=== PATIENT | female | born 1975 | race Caucasian/White ===

== ENCOUNTER → 2018-05-01 10:44 | Outpatient (CLI) | payer OTHER, SELFPAY | PROVIDERS: Family Provider Family Medicine; PCP Family Medicine; Visit Provider Obstetrics & Gynecology | DX: Z12.31 Encounter for screening mammogram for malignant neoplasm of breast (principal) | CPT/HCPCS: 77063; 77067 ==

== ENCOUNTER → 2018-07-03 10:55 | Outpatient (CLI) | payer OTHER, SELFPAY ==
[2018-07-03 11:19] LABS: Absolute Lymphocyte Count 1.51 X10^3/ul (0.83-4.51); Absolute Neutrophil Count 5.9 X10^3/uL (2.0-7.7); Basophil# 0.03 X10^3/uL; Basophil% 0.4 % (0-1); Eosinophil# 0.05 X10^3/uL; Eosinophils% 0.6 % (0-5); Hemoglobin 12.9 g/dl (12.0-15.0); Lymphocyte # 1.51 X10^3/ul (4.0); Lymphocyte % 18.3 % (19-41); Mean Corp Hgb Conc 32.3 g/gl (32-36); Mean Corpuscular Volume 86.8 fL (81-99); Mean Platelet Vol. 9.7 fl (6.2-12.0); Monocyte# 0.68 X10^3/uL; Monocyte% 8.3 % (0-10); Neutrophil # 5.94 X10^3/uL (2.7-7.7); Platelet Count 322 K/mm3 (150-450); RBC Distribution Width CV 13.1 % (11.6-14.6); RBC Distribution Width SD 40.5 fl (35.1-43.9); Red Blood Count 4.61 M/mm3 (4.2-5.4); White Blood Count 8.2 K/mm3 (4.4-11.0)
[2018-07-03 11:21] LABS: POSITIVE COUNT NO; POSITIVE DIFFERENTIAL NO; POSITIVE MORPHOLOGY NO
[2018-07-03 11:58] LABS: Thyroid Stim Hormone (TSH) 1.46 uIU/mL (0.358-3.74)
[2018-07-05 11:00] LABS: Testosterone Free 3.7 pg/mL (0.0-4.2)
[2018-07-07 15:17] LABS: HPV APTIMA, High Risk Negative (Negative)
== END ==
PROVIDERS: Family Provider Family Medicine; PCP Family Medicine; Referring Provider Obstetrics & Gynecology; Visit Provider Obstetrics & Gynecology
DX: Z12.4 Encounter for screening for malignant neoplasm of cervix (principal); N93.9 Abnormal uterine and vaginal bleeding, unspecified
CPT/HCPCS: 36415; 84402; 84443; 85025; 87624; 88175; G0145

== ENCOUNTER → 2018-07-07 12:40 | Outpatient (CLI) | payer OTHER, SELFPAY ==
--- NOTE | 2018-07-07 12:41 | US_ITS ---
STUDY: ULTRASOUND TRANSVAGINAL CLINICAL: Female, 42 years old. Irregular menses. TECHNIQUE: Transvaginal COMPARISON: None. FINDINGS: Normal uterine size measuring 9.4 cm in maximal craniocaudal dimension. There are no myometrial masses. The myometrium is mildly heterogenous. There are nabothian cysts present. Normal endometrial thickness measuring 6.7 mm. There are no endometrial masses, and there is no fluid in the endometrial cavity. Normal right ovary, measuring 3.6 x 2.6 x 2.1 cm. There are multiple follicles without a dominant cyst. Normal left ovary, measuring 3.4 x 3.1 x 2.0 cm. There are multiple follicles without a dominant cyst. There is trace free fluid in the pelvis. Polycystic ovary disease: No. US/Pelvic (Non ) IMPRESSION: Mildly heterogenous myometrium may reflect underlying adenomyosis. Electronically Signed: Emely Newby MD at 16:23 EDT Tel , Service support ,
--- NOTE | 2018-07-07 12:41 | US_ITS ---
STUDY: ULTRASOUND TRANSVAGINAL CLINICAL: Female, 42 years old. Irregular menses. TECHNIQUE: Transvaginal COMPARISON: None. FINDINGS: Normal uterine size measuring 9.4 cm in maximal craniocaudal dimension. There are no myometrial masses. The myometrium is mildly heterogenous. There are nabothian cysts present. Normal endometrial thickness measuring 6.7 mm. There are no endometrial masses, and there is no fluid in the endometrial cavity. Normal right ovary, measuring 3.6 x 2.6 x 2.1 cm. There are multiple follicles without a dominant cyst. Normal left ovary, measuring 3.4 x 3.1 x 2.0 cm. There are multiple follicles without a dominant cyst. There is trace free fluid in the pelvis. Polycystic ovary disease: No. US/Transvaginal Non- IMPRESSION: Mildly heterogenous myometrium may reflect underlying adenomyosis. Electronically Signed: Emely Newby MD at 16:23 EDT Tel , Service support ,
== END ==
PROVIDERS: Family Provider Family Medicine; PCP Family Medicine; Referring Provider Obstetrics & Gynecology; Visit Provider Obstetrics & Gynecology
DX: N93.9 Abnormal uterine and vaginal bleeding, unspecified (principal)
CPT/HCPCS: 76830; 76856

== ENCOUNTER 2018-07-11 12:07 | Outpatient (RCR) | payer OTHER, SELFPAY | END 2018-07-12 23:59 | LOC: NS 12:07 | PROVIDERS: Family Provider Family Medicine; PCP Family Medicine; Visit Provider Obstetrics & Gynecology | DX: E66.9 Obesity, unspecified (principal); Z68.37 Body mass index [BMI] 37.0-37.9, adult; Z71.3 Dietary counseling and surveillance | CPT/HCPCS: 97802; 97803 ==

== ENCOUNTER → 2018-07-12 10:02 | Outpatient (CLI) | payer OTHER, SELFPAY ==
[2018-07-12 12:44] LABS: Hemoglobin A1c 5.6 % (4.2-6.3)
[2018-07-12 12:58] LABS: Anion Gap 10 (5-15); BUN 16 mg/dL (7-18); BUN/Creat Ratio 20.9 RATIO (10-20); Calcium,Total 9.2 mg/dL (8.5-10.1); Chloride 102 mmol/L (98-107); Cholesterol 176 mg/dL (200); Creatinine, Serum 0.76 mg/dL (0.55-1.02); EST Glomerular Filtration Rate 87 mL/min (>60); Est Glom Filt Rate - Afr Amer 106 mL/min (>60); Glucose 87 mg/dL (74-106); High Density Lipoprotein 40 mg/dL; Potassium 4.5 mmol/L (3.5-5.1); Sodium Level 138 mmol/L (136-145); Thyroid Stim Hormone (TSH) 1.33 uIU/mL (0.358-3.74); Triglycerides 160 mg/dL; Very Low Density Lipoprotein 32 mg/dL (5-40)
== END ==
PROVIDERS: Family Provider Family Medicine; PCP Family Medicine; Visit Provider Family Medicine
DX: R03.0 Elevated blood-pressure reading, without diagnosis of hypertension (principal); E66.9 Obesity, unspecified
CPT/HCPCS: 36415; 80048; 80061; 83036; 84443

== ENCOUNTER 2018-07-25 12:57 | Outpatient (RCR) | payer OTHER, SELFPAY | END 2018-08-11 23:59 | LOC: NS 12:57 | PROVIDERS: Family Provider Family Medicine; PCP Family Medicine; Visit Provider Obstetrics & Gynecology | DX: E66.9 Obesity, unspecified (principal); Z68.37 Body mass index [BMI] 37.0-37.9, adult; Z71.3 Dietary counseling and surveillance | CPT/HCPCS: 97803 ==

== ENCOUNTER 2018-08-14 10:55 | Outpatient (RCR) | payer OTHER, SELFPAY ==
[2018-07-20 08:54] VITALS: BMI 37.4
== END 2018-09-11 23:59 ==
LOC: NS 10:55
PROVIDERS: Family Provider Family Medicine; PCP Family Medicine; Visit Provider Obstetrics & Gynecology
DX: E66.9 Obesity, unspecified (principal); Z68.37 Body mass index [BMI] 37.0-37.9, adult; Z71.3 Dietary counseling and surveillance
CPT/HCPCS: 97803

== ENCOUNTER 2018-09-18 09:05 | Outpatient (RCR) | payer OTHER, SELFPAY ==
[2018-08-30 10:49] VITALS: BMI 46.5
== END 2018-09-18 23:59 ==
LOC: NS 09:05
PROVIDERS: Family Provider Family Medicine; PCP Family Medicine; Visit Provider Obstetrics & Gynecology
DX: E66.9 Obesity, unspecified (principal); Z68.37 Body mass index [BMI] 37.0-37.9, adult; Z71.3 Dietary counseling and surveillance
CPT/HCPCS: 97803

== ENCOUNTER → 2019-01-31 10:05 | Outpatient (CLI) | payer OTHER, SELFPAY ==
[2018-10-18 09:29] VITALS: BMI 46.5
--- NOTE | 2019-01-31 10:45 | MRI_ITS ---
STUDY: MRI LEFT FOREFOOT WITHOUT CONTRAST REASON FOR EXAM: Hallux valgus deformity and surgery of the second toe for dislocation 10 years ago, evaluate plantar plate tear of the second metatarsophalangeal joint. TECHNIQUE: Standardized fat and water weighted pulse sequences were obtained in all 3 orthogonal planes. COMPARISON: None. FINDINGS: There is mild arthrosis with mild chondral thinning of the metatarsophalangeal joint of the hallux (T1 sagittal images 5, 6) and hallux valgus deformity. There are lateral subluxations of the sesamoids (T1 series 7 image 20). Normal interphalangeal joint of the hallux. Normal proximal and distal phalanges of the great toe. Normal medial and lateral heads of the flexor hallucis brevis tendons. Normal flexor and extensor hallucis longus tendons. There is lateral and dorsal subluxation of the second metatarsophalangeal joint and mild arthrosis with mild chondral thinning (T2 series 6 image 12). There is a tear of the medial aspect of the plantar plate of the second metatarsophalangeal joint (inversion recovery sagittal image 10; T2 series 8 images 15, 16). There is lateral deviation of the second and third digits at the metatarsophalangeal joints. Normal fourth and fifth fifth metatarsophalangeal (MTP) joints. Normal interphalangeal joints of the second through fifth toes. Normal proximal, middle and distal phalanges of the second through fifth toes. There is mild intermetatarsal bursitis of the third webspace (T2 series 8 images 18, 19). Normal flexor and extensor tendons of the second through fifth toes. Normal visualized metatarsi. Normal intrinsic muscles of the forefoot. There is a lobulated ganglion cyst plantar to the first metatarsal diaphysis (T2 series 6 image 14) measuring 1.9 cm in length. There is a small ganglion cyst at the dorsal lateral aspect of the proximal diametaphysis of the third metatarsal (T2 series 6 image 12) measuring 0.5 cm in transverse dimension. MRI/Lower Ext/No Jt/w/o IMPRESSION: Tear of the plantar plate of the second metatarsophalangeal joint with lateral and dorsal subluxation and mild arthrosis of the second metatarsophalangeal joint. Mild arthrosis of the first metatarsophalangeal joint with hallux valgus deformity. Mild intermetatarsal bursitis of the third webspace. Ganglion cyst plantar to the first metatarsal diaphysis. Small ganglion cyst adjacent to the proximal third metatarsal. Electronically Signed: Niko Feliciano MD at 10:08 EDT Tel , Service support ,
== END ==
PROVIDERS: Family Provider Family Medicine; PCP Family Medicine; Referring Provider Podiatrist; Visit Provider Podiatrist
DX: S93.145A Subluxation of metatarsophalangeal joint of left lesser toe(s), initial encounter (principal); M20.12 Hallux valgus (acquired), left foot
CPT/HCPCS: 73718

== ENCOUNTER → 2019-02-21 15:10 | Outpatient (CLI) | payer OTHER, SELFPAY ==
[2018-10-18 09:29] VITALS: BMI 46.5
[2019-02-21 18:20] LABS: Absolute Lymphocyte Count 1.47 X10^3/ul (0.83-4.51); Absolute Neutrophil Count 6.6 X10^3/uL (2.0-7.7); Basophil# 0.02 X10^3/uL; Basophil% 0.2 % (0-1); Eosinophil# 0.11 X10^3/uL; Eosinophils% 1.2 % (0-5); Hematocrit 40.7 % (37-47); Hemoglobin 13.1 g/dl (12.0-15.0); Lymphocyte # 1.47 X10^3/ul (4.0); Lymphocyte % 16.5 % (19-41); Mean Corp Hgb Conc 32.2 g/gl (32-36); Mean Corpuscular Hgb 27.8 pg (27.0-32.0); Mean Corpuscular Volume 86.2 fL (81-99); Mean Platelet Vol. 10.7 fl (6.2-12.0); Monocyte# 0.69 X10^3/uL; Monocyte% 7.7 % (0-10); Neutrophil % 74.1 % (47-70); Platelet Count 298 K/mm3 (150-450); RBC Distribution Width CV 13.8 % (11.6-14.6); RBC Distribution Width SD 43.5 fl (35.1-43.9); Red Blood Count 4.72 M/mm3 (4.2-5.4); White Blood Count 8.9 K/mm3 (4.4-11.0)
[2019-02-21 18:21] LABS: POSITIVE COUNT NO; POSITIVE DIFFERENTIAL NO; POSITIVE MORPHOLOGY NO
[2019-02-21 18:48] LABS: ALB/GLOB Ratio 1.3 RATIO (0.9-2.4); AST(SGOT) 21 U/L (15-37); Alanine Aminotransfer ALT/SGPT 37 U/L (13-56); Albumin, Serum 4.1 g/dL (3.2-5.0); Alkaline Phosphatase 79 U/L (45-117); Anion Gap 6 (5-15); BUN 17 mg/dL (7-18); BUN/Creat Ratio 20.7 RATIO (10-20); Calcium,Total 8.8 mg/dL (8.5-10.1); Chloride 105 mmol/L (98-107); Creatinine, Serum 0.82 mg/dL (0.55-1.02); EST Glomerular Filtration Rate 80 mL/min (>60); Est Glom Filt Rate - Afr Amer 97 mL/min (>60); Globulin 3.1 g/dL (2.2-4.2); Glucose 111 mg/dL (74-106); Potassium 3.9 mmol/L (3.5-5.1); Protein, Total 7.2 g/dL (6.4-8.2); Sodium Level 138 mmol/L (136-145)
== END ==
PROVIDERS: Family Provider Family Medicine; PCP Family Medicine; Referring Provider Family Medicine; Visit Provider Family Medicine
DX: Z01.818 Encounter for other preprocedural examination (principal)
CPT/HCPCS: 36415; 80053; 85025

== ENCOUNTER 2019-03-02 05:41 | Day surgery (SDC) | payer OTHER, SELFPAY ==
[2018-10-18 09:29] VITALS: BMI 46.5
--- NOTE | 2019-02-26 09:52 | EKG12_ITS ---
Test Reason : PRE OP/PALPS Blood Pressure : / mmHG Vent. Rate : 074 BPM Atrial Rate : 074 BPM P-R Int : 136 ms QRS Dur : 100 ms QT Int : 360 ms P-R-T Axes : 028 013 029 degrees QTc Int : 399 ms Normal sinus rhythm Low voltage QRS Borderline ECG Confirmed by MANE HEALY, ZEFERINO ([id number]), state editor ELY BALL ([id number]) on 02/27/2019 9:34:15 AM Referred By: Kirk Tan Confirmed By:ZEFERINO GILLIAM MD
[2019-03-02 06:05] LABS: Internal QC Validated? YES +Cl - CLEAR BKGD; Pregnancy, Urine Negative Negative
[2019-03-02 06:06] VITALS: BP 123/76; PULSE 73; RESP 16; TEMP 37.1; O2SAT 99; BMI 37.3
[2019-03-02] MEDS: Cefazolin 2 GM in 0.9% Normal Saline 100 ML IV (07:29)
--- NOTE | 2019-03-02 07:30 | BUN_PTH ---
PATIENT: AMANDA WALKER LOC: [facility] [place] U#:[id number] AGE/SX: 43/F ROOM: RE03/02/[address]: Dr. Kirk Tan DPM : 1975 BED: DIS: 03/02/2019 SPEC #: [id number] RECD: 03/02/19 16:10 STATUS: DANNA REKylee #: [id number] KALPESH: 03/02/19 07:[address]: Kirk Tan DEPT: SURGICAL PATHOLOGY RECD BY: Graham Thompson ENTERED: 03/05/19 10:03 SP TYPE: BUNION DEWEY DR: MD Dr. Lupillo Menedz MD Tissues: A - Bony tissue, NOS B - Bone of foot, NOS Procedures: Decalcification bone/plaque Surgery Specimen Level III HEADER OPERATION: First metatarsal cuneiform Lapidus arthrodesis with possible first toe PRE-OP DIAGNOSIS: Osteoarthritis, hallux valgus TISSUE SUBMITTED: A. Left bunion, B. Second metatarsophalangeal joint MICROSCOPIC DIAGNOSIS A. Left bunion: Fragment of bone with reactive changes clinically compatible with bunion. B. Second metatarsal joint: Fragments of osteocartilage with synovial tissue showing reactive changes. FA:jarred 03/08/19 MICROSCOPIC DESCRIPTION Slides are reviewed. GROSS DESCRIPTION A - Received in fixative is one container labeled with the patient's name and designated left bunion. The specimen consists of a cristina-yellow portion of bone measuring 2.5 x 2 x 0.9 cm. Filling Hauler sections are submitted in one cassette after decalcification. B - Received in fixative is one container labeled with the patient's name and designated second metatarsophalangeal joint. The specimen consists of five cristina portions of bone measuring in aggregate 1.2 x 1.1 x 0.6 cm. The specimen is totally submitted in one cassette after decalcification. / CE:jarred 03/05/19 TC:5 CPT: 12013 x2, 13277 x2
--- NOTE | 2019-03-02 07:30 | RAD_ITS ---
STUDY: Intraoperative study LEFT FOOT fluoroscopy 4 views CLINICAL: Female, 43 years old. Intraoperative study TECHNIQUE: 4 fluoroscopic views view(s) of the foot. COMPARISON: None. FINDINGS: 4 fluoroscopic images of the foot are provided. This is a intraoperative series. The operative studies demonstrate hardware involving the distal third second and proximal first metatarsophalangeal joints. There is fusion of the tarsometatarsal joints of the first digit. RAD/Foot min 3 Views IMPRESSION: 4 fluoroscopic intraoperative images with surgery in progress for the left foot. 1.05 minutes of fluoroscopy time was recorded. Electronically Signed: Leslie Helms MD at 16:58 EDT Tel , Service support ,
[2019-03-02] MEDS: Bupivacaine Mpf 0.5% 30 ML VIAL (10:56)
[2019-03-02] MEDS: Bupivacaine 0.5% PF 10 ML VIAL (10:57)
--- NOTE | 2019-03-02 11:10 | DCINST_ITS ---
Discharge Diet: Light diet - advance as tolerated Discharge Activity: May Not Drive, Use Crutches Weight Bearing Status: No weight bearing - No weightbearing left foot Keep extremity elevated above heart level: Left Leg - Keep left foot elevated using pillows for at least 50 minutes of every hour Call your doctor if your incision/area has: Continuous Slow Oozing, Sudden Increased Bleeding, Foul Smelling Discharge Call your doctor if you observe: Fever of 101 or Higher, Coldness, Increased Pain, Shortness of breath, Chest pain, Increased palpitations (irregular heartbeat), Calf discomfort, Uncontrolled pain Cleanse incision/area with: Do not get Incision Wet, Keep Dressing Clean & Dry Allergies/Adverse Reactions: Allergies No Known Allergies Allergy (Verified 02/23/19 15:16) Medications to take at Discharge levonorgestrel 19.5 mcg/24 hrs (5 yrs) 52 mg intrauterine device 1 insert INTRAUTERINE ONCE 10/18/18 Citalopram [Celexa] 20 mg PO DAILY 02/23/19 Cefadroxil [Duracef] 500 mg PO Q12H #14 cap 03/02/19 Oxycodone HCl/Acetaminophen [Percocet 5-325 mg Tablet] 1 - 2 tab PO Q6H #40 tab 03/02/19 Rivaroxaban [Xarelto] 10 mg PO DAILY #14 tab 03/02/19 The following prescriptions were given: Cefadroxil [Duracef] 500 mg PO Q12H #14 cap Prescription Printed Oxycodone HCl/Acetaminophen [Percocet 5-325 mg Tablet] 1 - 2 tab PO Q6H #40 tab Prescription Printed Rivaroxaban [Xarelto] 10 mg PO DAILY #14 tab Prescription Printed Primary Care Physician: Shanique Castaneda MD [Primary Care Provider] - Test Results: Test results from this visit will be discussed in further detail at your follow- up appointment, if applicable. Please Follow Up With: Kirk Tan DPM When: within 1 week, sooner if needed.
--- NOTE | 2019-03-02 11:11 | PCM.OPRPT ---
Report of Operation Date of Procedure: 03/02/19 Pre-Operative Diagnosis: Hallux valgus bunion, left foot. 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 Deformed contracted 3rd toe, left Post-Operative Diagnosis: Same Surgery/Procedure Performed:: 1st metatarsal cueniform lapidus arthrodesis bunionectomy, left. 2nd metatarsal phalangeal joint implant arthroplasty, repair of plantar plate and deformity correction, left. 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 Campos Type of Anesthesia:: General, Local Specimen's removed: Bunion from left foot sent to pathology. Bone from left 2nd metatarsal head sent to pathology Estimated Blood Loss (mL): 20mL Description of Procedure: Indications: This is a 43 year old female with painful left foot. She has significant bunion deformity, as well as 2nd metatarsal phalangeal joint (MTPJ) arthritis, torn 2nd MTPJ plantar plate with significant deformity of the 2nd and 3rd toe. This has been treated with extensive conservative/nonsurgical management for many years, but symptoms persists and she continues to have limiting pain and symptoms. Given the findings and because she continues to have significant pain which is really bothering her and she is having difficulty with daily activities and shoes, she elected to undergo surgery. We discussed the procedures. We reviewed the rationale of each as well as the possible benefits, risks, goals and expectations of each.This was discussed with her in great detail, reviewed the possible benefits vs risks and potential complications. Typical post op recovery was reviewed with her. The consent forms were reviewed with her in detail, and she freely signed them. No guarantees were given nor implied. No warrantees were given. All of her questions were answered. Operative Procedure: The patient was brought back into the operating room and was placed on the operating room table in the supine position. She was carefully secured to the operating room table with a safety belt around her waist. A time out was performed and the patient was properly identified and the surgical plan was confirmed. The patient received 2 grams of IV Ancef for antibiotic prophylaxis. A well padded pneumatic tourniquet was applied around the left thigh. The patient did receive general anesthesia per the anesthesiologist. A total of 20mL of 0.5% Bupivacaine plain was given as a regional infiltrative nerve block around the left foot surgical sites after the overlying skin was cleansed with 70% isopropyl alcohol. The left foot was scrubbed, prepped, draped in the usual aseptic fashion. Attention was directed to the left foot. There is significant deformity of the 1-3 toes, with significant bunion deformity, hypermobile 1st ray, and gross instability to the 2nd and 3rd toes at MTPJ level. The left foot was elevated for 3 minutes and the left thigh pneumatic tourniquet was inflated to 350mmHg. Left foot bunion deformity: A linear longitudinal skin incision was medially along the medial 1st metatarsal cuneiform joint as well as overlying the 1st metatarsal phalangeal joint. This was done using a 15 blade. Careful dissection was completed down to the capsule of the 1st metatarsal cuneiform joint, and it was incised using a 15 blade and partially reflected exposing the joint surfaces. All cartilage from the joint surfaces (posterior aspect of the base of the 1st metatarsal and the anterior aspect of the medial cuneiform) were debrided away and was removed down to bleeding bone. This was done with a powered rasp as well as manually with a curette, being sure not to cause osteonecrosis. The site was flushed out with copious amounts of normal saline solution. The surfaces were fenestrated using a powered drill as well as with an osteotome to aid fusion. The 1st metatarsal was reduced into normal position. The site was fixated use rigid open reduction internal fixation, using 1 Arthrex plantar plate, using a total of 4 locking screws and 1 nonlocking compression screws. The compression screw was placed across the fusion site. There was good compression and bone to bone contract with the prepped fusion site, in good alignment. The fusion site was rigid and very stable. This was checked and confirmed with intraoperative fluoroscopy. There was noted to be a residual medial eminence to the 1st metatarsal head. Careful dissection was completed down to the 1st metatarsal phalangeal joint capsule and it was incised, it was partially reflected. The 1st MTPJ was visualized, there was some chronic degenerative changes noted to the joint cartilage with thinning present. The medial eminence of noted to have scar tissue around it. The site was flushed out with copious amounts of normal saline solution, and the medial eminence was resected using a powered sagittal saw, the bone was sent to pathology. There was also noted to be significant contracture of the cojoined tendon of the adductor hallucis preventing proper reduction of the hallux, therefore it was carefully released using a 15 blade. There was redundant capsule at the site was a medial capsulorraphy was completed, debulking the medial capsule and tightening it how it is suppose to be. This was done with 3-0 Vicryl. There was smooth gliding range of motion of the 1st metatarsal phalangeal joint. There was excellent alignment. The surgical site was flushed out with copious amounts of normal saline solution. Tissues were healthy and viable at this time. The joint capsules and subcutaneous tissue layers were reapproximated using 2-0 and 3-0 Vicryl and the skin was reapproximated using 4-0 Monocryl. Left 2nd MTPJ and 2nd toe: Using a 15 blade a longitudinal skin incision was overlying the dorsal aspect of the 2nd metatarsophalangeal joint (MTPJ). Careful blunt dissection was completed down through the subcutaneous layer to the dorsal 2nd MTPJ capsule. The capsule of the 2nd MTPJ was identified and was carefully incised dorsally, it was carefully reflected from the dorsal, medial and lateral aspect, exposing the 2nd metatarsal head and base of the proximal phalanx of the 2nd toe. There was noted to be significant degenerative changes of the 2nd metatarsal head with a central cartilage defect. There was significant osteophytes present to the 2nd metatarsal head. The cartilage on the base of the 2nd toe proximal phalanx was intact. A guide wire was placed centrally and perpendicular to the 2nd metatarsal head and was placed down the shaft of the 2nd metatarsal. This was checked using intraoperative fluoroscopy. A step drill was used to prepare the screw hole to the 2nd metatarsal head. The appropriate taper post fixation component was inserted in standard fashion. A reamer was using to remove the damaged cartilage to creat a socket for the implant. The excised bone / cartilage was sent to pathology for further evaluation. It is important to note that all osteophytes were removed from the 2nd metatarsal head. The Arthrosurface implant was ready to be inserted, however prior to this the plantar plate was visualized, it was noted that the plantar plate was torn at the level of the 2nd MTPJ with thickening present. The plantar plate of the 2nd MTPJ was reapproximated and repaired with the Arthrex CRP Scorpion hand piece and 0 FiberWire. The FiberWire was weaved through the plantar plate. Two drill holes were made to the base of the 2nd toe proximal phalanx extra-articular in standard fashion, and the FiberTape was placed through the drill holes. The base of the 2nd toe proximal phalanx was rasped on the plantar aspect to aid healing of the plantar plate to the base of the 2nd toe. The Arthrosurface implant was placed into the prepared distal 2nd metatarsal surface. It was tamped in place. It was noted to be stable and in good position, this was confirmed using intra operative fluoroscopy. The FiberTape was tied down overlying the dorsal aspect of the base of the proximal phalanx of the 2nd toe with the 2nd toe in plantarflexed position. At this time there was negative dorsal drawer and there was complete repair of the plantar plate. The toe had overall improved position however there was still significant lateral deviation present due to insufficiency of the medial 2nd MTPJ collateral ligament and flexor tendons, which were reconstructed and stabilized using an Arthrex internal brace. A drill hole was placed from dorsal to plantar at the level of the 2nd metatarsal shaft and FiberTape was pass through the drill hole from dorsal to plantar, and a BioComposite SwiveLock was placed to lock the FiberTape in place. A second drill hole was placed transversely through the shaft of the 2nd toe proximal phalanx and the FiberTape was passed from medial to lateral. The 2nd toe was placed in proper position tensioning the FiberTape, and securing this position with a BioComposite SwiveLock placed to the drill hole. The site was flushed out with copious amounts of normal saline solution. The joint capsule was reapproximated using 3-0 Vicryl, the subcutaneous tissue layer was reapproximated using 4-0 Vicryl, and the skin was reapproximated using 4-0 Monocryl. Left 3rd toe: Attention was directed to the 3rd toe. With the 1st and 2nd toes now in proper position there was large gap between the 2nd and 3rd toes with continued instability to the 3rd toe/3rd MTPJ. A longitudinal incision was made overlying the dorsal 3rd MTPJ. Careful dissection was completed down to the 3rd MTPJ capsule. There was noted to be significant contracture of the lateral 3rd MTPJ capsule which was released using a 15 blade. The extensor tendons to the 3rd toe were bowstring and very tight, they were lengthened with a 15 blade. The toe had overall improved position however there was still significant lateral deviation present due to insufficiency of the medial 2nd MTPJ collateral ligament and flexor tendons (the plantar plate was intact). These were reconstructed and stabilized using an Arthrex suture button internal brace. A drill hole was placed from dorsal to plantar at the level of the 3rd metatarsal shaft and FiberTape was pass through the drill hole from dorsal to plantar with suture button sitting on the dorsal 3rd metatarsal shaft. A second drill hole was placed transversely through the shaft of the 3rd toe proximal phalanx and the FiberTape was passed from medial to lateral. The 3rd toe was placed in proper position tensioning the FiberTape, and securing this position with a BioComposite SwiveLock placed to the drill hole. The site was flushed out with copious amounts of normal saline solution. The subcutaneous tissue layer was reapproximated using 3-0 Vicryl, and the skin was reapproximated using 4-0 Monocryl. At this time the 1st, 2nd and 3rd MTPJs and toes were in good position. They were put through range of motion and noted to be gliding smoothly. All fixation was stable and in good position. This was confirmed with intra operative fluoroscopy. Cavilon was painted to the sutured skin edges and steristrips were applied across the sutured skin incision. During this procedure an additional 15mL of 0.5% Bupivacaine plain was given as a regional infiltrative nerve block around the 1st, 2nd and 3rd ray surgical sites for further pain control. All vital structure, including all vital neurovascular structures were properly identified and protected as necessary throughout the procedure. Of note a left thigh pneumatic tourniquet was used. It was inflated at the beginning of the procedure after elevating the foot for 3 minutes. It was left down at 120 minutes. It remained down for 59 minutes and then re-inflated for an additional 30 minutes. At the end of the procedure when it was left down there was normal perfusion to the foot, including to all toes, with normal CFT. Temperature was normal. Hemostasis was achieved. A dressing was applied which consisted of Betadine soaked adaptic, 4x4 gauze, Kerlix and vishnu dressing to the left foot. The patient tolerated the above operative procedure well at the anesthesia well with no complications. The patient was transported to the recovery room with vital signs stable and in good condition. Post operative orders were placed. Post operative instructions were reviewed with her as well as with her who was with her today. No weightbearing left foot, keep left foot elevated for at least 50 minutes of every hour, keep dressing clean, dry and intact. Prescription for Percocet 5mg/325mg was prescribed: 1-2 tabs PO q 6 hours PRN pain for pain control. Also Xarelto 10mg once a day was prescribed to help prevent a blood clot. Cefadroxil 500mg PO q 12 hours to help prevent infection. Reviewed possible benefits vs risks of the medications with patient and her . Post operative xrays were obtained in the recovery room which confirmed 1st metatarsal phalangeal joint Lapidus arthrodesis bunionectomy, 2nd MTPJ implant arthroplasty and realignment of the 2nd and 3rd toes in good position. There was excellent bone to bone contract at the fusion site with no gapping and intact hardware. Otherwise no acute changes and stable xrays. Grafts/Implants Used: Arthrex plantar plate, arthrosurface implant, internal brace x 2 - Admit VTE Documentation VTE Pharm Prophylaxis ordered?: Yes
[2019-03-02 11:15] VITALS: BP 123/76; BP 132/74; PULSE 79; RESP 16; TEMP 36.1; O2SAT 98
[2019-03-02 11:30] VITALS: BP 116/67; BP 123/76; PULSE 73; PULSE 75; RESP 16; O2SAT 93; O2SAT 94
--- NOTE | 2019-03-02 11:43 | RAD_ITS ---
HISTORY: Status post surgery and oral area of left foot, follow-up XR Foot Min 3 Views TECHNIQUE: 3 views # of images incl. paperwork: 3 COMPARISON: Intraoperative spot views performed earlier same day. No other comparisons were provided. FINDINGS: Status post fusion of the first tarsometatarsal joint with transverse fusion screw through the first and second cuneiform bones. Screw arthrodesis of the second MTP. [place] pin head of third metatarsal. Alignment is satisfactory. Mild degenerative changes first MTP. Expected postoperative changes within the soft tissues. RAD/Foot min 3 Views IMPRESSION: 1. Status post ORIF of the left foot as described above with satisfactory alignment. at 1356 Reported and signed by: Valerio Hahn MD Electronically Signed: Valerio Hahn MD at 13:55 EDT Tel , Service support ,
[2019-03-02 11:45] VITALS: BP 122/73; BP 123/76; PULSE 74; RESP 16; O2SAT 94
[2019-03-02 12:01] VITALS: BP 118/75; BP 123/76; PULSE 74; RESP 16; TEMP 36.1; O2SAT 92
[2019-03-02 14:26] VITALS: BP 117/71; BP 123/76; PULSE 78; RESP 16; TEMP 36.6; O2SAT 96
== END 2019-03-02 14:58 | disposition home or self-care (01) ==
LOC: SDC 05:41 → AC 05:42
PROVIDERS: Family Provider Family Medicine; PCP Family Medicine; Referring Provider Podiatrist; Visit Provider Podiatrist
PROC: (CPT 28292; principal; 2019-03-02 07:15)
DX: M20.12 Hallux valgus (acquired), left foot (principal); M21.612 Bunion of left foot; M19.072 Primary osteoarthritis, left ankle and foot; M20.5X2 Other deformities of toe(s) (acquired), left foot; S93.525A Sprain of metatarsophalangeal joint of left lesser toe(s), initial encounter; X58.XXXA Exposure to other specified factors, initial encounter; F41.9 Anxiety disorder, unspecified; F32.9 Major depressive disorder, single episode, unspecified; E66.9 Obesity, unspecified; Z68.37 Body mass index [BMI] 37.0-37.9, adult; Z79.899 Other long term (current) drug therapy
CPT/HCPCS: 28270; 28297; 28899; 73630; 76000; 81025; 88304; 88311; 93005; C1713; C1776; J7120; J2405

== ENCOUNTER 2019-05-11 09:30 | Outpatient (RCR) | payer OTHER, SELFPAY ==
[2018-10-18 09:29] VITALS: BMI 46.5
--- NOTE | 2018-12-13 12:04 | HP.PTCOM ---
PT Communication Note 12/13/[address] 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 She was reviewing her insurance coverage without front desk specialist and decided to hold off on PT and attempt the use of her pain relieving cream. We will hold onto her order if she decides to attempt to resume PT later. Thank you again for this referral. Sincerely, Oleksandr Trevizo DPT Contact Information
--- NOTE | 2018-12-13 12:07 | HP.PTCOM_ITS ---
PT Communication Note 12/13/[address] 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 We will hold onto her order if she decides to attempt to resume PT later. Thank you again for this referral. Sincerely, Oleksandr Trevizo DPT Contact Information
--- NOTE | 2019-04-30 13:58 | HP.PTEVAL_ITS ---
Patient's Visit Information AMANDA WALKER is a 43 year old F referred to Physical Therapy by Kirk Tan DPM with a diagnosis of s/p Left Foot Surgery- see script for details. Date of Evaluation: 04/30/19 Physical Therapist: Ilene Gill DPT - Visit Plan Frequency: 2x /Week Duration: 4 Weeks Plan: Pt can be WB in shoe in clinic- focus on ROM, strength, balance and muscular endurance- caution of increased pain with WB through toes. 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 Surgery was March [address] Tan at [facility]- outpatient. 2 story home- was just able to start walking in the boot in the morning and evenings- stairs are challenging. Was non-weight for 4 weeks with an vishnu bandage- then placed her in a boot- crutches for a few days then used a knee walker. Slowed into WBAT in the boot. Is now in the boot 100% with no AD. Saw Dr. Tan 3 weeks ago x-rays everything looks great. He allows her to be out of the boot in the AM and PM but boot during the day. 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 Worst: 2/10 Agg: being up on it. There was some nerve damage on the 3rd toe and she can't bend it herself and it feels funny- and does have numbness along the outside of the foot. Describes the pain as dull and achy. Best: 0/10 Eases: getting off of her feet. Takes about 5-10 min then its painfree. Walks barefoot in her home and there is pain and as she uses it the pain diminishes- worse when she first gets on it. Pain is located along medial border of the foot and in the 2nd and 3rd toe. No problems with hot/cold sensations. Normal day she is always on the go but she does not do any exercise. 1/2 and 1/2 on whether in Nike sandles or heels. Did have custom orthotics leading to surgery but has not used them since surgery. Sleep: not disturbed- side and stomach sleeper. PMHx/Meds: not taking Citalopram other than that everything is the same. - Objective Posture:fair throughout treatment session. Gait: slightly antalgic- increased toe out on the right vs left (4 toes right- 0 toes left). Decreased stance phase on the left with poor heel/toe pattern. HR/TR: TR: diminished by 50%, HR: diminished by 25% pain with HR in metarsals. SLS: 6 seconds then LOB- righted by UE. Girth: Mall: 28.5 cm, Figure 8: 55 cm Mets: 24 cm. Palpation: tender along medial arch and 1st ray- tender along 2nd and 3rd metarsals- appropriate amount of movement in forefoot as per surgical allowance. ROM: DF: neutral, PF: 50 degrees, Inv: 40 Ever: 30 degrees. Strength: 5/5 throughout available range. Flex: HS: severe, Gastroc: severe Solues: mild - Goals Goal 1:: Patient will be I with HEP and progression Goal Time Frame: 4-6 Weeks Goal 2:: Patient will ambulate >300 feet with a normalized gait pattern Goal Time Frame: 4-6 Weeks Goal 3:: Patient will single leg stance for 30 sec without LOB and no increase in s/s in left LE Goal Time Frame: 4-6 Weeks Goal 4:: Patient will demo 10 degrees of DF to ease all ADL's Goal Time Frame: 4-6 Weeks - Rehabilitation Potential Physical Therapy Diagnosis: Patient presents with hypomobility s/p left foot surgery. She has decreased ROM, strength, flexibility and muscular endurance leading to abnormal gait pattern and decreased ability to peform painfree ADL's. Rehabilitation Potential: Good - Anticipated Interventions Patient/Client Instruction: Educate patient on: Benefits of Fitness Program Therapeutic Exercise to Include: Strength training, Endurance training, Balance training, Body mechanics, Postural training, Flexibilty training, Gait and locomotor training, Dynamic Lumbar Stabilization For the Purpose of:: To improve muscle performance and motor function Functional Training to Include: Gait training Cryotherapy (ice pack, ice massage): Yes Thermo therapy (hot pack): Yes Ultrasound (thermal/non thermal): No For the Purpose of:: To decrease pain, To decrease swelling/inflammation Thank you for the opportunity to evaluate your patient. For Medicare and Medicare HMO plans, please review the plan of care and approve it. It will need to be FAXED BACK to us at [phone] for Medicare purposes. For Medicare only, by signing this I certify the plan of care. Please let me know if there are questions or concerns regarding this plan of care. Physician Signature: Date:
--- NOTE | 2019-06-22 09:34 | HP.PTDCNRP_ITS ---
HP - Discharge Summary (1) - Patient Information AMANDA WALKER was seen in my office for initial evaluation on 04/30/19. The following Plan of Care was established for this patient: Initial Frequency: 2x /Week Initial Duration: 4 Weeks - Anticipated Interventions Patient/Client Instruction: Educate patient on: Benefits of Fitness Program Therapeutic Exercise to Include: Strength training, Endurance training, Balance training, Body mechanics, Postural training, Flexibilty training, Gait and locomotor training, Dynamic Lumbar Stabilization For the Purpose of:: To improve muscle performance and motor function Functional Training to Include: Gait training Cryotherapy (ice pack, ice massage): Yes Thermo therapy (hot pack): Yes Ultrasound (thermal/non thermal): No For the Purpose of:: To decrease pain, To decrease swelling/inflammation This patient was last seen in our office . Pertinent comments regarding their Physical therapy will appear below: Patient has not attended PT in 4 weeks and is appropriate for d/c- return to MD for further evaluation as needed. At this point I will be discontinuing this patient from physical therapy. I would be happy to see this patient again in the future if found appropriate by t he physician. Thank you! GATO HectorT
== END 2019-05-11 19:00 | disposition home or self-care (01) ==
LOC: PT 09:30
PROVIDERS: Family Provider Family Medicine; PCP Family Medicine; Referring Provider Podiatrist; Visit Provider Podiatrist
DX: Z98.890 Other specified postprocedural states (principal)
CPT/HCPCS: 97110; 97140; 97162

== ENCOUNTER 2020-01-15 22:52 | Observation (INO) | payer OTHER, SELFPAY ==
[2020-01-15 22:53] VITALS: BP 131/87; PULSE 105; RESP 19; TEMP 36.6; O2SAT 100; BMI 32.0
--- NOTE | 2020-01-15 23:06 | EKG12_ITS ---
Test Reason : ABD PAIN Blood Pressure : / mmHG Vent. Rate : 073 BPM Atrial Rate : 073 BPM P-R Int : 134 ms QRS Dur : 104 ms QT Int : 394 ms P-R-T Axes : 003 020 049 degrees QTc Int : 434 ms Normal sinus rhythm Normal ECG Confirmed by RACHELLE MURPHY ([id number]), household chores LIBIA WHARTON ([id number]) on 01/17/2020 3:02:33 PM Referred By: MAURICIO Confirmed By:RACHELLE MURPHY
--- NOTE | 2020-01-15 23:06 | US_ITS ---
STUDY: ABDOMINAL ULTRASOUND - RIGHT UPPER QUADRANT REASON FOR VISIT: Female, 44 years old EPIGASTRIC SEVERE JUST TODAY TECHNIQUE: Ultrasound evaluation of the right upper quadrant was performed with real-time and static jay-scale imaging. TECHNICAL QUALITY: Adequate. COMPARISON: None. FINDINGS: Liver: The liver measures 16.8 cm. There is normal echogenicity of the liver. The bile ducts are within normal limits. There is hepatic color flow. The direction of portal flow is hepatopetal. There is no demonstrated mass lesion. Gallbladder: Normal distended gallbladder. The gallbladder wall measures 3 mm. There is a positive sonographic Montaño''s sign. There is no pericholecystic fluid. Several small shadowing stones. Common Bile Duct (C.B.D.): The common bile duct measures 4 mm. Pancreas: Demonstrated portions of the pancreas are unremarkable. The tail is not seen. Right Kidney: Normal size of the right kidney. The right kidney measures 10.9 x 5.2 x 4.3 cm. Normal renal cortex. The right cortex measures 2 cm. There is no demonstrated renal mass or cyst. There is no right hydronephrosis. US/Abdomen Limited IMPRESSION: 1. Cholelithiasis and positive sonographic Montaño''s sign consistent with acute cholecystitis. Electronically Signed: Regina Bhatia MD at 23:48 EDT Tel , Service support ,
--- NOTE | 2020-01-15 23:08 | ED.VIS.GEN ---
History of Present Illness Chief Complaint: Abd Pain Informant: Patient Onset: Today Current Severity: Severe Maximum Severity: Severe Narrative: Patient presents with upper abdominal pain that started around 4 PM this afternoon. It was not necessarily just after a meal. Pain does not radiate up into her chest. She has had nausea but no vomiting. She denies fever or chills. She is a history of diverticulitis but states she is never had pain in this area of her abdomen or the severe. No prior abdominal surgeries. She just finished her menstrual cycle for 5 days ago. 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 Denies: Vomiting, Diarrhea Genitourinary: Denies: Dysuria, Hematuria Musculoskeletal: Denies: Swelling, Extremity Pain Skin: Denies: Rash Neurological: Denies: Headache Hematologic: Denies: Easy bruising, Easy bleeding Allergy: Denies: Uticaria Physical Exam Vital Signs/Narrative: Vital Signs Temp Pulse Resp BP Pulse Ox 01/15/20 22:53 97.8 F 105 H 19 H 131/87 H 100 Inital Vital Signs reviewed: Yes General: Well nourished, Well developed, - - Uncomfortable and moaning Head: Normocephalic ENT: Moist mucous membranes Neck: Supple Cardiovascular: Regular rate, Regular rhythm Respiratory: No distress, CTA bilaterally Abdomen: Soft, Tender - Epigastric and right upper quadrant tenderness.. Negative for: Guarding, Rebound tenderness Extremities: Nontender Skin: Normal color Neurological: Alert, Oriented x3 Psychological: Normal affect Diagnostic/Tx/Re-eval Impressions Abdomen Ultrasound 01/15/20 23:06 IMPRESSION: 1. Cholelithiasis and positive sonographic Montaño''s sign consistent with acute cholecystitis. Electronically Signed: Regina Bhatia MD at 23:48 EDT Tel , Service support , 01/15/20 23:06 US Abd [Abdomen Limited] [US] Stat Laboratory Results 01/15/20 01/15/20 23:10 23:10 WBC 12.5 H RBC 4.52 Hgb 13.4 Hct 40.0 MCV 88.5 MCH 29.6 MCHC 33.5 RDW Std Deviation 39.8 RDW Coeff of Richie 12.2 Plt Count 259 MPV 10.0 Immature Gran % (Auto) 0.500 Neut % (Auto) 80.8 H Lymph % (Auto) 11.4 L [place] % (Auto) 6.5 Eos % (Auto) 0.4 Baso % (Auto) 0.4 Absolute Neuts (auto) 10.1 H Absolute Lymphs (auto) 1.43 Nucleated RBC % 0 Sodium 138 Potassium 3.9 Chloride 106 Carbon Dioxide 25.0 Anion Gap 7 BUN 8 Creatinine 0.80 Estim Creat Clear Calc 89.58 Est GFR (MDRD) Af Amer 100 Est GFR (MDRD) Non-Af 83 BUN/Creatinine Ratio 10.0 Glucose 156 H Calcium 9.1 Total Bilirubin 1.10 H Direct Bilirubin 0.40 H AST 124 H ALT 101 H Alkaline Phosphatase 88 Total Protein 7.1 Albumin 4.0 Globulin 3.1 Lipase 86 - EKG Initial EKG Interpretation: Sinus Rhythm - Sinus at 73 with no acute ischemia. - Medical Decision Making Patient was quite uncomfortable on arrival. She was given Dilaudid and Zofran. Test results are discussed with the patient. I spoke with Dr. Watson. He will admit the patient, keep her n.p.o., and repeat labs in the morning. He will see the patient in the morning to decide whether surgery will be indicated. ED Disposition - Plan for ED Patient: Disposition: Acute Care Hospital [facility] Diagnosis: Cholelithiasis Referrals: Shanique Castaneda MD [Primary Care Provider] -
[2020-01-15] MEDS: HYDROmorphone 0.5 MG/0.5 ML SYRINGE IV (23:11)
[2020-01-15] MEDS: Ondansetron 4 MG/2 ML Vial IV (23:11)
[2020-01-15] MEDS: 0.9% Normal Saline 1,000 ML 150 ML IV (23:16)
[2020-01-15 23:28] LABS: Absolute Lymphocyte Count 1.43 X10^3/uL (0.83-4.51); Absolute Neutrophil Count 10.1 X10^3/uL (2.0-7.7); Basophil# 0.05 X10^3/uL; Basophil% 0.4 % (0-1); Eosinophil# 0.05 X10^3/uL; Eosinophils% 0.4 % (0-5); Hemoglobin 13.4 g/dL (12.0-15.0); Lymphocyte # 1.43 X10^3/ul (4.0); Lymphocyte % 11.4 % (19-41); Mean Corp Hgb Conc 33.5 g/dL (32-36); Mean Corpuscular Hgb 29.6 pg (27.0-32.0); Mean Corpuscular Volume 88.5 fL (81-99); Monocyte# 0.82 X10^3/uL; Monocyte% 6.5 % (0-10); NRBC Flagged by Analyzer 0 % (0-5); Neutrophil # 10.13 X10^3/uL (2.7-7.7); Neutrophil % 80.8 % (47-70); Platelet Count 259 K/mm3 (150-450); RBC Distribution Width CV 12.2 % (11.6-14.6); RBC Distribution Width SD 39.8 fl (35.1-43.9); Red Blood Count 4.52 M/mm3 (4.2-5.4); White Blood Count 12.5 K/mm3 (4.4-11.0)
[2020-01-16] VITALS (19 sets, daily range): BP systolic 89–130; BP diastolic 53–83; PULSE 68–95; RESP 14–18; TEMP 36.5–37; O2SAT 96–100; BMI 31.5
--- NOTE | 2020-01-16 | GALL_PTH ---
PATIENT: AMANDA WALKER LOC: MS3 U#:[id number] AGE/SX: 44/F ROOM: MS319 RE01/16/[address]: Dr. Gunner Watson MD : 1975 BED: 1 DIS: 01/17/2020 SPEC #: [id number] RECD: 01/16/20 14:14 STATUS: DANNA REKylee #: [id number] KALPESH: 01/16/20 00:[address]: Gunner Watson DEPT: SURGICAL PATHOLOGY RECD BY: Florencio Haas ENTERED: 01/17/20 10:11 SP TYPE: LIZ PALOMO DR: Dr. Shanique Castaneda MD Tissues: Gallbladder, NOS Procedures: Surgery Specimen Level III HEADER OPERATION: Laparoscopic cholecystectomy with IOC PRE-OP DIAGNOSIS: Cholelithiasis, acute cholecystitis, choledocholithiasis TISSUE SUBMITTED: Gallbladder MICROSCOPIC DIAGNOSIS Gallbladder, cholecystectomy: Cholesterolosis, chronic cholecystitis and cholelithiasis. AM:jarred 01/18/20 MICROSCOPIC DESCRIPTION Slides are reviewed. GROSS DESCRIPTION Received is one container labeled with the patient's name and designated gallbladder. The specimen consists of a gallbladder measuring 6.5 cm in length and 2 cm in diameter. The external surface is pink-cristina, smooth and glistening for the most part. Focally it is granular, hemorrhagic and contains cautery artifact. A portion of cystic duct is also noted measuring 1 cm in length. The gallbladder contains a small amount of green-yellow mucoid bile and multiple mulberry, yellow stones measuring in aggregate 1 x 1.3 x 0.5 cm and 0.1 to 0.2 cm in greatest dimension. The mucosa also shows several yellowish streaks consistent with cholesterolosis. The mucosa is bile-stained and without any mass lesions. The gallbladder wall measures up to 0.2 cm in thickness. [employer] sections from the gallbladder and the cystic duct are submitted in one cassette. / SJ:jarred 01/17/20 TC:3 CPT: 47679
[2020-01-16 00:12] LABS: AST(SGOT) 124 U/L (15-37); Alanine Aminotransfer ALT/SGPT 101 U/L (13-56); Alkaline Phosphatase 88 U/L (45-117); Anion Gap 7 (5-15); BUN 8 mg/dL (7-18); Calcium,Total 9.1 mg/dL (8.5-10.1); Chloride 106 mmol/L (98-107); EST Glomerular Filtration Rate 83 mL/min (>60); Est Glom Filt Rate - Afr Amer 100 mL/min (>60); Estimated Creatinine Clearance 89.58 ml/min; Globulin 3.1 g/dL (2.2-4.2); Glucose 156 mg/dL (74-106); Lipase 86 U/L (73-393); Potassium 3.9 mmol/L (3.5-5.1); Protein, Total 7.1 g/dL (6.4-8.2); Sodium Level 138 mmol/L (136-145)
[2020-01-16 01:03] LABS: Internal QC Validated? YES +Cl - CLEAR BKGD; Pregnancy, Serum, hCG Quali. NEGATIVE Negative
[2020-01-16] MEDS: 0.9% Normal Saline 1,000 ML 100 ML IV ×3 (02:46→17:16)
[2020-01-16 07:29] LABS: Absolute Lymphocyte Count 0.94 X10^3/uL (0.83-4.51); Absolute Neutrophil Count 4.9 X10^3/uL (2.0-7.7); Basophil# 0.03 X10^3/uL; Basophil% 0.5 % (0-1); Eosinophil# 0.01 X10^3/uL; Eosinophils% 0.2 % (0-5); Hematocrit 38.7 % (37-47); Hemoglobin 12.6 g/dL (12.0-15.0); Lymphocyte # 0.94 X10^3/ul (4.0); Lymphocyte % 14.6 % (19-41); Mean Corp Hgb Conc 32.6 g/dL (32-36); Mean Corpuscular Hgb 29.4 pg (27.0-32.0); Mean Corpuscular Volume 90.2 fL (81-99); Mean Platelet Vol. 10.1 fl (6.2-12.0); Monocyte# 0.54 X10^3/uL; Monocyte% 8.4 % (0-10); NRBC Flagged by Analyzer 0 % (0-5); Neutrophil # 4.89 X10^3/uL (2.7-7.7); Platelet Count 237 K/mm3 (150-450); RBC Distribution Width CV 12.3 % (11.6-14.6); RBC Distribution Width SD 40.5 fl (35.1-43.9); Red Blood Count 4.29 M/mm3 (4.2-5.4); White Blood Count 6.4 K/mm3 (4.4-11.0)
[2020-01-16 07:51] LABS: ALB/GLOB Ratio 1.1 RATIO (0.9-2.4); AST(SGOT) 527 U/L (15-37); Alanine Aminotransfer ALT/SGPT 539 U/L (13-56); Albumin, Serum 3.3 g/dL (3.2-5.0); Alkaline Phosphatase 98 U/L (45-117); Anion Gap 5 (5-15); BUN 6 mg/dL (7-18); BUN/Creat Ratio 8.1 RATIO (10-20); Calcium,Total 8.2 mg/dL (8.5-10.1); Chloride 109 mmol/L (98-107); Creatinine, Serum 0.74 mg/dL (0.55-1.02); EST Glomerular Filtration Rate 90 mL/min (>60); Est Glom Filt Rate - Afr Amer 109 mL/min (>60); Estimated Creatinine Clearance 96.85 ml/min; Globulin 2.9 g/dL (2.2-4.2); Glucose 95 mg/dL (74-106); Lipase 59 U/L (73-393); Potassium 4.4 mmol/L (3.5-5.1); Protein, Total 6.2 g/dL (6.4-8.2); Sodium Level 141 mmol/L (136-145)
--- NOTE | 2020-01-16 08:26 | HP.PCM_ITS ---
Problem List (1) Acute cholecystitis Status: Acute (2) Choledocholithiasis with acute cholecystitis Status: Acute History of Present Illness Date of Admission: 01/16/20 The patient is a 44 year old F who began to have abdominal pain yesterday. She describes her pain in the epigastric region radiating to the back. She said that she did not have any vomiting. She denies any fevers or chills. Past Medical History Past Medical History (Chronic Problems): Chronic Problems (Last Reviewed 10/18/18 @ 08:42 by Valentina Joyce) Anxiety (Chronic) Hypertension (Chronic) ASCUS of cervix with negative high risk HPV (Chronic) repeat pap in 3 yr Medical History: Medical History (Last Reviewed 10/18/18 @ 08:42 by Valentina Joyce) Anxiety F41.9 Heart palpitations R00.2 Hypertension I10 Allergies No Known Allergies Allergy (Verified 01/15/20 22:56) Home Medications: Ambulatory Orders Medication Instructions Recorded Duloxetine HCl 60 mg PO DAILY 01/16/20 Surgical History: Surgical History (Last Reviewed 10/18/18 @ 08:42 by Valentina Joyce) H/O dilation and curettage Z98.890 2000 Smoking Status: Never smoker - *Family History Maternal History Items: No pertinent history Review of Systems Constitutional: Denies: Anorexia, Fever HEENT: Denies: Difficulty Swallowing Cardiovascular: Denies: Chest Pain Respiratory: Denies: Cough Gastrointestinal: Reports: Abdominal Pain. Denies: Vomiting Genitourinary: Denies: Dysuria Musculoskeletal: Denies: Arm Pain, Joint Tenderness Skin: Denies: Dryness Psychiatric: Denies: Anxiety, Depression Hematologic/ Lymphatic: Denies: Anemia VTE Information - Inpt Only VTE Present on Admission: No VTE Mechan Device Prophylaxis: SCD's Patient Problems: Active and Suspected Problems (Last Reviewed 10/18/18 @ 08:42 by Valentina Joyce) Cholelithiasis (Acute) Acute cholecystitis (Acute) Choledocholithiasis with acute cholecystitis (Acute) - Physical Exam Vitals/I&O's: Vital Signs Temp Pulse Resp BP Pulse Ox 97.9 F 74 16 98/53 L 97 01/16/20 06:35 01/16/20 06:35 01/16/20 06:35 01/16/20 06:35 01/16/20 06:35 Oxygen Delivery Method Room Air Weight: 207 lb 3.752 oz Body Mass Index (BMI) 31.5 Intake and Output for Last 24 Hours 01/14/20 01/15/20 01/16/20 23:59 23:59 23:59 Intake Total 1450 / 1450 Balance 1450 / 1450 General: Alert, Oriented x3 Neck: No JVD Lungs: Normal air movement Cardiovascular: Regular rate, Regular Rhythm Abdomen: Soft, Non Tender, Non-Distended Laboratory Results 01/15/20 23:10: WBC 12.5 H, RBC 4.52, Hgb 13.4, Hct 40.0, MCV 88.5, MCH 29.6, MCHC 33.5, RDW Std Deviation 39.8, RDW Coeff of Richie 12.2, Plt Count 259, MPV 10.0, Immature Gran % (Auto) 0.500, Neut % (Auto) 80.8 H, Lymph % (Auto) 11.4 L, [place] % (Auto) 6.5, Eos % (Auto) 0.4, Baso % (Auto) 0.4, Absolute Neuts (auto) 10.1 H, Absolute Lymphs (auto) 1.43, Nucleated RBC % 0 01/15/20 23:10: Sodium 138, Potassium 3.9, Chloride 106, Carbon Dioxide 25.0, Anion Gap 7, BUN 8, Creatinine 0.80, Estim Creat Clear Calc 89.58, Est GFR (MDRD) Af Amer 100, Est GFR (MDRD) Non-Af 83, BUN/Creatinine Ratio 10.0, Glucose 156 H, Calcium 9.1, Total Bilirubin 1.10 H, Direct Bilirubin 0.40 H, AST 124 H, ALT 101 H, Alkaline Phosphatase 88, Total Protein 7.1, Albumin 4.0, Globulin 3.1, Lipase 86 01/15/20 23:10: Serum , Qual NEGATIVE 01/16/20 06:55: WBC 6.4, RBC 4.29, Hgb 12.6, Hct 38.7, MCV 90.2, MCH 29.4, MCHC 32.6, RDW Std Deviation 40.5, RDW Coeff of Richie 12.3, Plt Count 237, MPV 10.1, Immature Gran % (Auto) 0.300, Neut % (Auto) 76.0 H, Lymph % (Auto) 14.6 L, [place] % (Auto) 8.4, Eos % (Auto) 0.2, Baso % (Auto) 0.5, Absolute Neuts (auto) 4.9, Absolute Lymphs (auto) 0.94, Nucleated RBC % 0 01/16/20 06:55: Sodium 141, Potassium 4.4, Chloride 109 H, Carbon Dioxide 27.0, Anion Gap 5, BUN 6 L, Creatinine 0.74, Estim Creat Clear Calc 96.85, Est GFR (MDRD) Af Amer 109, Est GFR (MDRD) Non-Af 90, BUN/Creatinine Ratio 8.1 L, Glucose 95, Calcium 8.2 L, Total Bilirubin 1.60 H, AST 527 H, ALT 539 H, Alkaline Phosphatase 98, Total Protein 6.2 L, Albumin 3.3, Globulin 2.9, Albumin/Globulin Ratio 1.1, Lipase 59 L Current Medications Acetaminophen (Tylenol) 650 mg PO Q4H PRN PRN PRN Reason: Pain (1-10/10) or Fever Sodium Chloride () 1,000 mls @ 150 mls/hr IV .Q6H40M [facility] Last Infusion: 01/16/20 06:21 Dose: Infused Documented by: Sodium Chloride () 1,000 mls @ 100 mls/hr IV .Q10H [facility] Last Admin: 01/16/20 06:16 Dose: 100 mls/hr Documented by: Piperacillin Sod/Tazobactam (Sod 3.375 gm/ Sodium Chloride) 50 mls @ 12.5 mls/hr IV Q8 [facility] Last Admin: 01/16/20 06:16 Dose: 12.5 mls/hr Documented by: Morphine Sulfate () 2 - 4 mg IV Q2H PRN PRN PRN Reason: Pain Score 4-10/10 Morphine Sulfate () 2 - 4 mg IV Q2H PRN PRN PRN Reason: Pain Score 4-10/10 Ondansetron HCl (Zofran) 4 mg IV Q6H PRN PRN PRN Reason: NAUSEA Sodium Chloride () 10 - 40 ml IV UD PRN PRN Reason: SALINE FLUSH Assessment/Plan All Active Problems (Last Reviewed 10/18/18 @ 08:42 by Valentina L Isiah) Diverticulitis (Resolved) Cholelithiasis (Acute) Acute cholecystitis (Acute) Choledocholithiasis with acute cholecystitis (Acute) Abnormal uterine bleeding (Acute) BMI 37.0-37.9, adult (Acute) 44-year-old female with right upper quadrant pain and possible choledocholithiasis 1. The patient was seen in the emergency room last night and she had an elevated white count as well as right upper quadrant epigastric pain. She reports that her pain dissipated overnight and currently she is not having any abdominal pain. She does not have any nausea or vomiting. This is never happened to her in the past. Her ultrasound showed cholelithiasis and her liver enzymes were slightly elevated yesterday. They are more elevated today. Given the fact that her liver enzymes are more elevated but her symptoms have re solved, I believe that the stone has either moved or passed. I will perform a laparoscopic cholecystectomy today with cholangiogram. If there is choledocholithiasis present I will take her for ERCP tomorrow. The plan was explained to the patient and she agrees. 2. I discussed the procedure in detail with the patient. I discussed the risks, benefits, and alternatives of the procedure. I also explained the possibility of a common duct exploration if choledocholithiasis is noted. I discussed the risks including but not limited to bleeding, infection, injury to surrounding organs such as the liver, bile duct, bowels. I did discuss the possibility of having to convert to an open procedure as well as the possibility that if any injuries occurred this may necessitate further surgery at a tertiary care center. Gunner Watson MD Pager: [facility] [address] [place] [address], [address] [place] [address] Office:
[2020-01-16] MEDS: 0.9% Saline Lock 10 ML Syringe IV ×3 (09:38→21:56)
[2020-01-16] MEDS: Morphine 2 MG/ML Syringe IV ×2 (09:39→21:56)
[2020-01-16] MEDS: Ondansetron 4 MG/2 ML Vial IV (09:43)
[2020-01-16] MEDS: Lactated Ringers 1,000 ML 100 ML IV (10:30)
--- NOTE | 2020-01-16 11:00 | RAD_ITS ---
STUDY: INTRAOPERATIVE CHOLANGIOGRAM. REASON FOR EXAM: Female, 44 years old. Acute cholecystitis -- unsuccessful attempt lap tavo TECHNIQUE: An intraoperative cholangiogram was performed. Contrast was injected. Imaging was submitted. COMPARISON: None. FINDINGS: The common bile duct is not dilated. No contrast is seen entering the duodenum. Retained calculus in the distal portion of the common bile duct should be excluded. RAD/Cholangiogram/ O R,Initial IMPRESSION: Findings suggestive of a retained calculus in the distal portion of the common bile duct. No contrast is seen entering the duodenum. Electronically Signed: Florian Bansla, at 13:38 EDT , Service support ,
[2020-01-16] MEDS: Bupiv/Epi 0.25% 30 ML Vial (13:22)
--- NOTE | 2020-01-16 14:21 | PCM.OPRPT ---
Problem List (1) Acute cholecystitis Status: Acute (2) Choledocholithiasis with acute cholecystitis Status: Acute Report of Operation Date of Procedure: 01/16/20 Pre-Operative Diagnosis: Acute cholecystitis with obstructive jaundice Post-Operative Diagnosis: Acute cholecystitis. Choledocholithiasis with obstruction Surgery/Procedure Performed:: Laparoscopic cholecystectomy with cholangiogram Specimen's removed: Gallbladder and contents Description of Procedure: After obtaining informed consent patient was brought back to the operating room. General anesthesia was induced. The abdomen was prepped and draped in usual sterile fashion. A small midline incision was made superior to the umbilicus and deepened to the level of fascia. The fascia was elevated and incised. Next the peritoneum was elevated and incised in the same fashion. Finger sweep was performed and the Fernandez trocar was placed into the abdomen. The balloon was inflated. The abdomen was inflated to 15 mmHg. Next a camera was introduced into the abdomen and the abdomen was inspected. Next under direct visualization three 5-mm ports were placed one subxiphoid and 2 subcostal. Next the gallbladder was elevated and retracted toward the right shoulder. The peritoneum was stripped from the gallbladder. The infundibulum was located and retracted laterally. Next the triangle of Calot was dissected and the cystic duct and cystic artery were identified. Cholangiograms were performed. The Giang clamp was used to clamp across the infundibulum and the catheter needle was inserted into the gallbladder. Under fluoroscopy contrast was instilled into the gallbladder and the common duct, cystic duct as well as proximal hepatic ducts were identified. There was no filling of the duodenum. There appeared to be a distal common bile duct obstruction. Glucagon was infused and there was still no clearance of the blockage.. The clamp was removed as well as the needle and the infundibulum was grasped once more. Common bile duct exploration was attempted. A clip was placed in the proximal cystic duct and a small annemarie was made in the cystic duct. An introducer was placed into the right upper quadrant and a guidewire was attempted to be placed into the cystic duct but this was unsuccessful due to the angle. Common duct exploration was aborted. Three hemolock clips were placed across the cystic duct. The cystic duct was then divided leaving 2 clips on the stump. The cystic artery was clipped and divided in the same fashion. The hook cautery was then used to take the gallbladder off of the gallbladder bed. Hemostasis was obtained. Gallbladder fossa was irrigated and no active bleeding or bile leakage was noted. Next the camera was introduced in the subxiphoid port. An Endopouch bag was placed through the umbilical port and the gallbladder was placed into it. The gallbladder was then removed through the umbilical incision. The camera was then reinserted through the umbilical port. The gallbladder fossa was inspected once more and noted to be hemostatic with no leaking bile. The abdomen was suctioned dry. The 5 mm ports were removed under direct visualization. The umbilical port was then removed and the air was removed from the abdomen. Next using an 0 Vicryl suture the umbilical fascia was closed in a [id number] fashion. The umbilical port site was irrigated local anesthetic was administered to all the incisions. All the incisions were closed with interrupted subcuticular 4-0 Monocryl sutures followed by Steri-Strips and dressings. The patient was awoken and taken to PACU in stable condition. - Admit VTE Documentation VTE Mechan Device Prophylaxis: SCD's
--- NOTE | 2020-01-16 14:24 | PCM.PN.BLA ---
Progress Note The patient had a laparoscopic cholecystectomy today. Cholangiograms revealed a distal common bile duct obstruction. This was unable to be pushed through using contrast with glucagon infusion. I discussed this with the patient in PACU after surgery as well as her . I discussed ERCP earlier in the day with her and she did understand that this was a possibility after surgery. I earlier today I did discuss that if she was obstructed during surgery I would recommend ERCP and I did discuss ERCP with her at that time. I discussed the risks including but not limited to bleeding, infection, perforation of the bile duct or bowel, pancreatitis. I discussed her cholangiogram with her and her following surgery and they agreed to proceed with ERCP today. I will take her back to surgery and perform an ERCP to relieve the obstruction. I did all for her and her the opportunity to wait until tomorrow for the ERCP but they elected to do it today to decrease hospital stay. Gunner Watson MD Pager: [facility] [address] [place] [address], [address] [place] [address] Office: [facility] Vital Signs/Narrative: Vital Signs Temp Pulse Resp BP Pulse Ox 01/16/20 14:15 85 16 128/76 H 100 01/16/20 14:00 87 16 128/78 H 100 01/16/20 13:45 79 16 129/77 H 100 01/16/20 13:34 98.5 F 78 16 125/77 H 100
--- NOTE | 2020-01-16 14:25 | SUR.PHASEI ---
endo nurses here to take pt to ERCP.
--- NOTE | 2020-01-16 14:50 | RAD_ITS ---
STUDY: ERCP REASON FOR EXAM: Female, 44 years old. STONE REMOVAL AND STENT PLACEMENT -- 3 FLUORO IMAGES, 248.4 FLUORO SEC, 57.77mGy TECHNIQUE: An ERCP was performed by the surgeon. Imaging was submitted. COMPARISON: Comparison is made with prior intraoperative cholangiogram examination dated January 16, 2020 FINDINGS: There is free flow of contrast into the duodenum. Stent placement. RAD/ERCP Biliary Only IMPRESSION: Successful stone removal and stent placement in the common bile duct. Electronically Signed: Florian Bansal, at 15:56 EDT , Service support ,
--- NOTE | 2020-01-16 16:09 | OP.ERCP_ITS ---
Patient Name: Laura Mei Procedure Date: 01/16/2020 2:31 PM Date of : 1975 Age: 44 Procedure: ERCP Indications: Common bile duct stone(s) Providers: Gunner Watson MD Medicines: General Anesthesia Patient Profile: This is a 44 year old female. Refer to note in patient chart for documentation of history and physical. Complications: No immediate complications. Estimated blood loss: Minimal. Procedure: Pre-Anesthesia Assessment: - Prior to the procedure, a History and Physical was performed, and patient medications and allergies were reviewed. The patient's tolerance of previous anesthesia was also reviewed. The risks and benefits of the procedure and the sedation options and risks were discussed with the patient. All questions were answered, and informed consent was obtained. Prior Anticoagulants: The patient has taken no previous anticoagulant or antiplatelet agents. After reviewing the risks and benefits, the patient was deemed in satisfactory condition to undergo the procedure. After obtaining informed consent, the scope was passed under direct vision. Throughout the procedure, the patient's blood pressure, pulse, and oxygen saturations were monitored continuously. The [id number] endoscope was introduced through the mouth, and advanced to the duodenum and used to inject contrast into the bile duct and ventral pancreatic duct. The ERCP was technically difficult and complex due to challenging cannulation. Successful completion of the procedure was aided by performing the maneuvers documented (below) in this report. The patient tolerated the procedure well. Scope In: 2:54:38 PM Scope Out: 3:37:08 PM Total Procedure Duration Time 0 hours 42 minutes 30 seconds Findings: 0.035 inch x 260 cm straight Hydra Jagwire was passed into the ventral pancreatic duct. The ventral pancreatic duct was then deeply cannulated. Contrast was injected. A 0.035 inch x 260 cm straight Dreamwire was passed into the biliary tree. The sphincterotome was passed over the guidewire and the bile duct was then deeply cannulated. Contrast was injected. The lower third of the main bile duct contained filling defect(s). Biliary sphincterotomy was made with a monofilament sphincterotome using ERBE electrocautery. There was no post-sphincterotomy bleeding. The biliary tree was swept with a 12 mm balloon starting at the bifurcation. One stone was removed. No stones remained. One 5 Fr by 3 cm temporary stent with a 3/4 external pigtail and no internal flaps was placed into the ventral pancreatic duct. Clear fluid flowed through the stent. The stent was in good position. Impression: - A filling defect was seen on the cholangiogram. - Choledocholithiasis was found. Complete removal was accomplished by biliary sphincterotomy and balloon extraction. - A biliary sphincterotomy was performed. - The biliary tree was swept. - One temporary stent was placed into the ventral pancreatic duct. Recommendation: - Return patient to [facility] for ongoing care. Procedure Code(s): --- Professional --- 34166, Endoscopic retrograde cholangiopancreatography (ERCP); with placement of endoscopic stent into biliary or pancreatic duct, including pre- and post-dilation and guide wire passage, when performed, including sphincterotomy, when performed, each stent [id number], 51, Endoscopic retrograde cholangiopancreatography (ERCP); with removal of calculi/debris from biliary/pancreatic duct(s) Diagnosis Code(s): --- Professional --- K80.50, Calculus of bile duct without cholangitis or cholecystitis without obstruction R93.2, Abnormal findings on diagnostic imaging of liver and biliary tract CPT copyright 2017 [employer]. All rights reserved. The codes documented in this report are preliminary and upon ecg technician review may be revised to meet current compliance requirements. Gunner Watson MD 01/16/2020 4:09:30 PM This report has been signed electronically. Number of Addenda: 0 Note Initiated On: 01/16/2020 2:31 PM
--- NOTE | 2020-01-16 16:10 | OP.CCLET_ITS ---
01/16/2020 Shanique Castaneda [address] [place] [address] Re : ERCP procedure for Laura Mei Dear Dr. Castaneda This procedure was performed on Thursday, January 16, 2020. My impressions and recommendations are as follows: Impressions : - A filling defect was seen on the cholangiogram. - Choledocholithiasis was found. Complete removal was accomplished by biliary sphincterotomy and balloon extraction. - A biliary sphincterotomy was performed. - The biliary tree was swept. - One temporary stent was placed into the ventral pancreatic duct. Recommendations : - Return patient to hospital [facility] for ongoing care. My findings are described in the full procedure note, which is enclosed. If I can be of further assistance, please feel free to contact me at Doctor phone number(s): , Work: . Sincerely, Gunner Watson MD 01/16/2020 4:09:30 PM This report has been signed electronically.
[2020-01-16] MEDS: oxyCODONE 5 MG Tablet PO (20:12)
[2020-01-16] MEDS: Acetaminophen 325 MG Tablet 650 MG PO (20:12)
[2020-01-17] MEDS: oxyCODONE 5 MG Tablet PO ×2 (01:59→06:45)
[2020-01-17] MEDS: Acetaminophen 325 MG Tablet 650 MG PO ×2 (01:59→06:45)
[2020-01-17] MEDS: 0.9% Normal Saline 1,000 ML 100 ML IV (02:00)
[2020-01-17 02:01] VITALS: BP 97/60; PULSE 67; RESP 16; TEMP 36.8; O2SAT 97
[2020-01-17 06:28] LABS: AST(SGOT) 257 U/L (15-37); Alanine Aminotransfer ALT/SGPT 475 U/L (13-56); Albumin, Serum 2.7 g/dL (3.2-5.0); Alkaline Phosphatase 105 U/L (45-117); Anion Gap 4 (5-15); BUN 4 mg/dL (7-18); BUN/Creat Ratio 5.8 RATIO (10-20); Calcium,Total 7.6 mg/dL (8.5-10.1); Chloride 109 mmol/L (98-107); Creatinine, Serum 0.69 mg/dL (0.55-1.02); EST Glomerular Filtration Rate 97 mL/min (>60); Est Glom Filt Rate - Afr Amer 118 mL/min (>60); Estimated Creatinine Clearance 103.86 ml/min; Globulin 2.7 g/dL (2.2-4.2); Glucose 81 mg/dL (74-106); Lipase 349 U/L (73-393); Potassium 3.7 mmol/L (3.5-5.1); Protein, Total 5.4 g/dL (6.4-8.2); Sodium Level 140 mmol/L (136-145)
[2020-01-17 06:40] VITALS: BP 96/54; PULSE 76; RESP 16; TEMP 36.6; O2SAT 96
[2020-01-17 09:16] VITALS: BP 87/42; PULSE 72; RESP 14; TEMP 36.6; O2SAT 98
--- NOTE | 2020-01-17 09:39 | PN.SURG_ITS ---
Patient Problems: Active and Suspected Problems (Last Reviewed 10/18/18 @ 08:42 by Valentina Joyce) Cholelithiasis (Acute) Acute cholecystitis (Acute) Choledocholithiasis with acute cholecystitis (Acute) Subjective: Patient is doing well and tolerating a diet with no abdominal pain. - Physical Exam Vitals/I&O's: Vital Signs Temp Pulse Resp BP Pulse Ox 97.9 F 72 14 87/42 L 98 01/17/20 09:16 01/17/20 09:16 01/17/20 09:16 01/17/20 09:16 01/17/20 09:16 Oxygen Flow Rate (L/min) 3 Oxygen Delivery Method Room Air Weight: 207 lb 3.752 oz Body Mass Index (BMI) 31.5 Intake and Output for Last 24 Hours 01/15/20 01/16/20 01/17/20 23:59 23:59 23:59 Intake Total 6225 / 6225 1523.33 / 1523.33 Balance 6225 / 6225 1523.33 / 1523.33 General: Alert, Oriented x3 Neck: No JVD Cardiovascular: Regular rate, Regular Rhythm Abdomen: Soft, Non-Distended Laboratory Results 01/17/20 05:34: Sodium 140, Potassium 3.7, Chloride 109 H, Carbon Dioxide 27.0, Anion Gap 4 L, BUN 4 L, Creatinine 0.69, Estim Creat Clear Calc 103.86, Est GFR (MDRD) Af Amer 118, Est GFR (MDRD) Non-Af 97, BUN/Creatinine Ratio 5.8 L, Glucose 81, Calcium 7.6 L, Total Bilirubin 3.40 H, AST 257 H, ALT 475 H, Alkaline Phosphatase 105, Total Protein 5.4 L, Albumin 2.7 L, Globulin 2.7, Albumin/Globulin Ratio 1.0, Lipase 349 Current Medications Acetaminophen (Tylenol) 650 mg PO Q4H PRN PRN PRN Reason: Pain (1-06/21) or Fever Last Admin: 01/17/20 06:45 Dose: 650 mg Documented by: Piperacillin Sod/Tazobactam (Sod 3.375 gm/ Sodium Chloride) 50 mls @ 12.5 mls/hr IV Q8 DELVIS Last Admin: 01/17/20 06:36 Dose: 12.5 mls/hr Documented by: Sodium Chloride () 1,000 mls @ 100 mls/hr IV .Q10H DELVIS Last Admin: 01/17/20 02:00 Dose: 100 mls/hr Documented by: Morphine Sulfate () 2 - 4 mg IV Q2H PRN PRN PRN Reason: Pain Score 4-10/10 Last Admin: 01/16/20 21:56 Dose: 2 mg Documented by: Morphine Sulfate () 2 - 4 mg IV Q2H PRN PRN PRN Reason: Pain Score 4-10/10 Ondansetron HCl (Zofran) 4 mg IV Q6H PRN PRN PRN Reason: NAUSEA Last Admin: 01/16/20 09:43 Dose: 4 mg Documented by: Oxycodone HCl (Oxyir) 5 - 10 mg PO Q4H PRN PRN PRN Reason: Pain Score 4-10/10 Last Admin: 01/17/20 06:45 Dose: 10 mg Documented by: Sodium Chloride () 10 - 40 ml IV UD PRN PRN Reason: SALINE FLUSH Last Admin: 01/16/20 21:56 Dose: 10 ml Documented by: Medical Necessity - Tobacco Use Smoking Status: Never smoker Assessment/Plan All Active Problems (Last Reviewed 10/18/18 @ 08:42 by Valentina Joyce) Diverticulitis (Resolved) Cholelithiasis (Acute) Acute cholecystitis (Acute) Choledocholithiasis with acute cholecystitis (Acute) Abnormal uterine bleeding (Acute) BMI 37.0-37.9, adult (Acute) 44-year-old female status post laparoscopic cholecystectomy and subsequent ERCP with pancreatic stent placement 1. Patient is doing well and tolerating a diet with no abdominal pain. I will discharge her home. Gunner Watson MD Pager: [facility] [address] [place] [address], [address] [place] [address] Office:
--- NOTE | 2020-01-17 09:43 | PCM.DC.GB ---
Discharge Diet: Light diet - advance as tolerated Discharge Activity: Return to Normal Activity, May Not Drive - for 2-3 days or while taking narcotic pain medicataions., - - Do not drive, work heavy equipment or sign legal documents for 24 hours. May shower in (days): 1 - with the bandage in place. Lifting Restrictions: 20 lbs for 2 weeks Additional Activity Instructions:: Pain medication may cause nausea. You should typically eat light foods as you take your pain medications. Pain medication may also cause constipation. If this is a problem for you, please discuss with your doctor. Call your doctor if your incision/area has: Continuous Slow Oozing, Sudden Increased Bleeding, Increased Pain/ Swelling, Increased Redness, Foul Smelling Discharge, Fever of 101 or Higher Call your doctor if you observe: Fever of 101 or Higher Suture Line Care: Avoid Pulling/Pushing, Avoid Pinching/Bending Additional Dressing/Incision Instructions:: Leave operative bandaids on for 2 days. When you remove dressing, leave Steri-Strips on until your follow-up appointment, or until the Steri-Strips fall off on their own. Additional Instructions: Call hospital to schedule abdominal xray 2 weeks postop to check for passage of pancreatic stent. Allergies/Adverse Reactions: Allergies No Known Allergies Allergy (Verified 01/15/20 22:56) Medications to take at Discharge Duloxetine HCl 60 mg PO DAILY 01/16/20 Oxycodone [Oxyir] 5 - 10 mg PO Q4H PRN PRN 5 Days #30 tablet 01/17/20 The following prescriptions were given: Oxycodone [Oxyir] 5 - 10 mg PO Q4H PRN PRN 5 Days #30 tablet PRN Reason: Pain Score 4-10/10 Transmission Status: Sent to [facility] Orders to be completed after discharge: Abdomen Single View [RAD] Time Frame: 2 Weeks, Facility: [facility], Location: [facility] Primary Care Physician: Shanique Castaneda MD [Primary Care Provider] - Test Results: Test results from this visit will be discussed in further detail at your follow-up appointment, if applicable. Please Follow Up With: Gunner Watson MD When: Please call to schedule 2 week follow up appointment. [phone]
[2020-01-17 11:15] VITALS: BP 107/75; PULSE 77; RESP 16; TEMP 36.5; O2SAT 99
== END 2020-01-17 12:36 | disposition home or self-care (01) ==
LOC: ED 01-16 00:20 → MS3 01-16 00:41
PROVIDERS: Admitting Provider Surgery; Emergency Provider Emergency Medicine; PCP Family Medicine; Visit Provider Surgery
PROC: (CPT 47610; principal; 2020-01-16 10:40)
DX: K80.66 Calculus of gallbladder and bile duct with acute and chronic cholecystitis without obstruction (principal); I10 Essential (primary) hypertension; Z79.899 Other long term (current) drug therapy; Z87.19 Personal history of other diseases of the digestive system
CPT/HCPCS: 43264; 43274; 47563; 36415; 74300; 74328; 76000; 76705; 80048; 80053; 80076; 83690; 84703; 85025; 88304; 93005; 96361; 96365; 96366; 96375; 96376; 99218; 99284; J7030; J7120; A4216; C1758; C1769; G0378; J1610; J2405

== ENCOUNTER 2020-01-21 16:57 | Observation (INO) | payer OTHER, SELFPAY ==
[2020-01-16 08:36] VITALS: BMI 31.5
[2020-01-21 13:55] LABS: Absolute Lymphocyte Count 0.99 X10^3/uL (0.83-4.51); Absolute Neutrophil Count 3.2 X10^3/uL (2.0-7.7); Basophil# 0.03 X10^3/uL; Basophil% 0.6 % (0-1); Eosinophil# 0.11 X10^3/uL; Eosinophils% 2.3 % (0-5); Hematocrit 40.1 % (37-47); Hemoglobin 13.1 g/dL (12.0-15.0); Lymphocyte # 0.99 X10^3/ul (4.0); Lymphocyte % 20.3 % (19-41); Mean Corp Hgb Conc 32.7 g/dL (32-36); Mean Corpuscular Hgb 29.2 pg (27.0-32.0); Mean Corpuscular Volume 89.5 fL (81-99); Mean Platelet Vol. 9.6 fl (6.2-12.0); Monocyte# 0.49 X10^3/uL; NRBC Flagged by Analyzer 0 % (0-5); Neutrophil # 3.24 X10^3/uL (2.7-7.7); Neutrophil % 66.4 % (47-70); Platelet Count 229 K/mm3 (150-450); RBC Distribution Width CV 12.8 % (11.6-14.6); RBC Distribution Width SD 41.6 fl (35.1-43.9); Red Blood Count 4.48 M/mm3 (4.2-5.4); White Blood Count 4.9 K/mm3 (4.4-11.0)
[2020-01-21 14:10] LABS: ALB/GLOB Ratio 0.9 RATIO (0.9-2.4); AST(SGOT) 50 U/L (15-37); Alanine Aminotransfer ALT/SGPT 198 U/L (13-56); Albumin, Serum 3.5 g/dL (3.2-5.0); Alkaline Phosphatase 196 U/L (45-117); Anion Gap 5 (5-15); BUN 6 mg/dL (7-18); BUN/Creat Ratio 9.6 RATIO (10-20); Chloride 105 mmol/L (98-107); Creatinine, Serum 0.62 mg/dL (0.55-1.02); EST Glomerular Filtration Rate 110 mL/min (>60); Est Glom Filt Rate - Afr Amer 133 mL/min (>60); Glucose 110 mg/dL (74-106); Protein, Total 7.5 g/dL (6.4-8.2); Sodium Level 138 mmol/L (136-145)
[2020-01-21 14:50] VITALS: BP 120/83; PULSE 74; RESP 16; TEMP 36.6; O2SAT 100
[2020-01-21 14:52] VITALS: BMI 31.3
[2020-01-21 14:57] VITALS: BMI 31.3
--- NOTE | 2020-01-21 15:46 | MRI_ITS ---
STUDY: MR MRCP WITHOUT CONTRAST REASON FOR EXAM: Female, 44 years old. abnormal liver labs -- choli 01/16/20, pancreatic stent placed, diarrhea TECHNIQUE: Standard MRCP technique was utilized. COMPARISON: None. FINDINGS: Gall Bladder: Gall bladder is surgically absent. Cystic duct: Normal with no demonstrated fixed filling defect. Intrahepatic ducts: Normal visualized intrahepatic ducts with no demonstrated fixed filling defect, dilation or stricture. Common hepatic duct: Normal with no demonstrated fixed filling defect, dilation or stricture. Common bile duct: Normal with no demonstrated fixed filling defect, dilation or stricture. Pancreatic duct: Normal with no demonstrated fixed filling defect, dilation or stricture. MRI/MRCP Abdomen without Contrast IMPRESSION: Normal MR Cholangiopancreatography (MRCP) after cholecystectomy. Electronically Signed: Mich Oakley MD at 8:31 EDT Tel , Service support ,
--- NOTE | 2020-01-21 17:00 | PCM.HP.STD ---
Problem List (1) Acute cholecystitis Status: Acute (2) Choledocholithiasis with acute cholecystitis Status: Acute History of Present Illness Date of Admission: 01/21/20 The patient is a 44 year old F who had laparoscopic cholecystectomy and ERCP 5 days ago. The patient had acute cholecystitis with obstruction and had ERCP with biliary stone removal and pancreatic stent placement. Patient reports that she was doing okay after surgery but she did have diarrhea. She reports Tuesday she started having pain that radiated around the left flank similar to before surgery. She is having nausea but no vomiting. 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 (Chronic) repeat pap in 3 yr Medical History: Medical History (Last Reviewed 10/18/18 @ 08:42 by Valentina Joyce) Anxiety F41.9 Heart palpitations R00.2 Hypertension I10 Allergies oxycodone Adverse Reaction (Verified 01/21/20 14:56) Itching Home Medications: Ambulatory Orders Medication Instructions Recorded NK 01/21/20 Surgical History: Surgical History (Last Reviewed 10/18/18 @ 08:42 by Valentina Joyce) H/O dilation and curettage Z98.890 2000 Surgical History: cholecystectomy Smoking Status: Never smoker - *Family History Maternal History Items: No pertinent history Review of Systems Constitutional: Denies: Anorexia, Fever Eyes: Denies: Blurred vision HEENT: Denies: Difficulty Swallowing Cardiovascular: Denies: Chest Pain Respiratory: Denies: Cough, Shortness of Breath Gastrointestinal: Reports: Abdominal Pain, Nausea. Denies: Vomiting Hematologic/ Lymphatic: Reports: Anemia VTE Information - Inpt Only VTE Present on Admission: No VTE Mechan Device Prophylaxis: SCD's - Physical Exam Vitals/I&O's: Vital Signs Temp Pulse Resp BP Pulse Ox 97.8 F 74 16 120/83 H 100 01/21/20 14:50 01/21/20 14:50 01/21/20 14:50 01/21/20 14:50 01/21/20 14:50 Oxygen Delivery Method Room Air Weight: 205 lb 12.8 oz Body Mass Index (BMI) 31.3 General: Alert, Oriented x3 Lungs: Normal air movement, No rhonchi Cardiovascular: Regular rate Abdomen: Soft, Non Tender, Non-Distended Laboratory Results 01/21/20 13:45: WBC 4.9, RBC 4.48, Hgb 13.1, Hct 40.1, MCV 89.5, MCH 29.2, MCHC 32.7, RDW Std Deviation 41.6, RDW Coeff of Richie 12.8, Plt Count 229, MPV 9.6, Immature Gran % (Auto) 0.400, Neut % (Auto) 66.4, Lymph % (Auto) 20.3, [place] % (Auto) 10.0, Eos % (Auto) 2.3, Baso % (Auto) 0.6, Absolute Neuts (auto) 3.2, Absolute Lymphs (auto) 0.99, Nucleated RBC % 0 01/21/20 13:45: Sodium 138, Potassium 4.0, Chloride 105, Carbon Dioxide 28.0, Anion Gap 5, BUN 6 L, Creatinine 0.62, Est GFR (MDRD) Af Amer 133, Est GFR (MDRD) Non-Af 110, BUN/Creatinine Ratio 9.6 L, Glucose 110 H, Calcium 9.0, Total Bilirubin 4.20 H, AST 50 H, ALT 198 H, Alkaline Phosphatase 196 H, Total Protein 7.5, Albumin 3.5, Globulin 4.0, Albumin/Globulin Ratio 0.9 Current Medications Acetaminophen (Tylenol) 650 mg PO Q4H PRN PRN PRN Reason: Pain or Fever Sodium Chloride () 250 mls @ 15 mls/hr IV .[id number] PRN PRN Reason: Saline Flush Sodium Chloride () 250 mls @ 15 mls/hr IV .[id number] PRN PRN Reason: Additional IVPB Infusion Ondansetron HCl (Zofran) 4 mg IV Q6H PRN PRN PRN Reason: NAUSEA Sodium Chloride () 10 - 40 ml IV UD PRN PRN Reason: SALINE FLUSH Assessment/Plan All Active Problems (Last Reviewed 10/18/18 @ 08:42 by Valentina Joyce) Diverticulitis (Resolved) Cholelithiasis (Acute) Acute cholecystitis (Acute) Choledocholithiasis with acute cholecystitis (Acute) Abnormal uterine bleeding (Acute) BMI 37.0-37.9, adult (Acute) 44-year-old female with elevated liver enzymes 1. The patient had laparoscopic cholecystectomy and ERCP last week. Subsequently she developed diarrhea as well as pain radiating to the left side and nausea. Patient also reports new onset of acid reflux. LFTs were obtained today which show a bilirubin of 4.2. She was admitted following this and an MRCP has been ordered. Patient may have clear liquids until test is resulted. Patient had pancreatic stent placed due to manipulation of the pancreatic duct. The patient may be experiencing pancreatitis at this time. Will check lipase. Gunner Watson MD Pager: [facility] [address] [place] [address], [address] [place] [address] Office:
[2020-01-21 17:30] LABS: Lipase 79 U/L (73-393)
[2020-01-21 20:50] VITALS: BP 111/64; PULSE 81; RESP 18; TEMP 36.5; O2SAT 100
[2020-01-21 21:00] VITALS: RESP 18
[2020-01-21] MEDS: 0.9% Saline Lock 10 ML Syringe IV ×2 (21:20→23:07)
[2020-01-21] MEDS: Acetaminophen 325 MG Tablet 650 MG PO (23:07)
[2020-01-21] MEDS: Ondansetron 4 MG/2 ML Vial IV (23:11)
[2020-01-22 03:00] VITALS: BP 110/63; PULSE 66; RESP 16; TEMP 36.9; O2SAT 99
[2020-01-22 06:19] LABS: Absolute Lymphocyte Count 0.89 X10^3/uL (0.83-4.51); Absolute Neutrophil Count 2.3 X10^3/uL (2.0-7.7); Basophil# 0.02 X10^3/uL; Basophil% 0.5 % (0-1); Eosinophil# 0.16 X10^3/uL; Eosinophils% 4.2 % (0-5); Hematocrit 39.6 % (37-47); Hemoglobin 13.1 g/dL (12.0-15.0); Lymphocyte # 0.89 X10^3/ul (4.0); Lymphocyte % 23.4 % (19-41); Mean Corp Hgb Conc 33.1 g/dL (32-36); Mean Corpuscular Hgb 29.4 pg (27.0-32.0); Mean Platelet Vol. 9.7 fl (6.2-12.0); Monocyte# 0.44 X10^3/uL; Monocyte% 11.6 % (0-10); NRBC Flagged by Analyzer 0 % (0-5); Neutrophil # 2.28 X10^3/uL (2.7-7.7); Platelet Count 219 K/mm3 (150-450); RBC Distribution Width CV 12.6 % (11.6-14.6); RBC Distribution Width SD 41.1 fl (35.1-43.9); Red Blood Count 4.45 M/mm3 (4.2-5.4); White Blood Count 3.8 K/mm3 (4.4-11.0)
[2020-01-22 06:41] LABS: ALB/GLOB Ratio 0.8 RATIO (0.9-2.4); AST(SGOT) 102 U/L (15-37); Alanine Aminotransfer ALT/SGPT 230 U/L (13-56); Albumin, Serum 3.1 g/dL (3.2-5.0); Alkaline Phosphatase 176 U/L (45-117); Anion Gap 8 (5-15); BUN 6 mg/dL (7-18); BUN/Creat Ratio 11.6 RATIO (10-20); Calcium,Total 8.9 mg/dL (8.5-10.1); Chloride 107 mmol/L (98-107); Creatinine, Serum 0.52 mg/dL (0.55-1.02); EST Glomerular Filtration Rate 137 mL/min (>60); Est Glom Filt Rate - Afr Amer 165 mL/min (>60); Estimated Creatinine Clearance 137.82 ml/min; Globulin 3.7 g/dL (2.2-4.2); Glucose 96 mg/dL (74-106); Lipase 41 U/L (73-393); Potassium 3.7 mmol/L (3.5-5.1); Protein, Total 6.8 g/dL (6.4-8.2); Sodium Level 137 mmol/L (136-145)
[2020-01-22] MEDS: Cholestyramine/Sucrose 4 GM/PACKET PO (08:17)
[2020-01-22] MEDS: Sucralfate 1 GM Tablet PO ×2 (08:17→11:34)
[2020-01-22 08:25] VITALS: BP 113/62; PULSE 76; RESP 18; TEMP 36.6; O2SAT 98
--- NOTE | 2020-01-22 10:20 | PN.SURG_ITS ---
Subjective: Patient is still having some epigastric discomfort but she says this is improved since yesterday. No nausea or vomiting overnight. - Physical Exam Vitals/I&O's: Vital Signs Temp Pulse Resp BP Pulse Ox 97.8 F 76 18 113/62 98 01/22/20 08:25 01/22/20 08:25 01/22/20 08:25 01/22/20 08:25 01/22/20 08:25 Oxygen Delivery Method Room Air Weight: 205 lb 12.8 oz Body Mass Index (BMI) 31.3 Intake and Output for Last 24 Hours 01/20/20 01/21/20 01/22/20 23:59 23:59 23:59 Intake Total 900 / 1800 1400 / 1400 Output Total 600 / 1500 900 / 900 Balance 300 / 300 500 / 500 General: Alert, Oriented x3 Lungs: Normal air movement Abdomen: Soft, Non Tender, Non-Distended Microbiology Past 72 Hours 01/21/20 17:30 Stool C. difficile DNA Amplification - Final Laboratory Results 01/21/20 13:45: WBC 4.9, RBC 4.48, Hgb 13.1, Hct 40.1, MCV 89.5, MCH 29.2, MCHC 32.7, RDW Std Deviation 41.6, RDW Coeff of Richie 12.8, Plt Count 229, MPV 9.6, Immature Gran % (Auto) 0.400, Neut % (Auto) 66.4, Lymph % (Auto) 20.3, [place] % (Auto) 10.0, Eos % (Auto) 2.3, Baso % (Auto) 0.6, Absolute Neuts (auto) 3.2, Absolute Lymphs (auto) 0.99, Nucleated RBC % 0 01/21/20 13:45: Sodium 138, Potassium 4.0, Chloride 105, Carbon Dioxide 28.0, Anion Gap 5, BUN 6 L, Creatinine 0.62, Est GFR (MDRD) Af Amer 133, Est GFR (MDRD) Non-Af 110, BUN/Creatinine Ratio 9.6 L, Glucose 110 H, Calcium 9.0, Total Bilirubin 4.20 H, AST 50 H, ALT 198 H, Alkaline Phosphatase 196 H, Total Protein 7.5, Albumin 3.5, Globulin 4.0, Albumin/Globulin Ratio 0.9 01/21/20 13:45: Lipase 79 01/22/20 06:00: WBC 3.8 L, RBC 4.45, Hgb 13.1, Hct 39.6, MCV 89.0, MCH 29.4, MCHC 33.1, RDW Std Deviation 41.1, RDW Coeff of Richie 12.6, Plt Count 219, MPV 9.7, Immature Gran % (Auto) 0.300, Neut % (Auto) 60.0, Lymph % (Auto) 23.4, [place] % (Auto) 11.6 H, Eos % (Auto) 4.2, Baso % (Auto) 0.5, Absolute Neuts (auto) 2.3, Absolute Lymphs (auto) 0.89, Nucleated RBC % 0 01/22/20 06:00: Sodium 137, Potassium 3.7, Chloride 107, Carbon Dioxide 22.0, Anion Gap 8, BUN 6 L, Creatinine 0.52 L, Estim Creat Clear Calc 137.82, Est GFR (MDRD) Af Amer 165, Est GFR (MDRD) Non-Af 137, BUN/Creatinine Ratio 11.6, Glucose 96, Calcium 8.9, Total Bilirubin 4.20 H, AST 102 H, ALT 230 H, Alkaline Phosphatase 176 H, Total Protein 6.8, Albumin 3.1 L, Globulin 3.7, Albumin/Globulin Ratio 0.8 L, Lipase 41 L Clinical Impression(s) from Imaging Studies MRCP 01/21/20 15:46 IMPRESSION: Normal MR Cholangiopancreatography (MRCP) after cholecystectomy. Electronically Signed: Mich Oakley MD at 8:31 EDT Tel , Service support , Current Medications Acetaminophen (Tylenol) 650 mg PO Q4H PRN PRN PRN Reason: Pain -06/21 or Fever Last Admin: 01/21/20 23:07 Dose: 650 mg Documented by: Cholestyramine Resin (Questran 4gm Packet) 4 gm PO BIDAC DELVIS Last Admin: 01/22/20 08:17 Dose: 4 gm Documented by: Sodium Chloride () 250 mls @ 15 mls/hr IV .[id number] PRN PRN Reason: Saline Flush Sodium Chloride () 250 mls @ 15 mls/hr IV .[id number] PRN PRN Reason: Additional IVPB Infusion Ondansetron HCl (Zofran) 4 mg IV Q6H PRN PRN PRN Reason: NAUSEA Last Admin: 01/21/20 23:11 Dose: 4 mg Documented by: Pantoprazole Sodium (Protonix) 20 mg PO DAILY DELVIS Last Admin: 01/22/20 08:17 Dose: 20 mg Documented by: Sodium Chloride () 10 - 40 ml IV UD PRN PRN Reason: SALINE FLUSH Last Admin: 01/21/20 23:07 Dose: 10 ml Documented by: Sucralfate (Carafate) 1 gm PO 1HR_ACHS DELVIS Last Admin: 01/22/20 08:17 Dose: 1 gm Documented by: Medical Necessity - Tobacco Use Smoking Status: Never smoker Assessment/Plan All Active Problems (Last Reviewed 10/18/18 @ 08:42 by Valentina Joyce) Diverticulitis (Resolved) Cholelithiasis (Acute) Acute cholecystitis (Acute) Choledocholithiasis with acute cholecystitis (Acute) Abnormal uterine bleeding (Acute) BMI 37.0-37.9, adult (Acute) 44-year-old female status post laparoscopic cholecystectomy and ERCP 1. The patient's LFTs are essentially unchanged since yesterday. Her bilirubin remains at 4. She had an MRCP yesterday evening which was normal. It did not show any ductal dilation or stones remaining in the duct. Lipase yesterday and today were both normal as well. I am unsure why her bilirubin remains elevated. I did order her cholestyramine as well as Carafate and she she is having bile reflux or diarrhea from her cholecystectomy. I will order her regular diet and see if she does today. I may discharge her home later today and have her follow-up for LFTs later this week. Gunner Watson MD Pager: [facility] [address] [place] [address] [address] [place] [phone] Office:
--- NOTE | 2020-01-22 12:24 | PCM.NTREPORT ---
Nutrition Therapy Report - History Nutrition Services has been consulted to:: Conduct nutrition education Current diet / nutrition support order:: regular - Anthropometric Measurements Height:: 5 ft 8 in Weight:: 93.349 kg Body Mass Index (BMI):: 31.3 - Relevant Labs Relevant Labs:: WBC 3.8 K/mm3 (4.4-11.0) L 01/22/20 06:00 [place] % (Auto) 11.6 % (0-10) H 01/22/20 06:00 BUN 6 mg/dL (7-18) L 01/22/20 06:00 Creatinine 0.52 mg/dL (0.55-1.02) L 01/22/20 06:00 BUN/Creatinine Ratio 9.6 RATIO (10-20) L 01/21/20 13:45 Glucose 110 mg/dL (74-106) H 01/21/20 13:45 Total Bilirubin 4.20 mg/dL (0.20-1.00) H 01/22/20 06:00 AST 102 U/L (15-37) H 01/22/20 06:00 ALT 230 U/L (13-56) H 01/22/20 06:00 Alkaline Phosphatase 176 U/L (45-117) H 01/22/20 06:00 Albumin 3.1 g/dL (3.2-5.0) L 01/22/20 06:00 Albumin/Globulin Ratio 0.8 RATIO (0.9-2.4) L 01/22/20 06:00 Lipase 41 U/L (73-393) L 01/22/20 06:00 - Assessment Food / Nutrition-Related History:: Consulted for education. Had cholecystectomy, ERCP 5 days ago. Reports resuming to normal diet at home- had food brought by family (ice cream, lasagna, grilled cheese) and reports severe diarrhea, abd pain after. Regular diet ordered this AM- tolerated kyrgyz muffin and shredded wheat cereal. Agreeable to education, see intervention below. 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 Evidence of Malnutrition Exists:: No - Nutrition Intervention Nutrition Prescription:: [id number] calories, 70-80 g protein/day - Food / Nutrient Delivery Interventions Summary of nutrition intervention:: Discussed w/ pt that diarrhea may occur after cholecystectomy, probably as a result of an increased amount of bile in the large bowel. Recommended limiting high fat foods s/p surgery and graduallly increasing fiber to assist w/ diarrhea. Encouraged fluid intake. Reviewed sources of fat in diet, discussed limiting both healthy and unhealthy fats at this time w/ gradual increase of healthy fats as diarrhea improves. Reviewed sources of fiber in diet and ways to slowly increase fiber intake. Handouts provided. No further questions at this time. Nutrition support ordered as / adjusted to:: regular, low fat diet. Increase fiber intake as tolerated. Nutrition education provided?: Yes - see above - MNT Monitoring Further MNT monitoring and evaluation required?: Yes MNT Follow-up in:: 3-5 days - will f/u sooner as requested by pt prior to discharge.
[2020-01-22 12:27] VITALS: BMI 31.3
--- NOTE | 2020-01-22 14:03 | PCM.DC ---
You will use the following diet at home:: Regular - low fat Your food should be the consistency of: Regular Discharge Activity: Return to Normal Activity, No Restrictions, May Shower Call your doctor if your incision/area has: Continuous Slow Oozing, Sudden Increased Bleeding, Increased Pain/ Swelling, Increased Redness, Foul Smelling Discharge, Swelling at the incision site Call your doctor if you observe: Fever of 101 or Higher Allergies/Adverse Reactions: Allergies oxycodone Adverse Reaction (Verified 01/21/20 14:56) Itching Medications to take at Discharge Cholestyramine/Aspartame [Cholestyramine Light Packet] 4 gm PO BID 30 Days #60 dose 01/22/20 Sucralfate [Carafate] 1 gm PO 1HR_ACHS #100 tab 01/22/20 The following prescriptions were given: Sucralfate [Carafate] 1 gm PO 1HR_ACHS #100 tab Transmission Status: Pending to [facility] Cholestyramine/Aspartame [Cholestyramine Light Packet] 4 gm PO BID 30 Days #60 dose Transmission Status: Pending to [facility] Orders to be completed after discharge: Liver Profile Time Frame: 3 Days, Facility: [facility], Location: Laboratory Primary Care Physician: Shanique Castaneda MD [Primary Care Provider] - Test Results: Test results from this visit will be discussed in further detail at your follow-up appointment, if applicable. Please Follow Up With: Gunner Watson MD When: Please call to schedule 2 week follow up appointment. [phone]
[2020-01-22 14:10] VITALS: BP 103/57; PULSE 68; RESP 16; TEMP 36.6; O2SAT 97
== END 2020-01-22 14:40 | disposition home or self-care (01) ==
LOC: MS3 17:18
PROVIDERS: Admitting Provider Surgery; PCP Family Medicine; Referring Provider Surgery; Visit Provider Surgery
DX: K80.42 Calculus of bile duct with acute cholecystitis without obstruction (principal); I10 Essential (primary) hypertension; R74.8 Abnormal levels of other serum enzymes; K21.9 Gastro-esophageal reflux disease without esophagitis; Z98.890 Other specified postprocedural states
CPT/HCPCS: 36415; 74181; 80053; 83690; 85025; 87493; 96374; 97802; 99218; A4216; G0378; G0379; J2405

== ENCOUNTER → 2020-01-25 15:40 | Outpatient (CLI) | payer OTHER, SELFPAY ==
[2020-01-22 12:27] VITALS: BMI 31.3
[2020-01-25 17:52] LABS: AST(SGOT) 279 U/L (15-37); Alanine Aminotransfer ALT/SGPT 616 U/L (13-56); Albumin, Serum 3.7 g/dL (3.2-5.0); Alkaline Phosphatase 189 U/L (45-117); Bilirubin, Direct 3.84 mg/dL (0.00-0.30); Globulin 3.5 g/dL (2.2-4.2); Protein, Total 7.2 g/dL (6.4-8.2)
== END ==
PROVIDERS: PCP Family Medicine; Referring Provider Family Medicine; Visit Provider Family Medicine
DX: K81.9 Cholecystitis, unspecified (principal)
CPT/HCPCS: 36415; 80076

== ENCOUNTER → 2020-10-01 09:52 | Outpatient (CLI) | payer OTHER, SELFPAY ==
[2020-02-07 11:29] VITALS: BMI 31.2
--- NOTE | 2020-10-01 09:54 | BI_ITS ---
MAMMOGRAPHY - BILATERAL SCREENING REASON FOR EXAM: Female, 44 years old. Routine annual screening examination. PERTINENT HISTORY: Non-contributory. TECHNIQUE: Digital bilateral breast sebastian (3D mammographic acquisition) in the CC and MLO projections. 2-D mediolateral oblique (MLO) and craniocaudad (CC) views of both breasts were obtained. CAD: Full Field Digital Mammography with Computer Added Detection was performed. COMPARISON: Comparison is made with prior study dated 05/01/2018 and 01/28/2017. FINDINGS: Breast Composition: There are scattered areas of fibroglandular density. There are no dominant masses or suspicious calcifications. No other significant abnormalities are identified. There has been no significant change since the prior study. BI/SCRN MAMM (CAD)W/SEBASTIAN BILAT IMPRESSION: Stable bilateral screening mammogram. Yearly follow-up mammogram recommended. (A) ASSESSMENT CATEGORY: BIRADS Category 1: Negative. A letter regarding these results will be sent to the patient by the facility within 30 days. Approximately 10% of breast cancers are not detected by mammography. A normal mammogram should not delay biopsy of a clinically suspicious abnormality. [id number] Electronically Signed: Florian Bansal MD at 12:54 EST , Service support ,
== END ==
PROVIDERS: PCP Family Medicine; Referring Provider Family Medicine; Visit Provider Family Medicine
DX: Z12.31 Encounter for screening mammogram for malignant neoplasm of breast (principal)
CPT/HCPCS: 77063; 77067

== ENCOUNTER → 2020-12-02 | Outpatient (CLI) | payer OTHER, SELFPAY ==
[2020-12-02 08:50] VITALS: BMI 35.7
[2020-12-06 11:55] LABS: HPV APTIMA, High Risk Negative (Negative)
== END | disposition home or self-care (01) ==
LOC: LABSPEC 16:59
PROVIDERS: PCP Family Medicine; Visit Provider Obstetrics & Gynecology
DX: Z12.4 Encounter for screening for malignant neoplasm of cervix (principal)
CPT/HCPCS: 87624; 88175; G0145

== ENCOUNTER → 2020-12-08 14:20 | Outpatient (CLI) | payer OTHER, SELFPAY ==
[2020-12-02 08:50] VITALS: BMI 35.7
--- NOTE | 2020-12-08 14:29 | US_ITS ---
STUDY: ULTRASOUND OF THE FEMALE PELVIS - COMPLETE REASON FOR EXAM: Female, 45 years old. aub LMP: 12/08/2020 TECHNIQUE: Transabdominal and Transvaginal TECHNICAL QUALITY: Adequate. COMPARISON: Comparison is made with prior examination dated 07/07/2018. FINDINGS: The uterus is anteverted and is in a midline position. The uterus measures 8.6 cm x 5.2 cm x 4.6 cm. There is a Nabothian cyst of the cervix. The endometrium measures 3 mm in thickness, and is hyperechoic. There is no demonstrated endometrial mass. There is no demonstrated myometrial mass. I.U.D. - The patient does have an I.U.D. The right ovary is visualized. The right ovary measures 1.7 cm x 2.2 cm x 2.2 cm. There is no right ovarian cyst or ovarian mass. There is no visualized right adnexal mass or complex lesion. There is normal arterial and normal venous vascularity. The left ovary is visualized. The left ovary measures 3.2 cm x 3.2 cm x 1.4 cm. There is no left ovarian cyst or ovarian mass. There is no visualized left adnexal mass or complex lesion. There is normal arterial and normal venous vascularity. There is no fluid in the cul-de-sac. The pre void volume of the bladder was 534 ml. Polycystic ovary disease: No. US/Pelvic (Non ) IMPRESSION: Normal female pelvis. Electronically Signed: Florian Bansal MD at 11:32 EDT , Service support ,
--- NOTE | 2020-12-08 14:29 | US_ITS ---
STUDY: ULTRASOUND OF THE FEMALE PELVIS - COMPLETE REASON FOR EXAM: Female, 45 years old. aub LMP: 12/08/2020 TECHNIQUE: Transabdominal and Transvaginal TECHNICAL QUALITY: Adequate. COMPARISON: Comparison is made with prior examination dated 07/07/2018. FINDINGS: The uterus is anteverted and is in a midline position. The uterus measures 8.6 cm x 5.2 cm x 4.6 cm. There is a Nabothian cyst of the cervix. The endometrium measures 3 mm in thickness, and is hyperechoic. There is no demonstrated endometrial mass. There is no demonstrated myometrial mass. I.U.D. - The patient does have an I.U.D. The right ovary is visualized. The right ovary measures 1.7 cm x 2.2 cm x 2.2 cm. There is no right ovarian cyst or ovarian mass. There is no visualized right adnexal mass or complex lesion. There is normal arterial and normal venous vascularity. The left ovary is visualized. The left ovary measures 3.2 cm x 3.2 cm x 1.4 cm. There is no left ovarian cyst or ovarian mass. There is no visualized left adnexal mass or complex lesion. There is normal arterial and normal venous vascularity. There is no fluid in the cul-de-sac. The pre void volume of the bladder was 534 ml. Polycystic ovary disease: No. US/Transvaginal Non- IMPRESSION: Normal female pelvis. Electronically Signed: Florian Bansal MD at 11:32 EDT , Service support ,
== END ==
PROVIDERS: PCP Family Medicine; Referring Provider Obstetrics & Gynecology; Visit Provider Obstetrics & Gynecology
DX: N93.9 Abnormal uterine and vaginal bleeding, unspecified (principal)
CPT/HCPCS: 76830; 76856

== ENCOUNTER 2021-08-18 00:52 | Emergency (ER) | payer OTHER, SELFPAY ==
[2021-08-18 00:52] VITALS: BP 115/70; PULSE 103; RESP 22; RESP 26; TEMP 36.6; O2SAT 99; BMI 34.2
[2021-08-18 01:34] LABS: Red Blood Cells-Urine 0 SEEN /hpf (0-5)
[2021-08-18 01:35] LABS: Color, Urine Yellow (Yellow); Glucose, Dipstick Normal (Normal); Ketone-Dipstick 50 mg/dl (Negative); Leukocyte Esterase-Dipstick 25 /ul (Negative); Nitrite-Dipstick Negative (Negative); Occult Blood-Urine 10 /ul (Negative); Protein-Dipstick 15 mg/dl (Negative); Urine Bilirubin Dipstick Negative (Negative); Urine Clarity Clear (Clear); Urine Urobilinogen 1 mg/dl (Normal)
--- NOTE | 2021-08-18 01:52 | CT_ITS ---
STUDY: CT ABDOMEN AND PELVIS WITH CONTRAST REASON FOR EXAM: Female, 45 years old. left sided abd pain RADIATION DOSAGE (If Supplied By Facility): CTDIvol = ( 16.70 ) mGy, DLP = ( 1284.19 ) mGycm TECHNIQUE: Transaxial images were obtained from the dome of the diaphragm to the symphysis pubis without oral contrast. IV 100mL [id number]-[id number] was administered. Sagittal and coronal images were reconstructed. Individualized dose optimization techniques were used for this CT. COMPARISON: None. FINDINGS: The visualized lung bases are unremarkable. The visualized portions of the heart are within normal limits. There is subcapsular hypoattenuation lesion in the segment #4 of the liver measures 1.7 cm most likely representing a cyst. There is non-visualization of the gallbladder, which may be secondary to either contraction or a prior cholecystectomy. Normal spleen. Normal pancreas. Normal bilateral adrenal glands. Normal right kidney. Normal left kidney. Normal visualized stomach. Normal small intestine. There are multiple colonic diverticula consistent with diverticulosis. There is marked thickening of the rayo of the transverse colon near the splenic flexure with stranding of the adjacent fat suggesting diverticulitis. The appendix is visualized and appears normal. Normal abdominal aorta. Normal inferior vena cava. Normal retroperitoneum. Normal urinary bladder. An IUD is seen in good position. There is small amount of free fluid in the pelvic cul-de-sac. Normal abdominal wall. Normal osseous structures. CT/Abdomen/Pelvis W IV Cont ONLY IMPRESSION: There is marked thickening of the rayo of the transverse colon near the splenic flexure with stranding of the adjacent fat suggesting diverticulitis. Electronically Signed: Jim Kramer MD at 3:18 EST Tel , Service support ,
--- NOTE | 2021-08-18 01:53 | EDS_ITS ---
HPI HPI - GI History of Present Illness Chief Complaint: Flank Pain Informant: patient Abdominal Pain/Flank Pain Onset: Days Context: Gradual Onset Timing: Continuous Quality: Aching and Cramping Current Severity: Mild Maximum Severity: Moderate Worsened by: Nothing Relieved by: Nothing Nausea/Vomiting/Emesis GI Symptom: Positive for Nausea; Negative for Vomiting Severity: Mild Diarrhea/Melena/Hematochezia GI Symptom: Negative for Diarrhea, Melena and Hematochezia Associated Symptoms Associated Symptoms: Negative for Dysuria, Frequency, Hematuria and Urgency Narrative Narrative: 45-year-old female history of diverticulitis prior cholecystectomy but no history of kidney stones. States for over a week she has had left flank pain. Started on Tuesday over week ago. Lasted for 5 days but has been waxing and waning. Treated herself with oxycodone. Denies any vomiting has had nausea and chills. No fever. She has a history of chronic constipation. No trauma, injury or falls. No dysuria or hematuria. Last menstrual period she states she bled for 14 days. Doesn't believe she can be . Currently is not having any vaginal bleeding or discharge. Prior similar symptoms: No Recent Illness/Hospitalization: No PFSH PFSH Medical History Anxiety Heart palpitations Hypertension Home Medications levonorgestrel 20.1 mcg/24 hrs (6 yrs) 52 mg intrauterine device 1 device INTRA- UTER ONCE 12/02/20 [History Last Taken Unknown] ciprofloxacin HCl 500 mg PO BID 10 Days #20 tab 08/18/21 [Rx Last Taken Unknown] hydrocodone-acetaminophen 1 tab PO Q4H PRN 4 Days #20 tab 08/18/21 [Rx Last Taken Unknown] metronidazole 500 mg PO Q8H 10 Days #30 tab 08/18/21 [Rx Last Taken Unknown] Allergy/AdvReac Type Severity Reaction Status Date / Time amoxicillin AdvReac Itching Verified 08/18/21 00:55 Surgical History H/O dilation and curettage Hx of cholecystectomy Hx of foot surgery Social History adopted: No household members: family housing: house number of children: 2 current occupational status: employed current occupation: [employer] current occupational exposures/hazards: No pets and animals: Yes history of recent travel: No Smoking Status: Never smoker alcohol intake: current alcohol intake frequency: holidays/special occasions only details: social substance use type: does not use caffeine: Yes what type of physical activity do you participate in: walking seatbelt use: always do you feel safe at home: Yes 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 Left flank abdominal pain. Chills. Review of Systems ROS Unobtainable: Denies due to encephalopathy Constitutional Constitutional ED: Reports chills; Denies fever(s) ENT ENT ED: Denies ear pain Cardiovascular Cardiovascular: Denies chest pain Respiratory/Chest Respiratory/Chest: Denies dyspnea Gastrointestinal Gastrointestinal: Reports abdominal pain, constipation and nausea; Denies diarrhea, melena or vomiting Genitourinary Genitourinary ED: Denies dysuria Musculoskeletal Musculoskeletal: Denies myalgias Integumentary Denies rash Neurologic Neurologic: Denies headache(s) Psychiatric Psychiatric: Denies depression Endocrine Endocrinology: Denies polyuria Hematologic/Lymphatic Hematologic/Lymphatic: Denies easy bruising Allergic/Immunologic Allergic/Immunologic ED: Denies urticaria EXAM Physical Exam Narrative Exam Narrative: Middle-aged female no acute distress vital signs stable afebrile. HEENT exam normal. Lungs are clear. Heart regular rate and rhythm. Abdomen soft nondistended normal bowel sounds no peritoneal signs. Left upper and lower quadrant tenderness. Reproducible. No ecchymosis or bruising. No signs of trauma. No hernia or mass no obstruction. Right upper and right lower quadrants are unremarkable. Back completely nontender she sits up and down and does not bother the muscles in her back at all. Moving all 4 extremities. Nontender no edema. Neurovascularly intact. Neurologically she is awake alert with no focal motor deficits. Const Vital Signs: 08/18/21 00:52 08/18/21 01:26 Temperature 98 F Temperature Source Temporal Pulse Rate 103 H Respiratory Rate 22 H Respiratory Effort Normal Blood Pressure 115/70 Blood Pressure Mean 85 Pulse Ox 99 Oxygen Delivery Method Room Air Positive well nourished and well developed; Negative for obese, cachectic, contractures or unkempt General Appearance ED: well developed and NAD; Negative for unkempt, cachectic, contractures or pallor Nutritional Appearance: Negative for cachectic or obese HEENT Reports moist mucous membranes normocephalic and atraumatic; Negative for trauma Eyes PERRL and EOMs intact bilaterally Neck no lymphadenopathy, supple and no JVD General: Negative for tenderness Resp normal respiratory effort and clear to auscultation bilaterally Auscultation: Negative for rales, rhonchi or wheezes Cardio regular rate, regular rhythm, S1 normal heart sound, S2 normal heart sound and no murmurs GI non-distended and no masses; Negative for non-tender Inspection: Negative for abdominal distention Auscultation: normoactive bowel sounds; Negative for hypoactive bowel sounds Palpation: soft and tender; Negative for guarding, rigid or rebound tenderness present Back/Spine no CVA tenderness General Back: Negative for CVA tenderness Extremity full ROM General Extremety ED: Negative for edema or tenderness General Extremity: Negative for edema Neuro moves all extremities Sensorium / Orientation: alert, oriented to person, oriented to place and oriented to time; Negative for orientation impaired, confused, lethargic or stuporous Psych mental status grossly normal and thought process normal Appearance: Negative for unkempt Skin no wounds General Skin Exam: Negative for jaundice or pallor Lesions: no lesions Rashes: no rashes MDM MDM MDM Narrative Medical decision making narrative: Middle-aged female with left flank pain somewhat reproducible. Differential would include diverticulitis, UTI, kidney stone versus other etiologies. Labs CAT scan being obtained. Repeat exam patient doing much better at 3:40 AM. We discussed all of her test results CAT scan revealed acute diverticulitis. No perforation or abscess. This was read by the radiologist. Patient be started on Cipro and Flagyl. First dose given here. She will give another dose of morphine prior to discharge. She is getting a ride home. She will follow up with her primary care physician Dr. Shanique Castaneda. She knows return if worse. Lab Data Attestation: I reviewed the patient's lab results. Lab results narrative: CBC shows elevated white count of 16.3. Hemoglobin 13. Serum test negative. UA negative. No whites or reds. No nitrates. Serum test negative. Electrolytes unremarkable. Normal BUN and creatinine. Normal gap. Liver enzymes unremarkable. Lipase normal. Labs: Laboratory Results - last 24 hr 08/18/21 08/18/21 08/18/21 01:22 01:22 01:22 WBC 16.3 H RBC 4.40 Hgb 13.0 Hct 39.2 MCV 89.1 MCH 29.5 MCHC 33.2 RDW Std Deviation 41.5 RDW Coeff of Richie 12.7 Plt Count 272 MPV 10.9 Immature Gran % (Auto) 0.600 Neut % (Auto) 84.7 H Lymph % (Auto) 6.6 L [place] % (Auto) 7.4 Eos % (Auto) 0.5 Baso % (Auto) 0.2 Absolute Neuts (auto) 13.8 H Absolute Lymphs (auto) 1.07 Nucleated RBC % 0 Sodium Potassium Chloride Carbon Dioxide Anion Gap BUN Creatinine Estim Creat Clear Calc Est GFR (MDRD) Af Amer Est GFR (MDRD) Non-Af BUN/Creatinine Ratio Glucose Calcium Total Bilirubin AST ALT Alkaline Phosphatase Total Protein Albumin Globulin Albumin/Globulin Ratio Lipase Serum , Qual NEGATIVE Urine Color Yellow Urine Clarity Clear Urine pH 6.0 Ur Specific [place] 1.020 Urine Protein 15 H Urine Glucose (UA) Normal Urine Ketones 50 H Urine Occult Blood 10 H Urine Nitrite Negative Urine Bilirubin Negative Urine Urobilinogen 1 H Ur Leukocyte Esterase 25 H Urine RBC 0 SEEN Urine WBC 0-5 SEEN Ur Squamous Epith Cells 0-5 SEEN Urine Bacteria 3+ Urine Mucus 2+ 08/18/21 01:22 WBC RBC Hgb Hct MCV MCH MCHC RDW Std Deviation RDW Coeff of Richie Plt Count MPV Immature Gran % (Auto) Neut % (Auto) Lymph % (Auto) [place] % (Auto) Eos % (Auto) Baso % (Auto) Absolute Neuts (auto) Absolute Lymphs (auto) Nucleated RBC % Sodium 136 Potassium 4.4 Chloride 104 Carbon Dioxide 23.0 Anion Gap 9 BUN 10 Creatinine 0.84 Estim Creat Clear Calc 84.42 Est GFR (MDRD) Af Amer 93 Est GFR (MDRD) Non-Af 77 BUN/Creatinine Ratio 11.9 Glucose 142 H Calcium 9.3 Total Bilirubin 1.30 H AST 27 ALT 26 Alkaline Phosphatase 69 Total Protein 7.3 Albumin 3.5 Globulin 3.8 Albumin/Globulin Ratio 0.9 Lipase 31 L Serum , Qual Urine Color Urine Clarity Urine pH Ur Specific [place] Urine Protein Urine Glucose (UA) Urine Ketones Urine Occult Blood Urine Nitrite Urine Bilirubin Urine Urobilinogen Ur Leukocyte Esterase Urine RBC Urine WBC Ur Squamous Epith Cells Urine Bacteria Urine Mucus Radiography Diagnostic Testing: Clinical Impression(s) from Imaging Studies Abdomen/Pelvis CT 08/18/21 01:52 IMPRESSION: There is marked thickening of the rayo of the transverse colon near the splenic flexure with stranding of the adjacent fat suggesting diverticulitis. Electronically Signed: Jim Kramer MD at 3:18 EST Tel , Service support , Discharge Plan Triage Chief Complaint: Flank Pain ED Provider: Vladislav Duval Dx/Rx/DC Orders Clinical Impression: Diverticulitis, Leukocytosis Instructions: ED Diverticulitis Prescriptions: New ciprofloxacin HCl 500 mg tablet 500 mg PO BID 10 Days Qty: 20 RF: 0 metronidazole 500 mg tablet 500 mg PO Q8H 10 Days Qty: 30 RF: 0 hydrocodone-acetaminophen 5-325 mg tablet 1 tab PO Q4H PRN (Reason: pain) 4 Days Qty: 20 RF: 0 No Action Liletta 20.1 mcg/24 hrs (6 yrs) 52 mg intrauterine device 1 device INTRA-UTER ONCE RF: 0 Primary Care Provider: Shanique Castaneda Referrals: Shanique Castaneda MD [Primary Care Provider] - 1 Week Activity Restrictions/Additional Instructions: Plan fluids and rest. Motrin and Ravenel for pain. Make sure you are drinking plenty of water and fiber to prevent constipation. Cipro twice a day and Flagyl 3 times a day for the diverticulitis. Each for 10 days. Do not drink any alcohol while on the Flagyl to make you quite sick. Follow-up with your doctor to ensure you are improving. Sometimes any need to extend the antibiotics more than 10 days to treat this. If you are getting significantly worse and feeling a lot worse return to the emergency department. Disposition Disposition: Home, Self Care
[2021-08-18 01:57] LABS: White Blood Cells 0-5 SEEN /hpf (0-5)
[2021-08-18 01:59] LABS: Bacteria 3+ /hpf (None Seen); Mucous, Urine 2+ /hpf (<or=2+); Squamous Epithelial Cells - UA 0-5 SEEN /hpf (5-10)
[2021-08-18 02:07] LABS: Absolute Lymphocyte Count 1.07 X10^3/uL (0.83-4.51); Absolute Neutrophil Count 13.8 X10^3/uL (2.0-7.7); Basophil# 0.04 X10^3/uL; Basophil% 0.2 % (0-1); Eosinophil# 0.08 X10^3/uL; Eosinophils% 0.5 % (0-5); Hematocrit 39.2 % (37-47); Internal QC Validated? YES +Cl - CLEAR BKGD; Lymphocyte # 1.07 X10^3/ul (0.83-4.51); Lymphocyte % 6.6 % (19-41); Mean Corp Hgb Conc 33.2 g/dL (32-36); Mean Corpuscular Hgb 29.5 pg (27.0-32.0); Mean Corpuscular Volume 89.1 fL (81-99); Mean Platelet Vol. 10.9 fl (6.2-12.0); Monocyte# 1.21 X10^3/uL; Monocyte% 7.4 % (0-10); NRBC Flagged by Analyzer 0 % (0-5); Neutrophil # 13.81 X10^3/uL (2.7-7.7); Neutrophil % 84.7 % (47-70); Platelet Count 272 K/mm3 (150-450); Pregnancy, Serum, hCG Quali. NEGATIVE Negative; RBC Distribution Width CV 12.7 % (11.6-14.6); RBC Distribution Width SD 41.5 fl (35.1-43.9); White Blood Count 16.3 K/mm3 (4.4-11.0)
[2021-08-18] MEDS: Ondansetron 4 MG/2 ML Vial IV (02:09)
[2021-08-18] MEDS: Ketorolac 30 MG/ML Syringe IV (02:10)
[2021-08-18] MEDS: morphine 8 MG/ML Syringe IV (02:10)
[2021-08-18 02:26] LABS: ALB/GLOB Ratio 0.9 RATIO (0.9-2.4); AST(SGOT) 27 U/L (15-37); Alanine Aminotransfer ALT/SGPT 26 U/L (13-56); Albumin, Serum 3.5 g/dL (3.2-5.0); Alkaline Phosphatase 69 U/L (45-117); Anion Gap 9 (5-15); BUN 10 mg/dL (7-18); BUN/Creat Ratio 11.9 RATIO (10-20); Calcium,Total 9.3 mg/dL (8.5-10.1); Chloride 104 mmol/L (98-107); Creatinine, Serum 0.84 mg/dL (0.55-1.02); EST Glomerular Filtration Rate 77 mL/min (>60); Est Glom Filt Rate - Afr Amer 93 mL/min (>60); Estimated Creatinine Clearance 84.42 ml/min; Globulin 3.8 g/dL (2.2-4.2); Glucose 142 mg/dL (74-106); Lipase 31 U/L (73-393); Potassium 4.4 mmol/L (3.5-5.1); Protein, Total 7.3 g/dL (6.4-8.2); Sodium Level 136 mmol/L (136-145)
[2021-08-18] MEDS: metroNIDAZOLE 500 MG Tablet PO (03:49)
[2021-08-18] MEDS: Ciprofloxacin 500 MG Tablet PO (03:49)
[2021-08-18] MEDS: morphine 8 MG/ML Syringe 6 MG IV (03:50)
[2021-08-18 04:15] VITALS: BP 110/54; PULSE 78; RESP 18
== END 2021-08-18 04:15 | disposition home or self-care (01) ==
PROVIDERS: Emergency Provider Emergency Medicine; PCP Family Medicine
DX: K57.92 Diverticulitis of intestine, part unspecified, without perforation or abscess without bleeding (principal); D72.829 Elevated white blood cell count, unspecified; Z90.49 Acquired absence of other specified parts of digestive tract
CPT/HCPCS: 74177; 80053; 81001; 83690; 84703; 85025; 96374; 96375; 96376; 99284; J7030; Q9967; A4216; J2405

== ENCOUNTER 2022-01-15 12:07 | Emergency (ER) | payer OTHER, SELFPAY ==
[2022-01-15 12:08] VITALS: BP 153/95; PULSE 95; RESP 18; TEMP 36.3; O2SAT 100; BMI 35.4
--- NOTE | 2022-01-15 12:20 | EKG12_ITS ---
Test Reason : CP Blood Pressure : / mmHG Vent. Rate : 088 BPM Atrial Rate : 088 BPM P-R Int : 130 ms QRS Dur : 094 ms QT Int : 344 ms P-R-T Axes : 012 007 024 degrees QTc Int : 416 ms Normal sinus rhythm Normal ECG Confirmed by MANE HEALY, ZEFERINO ([id number]), map editor ELY BALL ([id number]) on 01/18/2022 1:52:23 PM Referred By: ROBERT Confirmed By:ZEFERINO GILLIAM MD
--- NOTE | 2022-01-15 12:36 | EDS_ITS ---
HPI History of Present Illness Chief Complaint: Chest Pain Informant: patient Onset/Context/Timing Onset: Days (3) Activity at onset: gradual and onset Timing: Intermittent and Lasts (minutes, until today) Quality: Positive for Dull (today) and Sharp Location: Right Chest and Left Chest Current Severity: Gone Maximum Severity: Moderate Worsened By: Nothing; Not Worsened By Breathing Relieved By: Nothing Associated Symptoms: Positive for Lightheadedness and Palpitations (Chronically intermittent and without association with these symptoms); Negative for Nausea, Vomiting, Diaphoresis, Dyspnea, Cough and Fever Narrative Narrative: Patient has had intermittent chest discomfort that has been relative ly brief last few days, sometimes right side, sometimes left side, today it was dull and substernal and constant for about 3 hours, but now that she got to the emergency department her symptoms are resolved. No other associated symptoms along with the discomfort. She has never had this before and she was little lightheaded today without any near-syncope, she became concerned which is what brought her in. She is on control hormones she is not a smoker. She is in an orthotic boot on her left lower extremity due to surgery she had 1 or 2 months ago on her foot from old sports injuries, she states they did work on 4 of her toes. She states that is doing well and she denies any calf pain or swelling in her leg or history of DVT/PE. CVD Risk Factors: Positive for Hypertension; Negative for Diabetes, Hypercholesterolemia, Family History 1' </=55 and Smoking PE Risk Factors: Positive for Recent Immobilization (Boot left lower extremity); Negative for Recent Travel/Surgery, Prior DVT or PE, Cancer and OCP + Smoking + >/=35 PFSH PFSH Medical History Anxiety Heart palpitations Hypertension Home Medications levonorgestrel 20.1 mcg/24 hrs (6 yrs) 52 mg intrauterine device 1 device INTRA- UTER ONCE 12/02/20 [History Last Taken Unknown] ciprofloxacin HCl 500 mg PO BID 10 Days #20 tab 08/18/21 [Rx Last Taken Unknown] hydrocodone-acetaminophen 1 tab PO Q4H PRN 4 Days #20 tab 08/18/21 [Rx Last Taken Unknown] metronidazole 500 mg PO Q8H 10 Days #30 tab 08/18/21 [Rx Last Taken Unknown] Allergy/AdvReac Type Severity Reaction Status Date / Time amoxicillin AdvReac Itching Verified 01/15/22 12:09 Surgical History H/O dilation and curettage Hx of cholecystectomy Hx of foot surgery Social History adopted: No household members: family housing: house number of children: 2 current occupational status: employed current occupation: [employer] current occupational exposures/hazards: No pets and animals: Yes history of recent travel: No Smoking Status: Never smoker alcohol intake: current alcohol intake frequency: holidays/special occasions only details: social substance use type: does not use caffeine: Yes what type of physical activity do you participate in: walking seatbelt use: always do you feel safe at home: Yes 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 Constitutional ED: Denies chills or fever(s) Eyes Eyes: Denies change in vision or diplopia ENT ENT ED: Denies rhinorrhea or sore throat Cardiovascular Cardiovascular: Reports as per HPI, chest pain and palpitations Respiratory/Chest Respiratory/Chest: Denies cough or dyspnea Gastrointestinal Gastrointestinal: Denies abdominal pain, diarrhea, nausea or vomiting Genitourinary Genitourinary ED: Denies dysuria or hematuria Musculoskeletal Musculoskeletal: Denies back pain or neck pain Integumentary Denies abscess or rash Neurologic Neurologic: Denies headache(s), paresthesias or weakness Psychiatric Psychiatric: Denies anxiety or suicidal thoughts EXAM Physical Exam Const Vital Signs: 01/15/22 12:08 Temperature 97.4 F L Temperature Source Oral Pulse Rate 95 Respiratory Rate 18 Blood Pressure 153/95 H Blood Pressure Mean 114 Pulse Ox 100 Oxygen Delivery Method Room Air Positive well nourished and well developed General Appearance ED: well developed and NAD HEENT Reports moist mucous membranes normocephalic and atraumatic Eyes PERRL and EOMs intact bilaterally Neck full ROM and supple Resp normal respiratory effort and clear to auscultation bilaterally Cardio regular rate, regular rhythm and no murmurs GI non-tender and non-distended Auscultation: normoactive bowel sounds Palpation: soft Back/Spine no CVA tenderness General Back: other FROM Extremity normal to inspection and no calf tenderness Extremity Narrative: Left lower extremity in orthotic boot, the proximal calf is nontender. Neurovascularly intact distally. General Extremety ED: Negative for edema, pulses abnormal or tenderness General Extremity: Negative for edema or pulses abnormal Neuro oriented x3, CN's II-XII intact bilaterally and no sensory deficits noted Sensorium / Orientation: awake and alert Motor Exam: strength 5/5 throughout Skin no rashes or lesions noted and no wounds Heart Score History: Slightly/Non-Suspicious ECG: Normal Age: >45 - <65 years Risk Factors: 1 or 2 Risk Factors Troponin: </= Normal Limit Score: 2 MDM MDM MDM Narrative Medical decision making narrative: NotI discussed the EKG findings with the patient, and the fact that unlike typical angina or cardiac pain, however with the orthotic boot that she was in, she is at a slightly increased risk of getting a DVT, and in that context, we should rule out pulmonary embolus, initially ordered a D-dimer as well as troponin and other labs and a chest x-ray and I explained all this to her and the reasoning behind it, and she was in agreement. Subsequently, nursing came to me and alerted me of the fact that the patient decided to leave. She was fairly anxious and it is unknown if this is her reasoning for leaving but she told the nurse that she felt silly for being here. Rhythm Strip Rhythm Strip: Sinus Rhythm Rate: 90 Ectopy: None EKG Initial EKG: Attestation: I personally reviewed and interpreted this EKG as follows: Interpretation: Sinus Rhythm and No Acute Injury Pattern Comments: Normal EKG Discharge Plan Triage Chief Complaint: Chest Pain ED Provider: Moises Mccain Dx/Rx/DC Orders Clinical Impression: Chest pain Prescriptions: No Action Liletta 20.1 mcg/24 hrs (6 yrs) 52 mg intrauterine device 1 device INTRA-UTER ONCE RF: 0 ciprofloxacin HCl 500 mg tablet 500 mg PO BID 10 Days Qty: 20 RF: 0 metronidazole 500 mg tablet 500 mg PO Q8H 10 Days Qty: 30 RF: 0 hydrocodone-acetaminophen 5-325 mg tablet 1 tab PO Q4H PRN (Reason: pain) 4 Days Qty: 20 RF: 0 Primary Care Provider: Shanique Castaneda Referrals: Shanique Castaneda MD [Primary Care Provider] - Disposition Disposition: Elopement
== END 2022-01-15 13:16 | disposition left against medical advice (07) ==
LOC: ED 12:55
PROVIDERS: Emergency Provider Emergency Medicine; PCP Family Medicine; Visit Provider Emergency Medicine
DX: R07.9 Chest pain, unspecified (principal)
CPT/HCPCS: 93005; 99282

== ENCOUNTER → 2022-05-10 | Outpatient (CLI) | payer OTHER, SELFPAY ==
--- NOTE | 2022-05-10 13:53 | BI_ITS ---
MAMMOGRAPHY - BILATERAL SCREENING REASON FOR EXAM: Female, 46 years old. Routine annual screening examination. PERTINENT HISTORY: Non-contributory. TECHNIQUE: Digital bilateral breast sebastian (3D mammographic acquisition) in the CC and MLO projections. 2-D mediolateral oblique (MLO) and craniocaudad (CC) views of both breasts were obtained. CAD: Full Field Digital Mammography with Computer Added Detection was performed. COMPARISON: Comparison is made with prior study dated 10/01/2020 and 05/01/2018. FINDINGS: Breast Composition: There are scattered areas of fibroglandular density. There are no dominant masses or suspicious calcifications. No other significant abnormalities are identified. There has been no significant change since the prior study. BI/SCRN MAMM (CAD)W/SEBASTIAN BILAT IMPRESSION: Stable bilateral screening mammogram. Yearly follow-up mammogram recommended. (A) ASSESSMENT CATEGORY: BIRADS Category 1: Negative. A letter regarding these results will be sent to the patient by the facility within 30 days. Approximately 10% of breast cancers are not detected by mammography. A normal mammogram should not delay biopsy of a clinically suspicious abnormality. [id number] Electronically Signed: Florian Bansal MD at 14:43 EDT ,
== END | disposition home or self-care (01) ==
LOC: OPBI 13:52
PROVIDERS: PCP Family Medicine; Visit Provider Obstetrics & Gynecology
DX: Z12.31 Encounter for screening mammogram for malignant neoplasm of breast (principal)
CPT/HCPCS: 77063; 77067

== ENCOUNTER → 2022-12-29 | Outpatient (CLI) | payer SELFPAY ==
[2022-12-29 09:12] LABS: Hemoglobin A1c 5.4 % (3.8-5.6)
[2022-12-29 09:18] LABS: Vitamin D,25 Hydroxy 37.2 ng/mL
[2022-12-29 09:25] LABS: ALB/GLOB Ratio 1.1 RATIO (0.9-2.4); AST(SGOT) 21 U/L (15-37); Alanine Aminotransfer ALT/SGPT 29 U/L (13-56); Albumin, Serum 3.9 g/dL (3.2-5.0); Alkaline Phosphatase 66 U/L (45-117); Anion Gap 3 (5-15); BUN 8 mg/dL (7-18); BUN/Creat Ratio 9.7 RATIO (10-20); Calcium,Total 9.1 mg/dL (8.5-10.1); Chloride 105 mmol/L (98-107); Cholesterol 173 mg/dL (200); Creatinine, Serum 0.83 mg/dL (0.55-1.02); EST Glomerular Filtration Rate 78 mL/min (>60); Est Glom Filt Rate - Afr Amer 95 mL/min (>60); Globulin 3.5 g/dL (2.2-4.2); Glucose 106 mg/dL (74-106); High Density Lipoprotein 49 mg/dL; Potassium 4.4 mmol/L (3.5-5.1); Protein, Total 7.4 g/dL (6.4-8.2); Sodium Level 135 mmol/L (136-145); Thyroid Stim Hormone (TSH) 1.27 uIU/mL (0.358-3.74); Triglycerides 92 mg/dL; Very Low Density Lipoprotein 18 mg/dL (5-40)
== END | disposition home or self-care (01) ==
PROVIDERS: PCP Family Medicine; Referring Provider Obstetrics & Gynecology; Visit Provider Obstetrics & Gynecology
DX: Z13.21 Encounter for screening for nutritional disorder (principal); E66.9 Obesity, unspecified
CPT/HCPCS: 36415; 80053; 80061; 82306; 83036; 84443

== ENCOUNTER → 2023-01-07 | Outpatient (CLI) | payer SELFPAY ==
--- NOTE | 2023-01-07 07:28 | US_ITS ---
STUDY: ABDOMINAL ULTRASOUND - RIGHT UPPER QUADRANT REASON FOR VISIT: Female, 47 years old elevated bilirubin level/RUQ TECHNIQUE: Ultrasound evaluation of the right upper quadrant was performed with real-time and static jay-scale imaging. TECHNICAL QUALITY: Adequate. COMPARISON: None. FINDINGS: Liver: The liver measures 14.5 cm. There is normal echogenicity of the liver. The bile ducts are within normal limits. There is hepatic color flow. The direction of portal flow is hepatopetal. There is no demonstrated mass lesion. Gallbladder: The patient is status post cholecystectomy. Common Bile Duct (C.B.D.): The common bile duct measures 4.3 mm. Pancreas: Normal size of the head, body and tail of the pancreas. There is normal echogenicity of the pancreas. There is no demonstrated pancreatic mass or cyst. Right Kidney: Normal size of the right kidney. The right kidney measures 11.5 cm x 5.2 cm x 4.6 cm. Normal renal cortex. The right cortex measures 1.5 cm. There is no demonstrated renal mass or cyst. There is no right hydronephrosis. US/Abdomen Limited IMPRESSION: Normal right upper quadrant ultrasound examination. Status post cholecystectomy. Electronically Signed: Florian Bansal MD at 15:22 EDT ,
== END | disposition home or self-care (01) ==
LOC: US 07:27
PROVIDERS: PCP Family Medicine; Referring Provider Obstetrics & Gynecology; Visit Provider Obstetrics & Gynecology
DX: E80.7 Disorder of bilirubin metabolism, unspecified (principal); R10.11 Right upper quadrant pain; Z90.49 Acquired absence of other specified parts of digestive tract
CPT/HCPCS: 76705

== ENCOUNTER → 2024-02-07 | Outpatient (CLI) | payer OTHER, SELFPAY | END | disposition home or self-care (01) | PROVIDERS: PCP Family Medicine; Visit Provider Obstetrics & Gynecology | DX: N89.8 Other specified noninflammatory disorders of vagina (principal) | CPT/HCPCS: 87070; 87205 ==

== ENCOUNTER → 2024-03-08 | Outpatient (CLI) | payer OTHER, SELFPAY ==
--- NOTE | 2024-03-08 15:15 | US_ITS ---
STUDY: ULTRASOUND OF THE FEMALE PELVIS - COMPLETE REASON FOR EXAM: Female, 48 years old. IUD placement, cervical polyp LMP: March 02, 2024 TECHNIQUE: Transabdominal and Transvaginal TECHNICAL QUALITY: Adequate. COMPARISON: December 08, 2020 FINDINGS: The uterus is anteverted and is in a midline position. The uterus measures 9.3 x 6.3 x 4.7 cm and appears heterogeneous Normal uterine cervix. The endometrium measures 4.4 mm in thickness, and is hyperechoic. There is no demonstrated endometrial mass. Myometrial mass measures 1 x 0.8 x 0.7 cm. Nabothian cysts noted. I.U.D. - The patient does have an I.U.D. The right ovary is visualized. The right ovary measures 2.5 x 2.7 x 1.4 cm. There is no right ovarian cyst or ovarian mass. There is no visualized right adnexal mass or complex lesion. There is normal arterial and normal venous vascularity. The left ovary is visualized. The left ovary measures 1.8 x 1.9 x 1.9 cm cm. There is no left ovarian cyst or ovarian mass. There is no visualized left adnexal mass or complex lesion. There is normal arterial and normal venous vascularity. There is no fluid in the cul-de-sac. Polycystic ovary disease: No. US/Pelvic w/ Transvaginal IMPRESSION: Uterine fibroid noted. IUD in the fundus. No acute disease. Electronically Signed: Urban Flowers MD at 23:59 EDT ,
[2024-03-08 16:49] LABS: Absolute Lymphocyte Count 1.48 X10^3/uL (0.83-4.51); Absolute Neutrophil Count 3.7 X10^3/uL (2.0-7.7); Basophil# 0.04 X10^3/uL; Basophil% 0.7 % (0-1); Eosinophils% 1.7 % (0-5); Hematocrit 40.4 % (37-47); Hemoglobin 13.4 g/dL (12.0-15.0); Lymphocyte # 1.48 X10^3/ul (0.83-4.51); Lymphocyte % 24.8 % (19-41); Mean Corp Hgb Conc 33.2 g/dL (32-36); Mean Corpuscular Hgb 29.9 pg (27.0-32.0); Mean Corpuscular Volume 90.2 fL (81-99); Mean Platelet Vol. 9.8 fl (6.2-12.0); Monocyte# 0.61 X10^3/uL; Monocyte% 10.2 % (0-10); NRBC Flagged by Analyzer 0 % (0-5); Neutrophil # 3.71 X10^3/uL (2.7-7.7); Neutrophil % 62.1 % (47-70); Platelet Count 315 K/mm3 (150-450); RBC Distribution Width CV 12.3 % (11.6-14.6); RBC Distribution Width SD 40.8 fl (35.1-43.9); Red Blood Count 4.48 M/mm3 (4.2-5.4)
[2024-03-08 17:25] LABS: ALB/GLOB Ratio 1.2 RATIO (0.9-2.4); AST(SGOT) 11 U/L (15-37); Alanine Aminotransfer ALT/SGPT 27 U/L (13-56); Albumin, Serum 4.1 g/dL (3.2-5.0); Alkaline Phosphatase 58 U/L (45-117); Anion Gap 5 (5-15); BUN 10 mg/dL (7-18); BUN/Creat Ratio 14.1 RATIO (10-20); Calcium,Total 9.5 mg/dL (8.5-10.1); Chloride 103 mmol/L (98-107); Cholesterol 174 mg/dL (200); Creatinine, Serum 0.71 mg/dL (0.55-1.02); EST Glomerular Filtration Rate 93 mL/min (>60); Est Glom Filt Rate - Afr Amer 112 mL/min (>60); Estradiol 86.8 pg/mL; Follicle Stimulating Hormone 9.5 mIU/mL; Globulin 3.4 g/dL (2.2-4.2); Glucose 83 mg/dL (74-106); Hemoglobin A1c 5.3 % (3.8-5.6); High Density Lipoprotein 43 mg/dL; Protein, Total 7.5 g/dL (6.4-8.2); Sodium Level 134 mmol/L (136-145); Thyroid Stim Hormone (TSH) 1.35 uIU/mL (0.358-3.74); Triglycerides 124 mg/dL; Very Low Density Lipoprotein 25 mg/dL (5-40)
== END | disposition home or self-care (01) ==
PROVIDERS: PCP Family Medicine; Referring Provider Obstetrics & Gynecology; Visit Provider Obstetrics & Gynecology
DX: Z30.431 Encounter for routine checking of intrauterine contraceptive device (principal); N95.1 Menopausal and female climacteric states; N84.1 Polyp of cervix uteri
CPT/HCPCS: 36415; 76830; 76856; 80053; 80061; 82670; 83001; 83036; 84443; 85025

== ENCOUNTER → 2025-01-21 | Outpatient (CLI) | payer BC, SELFPAY ==
[2025-01-21 09:36] LABS: Hemoglobin A1c 5.9 % (<=5.6)
[2025-01-21 10:05] LABS: ALB/GLOB Ratio 1.6 RATIO (0.9-2.4); AST(SGOT) 17 U/L (<=31); Alanine Aminotransfer ALT/SGPT 14 U/L (<=34); Albumin, Serum 4.1 g/dL (3.5-5.0); Alkaline Phosphatase 73 U/L (35-104); Anion Gap 11 (5-15); BUN 11 mg/dL (4-19); BUN/Creat Ratio 14.6 RATIO (10-20); Calcium,Total 9.1 mg/dL (7.6-11.0); Carbon Dioxide 23.2 mmol/L (21.0-32.0); Chloride 103 mmol/L (98-108); Cholesterol 149 mg/dL (<=200); Creatinine, Serum 0.76 mg/dL (0.70-1.20); EST Glomerular Filtration Rate 96 (>60); Estradiol 71.6 pg/mL; Follicle Stimulating Hormone 6.7 mIU/mL; Globulin 2.6 g/dL (2.2-4.2); Glucose 112 mg/dL (70-99); High Density Lipoprotein 45 mg/dL; Low Density Lipoprotein Calc. 83 mg/dL; Luteinizing Hormone 11.8 mIU/mL; Potassium 4.1 mmol/L (3.3-5.1); Protein, Total 6.8 g/dL (5.9-8.4); Sodium Level 137 mmol/L (133-145); Total Bilirubin 0.62 mg/dL (0.00-1.30); Triglycerides 104 mg/dL; Very Low Density Lipoprotein 21 mg/dL (5-40); Vitamin D,25 Hydroxy 27.9 ng/mL (30-100)
== END | disposition home or self-care (01) ==
PROVIDERS: PCP Family Medicine; Referring Provider Obstetrics & Gynecology; Visit Provider Obstetrics & Gynecology
DX: Z13.220 Encounter for screening for lipoid disorders (principal); E66.89 Other obesity not elsewhere classified; Z13.1 Encounter for screening for diabetes mellitus
CPT/HCPCS: 36415; 80053; 80061; 82306; 82670; 83001; 83002; 83036; 84439; 84443

== ENCOUNTER → 2025-04-22 | Outpatient (CLI) | payer BC, SELFPAY ==
--- OUTSIDE RECORDS SUMMARY | 2025-04-22 09:37 | XMS RPT_ITS | CCD ---
Author Organization 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 Shanique Castaneda Primary Care Provider Dr. Shanique Castaneda Referring Provider Dr. Bobbi Brewster Attending Provider Dr. Carolina Cedillo Attending Provider Dr. Shanique Castaneda MD Primary Care Provider Dr. Shanique Castaneda MD Referring Provider Dr. Carolina Cedillo DO Attending Provider Dr. Carolina Cedillo DO Referring Provider Tonya, Shanique S Primary Care Unavailable Carolina Cedillo Attending Kirsten e Carolina Cedillo Referring Unavailabl e Gordyiff, Shanique S Primary Care Unavailable Gordyiff, Shanique S Referring Unavailable Nilda Gonzalez Attending Unavailable Gordyiff, Shanique S Referring Unavailable Harshe Carolina Dickens Attending Unavailabl e Marylliff, Shanique S Primary Care Unavailable Jolliff, Shanique S Primary Care Unavailable Jolliff, Shanique S Referring Unavailable Nilda Gonzalez Attending Unavailable Jolliff, Shanique S Referring Unavailable Jolliff, Shanique S Primary Care Unavailable Bobbi Brewster Attending Unavailable Jolliff, Shanique S Primary Care Unavailable Carolina Cedillo Attending Unavailabl e Harshe Carolina Dickens Referring Unavailabl e Allergies Allergy Classification Reported Allergen(s) Allergy Type Date of Onset Reaction(s) Facility (3 sources) ceFAZolin Drug Allergy 0 Other: See Comments [facility] Work Phone: (3 sources) oxyCODONE Drug Allergy 0 Rash [facility] Work Phone: (7 sources) Amoxicillin Drug Allergy 1 Itching [facility] (1 source) Amoxicillin Drug Allergy 5 [facility] Repository Medications Current Medications Medication Drug Class(es) Dates Sig (Normalized) Sig (Original) Estradiol (Imvexxy Maintenance Pack) 4 mcg insert (1 source) Start: 01-18-2025 Estradiol (Imvexxy Maintenance Pack) 4 mcg insert Active 4 ug VAGINAL TWICE A WEEK January 18, 2025 12:00am Estradiol (Imvexxy Starter Pack) 4 mcg insert, dose pack (1 source) Start: 01-18-2025 Estradiol (Imvexxy Starter Pack) 4 mcg insert, dose pack Active 0 VAGINAL .COMPLEX January 18, 2025 12:00am insert 1 - 4 mcg insert vaginally once daily for 2 weeks; then 1 - 4 mcg insert vaginally twice WEEKLY (every 3-4 days/same days each week) vaginal Multivitamin preparation (2 sources) Start: 07-20-2022 take 1 tablet by mouth once daily Multivitamin Active 1 TABLET PO DAILY July 20, 2022 1:00am Basalt-3 Fatty Acids (2 sources) Start: 07-20-2022 take 1000 mg by mouth once daily Basalt-3 Fatty Acids Active 1000 MG PO DAILY July 20, 2022 1:00am Completed/Discontinued Medications Medication Drug Class(es) Dates Sig (Normalized) Sig (Original) acetaminophen 325 mg / HYDROcodone bitartrate 5 mg oral tablet (5 sources) Opioid Agonist Start: 08-18-2021 End: 07-20-2022 Hydrocodone-Acetami nophen 5-325 mg tablet Discontinued 1 {tbl} PO Q4H as needed for pain 30 12August 18, 2021 July 20, 2022 4:41pm Start: 08-18-2021 End: 07-20-2022 take 1 tablet by mouth every four hours Hydrocodone-Acetaminophen Discontinued 1 TABLET PO Q4H 30 12August 18, 2021 July 20, 2022 4:41pm acetaminophen 325 mg / oxyCODONE hydrochloride 5 mg oral tablet (2 sources) Opioid Agonist oxyCODONE-acetam inophen (PERCOCET) 5-325 mg tablet Take by mouth every 8 hours as needed for pain. 0 Active Comment on above: Take by mouth every 8 hours as needed for pain. Poxinxq-Yewodpqc-U6- B2-Fa-Iron 0.45-9-67 laui-dd-rbja capsule (1 source) Start : End: 02-06 Onukqnn-Xkmshrxw-W1-B2-Fa-Ir on 0.45-9-67 pbhx-hv-yexk capsule Discontinued NMA PO November 10, 2023 1:00am February 07, 2024 2:41pm sugar-free cholestyramine resin 4000 mg powder for oral suspension (5 sources) Bile Acid Sequestrant Start : 01-21 End: 02-06 take 4 g by mouth twice daily Cholestyramine-Aspartame 4 GM powder in packet Discontinued 4 g PO TWICE A DAY January 22, 2020 12:00am February 20, 2020 12:00am February 07, 2020 11:41am ciprofloxacin 500 mg oral tablet (7 sources) Quinolone Antimicrobial Start : 08-18 End: 07-20 take 1 tablet by mouth twice daily Ciprofloxacin Hcl 500 mg tablet Discontinued 500 mg PO TWICE A DAY 01 07August 18, 2021 1:00am July 20, 2022 4:41pm Comment on above: Take by mouth. doxycycline hyclate 100 mg oral capsule (2 sources) Tetracycline-class Drug Start : 12-25 take 1 capsule by mouth twice daily doxycycline hyclate (VIBRAMYCIN) 100 mg capsule Take 100 mg by mouth twice daily. 0 12/25/2021 Active Comment on above: Take 100 mg by mouth twice daily. DULoxetine 60 mg delayed release oral capsule (3 sources) Serotonin and Norepinephrine Reuptake Inhibitor Start : 07-20 End: 10-14 take 1 capsule by mouth once daily Duloxetine 60 mg capsule,delayed release(DR/EC) Discontinued 60 mg PO DAILY July 20, 2022 1:00am October 14, 2022 12:14pm fluconazole 150 mg oral tablet (1 source) Azole Antifungal Start : 02-08 End: 08-07 take 1 tablet by mouth once Fluconazole 150 mg tablet Discontinued 150 mg PO ONCE 1 February 09, 2024 12:00am August 07, 2024 5:15pm gabapentin 300 mg oral capsule (3 sources) Anti-epileptic Agent Start : 07-20 End: 02-10 take 1 capsule by mouth at bedtime Gabapentin 300 mg capsule Discontinued 300 mg PO AT BEDTIME 90 July 20, 2022 1:00am February 10, 2023 2:15pm ibuprofen 800 mg oral tablet (2 sources) Nonsteroidal Anti-inflammatory Drug take 1 tablet by mouth every six hours as needed ibuprofen (MOTRIN) 800 mg tablet Take 800 mg by mouth every 6 hours as needed. 0 Active Comment on above: Take 800 mg by mouth every 6 hours as needed. Lactobacillus acidophilus (3 sources) Lactobacillus ac idophilus (PROBIOTIC ORAL) Take by mouth. 0 Active Comment on above: Take by mouth. Lactobacillus Combination No.4 (Probiotic) 3 billion cell capsule (3 sources) Start : 07-20 End: 02-06 take 3 capsules by mouth once daily Lactobacillus Combination No.4 (Probiotic) 3 billion cell capsule Discontinued 3000 NMA PO DAILY July 20, 2022 1:00am February 07, 2024 2:41pm administer with a meal Start: 07-20-2022 take 3 capsules by m outh once daily Lactobacillus Combination No.4 (Probiotic) 3 billion cell capsule Active 3000 MMU CELLS PO DAILY July 20, 2022 1:00am administer with a meal levonorgestrel 0.684408 mg/hr intrauterine system (7 sources) Progestin, Progestin-containing Intrauterine Device Start: 12-02-2020 End: 01-18-2025 Levonorgestrel (Liletta) 20.1 mcg/24 hrs (6 yrs) 52 mg intrauterine device Discontinued 1 NMA INTRA-UTER ONCE December 02, 2020 12:00am January 18, 2025 8:48am as a single dose Start: 12-02-2020 Levonorgestrel (Liletta) 20.1 mcg/24 hrs (6 yrs) 52 mg intrauterine device Active 1 DEVICE INTRA-UTER ONCE December 02, 2020 12:00am as a single dose Start: 02-07-2020 End: 02-07-2020 levonorgestrel 20 mcg/24 [place] rs (6 yrs) 52 mg intrauterine device Discontinued 1 INSERT INTRA-UTER ONCE February 07, 2020 11:23am February 07, 2020 12:37pm Start: 08-30-2018 End: 08-30-2018 levonorgestrel 20 mcg/24 [place] rs (6 yrs) 52 mg intrauterine device Discontinued 1 INSERT INTRA-UTER ONCE August 30, 2018 11:44am August 30, 2018 1:00pm Magnesium (1 source) Start: 11-10-2023 End: 02-07-2024 take 1 tablet by mouth once daily Magnesium 250 mg tablet Discontinued 250 mg PO DAILY November 10, 2023 1:00am February 07, 2024 2:41pm metroNIDAZOLE 500 mg oral tablet (8 sources) Nitroimidazole Antimicrobial Start: 08-18-2021 End: 07-20-2022 take 1 tablet by mouth every eight hours Metronidazole 500 mg tablet Discontinued 500 mg PO Q8H 11 07August 18, 2021 1:00am July 20, 2022 4:41pm Comment on above: Take by mouth. MULTIVIT WITH CALCIUM,IRON,MIN (MULTIPLE VITAMIN, WOMENS ORAL) (3 sources) take 1 capsule by mouth once daily MULTIVIT WITH CALCIUM,IRON,MIN (MULTIPLE VITAMIN, WOMENS ORAL) Take 1 capsule by mouth once daily. 0 Active Comment on above: Take 1 capsule by mo ut once daily. Multivitamin tablet (1 source) Start: 07-20-2022 End: 11-10-2023 Multivitamin tablet Discontinued 1 {tbl} PO DAILY July 20, 2022 1:00am November 10, 2023 3:49pm Basalt-3 Fatty Acids 1,000 mg capsule (1 source) Start: 07-20-2022 End: 11-10-2023 take 1 capsule by mouth once daily Basalt-3 Fatty Acids 1,000 mg capsule Discontinued 1000 mg PO DAILY July 20, 2022 1:00am November 10, 2023 3:49pm phentermine hydrochloride 37.5 mg oral tablet (20 sources) Sympathomimetic Amine Anorectic Start: 08-29-2024 End: 01-18-2025 take 1 tablet by mouth once daily Phentermine (Adipex-P) 37.5 mg tablet Discontinued 37.5 mg PO daily August 29, 2024 12:13pm January 18, 2025 8:48am BMI 32 Start: 08-07-2024 End: 08-29-2024 Phentermine (Adipex-P) 37.5 mg tablet Discontinued 18.75 mg PO daily August 07, 2024 5:15pm August 29, 2024 12:13pm BMI 32 Start: 07-19-2023 End: 02-07-2024 Phentermine (Adipex-P) 37.5 mg tablet Discontinued 18.75 mg PO daily November 10, 2023 1:00am February 07, 2024 2:41pm BMI 31 Start: 06-22-2023 End: 07-19-2023 take 0.5 tablet by mouth once daily 30 minutes after breakfast Phentermine 37.5 mg capsule Discontinued 37.5 mg PO .COMPLEX June 22, 2023 11:24am July 19, 2023 11:47am 37.5 mg orally half tab daily; must administer 30 minutes before or 1-2 hours after breakfast Start: 06-22-2023 End: 06-22-2023 take 1 capsule by mouth once daily 30 minutes after breakfast Phentermine 37.5 mg capsule Discontinued 37.5 mg PO DAILY June 22, 2023 12:00am June 22, 2023 11:24am must administer 30 minutes before or 1-2 hours after breakfast Start: 03-11-2023 End: 05-06-2023 Phentermine (Adipex-P) 37.5 mg tablet Discontinued 18.75 mg PO DAILY March 11, 2023 2:30pm May 06, 2023 12:43pm must administer 30 minutes before or 1-2 hours after breakfast - BMI 30 Start: 12-28-2022 End: 03-11-2023 Phentermine (Adipex-P) 37.5 mg tablet Discontinued 37.5 mg PO DAILY February 10, 2023 1:56pm March 11, 2023 2:33pm must administer 30 minutes before or 1-2 hours after breakfast - BMI 31 Start: 09-17-2022 End: 12-28-2022 Phentermine (Adipex-P) 37.5 mg tablet Discontinued 37.5 mg PO DAILY September 17, 2022 5:58pm December 28, 2022 11:24am must administer 30 minutes before or 1-2 hours after breakfast - BMI 33 Start: 08-20-2022 End: 09-17-2022 Phentermine (Adipex-P) 37.5 mg tablet Discontinued 37.5 mg PO DAILY August 20, 2022 12:24pm September 17, 2022 5:58pm must administer 30 minutes before or 1-2 hours after breakfast - BMI 34 Start: 07-20-2022 End: 08-20-2022 Phentermine (Adipex-P) 37.5 mg tablet Discontinued 37.5 mg PO DAILY July 20, 2022 1:00am August 20, 2022 12:24pm must administer 30 minutes before or 1-2 hours after breakfast - BMI 35.9% 24 hr phentermine 15 mg / topiramate 92 mg extended release oral capsule (1 source) Sympathomimetic Amine Anorectic Start: 05-06-2023 End: 06-22-2023 Phentermine-Topiramate (Qsymia) 15-92 mg capsule, ER multiphase 24 hr Discontinued 1 NMA PO DAILY May 06, 2023 12:00am June 22, 2023 10:56am sucralfate 1000 mg oral tablet (5 sources) Aluminum Complex Start: 01-22-2020 End: 02-07-2020 take 1 tablet by mouth 1 hour(s) before mealtime Sucralfate 1 GM tablet Discontinued 1 g PO ONE HOURS BEFORE MEALS & BED 100 January 22, 2020 12:00am February 07, 2020 11:41am topiramate 25 mg oral tablet (3 sources) Start: 02-10-2023 End: 05-06-2023 take 1-2 tablets by mouth once daily Topiramate (Topamax) 25 mg tablet Discontinued 25 mg PO TWICE A DAY 60 May 06, 2023 12:42pm May 06, 2023 12:43pm 1-2 x daily. Turmeric extract (3 sources) TURMERIC ORAL Ta ke by mouth. 0 Active Comment on above: Take by mouth. vitamin b12 1 mg/ml oral solution (3 sources) Vitamin B12 take 1000 ug by mouth once daily cyanocobalamin, vitamin B-12, (VITAMIN B-12) 1,000 mcg/mL drop Take 1,000 mcg by mouth once daily. 0 Active Comment on above: Take 1,000 mcg by mouth once daily. Problems Active Problems Problem Classification Problem Date Documented Date Episodic/Chronic Acquired foot deformities (3 sources) Hallux valgus; Translations: [Hallux valgus (acquired), left foot] Chronic Acquired foot deformities (3 sources) Acquired deformity of toe of left foot; Translations: [Acquired deformities of toe(s), unspecified, left foot] Episodic Anxiety disorders (7 sources) Anxiety; Translations: [Anxiety disorder, unspecified] 01-02-2023 Chronic Comment on above: stable. counseling e ncouraged. Biliary tract disease (15 sources) Acute cholecystitis; Translations: [Acute cholecystitis] 01-02-2023 Episodic Cancer of cervix (5 sources) Atypical squamous cells of undetermined significance on cervical Papanicolaou smear; Translations: [Atypical squamous cells of undetermined significance on cytologic smear of cervix (ASC-US)] 01-15-2020 Episodic Comment on above: repeat pap in 3 yr Contraceptive and procreative management (1 source) Intrauterine contraceptive device in situ; Translations: [Encounter for routine checking of intrauterine contraceptive device] 02-16-2024 Episodic Diabetes mellitus without complication (1 source) Prediabetes; Translations: [Prediabetes] 01-21-2025 Episodic Comment on above: Refer to [facility] Diseases of white blood cells (5 sources) Leukocytosis; Translations: [Elevated white blood cell count, unspecified] 08-26-2021 Chronic Diverticulosis and diverticulitis (10 sources) Diverticulitis; Translations: [Diverticulitis of intestine, part unspecified, without perforation or abscess without bleeding] 01-15-2020 Chronic Essential hypertension (7 sources) Hypertensive disorder; Translations: [Essential (primary) hypertension] 01-02-2023 Chronic Comment on above: no meds, resolved weight loss, continue weight management Genitourinary symptoms and ill-defined conditions (5 sources) Incontinence; Translations: [Mixed incontinence] 12-02-2020 Chronic Comment on above: [place] consult Nonspecific chest pain (5 sources) Chest pain; Translations: [Chest pain, unspecified] 01-23-2022 Episodic Osteoarthritis (3 sources) 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 check US to rule out polyp and iud location Other female genital disorders (1 source) Polyp of cervix; Translations: [Polyp of cervix uteri] 02-08-2024 Episodic Other female genital disorders (2 sources) Vaginal dryness; Translations: [Other specified noninflammatory disorders of vagina] 01-18-2025 Episodic Other female genital disorders (1 source) Other specified noninflammatory disorders of vagina; Translations: [Other specified noninflammatory disorders of vagina] Onset: 04-02-2025 Episodic Other nutritional; endocrine; and metabolic disorders (9 sources) Body mass index 30+ - obesity; Translations: [Body mass index (BMI) 37.0-37.9, adult] 12-02-2020 Chronic Comment on above: discussed weight los s options if decides on why weight Nutrition plan: Low carb, follows plant paradox plan previously--cut out foods from [employer]. Meal plan. Focus on protein to help with satiety. 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 Medication plan: Adipex in past; tolerated well; Increase to full tab. didn't tolerate Contrave. lab orders placed; still needs to obtain. control- vasectomy; Liletta-needs to schedule appt to replace. Behavior intervention: recommend daily journal of food intake with electronic methods. Limit snacking. Track foods and what is being put into her body.Exercise plan: increase daily steps and NEAT activity. Not scheduled. Set alarm. Other nutritional; endocrine; and metabolic disorders (5 sources) Obesity, unspecified; Translations: [Obesity, unspecified] Onset: 04-02-2025 10-14-2022 Chronic Other nutritional; endocrine; and metabolic disorders (1 source) Obesity; Translations: [Other obesity] 08-29-2024 Chronic Comment on above: SW- 236 08/03Weight loss goal- has had 14% reduction so far. s/p generic Qsymia. s/p cosmetic surgery in april 03. weight loss achieved with nutritional, behavioral, exercise, and medication interventions. restarted medications. Other nutritional; endocrine; and metabolic disorders (1 source) Other obesity; Translations: [Other obesity] Onset: 04-02-2025 Chronic Other nutritional; endocrine; and metabolic disorders (2 sources) Weight gain; Translations: [Abnormal weight gain] 01-02-2023 Episodic Other nutritional; endocrine; and metabolic disorders (2 sources) Abnormal weight gain; Translations: [Abnormal weight gain] 12-28-2022 Episodic Other nutritional; endocrine; and metabolic disorders (1 source) Weight increased; Translations: [Abnormal weight gain] 02-08-2024 Episodic Comment on above: likely due to going off medication, discussed restarting along with nutritional plan compliance Other screening for suspected conditions (not mental disorders or infectious disease) (3 sources) CT of chest abnormal; Translations: [Abnormal findings on diagnostic imaging of other specified body structures] Onset: 11-18-2015 11-18-2015 Chronic Other screening for suspected conditions (not mental disorders or infectious disease) (2 sources) Encounter for screening mammogram for malignant neoplasm of breast; Translations: [Encounter for screening for lipoid disorders] Onset: 01-24-2025 Episodic Residual codes; unclassified (3 sources) Device in situ; Translations: [Presence of functional implant, unspecified] Chronic Residual codes; unclassified (3 sources) Postoperative state; Translations: [Other specified postprocedural states] Episodic Unclassified (1 source) Z12.11 - Encounter for screening for malignant neoplasm of colon,E66.8 - Other obesity Past or Other Problems Problem Classification Problem Date Documented Da te Episodic/Chronic Blindness and vision defects (3 sources) Visual disturbance; Translations: [Unspecified visual disturbance] Onset: 09-15-2010 09-15-2010 Episodic Cardiac dysrhythmias (3 sources) Palpitations; Translations: [Palpitations] Onset: 09-15-2010 09-15-2010 Episodic Results Test Name Value Interpretation Reference Range Facility Anion gap in Serum or Plasma Ordered By: Carolina Dickens on 01-21-2025 Anion gap [Moles/Vol] 11 mmol/L 01-24 [facility] BUN/creatinine ratioOrdered By: Carolina Dickens on 01-21-2025 Urea nitrogen/Creatinine [Mass ratio] 14.6 mg/mg 07-01 [facility] Bilirubin, totalOrdered By: Carolina Dickens on 01-21-2025 Bilirubin [Mass/Vol] 0.62 mg/dL 0.00-1.30 [facility] Calculated very low density lipoprotein (VLDL) cholesterol measurementOrdered By: Carolina Dickens on 01-21-2025 Calculated very low density lipoprotein (VLDL) cholesterol measurement 21 mg/dL 5-40 [facility] Carbon dioxide, total [Moles /volume] in Central venous bloodOrdered By: Carolina Dickens on 01-21-2025 CO2 [Moles/Vol] 23.2 mmol/L 21.0-32.0 [facility] Chloride assayOrdered By: Chano Dickens on 01-21-2025 Chloride [Moles/Vol] 103 mmol/L 98-108 [facility] Comprehensive Metabolic Prof ilon 01-21-2025 Albumin [Mass/Vol] 4.1 g/dL Normal 3.5-5.0 [facility] Comment on above: Performed By: #### L 500.4050, L500.4100, L3300.1750, L501.9520, L3100.5055, L506.1001, L501.9985, L506.0400 #### [facility] [address], [address] Albumin/Globulin [Mass ratio] 1.6 {ratio} Normal 0.9-2.4 [facility] Comment on above: Performed By: #### L 500.4050, L500.4100, L3300.1750, L501.9520, L3100.5055, L506.1001, L501.9985, L506.0400 #### [facility] [address], [address] ALK PHOS 73 U/L Normal 35-104 [facility] Comment on above: Performed By: #### L 500.4050, L500.4100, L3300.1750, L501.9520, L3100.5055, L506.1001, L501.9985, L506.0400 #### [facility] [address], [address] ALT [Catalytic activity/Vol] 14 U/L Normal <=34 [facility] Comment on above: Performed By: #### L 500.4050, L500.4100, L3300.1750, L501.9520, L3100.5055, L506.1001, L501.9985, L506.0400 #### [facility] [address], [address] AST [Catalytic activity/Vol] 17 U/L Normal <=31 [facility] Comment on above: Result Comment: Hemo lysis present, Results??could be affected. ?? Performed By: #### L 500.4050, L500.4100, L3300.1750, L501.9520, L3100.5055, L506.1001, L501.9985, L506.0400 #### [facility] [address] [place], [place], [id number] (767) Bilirubin [Mass/Vol] 0.62 mg/dL Normal 0.00-1.30 [facility] Comment on above: Performed By: #### L 500.4050, L500.4100, L3300.1750, L501.9520, L3100.5055, L506.1001, L501.9985, L506.0400 #### [facility] [address], [address] BUN/CRE 14.6 RATIO Normal 10-20 [facility] Comment on above: Performed By: #### L 500.4050, L500.4100, L3300.1750, L501.9520, L3100.5055, L506.1001, L501.9985, L506.0400 #### [facility] [address], [address] Calcium [Mass/Vol] 9.1 mg/dL Normal 7.6-11.0 [facility] Comment on above: Performed By: #### L 500.4050, L500.4100, L3300.1750, L501.9520, L3100.5055, L506.1001, L501.9985, L506.0400 #### [facility] [address], [address] Chloride [Moles/Vol] 103 mmol/L Normal 98-108 [facility] Comment on above: Performed By: #### L 500.4050, L500.4100, L3300.1750, L501.9520, L3100.5055, L506.1001, L501.9985, L506.0400 #### [facility] [address], [address] CO2 [Moles/Vol] 23.2 mmol/L Normal 21.0-32.0 [facility] Comment on above: Performed By: #### L 500.4050, L500.4100, L3300.1750, L501.9520, L3100.5055, L506.1001, L501.9985, L506.0400 #### [facility] [address], [address] Creatinine [Mass/Vol] 0.76 mg/dL Normal 0.70-1.20 [facility] Comment on above: Performed By: #### L 500.4050, L500.4100, L3300.1750, L501.9520, L3100.5055, L506.1001, L501.9985, L506.0400 #### [facility] [address], [address] GAP 11 Normal 5-15 [facility] Comment on above: Performed By: #### L 500.4050, L500.4100, L3300.1750, L501.9520, L3100.5055, L506.1001, L501.9985, L506.0400 #### [facility] [address], [address] GFR/1.73 sq M.predicted among non-blacks MDRD (S/P/Bld) [Vol rate/Area] 96 mL/min/{1.73_m2} Normal >60 [facility] Comment on above: Result Comment: mL/m in/1.73m2 CKD-EPI Creatinine Equation (2020) Performed By: #### L 500.4050, L500.4100, L3300.1750, L501.9520, L3100.5055, L506.1001, L501.9985, L506.0400 #### [facility] [address] [place], [address] Globulin (S) [Mass/Vol] 2.6 g/dL Normal 2.2-4.2 [facility] Comment on above: Performed By: #### L 500.4050, L500.4100, L3300.1750, L501.9520, L3100.5055, L506.1001, L501.9985, L506.0400 #### [facility] [address], [address] Glucose [Mass/Vol] 112 mg/dL High 70-99 [facility] Comment on above: Performed By: #### L 500.4050, L500.4100, L3300.1750, L501.9520, L3100.5055, L506.1001, L501.9985, L506.0400 #### [facility] [address], [address] Potassium [Moles/Vol] 4.1 mmol/L Normal 3.3-5.1 [facility] Comment on above: Result Comment: Hemo lysis present, Results??could be affected. ?? Performed By: #### L 500.4050, L500.4100, L3300.1750, L501.9520, L3100.5055, L506.1001, L501.9985, L506.0400 #### [facility] [address], [address] Sodium [Moles/Vol] 137 mmol/L Normal 133-145 [facility] Comment on above: Performed By: #### L 500.4050, L500.4100, L3300.1750, L501.9520, L3100.5055, L506.1001, L501.9985, L506.0400 #### [facility] [address], [address] T PROT 6.8 g/dL Normal 5.9-8.4 [facility] Comment on above: Performed By: #### L 500.4050, L500.4100, L3300.1750, L501.9520, L3100.5055, L506.1001, L501.9985, L506.0400 #### [facility] [address] [place], [place], [address] Urea nitrogen [Mass/Vol] 11 mg/dL Normal 4-19 [facility] Comment on above: Performed By: #### L 500.4050, L500.4100, L3300.1750, L501.9520, L3100.5055, L506.1001, L501.9985, L506.0400 #### [facility] [address] [place], [address] Estradiolon 01-21-2025 ESTRADIOL 71.6 pg/mL Normal [facility] Comment on above: Result Comment: FEMA LES ADULT FEMALE: Premenopausal: 15-350 pg/mL(E2 levels vary widely through the menstrual cycle) Postmenopausal: <10 pg/mL DAMION STAGES MEAN AGE REFERENCE RANGES Stage I(>14 days and prepubertal) 7.1 years Undetectable-20 pg/mLL Stage II 10.5 years Undetectable-24 pg/mL Stage III 11.6 years Undetectable-60 pg/mL Stage IV 12.3 years 15-85 pg/mL Stage V 14.5 years 15-350 pg/mL Puberty onset (transition from Damion stage I to Damion stage II) occurs for girls at a median age of 10.5 (/- 2) years. There is evidence that it may occur up to 1 year earlier in obese girls and in girls. Progression through Damion stages is variable. Damion stage V (adult) should be reached by age 18. Performed By: #### L 500.4050, L500.4100, L3300.1750, L501.9520, L3100.5055, L506.1001, L501.9985, L506.0400 ####[facility] [address] [place], [place], [id number] FSH and LHon 01-21-2025 FSH 6.7 mIU/mL Normal [facility] Comment on above: Result Comment: FEMA LE: Follicular: 1.4 - 18.1 mIU/mL Midcycle: 3.4 - 33.4 mIU/mL Luteal: 1.5 - 9.1 mIU/mL Post Menopause: 23.0 - 116.3 mIU/mL MALE: 1.4 - 18.1 mIU/mL NORMAL REFERENCE RANGES FEMALE FOLLICULAR 2.3 - 12.6 mIU/mL MID-CYCLE PEAK 5.2 - 17.5 mIU/mL LUTEAL 1.7 - 12.9 mIU/mL POST-MENOPAUSAL ON MHT 5.9 - 72.8 mIU/mL NOT ON MHT 12.7 - 132.2 mlU/mL MALE 0.7 - 10.8 mIU/mL Performed By: #### L 500.4050, L500.4100, L3300.1750, L501.9520, L3100.5055, L506.1001, L501.9985, L506.0400 #### [facility] [address] [place], [place], [id number] LH 11.8 mIU/mL Normal [facility] Comment on above: Result Comment: FEMA LE: Follicular: 1.9-12.5 mIU/mL Midcycle: 8.7-76.3 mIU/mL Luteal: 0.5-16.9 mIU/mL Post Menopause: 15.9-54.0 mIU/mL MALE: 20-70 Years: 1.5-9.3 mIU/mL >70 Years: 3.1-34.6 mIU/mL Performed By: #### L 500.4050, L500.4100, L3300.1750, L501.9520, L3100.5055, L506.1001, L501.9985, L506.0400 #### [facility] [address] [place], [place], [id number] Glomerular filtration rate ( GFR) estimation/1.73 sq m using serum, plasma, or whole bOrdered By: Carolina Dickens on 01-21-2025 GFR/1.73 sq M.predicted among non-blacks MDRD (S/P/Bld) [Vol rate/Area] 96 mL/min/{1.73_m2} >60 [facility] Comment on above: mL/min/1.73m2 CKD-EP I Creatinine Equation (2020) Hemoglobin A1con 01-21-2025 HbA1c (Bld) [Mass fraction] 5.9 % High <=5.6 [facility] Comment on above: Result Comment: Norm al < 5.7 % Prediabetic 5.7 - 6.4 % Diabetic >or= 6.5 % Please note range changes. Performed By: #### L 500.4050, L500.4100, L3300.1750, L501.9520, L3100.5055, L506.1001, L501.9985, L506.0400 #### [facility] [address] [place], [place], [id number] Hemoglobin A1c percentageOrd ered By: Carolina Dickens on 01-21-2025 HbA1c (Bld) [Mass fraction] 5.9 % High <5.7 [facility] Comment on above: Normal < 5.7 % Predi abetic 5.7 - 6.4 % Diabetic >or= 6.5 % Please note range changes. LDL calc ser/plasOrdered By: Carolina Dickens on 01-21-2025 Cholesterol in LDL [Mass/Vol] 83 mg/dL [facility] Comment on above: Ughogqnafa=336-217 m g/dL & Higher Dedw=330 mg/dL or greater Laboratory - Chemistry and C hemistry - challengeOrdered By: Carolina Dickens on 01-21-2025 AST [Catalytic activity/Vol] 17 U/L <32 [facility] Comment on above: Hemolysis present, R esults could be affected. Lipid Profileon 01-21-2025 CHOL:HDL 3.30 Normal [facility] Comment on above: Performed By: #### L 500.4050, L500.4100, L3300.1750, L501.9520, L3100.5055, L506.1001, L501.9985, L506.0400 #### [facility] [address], [address] Cholesterol [Mass/Vol] 149 mg/dL Normal <=200 [facility] Comment on above: Result Comment: Chol esterol level, Desirable <200 mg/dL Borderline high cholesterol 200-239 mg/dL High cholesterol >=240 mg/dL Recommendations of the NCEP Adult Treatment Panel for the following risk-cutoff thresholds for the [place] population. Performed By: #### L 500.4050, L500.4100, L3300.1750, L501.9520, L3100.5055, L506.1001, L501.9985, L506.0400 #### [facility] [address], [address] Cholesterol in HDL [Mass/Vol] 45 mg/dL Normal [facility] Comment on above: Result Comment: Amarilis onal Cholesterol Education Program (NCEP) guidelines: <40 mg/dL: Low HDL-cholesterol (major risk factor for CHD) >= 60 mg/dL: High HDL-cholesterol (negative risk factor for CHD) HDL-cholesterol is affected by a number of factors, e.g. smoking, exercise, hormones, sex and age. Performed By: #### L 500.4050, L500.4100, L3300.1750, L501.9520, L3100.5055, L506.1001, L501.9985, L506.0400 #### [facility] [address], [address] Cholesterol in LDL [Mass/Vol] 83 mg/dL Normal [facility] Comment on above: Result Comment: Bord gzjtpf=925-284 mg/dL Higher Hhlm=095 mg/dL or greater Performed By: #### L 500.4050, L500.4100, L3300.1750, L501.9520, L3100.5055, L506.1001, L501.9985, L506.0400 #### [facility] [address] [place], [place], [id number] (471) Cholesterol in VLDL [Mass/Vol] 21 mg/dL Normal 5-40 [facility] Comment on above: Performed By: #### L 500.4050, L500.4100, L3300.1750, L501.9520, L3100.5055, L506.1001, L501.9985, L506.0400 #### [facility] [address], [address] Triglyceride [Mass/Vol] 104 mg/dL Normal [facility] Comment on above: Result Comment: The drugs N-Acetylcysteine and Metamizole may falsely depress this assay. Normal range: <150 mg/dL Borderline High: 150-199 mg/dL High: 200-499 mg/dL Very High: >500 mg/dL Performed By: #### L 500.4050, L500.4100, L3300.1750, L501.9520, L3100.5055, L506.1001, L501.9985, L506.0400 #### [facility] [address] [place], [place], [id number] (489) Potassium measurement (mass/ volume)Ordered By: Carolina Dickens on 01-21-2025 Potassium (Unsp spec) [Mass/Vol] 4.1 mmol/L 3.3-5.1 [facility] Comment on above: Hemolysis present, R esults could be affected. Screening total cholesterol/ high density lipoprotein (HDL) cholesterol ratioOrdered By: Carolina Dickens on 01-21-2025 Cholesterol.total/Chol esterol in HDL [Mass ratio] 3.30 {ratio} [facility] Serum creatinine measurement (mass/volume)Ordered By: Carolina Dickens on 01-21-2025 Creatinine [Mass/Vol] 0.76 mg/dL 0.70-1.20 [facility] Serum globulin measurementOr dered By: Carolina Dickens on 01-21-2025 Globulin (S) [Mass/Vol] 2.6 g/dL 2.2-4.2 [facility] Serum glucose measurement (m ass/volume)Ordered By: Carolina Dickens on 01-21-2025 Glucose [Mass/Vol] 112 mg/dL High 70-99 [facility] Serum or plasma alanine huertas otransferase (ALT) measurementOrdered By: Carolina Dickens on 01-21-2025 ALT [Catalytic activity/Vol] 14 U/L <35 [facility] Serum or plasma albumin rory urement (mass/volume)Ordered By: Carolina Dickens on 01-21-2025 Albumin [Mass/Vol] 4.1 g/dL 3.5-5.0 [facility] Serum or plasma albumin/glob ulin mass ratioOrdered By: Carolina Dickens on 01-21-2025 Albumin/Globulin [Mass ratio] 1.6 {ratio} 0.9-2.4 [facility] Serum or plasma alkaline young sphatase measurementOrdered By: Caorlina Dickens on 01-21-2025 ALP [Catalytic activity/Vol] 73 U/L 35-104 [facility] Serum or plasma calcium rory urement (mass/volume)Ordered By: Carolina Dickens on 01-21-2025 Calcium [Mass/Vol] 9.1 mg/dL 7.6-11.0 [facility] Serum or plasma cholesterol in HDL measurement (mass/volume)Ordered By: Carolina Dickens on 01-21-2025 Cholesterol in HDL [Mass/Vol] 45 mg/dL >40 [facility] Comment on above: National Cholesterol Education Program (NCEP) guidelines:<40 mg/dL: Low HDL-cholesterol (major risk factor for CHD)>= 60 mg/dL: High HDL-cholesterol (negative risk factor for CHD)HDL-cholesterol is affected by a number of factors, e.g. smoking, exercise, hormones, sex and age. Serum or plasma cholesterol measurement (mass/volume)Ordered By: Carolina Dickens on 01-21-2025 Cholesterol [Mass/Vol] 149 mg/dL <201 [facility] Comment on above: Cholesterol level, D esirable <200 mg/dLBorderline high cholesterol 200-239 mg/dLHigh cholesterol >=240 mg/dLRecommendations of the NCEP Adult Treatment Panel for the following risk-cutoff thresholds for the [place] population. Serum or plasma estradiol me asurement after follitropin dose (mass/volume)Ordered By: Carolina Dickens on 01-21-2025 E2 post dose follitropin [Mass/Vol] 71.6 pg/mL [facility] Comment on above: FEMALES ADULT FEMALE : Premenopausal: 15-350 pg/mL(E2 levels vary widely through the menstrual cycle) Postmenopausal: <10 pg/mL DAMION STAGES MEAN AGE REFERENCE RANGES Stage I(>14 days and prepubertal) 7.1 years Undetectable-20 pg/mLL Stage II 10.5 years Undetectable-24 pg/mL Stage III 11.6 years Undetectable-60 pg/mL Stage IV 12.3 years 15-85 pg/mL Stage V 14.5 years 15-350 pg/mL Puberty onset (transition from Damion stage I to Damion stage II) occurs for girls at a median age of 10.5 (/- 2) years. There is evidence that it may occur up to 1 year earlier in obese girls and in girls.Progression through Damion stages is variable. Damion stage V (adult) should be reached by age 18. Serum or plasma urea nitroge n measurement (mass/volume)Ordered By: Carolina Dickens on 01-21-2025 Urea nitrogen [Mass/Vol] 11 mg/dL 4-19 [facility] Sodium levelOrdered By: Mady Dickens on 01-21-2025 Sodium [Moles/Vol] 137 mmol/L 133-145 [facility] T4 Free Directon 01-21-2025 T4 FREE DIRECT 0.90 ng/dL Normal 0.76-1.46 [facility] Comment on above: Performed By: #### L 500.4050, L500.4100, L3300.1750, L501.9520, L3100.5055, L506.1001, L501.9985, L506.0400 #### [facility] [address] [place], [place], [id number] T4 freeOrdered By: Carolina Dickens on 01-21-2025 Free T4 [Mass/Vol] 0.90 ng/dL 0.76-1.46 [facility] TSH DL <= 0.005 mIU/L QnOrde red By: Carolina Dickens on 01-21-2025 TSH Qn 1.260 uIU/mL 0.300-4.200 [facility] Thyroid Stim Hormone (TSH)on 01-21-2025 TSH 1.260 uIU/mL Normal 0.300-4.200 [facility] Comment on above: Performed By: #### L 500.4050, L500.4100, L3300.1750, L501.9520, L3100.5055, L506.1001, L501.9985, L506.0400 #### [facility] [address], [address] Total proteinOrdered By: Latasha Dickens on 01-21-2025 Protein [Mass/Vol] 6.8 g/dL 5.9-8.4 [facility] Triglycerides measurementOrd ered By: Carolina Dickens on 01-21-2025 Triglyceride [Mass/Vol] 104 mg/dL <199 [facility] Comment on above: The drugs N-Acetylcy steine and Metamizole may falsely depress this assay. Normal range: <150 mg/dLBorderline High: 150-199 mg/dLHigh: 200-499 mg/dLVery High: >500 mg/dL Vitamin D,25 Hydroxyon 01-21 Vitamin D 25-OH 27.9 ng/mL Low 30-100 [facility] Comment on above: Result Comment: Janell min D Status Deficiency: <20 ng/mL (50nmol/L) Insufficiency: 20-30 ng/mL (50-75 nmol/L) Sufficiency: 30-100 ng/mL (75-250 nmol/L) Toxicity: >100 ng/mL (>250 nmol/L) Performed By: #### L 500.4050, L500.4100, L3300.1750, L501.9520, L3100.5055, L506.1001, L501.9985, L506.0400 #### [facility] [address], [address] [employer] Office Visit Reporton 01-18-2025 [employer] Office Visit Report [facility] [address], [address] [place] [address] OFFICE VISIT Date of Service: 01/18/25 MR#: [id number] Acct: [id number] Name: LAURA WALKER Rep #: [id number] : 1975 Provider: Dr. Carolina Gordon DO Age/Sex: 49/F [place] [facility] [place] Status: Signed with Addenda ADDENDUM by Dr. Carolina Cedillo DO on 02/26/25 at 1636 Office Procedure Documentation entered by Carolina Cedillo DO 02/26/25 16:36: IUD Removal IUD Removal Details: Sign out documentation: Completed. Procedure: Speculum placed in vagina, IUD string visualized and grasped with ring forceps. IUD easily removed in its entirety and patient tolerated well. 02/26/25 1636 Date Carolina Cedillo DO cc: * Signed Intake Vital Signs 08/29/24 09:02 01/18/25 08:49 Height 5 ft 8 in 5 ft 8 in Weight: 222 lb BMI 33.7 BP 138/79 H Intake Visit Reasons: IUD Polyp removal Allergies amoxicillin Adverse Reaction (Verified 01/18/25 08:48) Itching Medications ???Medication ???Instructions ???Recorded ???Confirmed ???Type estradiol 4 mcg vaginal insert 4 mcg vaginal 2XW #8 inserts 01/1801/18/25 Rx (Imvexxy Maintenance Pack) estradiol 4 mcg vaginal insert, in See Rx Instructions vaginal 06/0601/18/25 Rx a starter dose pack (Imvexxy .COMPLEX #18 ea Starter Pack) PFSH Medical History Anxiety Surgical History Hx of cholecystectomy Hx of foot surgery H/O dilation and curettage Social History adopted: No household members: family housing: house number of children: 2 current occupational status: employed current occupation: [employer] current occupational exposures/hazards: No pets and animals: Yes history of recent travel: No Smoking Status: Never smoker alcohol intake: current alcohol intake frequency: holidays/special occasions only details: social substance use type: does not use caffeine: Yes what type of physical activity do you participate in: walking seatbelt use: always do you feel safe at home: Yes 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 Date Name GA/Weeks Outcome Route Bth Weight Infant Gen Labor Lgth Anesthesia Del Locatn Provider FOB Unknown 2008- Fausto Unknown 2009- Almas HPI IUD Polyp removal Details: LAURA WALKER is a 49 year old who presents for annual exam. She wants her IUD removed today and polypectomy. She wants to discuss weight management and other health maintenance issues Last PAP: 2020- normal History of abnormal PAP: yes Last mammogram: 2021 History of abnormal mammogram: scar tissue Colon cancer screening: due for colonoscopy Other preventative health care screenings: due for baseline labs Female Reproductive History Cycle Length: 21-35 Bleeding Duration: 5 Questions: metorrhagia: No, sexually active: Yes, dyspareunia: No and PCB: No Menopausal Symptoms: No hot flashes, No night sweats, No weight change, No mood changes, No difficulty concentrating, No sleep problems and No change in libido ROS Const Constitutional: Reports as per HPI; Denies fatigue, increased appetite, poor appetite, night sweats, weight gain or weight loss Cardio Card: Denies chest pain Resp Resp: Denies cough or dyspnea GI GI: Reports as per HPI; Denies abdominal pain, bloating, constipation, nausea or vomiting : Reports as per HPI and other; Denies difficulty voiding, dysuria, hematuria, hot flashes, nipple discharge, pelvic pain, prolapse symptoms, urinary frequency, urinary incontinence, urinary urgency, vaginal discharge, vaginal dryness, vaginal odor or vaginal pruritus Skin Skin/Breast: Denies changing lesions, breast mass, breast pain, breast skin changes or nipple discharge Psych Psych: Denies anxiety, change in libido, depression or difficulty concentrating Exam Const General: cooperative, healthy appearing, comfortable, no acute distress, well developed and well groomed HENKS Head: normal to inspection and normocephalic Ears: hearing grossly normal bilaterally and external ears normal Nose: external nose normal Face and sinus: normal facial exam Neck Neck: normal visual inspection, full ROM and no lymphadenopathy Thyroid: thyroid normal Chest Chest palpation inspection: normal inspection of the chest Breast inspection: normal inspection of th (more content not included)... Normal [facility] [employer] Office Visit Reporton 08-29-2024 [employer] Office Visit Report [facility] [address] [place] [address], [address] [place] [address] OFFICE VISIT Date of Service: 08/29/24 MR#: [id number] Acct: [id number] Name: LAURA WALKER Rep #: [id number] : 1975 Provider: CHARISSE Porras Age/Sex: 48/F [place] [facility] [place]: Signed Intake Vital Signs 08/07/24 13:07 08/07/24 14:27 08/29/24 09:01 08/29/24 09:02 Height 5 ft 8 in 5 ft 8 in 5 ft 8 in 5 ft 8 in Weight: 212 lb 212 lb 2 oz 212 lb 2 oz BMI 32.2 32.2 32.2 BP 117/77 111/73 111/73 Pulse 82 80 Intake Visit Reasons: 3 wk f/u Chief Complaint: 3 wk med check Senior [employer] Required: No Is patient in pain?: No Allergies amoxicillin Adverse Reaction (Verified 08/29/24 08:54) Itching Medications ???Medication ???Instructions ???Recorded ???Confirmed ???Type levonorgestrel 20.4 mcg/24 hr (up 1 device intrauterine ONCE 12/02/20 08/29/24 History to 8 yrs) 52 mg intrauterine device (Liletta) phentermine 37.5 mg tablet 37.5 mg PO QDAY #30 tabs 08/29/24 08/29/24 Rx (Adipex-P) Last Menstrual Period: 01/28/20 PFSH PFSH Medical History Anxiety Surgical History Hx of cholecystectomy Hx of foot surgery H/O dilation and curettage Social History adopted: No household members: family housing: house number of children: 2 current occupational status: employed current occupation: [employer] current occupational exposures/hazards: No pets and animals: Yes history of recent travel: No Smoking Status: Never smoker alcohol intake: current alcohol intake frequency: holidays/special occasions only details: social substance use type: does not use caffeine: Yes what type of physical activity do you participate in: walking seatbelt use: always do you feel safe at home: Yes 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 Date Name GA/Weeks Outcome Route Bth Weight Infant Gen Labor Lgth Anesthesia Del Locatn Provider FOB Unknown 2008- Fausto Unknown 2009- Almas HPI 3 wk f/u Details: LAURA AWLKER is a 48 year old Female presenting for a weight management follow up. Unfortunately she has had a hard time keeping up with her diet and exercise. She has attempting to cut out eating fried foods at the [facility]. She reports she has not had the time to exercise. She is taking her medication; does not feel much different or that it has been helpful. She reports she is not having side effects from medication and taking compliantly. Female Reproductive History Last Menstrual Period: 01/28/20 ROS Const Reports as per HPI, Reports difficulty sleeping (stress), Denies excessive sweating, Denies fatigue (new onset severe) and Denies fever(s) Eyes Denies change in vision and Denies diplopia ENT Denies dizziness Card Denies chest pain, Denies dyspnea, Denies dyspnea on exertion, Denies palpitations and Denies rapid heart rate Resp Denies dyspnea and Denies dyspnea on exertion GI Reports as per HPI, Denies abdominal pain and Denies constipation Musc Denies numbness Neuro No confusion, No dizziness, No memory loss and No numbness Psych Denies confusion, Denies depression, Denies memory loss, Denies mood swings and Denies suicidal ideation Endo Denies excessive sweating, Denies fatigue (new onset severe), Denies palpitations and Reports other (denies symptoms of hypoglycemia) Exam Const General: cooperative, healthy appearing, comfortable and no acute distress Orientation: alert [place] Head: normal to inspection and normocephalic Eyes General: appearance normal, both eyes and all related structures Neck Neck: normal visual inspection, no lymphadenopathy and trachea midline Thyroid: thyroid normal Resp Effort Inspection: normal respiratory effort Auscultation: clear to auscultation bilaterally Cardio Rate: regular rate Rhythm: regular rhythm Heart Sounds: S1 normal and S2 normal Musc Other: gross motor intact no deficits, full bilateral strength Skin General: no rashes or lesions noted Neuro Motor: muscle tone normal throughout Extrem General: no pedal edema Assessment and Plan Assessment and Plan (1) Obesity (BMI 30-39.9): Status: Acute Comment: Nutrition plan: Low carb, follows plant paradox plan previously--cut out foods from bowling alley. Meal plan. Focus on protein to help with satiety. 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 Medication plan: Adipex in past; tolerated wel (more content not included)... Normal [facility] [employer] Office Visit Reporton 08-07-2024 [employer] Work[employer] Office Visit Report [facility]'s [address], [address] [place] [address] OFFICE VISIT Date of Service: 08/07/24 MR#: [id number] Acct: [id number] Name: LAURA WALKER Osvaldo Rep #: [id number] : 1975 Provider: CHARISSE Porras Age/Sex: 48/F [place] [facility] [place] Status: Signed Intake Vital Signs 02/07/24 14:45 08/07/24 13:07 Height 5 ft 8 in 5 ft 8 in Weight: 212 lb BMI 32.2 BP 117/77 Pulse 82 Intake Visit Reasons: med check Chief 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 Is patient in pain?: No Allergies amoxicillin Adverse Reaction (Verified 08/07/24 13:31) Itching Medications ???Medication ???Instructions ???Recorded ???Confirmed ???Type levonorgestrel 20.4 mcg/24 hr (up 1 device intrauterine ONCE 12/02/20 08/07/24 History to 8 yrs) 52 mg intrauterine device (Liletta) phentermine 37.5 mg tablet 18.75 mg (1/2 x 37.5 mg) PO QDAY 08/07/24 08/07/24 Rx (Adipex-P) #15 tabs Last Menstrual Period: 01/28/20 : No PFSH PFSH Medical History Anxiety Surgical History Hx of cholecystectomy Hx of foot surgery H/O dilation and curettage Social History adopted: No household members: family housing: house number of children: 2 current occupational status: employed current occupation: [employer] current occupational exposures/hazards: No pets and animals: Yes history of recent travel: No Smoking Status: Never smoker alcohol intake: current alcohol intake frequency: holidays/special occasions only details: social substance use type: does not use caffeine: Yes what type of physical activity do you participate in: walking seatbelt use: always do you feel safe at home: Yes 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 Date Name GA/Weeks Outcome Route Bth Weight Infant Gen Labor Lgth Anesthesia Del Locatn Provider JONATHAN Unknown 2008- Fausto Unknown 2009- Almas [facility] med check Details: LAURA WALKER is a 48 year old Female presenting for a weight management follow up; she has not been seen since January of 2024. She is not currently taking any medications. 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 She reports she has created stress for her and her nutrition has fallen off the band wagon. She finds herself eating a lot of bowling food; stressful schedule; and junk food to get her by for the day. She has not been doing any exercise but does get a fair amount of steps in for the day. (approx 17659 steps/day). Female Reproductive History Last Menstrual Period: 01/28/20 ROS Const Reports as per HPI, Reports difficulty sleeping, Denies excessive sweating, Denies fatigue (new onset severe) and Denies fever(s) Eyes Denies change in vision and Denies diplopia ENT Denies dizziness Card Denies chest pain, Denies dyspnea, Denies dyspnea on exertion, Denies palpitations and Denies rapid heart rate Resp Denies dyspnea and Denies dyspnea on exertion GI Reports as per HPI, Denies abdominal pain and Denies constipation Musc Denies numbness Neuro No confusion, No dizziness, No memory loss and No numbness Psych Denies confusion, Denies depression, Denies memory loss, Denies mood swings and Denies suicidal ideation Endo Denies excessive sweating, Denies fatigue (new onset severe), Denies palpitations and Reports other (denies symptoms of hypoglycemia) Exam Const General: cooperative, healthy appearing, comfortable and no acute distress Orientation: alert HENMT Head: normal to inspection and normocephalic Eyes General: appearance normal, both eyes and all related structures Neck Neck: normal visual inspection, no lymphadenopathy and trachea midline Thyroid: thyroid normal Resp Effort Inspection: normal respiratory effort Auscultation: clear to auscultation bilaterally Cardio Rate: regular rate Rhythm: regular rhythm Heart Sounds: S1 normal and S2 normal Musc Other: gross motor intact no deficits, full bilateral strength Skin General: no rashes or lesions noted Neuro Motor: muscle tone normal throughout Extrem General: no pedal edema Assessment and Plan Assessment and Plan (1) Obesity (BMI 30-39.9): Status: Acute Comment: Nutrition plan: Low carb, follows plant paradox plan previously--cut out foods from bowling alley. Meal plan. Focus on protein to help with satiety. 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 Medication plan: Adipex in past; tolerated well; wi (more content not included)... Normal [facility] Basophil percentageOrdered B y: Dr. Brewster on 12-29-2022 Bilirubin [Mass/Vol] 1.10 mg/dL 0.20-1.00 [facility] Comment on above: For patients on eltr ombopag therapy, use of Dimension [place] TBIL is not recommended. Chloride [Moles/Vol] 105 mmol/L 98-107 [facility] Cholesterol [Mass/Vol] 173 mg/dL <200 [facility] Comment on above: <200 mg/dL Desirable 200-240 mg/dL Borderline >240 mg/dL High Risk Glucose [Mass/Vol] 106 mg/dL 74-106 [facility] Comment on above: Fasting Glucose resu lt from 100 to 125 mg/dL suggests IMPAIRED HOMEOSTASIS per A.D.A. criteria. Potassium [Moles/Vol] 4.4 mmol/L 3.5-5.1 [facility] Protein [Mass/Vol] 7.4 g/dL 6.4-8.2 [facility] Sodium [Moles/Vol] 135 mmol/L 136-145 [facility] Triglyceride [Mass/Vol] 92 mg/dL <199 [facility] Comment on above: The drugs N-Acetylcy steine and Metamizole may falsely depress this assay.Serum Triglycerides Reference Interval Normal <150 mg/dL Borderline high 150 - 199 mg/dL High 200 - 499 mg/dL Very High > or = 500 mg/dL Laboratory - Chemistry and C hemistry - challengeOrdered By: Dr. Brewster on 12-29-2022 ALP [Catalytic activity/Vol] 66 U/L 45-117 [facility] ALT [Catalytic activity/Vol] 29 U/L 13-56 [facility] CO2 [Moles/Vol] 27.0 mmol/L 21.0-32.0 [facility] Globulin (S) [Mass/Vol] 3.5 g/dL 2.2-4.2 [facility] Urea nitrogen/Creatinine [Mass ratio] 9.7 mg/mg 10-20 [facility] No Panel InformationOrdered By: Dr. Brewster on 12-29-2022 Estimated GFR (MDRD) Amer 95 mL/min >60 [facility] Comment on above: GFR Calc Estimated GFR (MDRD) Non-Af Amer 78 mL/min >60 [facility] Comment on above: Non- GFR Calc Thyroid Stimulating Hormone (TSH) 1.27 uIU/mL 0.358-3.74 [facility] Vitamin D 25-Hydroxy 37.2 ng/mL [facility] Comment on above: Vitamin D 25(OH) Sta tus Range Deficiency <20 ng/mL (50nmol/L) Insufficiency 20 - 30 ng/mL (50 - 75 nmol/L) Sufficiency 30 - 100 ng/mL (75 - 250 nmol/L) Toxicity >100 ng/mL (>250 nmol/L) Serum or plasma albumin rory urement (mass/volume)Ordered By: Dr. Brewster on 12-29-2022 Albumin [Mass/Vol] 3.9 g/dL 3.2-5.0 [facility] Serum or plasma albumin/glob ulin mass ratioOrdered By: Dr. Brewster on 12-29-2022 Albumin/Globulin [Mass ratio] 1.1 {ratio} 0.9-2.4 [facility] Serum or plasma calcium rory urement (mass/volume)Ordered By: Dr. Brewster on 12-29-2022 Calcium [Mass/Vol] 9.1 mg/dL 8.5-10.1 [facility] Serum or plasma cholesterol in HDL measurement (mass/volume)Ordered By: Dr. Brewster on 12-29-2022 Cholesterol in HDL [Mass/Vol] 49 mg/dL >40 [facility] Comment on above: The drugs N-Acetylcy steine and Metamizole may falsely depress this assay. Reference Range HDL <40 mg/dL Low HDL Cholesterol HDL >or= 60 mg/dL High HDL Cholesterol Serum or plasma cholesterol in VLDL measurement (mass/volume)Ordered By: Dr. Brewster on 12-29-2022 Cholesterol in VLDL [Mass/Vol] 18 mg/dL 5-40 [facility] Serum or plasma creatinine m easurement (mass/volume)Ordered By: Dr. Brewster on 12-29-2022 Creatinine [Mass/Vol] 0.83 mg/dL 0.55-1.02 [facility] Comment on above: The validity of the calculated GFR & GFRAA in patients over 70 years has not been determined. Clinical correlation is essential. Serum or plasma low density lipoprotein (LDL) cholesterol measurement (mass/volume)Ordered By: Dr. Brewster on 12-29-2022 Cholesterol in LDL [Mass/Vol] 106 mg/dL 0-130 [facility] Serum or plasma urea nitroge n measurement (mass/volume)Ordered By: Dr. Brewster on 12-29-2022 Urea nitrogen [Mass/Vol] 8 mg/dL 7-18 [facility] Thin prep Papanicolaou smear with manual screeningOrdered By: Dr. Brewster on 12-29-2022 Thin prep Papanicolaou smear with manual screening 21 U/L 15-37 [facility] Thin prep Papanicolaou smear with manual screening 3 5-15 [facility] Whole blood hemoglobin A1c/t otal hemoglobin ratio (mass fraction)Ordered By: Dr. Brewster on 12-29-2022 HbA1c (Bld) [Mass fraction] 5.4 % 3.8-5.6 [facility] Comment on above: Normal < 5.7 % Predi abetic 5.7 - 6.4 % Diabetic >or= 6.5 % Please note range changes. Vania 11-24-2021 [facility] Telephone ([id number]) LAURA WALKER ([id number]) 1975 F T Date Time Provider Department 11/24/21 COLLETTE VALDOVINOS [id number] During your visit today, we recorded the following information about you: Kamar Contreras 11/24/2021 10:04 AM Signed Patient would like a refill for Endocet. When can she begin the blood thinners again? Collette Valdovinos DPM 11/24/2021 12:40 PM Signed Addended by: COLLETTE VALDOVINOS on: 11/24/2021 12:40 PM Modules accepted: Orders Collette Valdovinos DPM 11/24/2021 12:40 PM Signed All set. Thank you. Kamar Contreras 11/24/2021 1:43 PM Signed Informed patient. Thank you Allergies As of Date: 11/24/2021 Noted Allergy Reaction ANCEF (CEFAZOLIN) 03/11/2020 14 - Other: See Comments Comments: Jaundice and drug induced liver injury OXYCONTIN (OXYCODONE) 02/01/2020 2 - Rash Date Reviewed: 08/24/2021 Reviewed by: Collette Valdovinos DPM - Fully Assessed Reason for Visit: Patient Question [3477] Primary Visit Diagnosis:Other acute postoperative pain [G89.18] Order(s):oxyCODONE-acet aminophen (PERCOCET) 5-325 mg tabletTake 1 tablet by mouth every 6 hours as needed for pain for up to 7 days.Disp: 28 tabletRfl: 0 Prescriptions as of 11/24/2021 - oxyCODONE-acetaminophen (PERCOCET) 5-325 mg tablet Take 1 tablet by mouth every 6 hours as needed for pain for up to 7 days. - ciprofloxacin HCl (CIPRO) 500 mg tablet Take by mouth. - metroNIDAZOLE (FLAGYL) 500 mg tablet Take by mouth. - Lactobacillus acidophilus (PROBIOTIC ORAL) Take by mouth. - TURMERIC ORAL Take by mouth. - MULTIVIT WITH CALCIUM,IRON,MIN (MULTIPLE VITAMIN, WOMENS ORAL) Take 1 capsule by mouth once daily. - cyanocobalamin, vitamin B-12, (VITAMIN B-12) 1,000 mcg/mL drop Take 1,000 mcg by mouth once daily. Problem List As Of Date 11/24/2021 Noted Resolved Heart palpitations [R00.2] 09/15/2010 Vision disturbance [H53.9] 09/15/[address] scan, chest [R93.89] 11/18/2015 Prescriptions ordered this encounter Disp Refills Start End OXYCODONE-ACETAMINOPHEN 5 MG-325 MG * 28 t* 0 11/24/2021 12/01/2021 Route: ORAL Sig: Take 1 tablet by mouth every 6 hours as needed for pain for up to 7 days. Medications Discontinued During This Encounter Prescriptions - HYDROcodone-acetaminoph en (NORCO) 5-325 mg per tablet (Discontinued) Reported on 08/24/2021 Encounter Status:Closed by KAMAR CONTRERAS on 11/24/21 [facility] Vania 11-19-2021 [facility] Tele[facility] ([id number]) MIGUELITOLAURA COATES ([id number]) 1975 F T Date Time Provider Department 11/19/21 COLLETTE VALDOVINOS [id number] During your visit today, we recorded the following information about you: Kamar Ben 11/19/2021 10:06 AM Signed Patient in a lot of pain today and requesting a stronger prescription for pain. [facility] in [place]. Collette Valdovinos DPM 11/19/2021 10:22 AM Signed Please advise the percocet every 4 hours, stop the eliquis for now, start motrin 800 mg by mouth with food three times a day Kamar Contreras 11/19/2021 10:42 AM Signed Informed patient. Thank you Allergies As of Date: 11/19/2021 Noted Allergy Reaction ANCEF (CEFAZOLIN) 03/11/2020 14 - Other: See Comments Comments: Jaundice and drug induced liver injury OXYCONTIN (OXYCODONE) 02/01/2020 2 - Rash Date Reviewed: 08/24/2021 Reviewed by: Collette Valdovinos DPM - Fully Assessed Reason for Visit: Patient Question [0680] Prescriptions as of 11/19/2021 - ciprofloxacin HCl (CIPRO) 500 mg tablet Take by mouth. - HYDROcodone-acetaminoph en (NORCO) 5-325 mg per tablet Take by mouth. - metroNIDAZOLE (FLAGYL) 500 mg tablet Take by mouth. - Lactobacillus acidophilus (PROBIOTIC ORAL) Take by mouth. - TURMERIC ORAL Take by mouth. - MULTIVIT WITH CALCIUM,IRON,MIN (MULTIPLE VITAMIN, WOMENS ORAL) Take 1 capsule by mouth once daily. - cyanocobalamin, vitamin B-12, (VITAMIN B-12) 1,000 mcg/mL drop Take 1,000 mcg by mouth once daily. Problem List As Of Date 11/19/2021 Noted Resolved Heart palpitations [R00.2] 09/15/2010 Vision disturbance [H53.9] 09/15/[address] scan, chest [R93.89] 11/18/2015 Encounter Status:Closed by KAMAR CONTRERAS on 11/19/21 Normal [facility] FOOT LT 2 VIEWon 11-18-2021 FOOT LT 2 VIEW *FINAL Date of Service: 11/18/2021 12:56 Adm #: [id number] Reading Dr:JORDY GIL Signoff Dr: JORDY GIL PROCEDURE: FOOT LT 2 VIEW - IXR [id number] REASON FOR EXAM: HALLUX VALGUS (ACQUIRED), LEFT FOOT RESULT: INTRAOPERATIVE EXAM EXAM TYPE: Left foot HISTORY: Pain. Hallux valgus. Hammertoes. COMMENTS: Radiologist did not perform this procedure. Images are available for interpretation from this procedure. Total fluoroscopy time: 9.8 sec, images: 2, DAP: 0.07 mgy. 2 static images from the C-arm fluoroscope are available for radiographic interpretation. FINDINGS: Examination demonstrates screw and plate fusion of the first and second MTP joints. There are 2 surgical K wires traversing the third and fourth toes at the level of the MTP joints. There is also screw and plate fixation along the medial aspect of the first tarsometatarsal joint partially included in the [id number]. IMPRESSION: Intraoperative findings as detailed above. [id number] This report has been produced using speech recognition. Original Interpreting Physician: JORDY GIL M.D. Original Transcribed by/Date: [facility] Nov 18 2021 12:58P Original Electronically Signed by/Date: JORDY GIL M.D. Nov 18 2021 12:58P Addendum Interpreting Physician: Addendum Transcribed by/Date: NO ADDENDUM Addendum Electronically Signed by/Date: [facility] CNPEstrella 03-12-2020 CNP[facility] Telephone (AGGASTACC ) LAURA WALKER ([id number]) 1975 F Date Time Provider Department 03/12/20 ROGERS KAMINSKI During your visit today, we recorded the following information about you: Sharri Seals 03/12/2020 9:51 AM Signed Called the patient and left a voice message asking the patient to call the office back to schedule their follow up. Sharri Bui 04/03/2020 10:15 AM Signed Our office called the patient and lvm for them to call our office back to schedule 3 month f/u w/ Azael. Bryanna Bui April 03, 2020 10:15 AM Allergies As of Date: 03/12/2020 Noted Allergy Reaction ANCEF (CEFAZOLIN) 03/11/2020 14 - Other: See Comments Comments: Jaundice and drug induced liver injury OXYCONTIN (OXYCODONE) 02/01/2020 2 - Rash Date Reviewed: 02/25/2020 Reviewed by: Antonio Handley - Fully Assessed Reason for Visit: Make Appointment [Other] Prescriptions as of 03/12/2020 Sig: ZYRTEC 10 MG CAPSULE Take by mouth. MULTIPLE VITAMIN, WOMENS ORAL Take 1 capsule by mouth once * CYANOCOBALAMIN (VIT B-12) 1,0* Take 1,000 mcg by mouth once * CITALOPRAM 10 MG TABLET Take 10 mg by mouth once laron* Problem List As Of Date 03/12/2020 Noted Resolved Heart palpitations [R00.2] 09/15/2010 Vision disturbance [H53.9] 09/15/[address] scan, chest [R93.89] 11/18/2015 Encounter Status:Closed by SHARRI SEALS on 03/12/20 Normal [facility] PROGRESSon 03-11-2020 PROGRESS HNO ID: [id number] Author: Rogers Kaminski Service: ? Author Type: Physician Type: Progress Notes Filed: 03/11/2020 9:13 AM Note Text: GASTROENTEROLOGY PROGRESS NOTE OUTPATIENT FOLLOW UP HPI: I saw Laura Walker today for a follow up regarding jaundice. Laura Walker was last seen here by me on 02/28/2020. This is a telephone/Virtual Visit being conducted as a result of the COVID-19 pandemic. The patient has consented to this virtual interaction. This Team Access Model visit is a virtual encounter. It required patient-provider interaction for the medical decision making as documented below. Pt says she feels better. Pruritus has now gone away Energy levels are back to normal The patient is otherwise asymptomatic from a GI perspective. No abdominal pain, nausea or vomiting. No dysphagia, odynophagia or GERD. No weight loss. No diarrhea or constipation. No melena or hematochezia. No jaundice, scleral icterus, dark urine or pale stool. Liver bx done 02/25/2020 FINAL DIAGNOSIS: LIVER, RIGHT LOBE, BIOPSY - LOBULAR CHOLESTASIS AND MILD SPOTTY NECROSIS COMPATIBLE WITH LOBULAR CHOLESTATIC HEPATITIS PATTERN OF INJURY (SEE NOTE). NOTE: The patient has no significant past medical history and presents with pruritus and fatigue. ?Patient is status post laparoscopic cholecystectomy, ERCP and MRCP which showed no evidence of stones. Antimitochondrial antibody testing is negative. ?AST/ALT and total bilirubin levels elevated. ?Antismooth muscle antibody was initially positive but then negative. ?Hepatitis serologies are negative. ?KASIA stained section show adequate liver biopsy with intact hepatic architecture. ?The portal areas show no significant inflammatory infiltrates. ?Hepatic artery and portal vein branches are intact as are bile duct branches, which show no evidence of duct damage. Proliferating bile ductules are not identified at the interface, nor is there is interface hepatitis present. ?The lobular parenchyma shows an absence of steatosis with mild spotty necrosis and lobular cholestasis with accentuation around central veins. ?Trichrome stain shows no evidence of fibrosis. ?Reticulin stain shows normal reticulin fiber network. ?Iron stain shows no definite stainable iron. ?PAS/diastase stain shows no intracytoplasmic globules. ?Possible etiologies, depending on clinical findings, include drug induced liver injury and viral hepatitis (namely hepatitis E) and thyroid disease. ?Primary biliary cholangitis is a less likely consideration given negative AMA testing and lack of duct damage in the sample; however, sampling error remains a possibility as duct damage in PBC can be patchy. The positive ASMA result is of unknown significance and definite features of autoimmune?hepatitis are not appreciated in this sample. ?The case was reviewed by Dr. Lupillo Garnica who agrees with the interpretation. PAST MEDICAL HISTORY Diagnosis Date - Diverticulitis of colon - Miscarriage - Normal vaginal delivery x 2 PAST SURGICAL HISTORY Procedure Laterality Date - CHOLECYSTECTOMY - PAST SURGICAL HISTORY OF D AND C after miscarriage - PAST SURGICAL HISTORY OF left foot bunionectomy - REMOVAL OF TONSILS,<12 Y/O Social History Tobacco Use - Smoking status: Never Smoker - Smokeless tobacco: Current User Types: Chew Substance Use Topics - Alcohol use: Yes Comment: Occasional - Drug use: Not on file Family history reviewed. No history of IBD, CRC or HPB malignancy. Current Outpatient Medications Medication Sig - Cetirizine (ZYRTEC) 10 mg cap Take by mouth. - MULTIVIT WITH CALCIUM,IRON,MIN (MULTIPLE VITAMIN, WOMENS ORAL) Take 1 capsule by mouth once daily. - cyanocobalamin, vitamin B-12, (VITAMIN B-12) 1,000 mcg/mL drop Take 1,000 mcg by mouth once daily. - citalopram hydrobromide (CELEXA) 10 mg tablet Take 10 mg by mouth once daily. No current facility-administered medications for this visit. ALLERGIES Allergen Reactions - Oxycontin [Oxycodon* Rash REVIEW OF SYSTEMS GASTROINTESTINAL: SEE ABOVE URINARY: NONE CARDIOVASCULAR: NONE NEUROLOGICAL: NONE CONSTITUTIONAL: NONE EYES: NONE EARS, NOSE AND THROAT: NONE RESPIRATORY: NONE SKIN: NONE ENDOCRINE: NONE PSYCHIATRIC: NONE HEMATOLOGIC NONE MUSCULOSKELETAL: NONE IMMUNOLOGIC: NONE PHYSICAL EXAMINATION: [facility] 07/26/2015 This is a telephone/Virtual Visit being conducted as a result of the COVID-19 pandemic. The patient has consented to this virtual interaction. DATA: Diagnostic tests and/or endoscopic procedures reviewed for today's visit: Most recent labs Most recent imaging LABS: Hemoglobin (g/dL) Date Value 03/03/2020 12.8 Hematocrit (%) Date Value 03/03/2020 39.3 WBC (k/uL) Date Value 03/03/2020 7.28 Lab Results Component Value Date LIPASE 21 03/03/2020 TBILI 1.5 (H) 03/03/2020 CREAT 0.61 03/03/2020 INR 0.9 03/03/2020 ALB 4.5 03/03/2020 CBILI 0.5 (H) 03/03/2020 ALKPHOS 108 03/03/2020 AST 122 (H) 03/03/2020 ALT 294 (H) 03/03/2020 TPROT 7.1 03/03/2020 Plan ASSESSMENT AND PLAN: 44F with recent biliary colic prompting lap tavo on January 15 at [place]. Had concern for CBD stone and had ERCP same day but no stones found. Had recurrence of jaundice but MRCP was negative for stones or mass. ? - Jaundice and pruritus after lap tavo and ERCP Chronic liver disease workup thus far is negative for viral hepatitis, both hepatotrophic and non-hepatotrophic viruses. ASMA initially positive but then negative. IgM, IgA, IgG normal. AMA negative. EUS did not show obvious stone or pancreatic abnormality. Normal synthetic function noted on labs. F2 to F3 fibrosis ? Given pruritus and fatigue with jaundice, she may have AMA-negative PBC. Dyslipidemia may fit with this as well. However, her liver biopsy did not comment on any classic florid duct lesion or other PBC or AIH related changes ? DDx: DILI from abx during [facility] admission (drug induced liver injury), AMA-negative PBC, or AIH. Now favoring drug-induced liver injury, possibly Ancef from her surgery ? Jaundice improving and LE now decreased No plans to start Neal given overall improved trajectory We will repeat her labs in one month and follow-up in 2-3 months if she is doing well. We did offer her possible second opinion at [facility], but she would like to follow with us for now. - Dyslipidemia Noted on fasting labs recently counseled re diet, exercise and weight loss Will repeat in 2 months after lifestyle intervention Note that she is at risk for HUMPHRIES given elevated lipids and obesity (but no DM2 or HTN). May need statin if she has persistent abnormalities. F/U 2-3 mo Thank you for involving me in the care of this patient. Rogers Kaminski MD MPH [facility] Vania 02-28-2020 CNPN Telephone (AGGASTACC ) LAURA WALKER ([id number]) 1975 F Date Time Provider Department 02/28/20 ROGERS KAMINSKI During your visit today, we recorded the following information about you: Bryanna Bui 02/28/2020 8:59 AM Signed The patient call our office asking if the Dr. Kaminski would like her to have another liver panel done. She stated she was getting them done once a week and have got one done this week. That patient would like to know what's the next step and should she have her liver panel checked Bryanna Hao February 28, 2020 8:57 AM Rogers Kaminski MD MPH [facility] 02/29/2020 10:33 AM Signed Labs ordered Also pls book her f/u as per my last note Sharrifrank Seals 02/29/2020 3:48 PM Signed I left Sharri Arnel 02/29/2020 3:48 PM Signed I called to make a follow up with the patient on 02/15/20 but she never called back to schedule and since I can not get her in for an appointment now may she would like her results over the phone. Sharrifrank Seals Rogers Kaminski MD MPH [facility] 03/04/2020 12:59 PM Signed pls book her for VV next week. Squeeze her in on any agency sales development associate day Sharri Seals 03/04/2020 2:22 PM Signed Called the patient and left a voice message asking the patient to call the office back to schedule an appointment. Sharri Seals CMA 03/07/2020 4:31 PM Signed Left another message to schedule. Lacey Seals CMA Allergies As of Date: 02/28/2020 Noted Allergy Reaction OXYCONTIN (OXYCODONE) 02/01/2020 2 - Rash Date Reviewed: 02/25/2020 Reviewed by: Antonio Handley - Fully Assessed Reason for Visit: Patient Question [2853] Prescriptions as of 02/28/2020 Sig: ZYRTEC 10 MG CAPSULE Take by mouth. MULTIPLE VITAMIN, WOMENS ORAL Take 1 capsule by mouth once * CYANOCOBALAMIN (VIT B-12) 1,0* Take 1,000 mcg by mouth once * CITALOPRAM 10 MG TABLET Take 10 mg by mouth once laron* Problem List As Of Date 02/28/2020 Noted Resolved Heart palpitations [R00.2] 09/15/2010 Vision disturbance [H53.9] 09/15/[address] scan, chest [R93.89] 11/18/2015 Encounter Status:Closed by SHARRI SEALS on 03/04/20 Normal [facility] CT BIOPSY LIVERon 02-25-2020 CT BIOPSY LIVER * * *Final Report* * * DATE OF EXAM: Feb 25 2020 1:26PM [facility] 2017 - CT BIOPSY LIVER / PROCEDURE REASON: jaundice * * * * Physician Interpretation * * * * Exam: CT GUIDED CORE BIOPSY OF LIVER Date:02/25/2020 Comparison: Clinical Indication/History: The patient is a 44-year-old female with jaundice. The patient is referred for random core biopsy of the liver. LIVER BX DR HANDLEY CT Radiation dose: Integrated Dose-length Product (DLP) for this visit = 84 mGy*cm. CT Dose Reduction Employed: mAs or kVp was manually adjusted based on either the patient size or age Contrast: 0 mL IV Number of Images: 71 Findings: Informed consent was obtained from the patient. . The patient was placed in the supine position. . The area of interest was localized with CT. The skin was marked. A timeout was performed. The patient was prepped and draped in a sterile manner. Local anesthesia was affected with 1% Xylocaine. Utilizing CT guidance a 17-gauge guide needle was introduced into the right lobe of the liver. 4 passes with a 18 g SuperCore core biopsy needle were performed. The patient tolerated the procedure well. No immediate complications were noted. The patient received conscious sedation with intravenous Versed and Fentanyl. . The patient was monitored throughout the procedure by the Radiology nurse. Intra-service time (monitoring for moderate sedation) (starts with administration of agent, ends when continuous [id number] time ends): 15 minutes Patient monitoring: I personally supervised and directed an independent trained observer who assisted in monitoring the patient?s level of consciousness and physiological status throughout the procedure. The specimens were submitted for histologic analysis. The patient was transferred to the radiology nursing station in stable condition. Impression: Technically successful CT-guided core biopsy of the right lobe of the liver. Service Plumber: [email or web address] Transcribe Date/Time: Feb 25 2020 6:17P Dictated by : ANTONIO HANDLEY MD This examination was interpreted and the report reviewed and electronically signed by: ANTONIO HANDLEY MD on Feb 25 2020 6:22PM EST Normal [facility] HISTORY PHYSICALon 0 HISTORY PHYSICAL HNO ID: [id number] Author: Antonio Handley Service: Interventional Radiology Author Type: Physician Type: HANDP Filed: 02/25/2020 12:58 PM Note Text: UPDATED HISTORY AND PHYSICAL EXAMINATION SERVICE DATE: 02/25/2020 SERVICE TIME: 12:57 PM PHYSICAL EXAM MUST BE COMPLETED ON ADMISSION The History and Physical (completed in the past 30 days) has been reviewed and the patient has been examined. The contents accurately reflect the patient's condition with the following additions or revisions since the HANDP was completed. Examination indicates no changes. This HANDP can be found in the Electronic Medical Record dated 02/01/20. SIGNATURE: Antonio Handley MD PATIENT NAME: Laura Walker DATE: February 25, 2020 TIME: 12:57 PM PAGER: Normal [facility] Surgical Tissue Examon 02-24 Surgical Tissue Exam Test performed at [place] [id number] NAME: LAURA WALKER REQUESTING: ANTONIO HANDLEY M.D. COPY TO: SHANIQUE CASTANEDA FINAL DIAGNOSIS: LIVER, RIGHT LOBE, BIOPSY - LOBULAR CHOLESTASIS AND MILD SPOTTY NECROSIS COMPATIBLE WITH LOBULAR CHOLESTATIC HEPATITIS PATTERN OF INJURY (SEE NOTE). NOTE: The patient has no significant past medical history and presents with pruritus and fatigue. Patient is status post laparoscopic cholecystectomy, ERCP and MRCP which showed no evidence of stones. Antimitochondrial antibody testing is negative. AST/ALT and total bilirubin levels elevated. Antismooth muscle antibody was initially positive but then negative. Hepatitis serologies are negative. H&E stained section show adequate liver biopsy with intact hepatic architecture. The portal areas show no significant inflammatory infiltrates. Hepatic artery and portal vein branches are intact as are bile duct branches, which show no evidence of duct damage. Proliferating bile ductules are not identified at the interface, nor is there is interface hepatitis present. The lobular parenchyma shows an absence of steatosis with mild spotty necrosis and lobular cholestasis with accentuation around central veins. Trichrome stain shows no evidence of fibrosis. Reticulin stain shows normal reticulin fiber network. Iron stain shows no definite stainable iron. PAS/diastase stain shows no intracytoplasmic globules. Possible etiologies, depending on clinical findings, include drug induced liver injury and viral hepatitis (namely hepatitis E) and thyroid disease. Primary biliary cholangitis is a less likely consideration given negative AMA testing and lack of duct damage in the sample; however, sampling error remains a possibility as duct damage in PBC can be patchy. The positive ASMA result is of unknown significance and definite features of autoimmune hepatitis are not appreciated in this sample. The case was reviewed by Dr. Lupillo Garnica who agrees with the interpretation. OPERATIVE PROCEDURE: Liver biopsy CLINICAL INFORMATION: Jaundice GROSS DESCRIPTION: Right lobe of the liver Received in formalin labeled right lobe liver biopsy are four cylindrical segments of cristina soft tissue ranging in length from 1.6 up to 2.2 cm. Each segment has a width of approximately 0.1 cm which are totally submitted in formalin in one cassette. LADI/santos ALBA M.D.,PATHOLOGIST (Electronic signature on file) Signed out: 02/29/2020 10:46 PRINTED: 02/29/2020 Page 1 of 1 Normal [facility] Comment on above: Performed By: #### S URG #### [place] [id number] HOSPon 02-18-2020 HOSP Patient:Jeromy Walker MRN: Height:5' 8(1.727 m) Weight:203 lb (92.08 kg) Outpatient Medications as of 02/25/20: Cetirizine (ZYRTEC) 10 mg cap MULTIVIT WITH CALCIUM,IRON,MIN (MULTIPLE VITAMIN, WOMENS ORAL) cyanocobalamin, vitamin B-12, (VITAMIN B-12) 1,000 mcg/mL drop citalopram hydrobromide (CELEXA) 10 mg tablet Admission/Clinic Administered Medications as of 02/25/20: Patient has no admission medications. Problem List: Heart palpitations [R00.2] Vision disturbance [H53.9] Abnormal CT scan, chest [R93.89] Allergies: Oxycontin [Oxycodone] Date Verified: 02/25/20 Lab Values Lab Value Units Date High Low AIDEN* 42.1 % 02/19/2020 46.0 36.0 Progress Notes (KIRK AG ACC): Sharri Seals 02/15/2020 3:43 PM Signed Called the patient and left a voice message informing her that IR will be calling her to schedule a Imaging Guided Biopsy Liver and to call the office back to make a 1 month follow up. Sharri Seals Progress Notes (KIRK AG ACC): Rogers Kaminski MD MPH [facility] 02/15/2020 12:13 PM Signed GASTROENTEROLOGY PROGRESS NOTE OUTPATIENT FOLLOW UP HPI: I saw Laura Walker today for a follow up regarding recent EUS. Laura Walker was last seen here by me on 02/06/2020. This is a telephone/Virtual Visit being conducted as a result of the COVID-19 pandemic. The patient has consented to this virtual interaction. This Team Access Model visit is a virtual encounter. It required patient-provider interaction for the medical decision making as documented below. Had EGD and EUS 01/31 EGD: Mildly scalloped duodenal mucosa A few fundic gland polyps in stomach Biopsies taken to rule out H. pylori and celiac disease ?Pathology unremarkable EUS: Normal PD and pancreas. Normal CBD but suboptimal visualization of distal duct Pt still having pruritus and fatigue. Taking Zyrtec and hydoxyzine for this. No arthralgias No hx of OP. No dry eyes or dry mouth. No abdo pain Has had mild N but no V Jaundice mostly resolved and no obvious icterus. Does have a rash on right arm No weight loss. PAST MEDICAL HISTORY Diagnosis Date - Diverticulitis of colon - Miscarriage - Normal vaginal delivery x 2 PAST SURGICAL HISTORY Procedure Laterality Date - CHOLECYSTECTOMY - PAST SURGICAL HISTORY OF D AND C after miscarriage - PAST SURGICAL HISTORY OF left foot bunionectomy - REMOVAL OF TONSILS,<12 Y/O Social History Tobacco Use - Smoking status: Never Smoker - Smokeless tobacco: Current User Types: Chew Substance Use Topics - Alcohol use: Yes Comment: Occasional - Drug use: Not on file Family history reviewed. No history of IBD, CRC or HPB malignancy. Current Outpatient Medications Medication Sig - Cetirizine (ZYRTEC) 10 mg cap Take by mouth. - MULTIVIT WITH CALCIUM,IRON,MIN (MULTIPLE VITAMIN, WOMENS ORAL) Take 1 capsule by mouth once daily. - cyanocobalamin, vitamin B-12, (VITAMIN B-12) 1,000 mcg/mL drop Take 1,000 mcg by mouth once daily. - citalopram hydrobromide (CELEXA) 10 mg tablet Take 10 mg by mouth once daily. No current facility-administered medications for this visit. ALLERGIES Allergen Reactions - Oxycontin [Oxycodon* Rash REVIEW OF SYSTEMS GASTROINTESTINAL: SEE ABOVE URINARY: NONE CARDIOVASCULAR: NONE NEUROLOGICAL: NONE CONSTITUTIONAL: NONE EYES: NONE EARS, NOSE AND THROAT: NONE RESPIRATORY: NONE SKIN: NONE ENDOCRINE: NONE PSYCHIATRIC: NONE HEMATOLOGIC NONE MUSCULOSKELETAL: NONE IMMUNOLOGIC: NONE PHYSICAL EXAMINATION: [facility] 07/26/2015 GENERAL APPEARANCE: Well appearing, alert, in no acute distress, well-hydrated, well nourished. SKIN: Skin color, texture, turgor normal, no suspicious rashes or lesions. EYES: Anicteric sclera. Pupils are equally round and reactive to light. Extraocular movements are intact. EXTREMITIES: No deformities, edema, skin discoloration, clubbing or cyanosis. DATA: Diagnostic tests and/or endoscopic procedures reviewed for today's visit: Most recent labs Most recent imaging LABS: Hemoglobin (g/dL) Date Value 02/13/2020 12.4 Hematocrit (%) Date Value 02/13/2020 38.1 WBC (k/uL) Date Value 02/13/2020 5.94 Lab Results Component Value Date LIPASE 16 02/05/2020 TBILI 2.8 (H) 02/13/2020 CREAT 0.66 02/13/2020 INR <0.9 (L) 02/13/2020 ALB 4.1 02/13/2020 CBILI 1.4 (H) 02/13/2020 ALKPHOS 120 02/13/2020 AST 108 (H) 02/13/2020 ALT 246 (H) 02/13/2020 TPROT 6.5 02/13/2020 Plan ASSESSMENT AND PLAN: 44F with recent biliary colic prompting lap tavo on January 15 at [facility]. Had concern for CBD stone and had ERCP same day but no stones found. Had recurrence of jaundice but MRCP was negative for stones or mass. ? - Jaundice and pruritus after lap tavo and ERCP Chronic liver disease workup thus far is negative for viral hepatitis, both hepatotrophic and non-hepatotrophic viruses. ASMA initially positive but then negative. IgM, IgA, IgG normal. AMA negative. EUS did not show obvious stone or pancreatic abnormality. Normal synthetic function noted on labs. 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 Will re-check AI markers, check IgG4, lipid panel and HCV RNA. ? DDx: DILI from abx during [facility] admission (drug induced liver injury), AMA-negative PBC, or AIH Jaundice improving liver enzymes fluctuating. May start Neal depending on findings. F/U 1 month Thank you for involving me in the care of this patient. Rogers Kaminski MD MPH [facility]PEstrella 02-15-2020 CNPN Telephone (AGGASTACC ) LAURA WALKER ([id number]) 1975 F Date Time Provider Department 02/15/20 ROGERS KAMINSKI AGGASTACC During your visit today, we recorded the following information about you: Sharri Seals 02/15/2020 3:43 PM Signed Called the patient and left a voice message informing her that IR will be calling her to schedule a Imaging Guided Biopsy Liver and to call the office back to make a 1 month follow up. Sharri Seals Allergies As of Date: 02/15/2020 Noted Allergy Reaction OXYCONTIN (OXYCODONE) 02/01/2020 2 - Rash Date Reviewed: 02/01/2020 Reviewed by: Radha (Rn) PATRICK Peter - Fully Assessed Reason for Visit: Patient Update [1234] Make Appointment [Other] Prescriptions as of 02/15/2020 Sig: ZYRTEC 10 MG CAPSULE Take by mouth. MULTIPLE VITAMIN, WOMENS ORAL Take 1 capsule by mouth once * CYANOCOBALAMIN (VIT B-12) 1,0* Take 1,000 mcg by mouth once * CITALOPRAM 10 MG TABLET Take 10 mg by mouth once laron* Problem List As Of Date 02/15/2020 Noted Resolved Heart palpitations [R00.2] 09/15/2010 Vision disturbance [H53.9] 09/15/[address] scan, chest [R93.89] 11/18/2015 Encounter Status:Closed by SHARRI SEALS on 02/15/20 [facility] PROGRESSon 02-15-2020 PROGRESS HNO ID: [id number] Author: Rogers Kaminski Service: ? Author Type: Physician Type: Progress Notes Filed: 02/15/2020 12:13 PM Note Text: GASTROENTEROLOGY PROGRESS NOTE OUTPATIENT FOLLOW UP HPI: I saw Laura Walker today for a follow up regarding recent EUS. Laura Walker was last seen here by me on 02/06/2020. This is a telephone/Virtual Visit being conducted as a result of the COVID-19 pandemic. The patient has consented to this virtual interaction. This Team Access Model visit is a virtual encounter. It required patient-provider interaction for the medical decision making as documented below. Had EGD and EUS 01/31 EGD: Mildly scalloped duodenal mucosa A few fundic gland polyps in stomach Biopsies taken to rule out H. pylori and celiac disease ?Pathology unremarkable EUS: Normal PD and pancreas. Normal CBD but suboptimal visualization of distal duct Pt still having pruritus and fatigue. Taking Zyrtec and hydoxyzine for this. No arthralgias No hx of OP. No dry eyes or dry mouth. No abdo pain Has had mild N but no V Jaundice mostly resolved and no obvious icterus. Does have a rash on right arm No weight loss. PAST MEDICAL HISTORY Diagnosis Date - Diverticulitis of colon - Miscarriage - Normal vaginal delivery x 2 PAST SURGICAL HISTORY Procedure Laterality Date - CHOLECYSTECTOMY - PAST SURGICAL HISTORY OF D AND C after miscarriage - PAST SURGICAL HISTORY OF left foot bunionectomy - REMOVAL OF TONSILS,<12 Y/O Social History Tobacco Use - Smoking status: Never Smoker - Smokeless tobacco: Current User Types: Chew Substance Use Topics - Alcohol use: Yes Comment: Occasional - Drug use: Not on file Family history reviewed. No history of IBD, CRC or HPB malignancy. Current Outpatient Medications Medication Sig - Cetirizine (ZYRTEC) 10 mg cap Take by mouth. - MULTIVIT WITH CALCIUM,IRON,MIN (MULTIPLE VITAMIN, WOMENS ORAL) Take 1 capsule by mouth once daily. - cyanocobalamin, vitamin B-12, (VITAMIN B-12) 1,000 mcg/mL drop Take 1,000 mcg by mouth once daily. - citalopram hydrobromide (CELEXA) 10 mg tablet Take 10 mg by mouth once daily. No current facility-administered medications for this visit. ALLERGIES Allergen Reactions - Oxycontin [Oxycodon* Rash REVIEW OF SYSTEMS GASTROINTESTINAL: SEE ABOVE URINARY: NONE CARDIOVASCULAR: NONE NEUROLOGICAL: NONE CONSTITUTIONAL: NONE EYES: NONE EARS, NOSE AND THROAT: NONE RESPIRATORY: NONE SKIN: NONE ENDOCRINE: NONE PSYCHIATRIC: NONE HEMATOLOGIC NONE MUSCULOSKELETAL: NONE IMMUNOLOGIC: NONE PHYSICAL EXAMINATION: [facility] 07/26/2015 GENERAL APPEARANCE: Well appearing, alert, in no acute distress, well-hydrated, well nourished. SKIN: Skin color, texture, turgor normal, no suspicious rashes or lesions. EYES: Anicteric sclera. Pupils are equally round and reactive to light. Extraocular movements are intact. EXTREMITIES: No deformities, edema, skin discoloration, clubbing or cyanosis. DATA: Diagnostic tests and/or endoscopic procedures reviewed for today's visit: Most recent labs Most recent imaging LABS: Hemoglobin (g/dL) Date Value 02/13/2020 12.4 Hematocrit (%) Date Value 02/13/2020 38.1 WBC (k/uL) Date Value 02/13/2020 5.94 Lab Results Component Value Date LIPASE 16 02/05/2020 TBILI 2.8 (H) 02/13/2020 CREAT 0.66 02/13/2020 INR <0.9 (L) 02/13/2020 ALB 4.1 02/13/2020 CBILI 1.4 (H) 02/13/2020 ALKPHOS 120 02/13/2020 AST 108 (H) 02/13/2020 ALT 246 (H) 02/13/2020 TPROT 6.5 02/13/2020 Plan ASSESSMENT AND PLAN: 44F with recent biliary colic prompting lap tavo on January 15 at [facility]. Had concern for CBD stone and had ERCP same day but no stones found. Had recurrence of jaundice but MRCP was negative for stones or mass. ? - Jaundice and pruritus after lap tavo and ERCP Chronic liver disease workup thus far is negative for viral hepatitis, both hepatotrophic and non-hepatotrophic viruses. ASMA initially positive but then negative. IgM, IgA, IgG normal. AMA negative. EUS did not show obvious stone or pancreatic abnormality. Normal synthetic function noted on labs. 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 Will re-check AI markers, check IgG4, lipid panel and HCV RNA. ? DDx: DILI from abx during [facility] admission (drug induced liver injury), AMA-negative PBC, or AIH Jaundice improving liver enzymes fluctuating. May start Neal depending on findings. F/U 1 month Thank you for involving me in the care of this patient. Rogers Kaminski MD MPH [facility] CNPNon 02-06-2020 CNPN Telephone (AGGASTACC ) LAURA WALKER ([id number]) 1975 F Date Time Provider Department 02/06/20 ROGERS KAMINSKI AGGASTACC During your visit today, we recorded the following information about you: Karlo Dawkins 02/06/2020 10:33 AM Signed PT IS CALLING ABOUT LAB RESULTS AND DOES DR KAMINSKI WANT TO SEE HER SOONER. PLEASE ADVISE 02/06/2020 10:33:05 Karlo Dawkins Allergies As of Date: 02/06/2020 Noted Allergy Reaction OXYCONTIN (OXYCODONE) 02/01/2020 2 - Rash Date Reviewed: 02/01/2020 Reviewed by: Radha (Rn) PATRIKC Peter - Fully Assessed Reason for Visit: Results [95] Prescriptions as of 02/06/2020 Sig: ZYRTEC 10 MG CAPSULE Take by mouth. MULTIPLE VITAMIN, WOMENS ORAL Take 1 capsule by mouth once * CYANOCOBALAMIN (VIT B-12) 1,0* Take 1,000 mcg by mouth once * CITALOPRAM 10 MG TABLET Take 10 mg by mouth once laron* Problem List As Of Date 02/06/2020 Noted Resolved Heart palpitations [R00.2] 09/15/2010 Vision disturbance [H53.9] 09/15/[address] scan, chest [R93.89] 11/18/2015 Encounter Status:Closed by KARLO DAWKINS MA on 02/06/20 [facility] ANES Cady 02-01-2020 ANES POST HNO ID: [id number] Author: Will Frederick Service: Anesthesiology Author Type: Physician Type: Anesthesia PostOp Filed: 02/01/2020 3:04 PM Note Text: POST ANESTHESIA EVALUATION NOTE SERVICE DATE: 02/01/2020 SERVICE TIME: 3:04 PM : 1975 Vitals: 02/01/20 1232 Temp: 36.9 ?C (98.4 ?F) 02/01/20 1232 02/01/20 1458 BP: 119/66 108/70 02/01/20 1458 Pulse: 82 02/01/20 1232 02/01/20 1458 Resp: 16 16 02/01/20 1458 SpO2: 100% Validated Vital Signs: Yes POST ANES STATUS: No apparent anesthetic complications. The patient is appropriately hydrated with stable respiratory and cardiovascular status. Patient has safe and adequate airway control. The patient has appropriate pain relief and no significant post operative nausea or vomiting. The patient has achieved baseline mental status. Intra-Operative Events: No Significant Anesthesia Events Further assessment by Anesthesia Service: None Other Remarks: SIGNATURE: Will Frederick MD PATIENT NAME: Laura Walker DATE: February 01, 2020 TIME: 3:04 PM PAGER/CONTACT #: [phone] [facility] ANES PREOPon 02-01-2020 ANES PREOP HNO ID: [id number] Author: Will Frederick Service: Anesthesiology Author Type: Physician Type: Anesthesia PreOp Filed: 02/01/2020 1:17 PM Note Text: ANESTHESIOLOGY DAY OF SURGERY NOTE SERVICE DATE: 02/01/2020 SERVICE TIME: 1:16 PM : 1975 Procedure(s) (LRB): ENDOSCOPY UPPER GI W/ ENDOSCOPIC ULTRASOUND EXAMINATION, (Left) Surgeon(s): Rogers Kaminski Estimated body mass index is 30.41 kg/m? as calculated from the following: Height as of this encounter: 172.7 cm (5' 8). Weight as of this encounter: 90.7 kg (200 lb). Most recent hematocrit and potassium results: Hematocrit 41.6 01/31/2020 ANES DOS/PREOP NOTE: Vitals: 02/01/20 1232 BP: 119/66 Resp: 16 Temp: 36.9 ?C (98.4 ?F) TempSrc: Oral Weight: 90.7 kg (200 lb) Height: 172.7 cm (5' 8) ACTIVE PROBLEM LIST Heart Palpitations Vision Disturbance Abnormal CT Scan, Chest PAST MEDICAL HISTORY Diagnosis Date - Diverticulitis of colon - Miscarriage - Normal vaginal delivery x 2 PAST SURGICAL HISTORY Procedure Laterality Date - CHOLECYSTECTOMY - PAST SURGICAL HISTORY OF D AND C after miscarriage - PAST SURGICAL HISTORY OF left foot bunionectomy - REMOVAL OF TONSILS,<12 Y/O FAMILY HISTORY Problem Relation Age of Onset - Heart Father [place] early 50s - Hypertension Father - Cataract Father - Heart Paternal Grandfather fatal [place] in early 50s - Cancer Maternal Grandfather mouth - Stroke Maternal Aunt - Stroke Maternal Aunt - Stroke Maternal Uncle - Stroke Maternal Uncle - Stroke Maternal Uncle Social History: Social History Tobacco Use - Smoking status: Never Smoker - Smokeless tobacco: Current User Types: Chew Substance Use Topics - Alcohol use: Yes Comment: Occasional - Drug use: Not on file No current facility-administered medications on file prior to encounter. Current Outpatient Medications on File Prior to Encounter Medication Sig - Cetirizine (ZYRTEC) 10 mg cap Take by mouth. - MULTIVIT WITH CALCIUM,IRON,MIN (MULTIPLE VITAMIN, WOMENS ORAL) Take 1 capsule by mouth once daily. - cyanocobalamin, vitamin B-12, (VITAMIN B-12) 1,000 mcg/mL drop Take 1,000 mcg by mouth once daily. - citalopram hydrobromide (CELEXA) 10 mg tablet Take 10 mg by mouth once daily. Current Facility-Administered Medications Medication Dose Route Frequency Provider Last Rate Last Dose - lactated ringers infusion 5-30 mL/hr INTRAVENOUS CONTINUOUS Shanell A (Geopolitics Teacher) Bretti 30 mL/hr at 02/01/20 1300 30 mL/hr at 02/01/20 1300 Allergies: ALLERGIES Allergen Reactions - Oxycontin [Oxycodon* Rash DOS EXAM: Adequate NPO status: Yes Anesthetic risks, benefits, alternatives, personnel and consent discussed: Yes Patient agrees to proceed: Yes Previous Anesthesia: No history of adverse event. Airway Assessment: MP 2; Neck ROM: Full ROM without neurologic symptoms; Airway Evaluation: No significant abnormalities Symptoms of Sleep Apnea: None Dentition: Teeth intact Additional Physical Exam: Lungs: Patient health status unchanged since recent history and physical. See history and physical for exam findings. Cardiac: Patient health status unchanged since recent history and physical. See history and physical for exam findings. Additional Pertinent Findings: N/A Blood Products: Not anticipated for this procedure. Anesthetic Plan: MAC with Sedation Pain Management Plan: Parenteral or Oral ASA Class: 2 Other Medical Problems: jaundice Chronic Beta Aaron medication administered within 24 hours: N/A I have interviewed and examined the patient. I have reviewed the medical record and/or the pre-anesthesia evaluation, pertinent labs, and test results. Significant changes in the patient's condition since the History and Physical, not otherwise documented in primary service progress notes: No This contains updated information obtained within 48 hours of Surgery/Procedure. SIGNATURE: Will Frederick MD PATIENT NAME: Laura Walker DATE: February 01, 2020 TIME: 1:16 PM CSN: [id number] Normal [facility] HISTORY PHYSICALon 0 HISTORY PHYSICAL HNO ID: [id number] Author: Shanell Riley (Geopolitics Teacher) [place] Service: Anesthesiology Author Type: Nurse Practitioner Type: HANDP Filed: 02/01/2020 1:08 PM Note Text: HISTORY AND PHYSICAL EXAMINATION Patient: Laura Walker : 1975 SERVICE DATE: 02/01/2020 SERVICE TIME: 11:58 AM PRIMARY CARE PHYSICIAN: Eve Bell MD SURGEON: Surgeon(s) and Role: * Rogers Kaminski - Primary ANESTHESIA: Monitored Anesthesia Care DIAGNOSIS: Jaundice [R17] PROCEDURE: Procedure(s) with comments: ENDOSCOPY UPPER GI W/ ENDOSCOPIC ULTRASOUND EXAMINATION, (Left) - RADIAL Subjective CHIEF COMPLAINT: Elevated bilirubin HPI: This is a 44-year-old female who presents s/p lap tavo done on 01-16-2020 at [facility]. She had ERCP the same day-no stones were found. Bilirubin went up after the surgery to 5.2. it then came down to 1.3 but then went up to 5.3 again. Labs yesterday-bilirubin is 3.5. She is persistently jaundiced, itchy,and has nausea. Denies abdominal pain. No prior EGD. Also has noticed urine is dark. Appetite is poor, has lost 5# since tavo 2 weeks ago. METS: Climb a flight of stairs or walk up a hill (5.50 METs) Patient denies any chest pain or shortness of breath with above physical activity. FUNCTIONAL STATUS: Independent PAST MEDICAL HISTORY Diagnosis Date - Diverticulitis of colon - Miscarriage - Normal vaginal delivery x 2 PAST SURGICAL HISTORY Procedure Laterality Date - CHOLECYSTECTOMY - PAST SURGICAL HISTORY OF D AND C after miscarriage - PAST SURGICAL HISTORY OF left foot bunionectomy - REMOVAL OF TONSILS,<12 Y/O FAMILY HISTORY Problem Relation Age of Onset - Heart Father [place] early 50s - Hypertension Father - Cataract Father - Heart Paternal Grandfather fatal [place] in early 50s - Cancer Maternal Grandfather mouth - Stroke Maternal Aunt - Stroke Maternal Aunt - Stroke Maternal Uncle - Stroke Maternal Uncle - Stroke Maternal Uncle Social History Tobacco Use - Smoking status: Never Smoker - Smokeless tobacco: Current User Types: Chew Substance Use Topics - Alcohol use: Yes Comment: Occasional - Drug use: Not on file Prior to Admission medications as of 02/01/20 1304 Medication Sig Last Dose Taking Cetirizine (ZYRTEC) 10 mg cap Take by mouth. 01/30/2020 at Unknown time Yes MULTIVIT WITH CALCIUM,IRON,MIN (MULTIPLE VITAMIN, WOMENS ORAL) Take 1 capsule by mouth once daily. Unknown at Unknown time cyanocobalamin, vitamin B-12, (VITAMIN B-12) 1,000 mcg/mL drop Take 1,000 mcg by mouth once daily. Unknown at Unknown time citalopram hydrobromide (CELEXA) 10 mg tablet Take 10 mg by mouth once daily. Unknown at Unknown time ALLERGIES Allergen Reactions - Oxycontin [Oxycodon* Rash COMPLETE REVIEW OF SYSTEMS: GENERAL: No weight loss, malaise or fevers RESPIRATORY: Denies AMENA, coughing, wheezing or SOB CARDIOVASCULAR: Denies chest pain, palpitations, or CHF GI: Nausea, jaundice-see HPI : Denies urinary complaints MUSCULOSKELETAL: Denies joint pain, muscle pain, or back pain PSYCH: Denies anxiety, depression, sleep disturbance, or mood disorder ENDOCRINE: Denies DM or thyroid problems NEURO: Denies headaches, syncope, seizures, or tremors HEME/ONC: Denies cancer or bleeding/clotting disorders Objective PHYSICAL EXAM: CONSTITUTIONAL: Well-developed, NAD MENTAL STATUS: alert, oriented to person, place and time SKIN: Warm, dry, no diaphoresis HEENT: Normocephalic, atraumatic, no lymphadenopathy LUNGS: Lungs clear to auscultation, Good diaphragmatic excursion CARDIAC: RRR no murmur ABDOMEN: Abdomen soft, non-tender, BS x 4 EXTREMITIES: Extremities normal, no deformities, edema, clubbing or skin discoloration. 02/01/20 1232 BP: 119/66 Resp: 16 Temp: 36.9 ?C (98.4 ?F) TempSrc: Oral Weight: 90.7 kg (200 lb) Height: 172.7 cm (5' 8) Body mass index is 30.41 kg/m?. ANESTHESIA FINDINGS: Intubation History: No history of difficult intubation. Significant anesthesia considerations: None. FAMILY PROBLEMS WITH ANESTHESIA: no history of adverse anesthetic event Assessment/Plan There is no known pertinent medical condition which may affect todd-operative course. SIGNATURE: Shanell Raymond APRN.CNP PATIENT NAME: Laura Walker DATE: February 01, 2020 TIME: 8:58 AM PAGER/CONTACT #: Viv [facility] OPERATIVE NOon 02-01-2020 OPERATIVE NO HNO ID: [id number] Author: Rogers Kaminski Service: Gastroenterology Author Type: Physician Type: Operative Report Filed: 02/01/2020 3:01 PM Note Text: OPERATIVE/PROCEDURE REPORT LOG ID: [id number] Surgery/Procedure Date: 02/01/2020 Incision/Procedure Start Time: 2:33 PM Incision Close/Procedure End Time: 2:50 PM Surgeon(s)/Proceduralis t(s) and Computer Network Specialist(s): Surgeon(s) and Role: * Rogers Kaminski - Primary No Additional Staff Procedure(s): Endoscopic Ultrasound (EUS) Esophagogastroduodenosc opy (EGD) and biopsy Anesthesia: Monitored Anesthesia Care Brief History: 44F with recent biliary colic prompting lap tavo on January 15 at [facility]. Had concern for CBD stone and had ERCP same day but no stones found. Had recurrence of jaundice but MRCP was negative for stones or mass. The risks, benefits and alternatives of the procedure were explained to the patient/responsible accompanying adult. This includes, but is not limited to, bleeding and infection. The risk of perforation is 1:1000 and the risk of post-procedural pancreatitis is 3-5%. There is also a small risk of allergic reaction(s) due to sedatives, need for hospitalization, need for transfusions and need for surgery. The patient understands this and is amenable to proceeding. Procedure Details: The patient was placed in the left lateral decubitus position. A bite block was placed and medications administered as above. The Olympus gastroscope was used to intubate the oropharynx and esophagus with ease. We proceeded down to the second part of the duodenum. The duodenal mucosa and bulb appeared slightly scalloped so biopsies were taken to rule out celiac disease. We then withdrew into the stomach and visualized a normal antrum and body. Biopsies were taken to rule out H. Pylori. Retroflexion was performed and this showed a normal fundus and cardia. A few fundic gland polyps are seen. The squamocolumnar junction, GE junction and esophagus appeared normal. The scope was then withdrawn and the patient tolerated the procedure well. With the patient in the same position, the Olympus radial echoendoscope was then used to intubate the oropharynx and esophagus with ease. We proceeded down to the posterior aspect of the gastric body. The aorta and celiac artery takeoff were visualized. The splenic vasculature appeared normal. The pancreatic parenchyma was visualized and had normal echogenicity. The pancreatic duct in the body was nondilated and measured 2mm. There is no evidence of cystic structures, masses or chronic pancreatitis. The pancreatic parenchyma was scanned down to the tail and appeared normal. We then advanced the scope to the duodenal bulb. The CBD had normal caliber, measuring 5mm with no evidence of intraductal stones. However, views were suboptimal as we could not visualize the distal duct completely. A normal stack sign was seen with normal portal vein, pancreatic duct and CBD. The scope was advanced to the second part of the duodenum. The uncinate process of the pancreas along with the SMA, aorta and SMV were normal. The scope was then withdrawn and the patient tolerated the procedure well. Pre-Op/Pre-Procedure Diagnosis: Jaundice, recent ERCP and cholecystectomy Post-Op/Post-Procedure Diagnosis: EGD: Mildly scalloped duodenal mucosa A few fundic gland polyps in stomach Biopsies taken to rule out H. pylori and celiac disease EUS: Normal PD and pancreas. Normal CBD but suboptimal visualization of distal duct Specimens: see above EBL: None Complications: None Recommendations: Follow up pathology/cytology No obvious evidence of choledocholithiasis today although the visualization of the distal CBD was suboptimal Her viral hepatitis serologies all negative. We will check her for nonhepatic trophic viruses and repeat her liver enzymes and bilirubin as the latter remain elevated ASMA was elevated and she may need liver biopsy to rule out autoimmune hepatitis if her jaundice persists I/primary surgeon/proceduralist performed the entire procedure. Rogers Kaminski MD MPH FRCPC SIGNATURE: Rogers Kaminski MD MPH FRC[facility] PATIENT NAME: Laura Walker DATE: February 01, 2020 TIME: 2:58 PM PAGER/CONTACT #: [phone] [facility] PT EDon 02-01-2020 PT ED HNO ID: [id number] Author: Radha (Rn) PATRICK Peter Service: ? Author Type: Registered Nurse Type: Patient Education Filed: 02/01/2020 3:01 PM Note Text: POST OP LEARNING RESPONSE INSTRUCTION PROVIDED TO: Patient METHOD OF INSTRUCTION: Individual instruction PATIENT / FAMILY RESPONSE: Verbalizes understanding of: POST-PROCEDURE INSTRUCTIONS-Correct actions to take to reduce post procedure complications FOLLOW-UP PLAN: Patient instructed to call with any further issues SUPPLEMENTAL MATERIAL: None REFERRAL (RECOMMENDATION): None Electronically Signed By: Radha Peter RN In Department: [facility] Surgical Tissue Examon 01-31 Surgical Tissue Exam Test performed at [place] [id number] NAME: LAURA WALKER REQUESTING: ROGERS KAMINSKI MD FINAL DIAGNOSIS: A) DUODENUM, BIOPSY - DUODENAL MUCOSA WITH NO SIGNIFICANT HISTOPATHOLOGIC CHANGE. B) STOMACH, BODY, BIOPSY - GASTRIC MUCOSA WITH MILD CHRONIC GASTRITIS AND MINUTE PORTION OF UNREMARKABLE DUODENAL MUCOSA (SEE NOTE). NOTE: In part B, the minute portion of duodenal tissue may represent contaminant from part A. OPERATIVE PROCEDURE: EGD CLINICAL INFORMATION: Not given GROSS DESCRIPTION: A) Duodenal bx Received in formalin labeled duodenal biopsy are multiple irregular-shaped segments of cristina soft tissue aggregating to 0.7 x 0.2 x 0.1 cm. The specimen is totally submitted in formalin in 1 cassette. B) Gastric body bx Received in formalin labeled gastric biopsy are multiple irregular-shaped segments of cristina soft tissue aggregating to 0.7 x 0.2 x 0.1 cm. The specimen is totally submitted in formalin in 1 cassette. LADI/ifrah ALBA M.D.,PATHOLOGIST (Electronic signature on file) Signed out: 02/06/2020 17:01 PRINTED: 02/06/2020 Page 1 of 1 [facility] Comment on above: Performed By: #### S URG #### [place] [address] Urine HCG, Qual.on 0 Beta HCG ( test) Ql (U) Negative Normal Negative [facility] Comment on above: Performed By: #### H CGUR #### [facility] [address] [place], [place] [address] Specific [place], Ur 1.024 Normal 1.005-1.030 [facility] Comment on above: Performed By: #### H CGUR #### [facility] [address] [place], [place] [address] [facility] 01-30-2020 CNPN Telephone (AGGASTACC ) LAURA WALKER ([id number]) 1975 F Date Time Provider Department 01/30/20 ROGERS KAMINSKI AGGASTACC During your visit today, we recorded the following information about you: Sharri Seals 01/30/2020 3:19 PM Signed Surgery Checklist Type: EUS RADIAL NO TECH Admission Type: outpatient Anesthesia: MAC Date: 02/01/20 Arrival Time: 12:00PM Surgery Time: 01:30PM Location: [facility] CASE# [id number] Prep emailed. Sharri Seals Allergies As of Date: 01/30/2020 (No Known Allergies) Date Reviewed: 11/18/2015 Reviewed by: Wu Vidal - Fully Assessed Reason for Visit: Make Appointment [Other] Prescriptions as of 01/30/2020 Sig: MULTIPLE VITAMIN, WOMENS ORAL Take 1 capsule by mouth once * CYANOCOBALAMIN (VIT B-12) 1,0* Take 1,000 mcg by mouth once * CITALOPRAM 10 MG TABLET Take 10 mg by mouth once laron* Problem List As Of Date 01/30/2020 Noted Resolved Heart palpitations [R00.2] 09/15/2010 Vision disturbance [H53.9] 09/15/[address] scan, chest [R93.89] 11/18/2015 Encounter Status:Closed by SHARRI SEALS on 01/30/20 Normal [facility] HOSPon 01-30-2020 HOSP Patient:Jeromy Walker MRN: Height:5' 8(1.727 m) Weight:200 lb (90.719 kg) Outpatient Medications as of 02/01/20: Cetirizine (ZYRTEC) 10 mg cap MULTIVIT WITH CALCIUM,IRON,MIN (MULTIPLE VITAMIN, WOMENS ORAL) cyanocobalamin, vitamin B-12, (VITAMIN B-12) 1,000 mcg/mL drop citalopram hydrobromide (CELEXA) 10 mg tablet Admission/Clinic Administered Medications as of 02/01/20: lactated ringers infusion Problem List: Heart palpitations [R00.2] Vision disturbance [H53.9] Abnormal CT scan, chest [R93.89] Allergies: Oxycontin [Oxycodone] Date Verified: 02/01/20 Lab Values Lab Value Units Date High Low AIDEN* 41.6 % 01/31/2020 46.0 36.0 Progress Notes ([facility]): Sharri Seals 01/30/2020 3:19 PM Signed Surgery Checklist Type: EUS RADIAL NO TECH Admission Type: outpatient Anesthesia: MAC Date: 02/01/20 Arrival Time: 12:00PM Surgery Time: 01:30PM Location: [facility] CASE# [id number] Prep emailed. Sharri Seals Progress Notes ([facility]): Rogers Kaminski MD MPH FRCPC 01/30/2020 2:56 PM Signed GASTROENTEROLOGY CONSULT HPI: Laura Walker is a 44 year old female who presents for RUQ pain. This is a telephone/Virtual Visit being conducted as a result of the COVID-19 pandemic. The patient has consented to this virtual interaction. This Team Access Model visit is a virtual encounter. It required patient-provider interaction for the medical decision making as documented below. This pt was referred by Dr. Watson from [facility]. Pt had recent RUQ pain and went for lap tavo done on January 15. She had ERCP the same day as he was concerned for CBD stones. No stones were found. Was discharged January 16 and got readmitted again and was discharged a second time on January 21 Tbili was initially 1.5 before surgery and went up after the surgery to 5.2. it then came down to 1.3 but then went up 5.3 as of last Tuesday. Had MRCP on January 21: did not show CBD stones. But she is persistently jaundiced Pt still has pruritus and nausea with low energy levels Has been taking hydroxizine Has noted dark urine last week up until a couple of days ago. Having night sweats but no fever No abdo pain Has some N but no V Jaundice is resolving. 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 - cyanocobalamin, vitamin B-12, (VITAMIN B-12) 1,000 mcg/mL drop Take 1,000 mcg by mouth once daily. - citalopram hydrobromide (CELEXA) 10 mg tablet Take 10 mg by mouth once daily. No current facility-administered medications for this visit. ALLERGIES No Known Allergies Family history reviewed. No history of colon cancer or IBD. Social History Tobacco Use - Smoking status: Never Smoker - Smokeless tobacco: Current User Types: Chew Substance Use Topics - Alcohol use: Yes Comment: Occasional - Drug use: Not on file REVIEW OF SYSTEMS GASTROINTESTINAL: SEE ABOVE URINARY: NONE CARDIOVASCULAR: NONE NEUROLOGICAL: NONE CONSTITUTIONAL: NONE EYES: NONE EARS, NOSE AND THROAT: NONE RESPIRATORY: NONE SKIN: NONE ENDOCRINE: NONE PSYCHIATRIC: NONE HEMATOLOGIC NONE MUSCULOSKELETAL: NONE IMMUNOLOGIC: NONE PHYSICAL EXAMINATION: LMP 07/26/2015 GENERAL APPEARANCE: Well appearing, alert, in no acute distress, well-hydrated, well nourished. SKIN: Skin color, texture, turgor normal, no suspicious rashes or lesions. EYES: Anicteric sclera. Pupils are equally round and reactive to light. Extraocular movements are intact. EXTREMITIES: No deformities, edema, skin discoloration, clubbing or cyanosis. LABS: Lab tests reviewed. No results found for: HB, HCT, WBC, PLT No results found for: CREAT No results found for: AST No results found for: ALT No results found for: BLSP, BLCUL, TBILI, CBILI, ABORHD, ABSCREEN, WBC, RBC, BILIT%DIG,%DBS No results found for: TSH IMAGING: Imaging including X-rays, Ultrasound, CT scans, MRI scans reviewed. None available to review Old records reviewed if available. Plan ASSESSMENT AND PLAN: 44F with recent biliary colic prompting lap tavo on January 15 at [facility]. Had concern for CBD stone and had ERCP same day but no stones found. Had recurrence of jaundice but MRCP was negative for stones or mass. - Jaundice and pruritus after lap tavo and ERCP Will get CLD work up including viral, metabolic, and hereditary testing No need for US abdo given recent MRCP Will arrange EUS to r/o microlithiasis or mass May need repeat ERCP depending on findings If jaundice persists and no cause found on CLD work up, may need liver bx Thank you for involving me in the care of this patient. Rogers Kaminski MD MPH FRCPC [facility] PROGRESSon 01-30-2020 PROGRESS HNO ID: [id number] Author: Rogers Kaminski Service: ? Author Type: Physician Type: Progress Notes Filed: 01/30/2020 2:56 PM Note Text: GASTROENTEROLOGY CONSULT HPI: Laura aWlker is a 44 year old female who presents for RUQ pain. This is a telephone/Virtual Visit being conducted as a result of the COVID-19 pandemic. The patient has consented to this virtual interaction. This Team Access Model visit is a virtual encounter. It required patient-provider interaction for the medical decision making as documented below. This pt was referred by Dr. Watson from [facility]. Pt had recent RUQ pain and went for lap tavo done on January 15. She had ERCP the same day as he was concerned for CBD stones. No stones were found. Was discharged January 16 and got readmitted again and was discharged a second time on January 21 Tbili was initially 1.5 before surgery and went up after the surgery to 5.2. it then came down to 1.3 but then went up 5.3 as of last Tuesday. Had MRCP on January 21: did not show CBD stones. But she is persistently jaundiced Pt still has pruritus and nausea with low energy levels Has been taking hydroxizine Has noted dark urine last week up until a couple of days ago. Having night sweats but no fever No abdo pain Has some N but no V Jaundice is resolving. 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 - cyanocobalamin, vitamin B-12, (VITAMIN B-12) 1,000 mcg/mL drop Take 1,000 mcg by mouth once daily. - citalopram hydrobromide (CELEXA) 10 mg tablet Take 10 mg by mouth once daily. No current facility-administered medications for this visit. ALLERGIES No Known Allergies Family history reviewed. No history of colon cancer or IBD. Social History Tobacco Use - Smoking status: Never Smoker - Smokeless tobacco: Current User Types: Chew Substance Use Topics - Alcohol use: Yes Comment: Occasional - Drug use: Not on file REVIEW OF SYSTEMS GASTROINTESTINAL: SEE ABOVE URINARY: NONE CARDIOVASCULAR: NONE NEUROLOGICAL: NONE CONSTITUTIONAL: NONE EYES: NONE EARS, NOSE AND THROAT: NONE RESPIRATORY: NONE SKIN: NONE ENDOCRINE: NONE PSYCHIATRIC: NONE HEMATOLOGIC NONE MUSCULOSKELETAL: NONE IMMUNOLOGIC: NONE PHYSICAL EXAMINATION: LMP 07/26/2015 GENERAL APPEARANCE: Well appearing, alert, in no acute distress, well-hydrated, well nourished. SKIN: Skin color, texture, turgor normal, no suspicious rashes or lesions. EYES: Anicteric sclera. Pupils are equally round and reactive to light. Extraocular movements are intact. EXTREMITIES: No deformities, edema, skin discoloration, clubbing or cyanosis. LABS: Lab tests reviewed. No results found for: HB, HCT, WBC, PLT No results found for: CREAT No results found for: AST No results found for: ALT No results found for: BLSP, BLCUL, TBILI, CBILI, ABORHD, ABSCREEN, WBC, RBC, BILIT%DIG,%DBS No results found for: TSH IMAGING: Imaging including X-rays, Ultrasound, CT scans, MRI scans reviewed. None available to review Old records reviewed if available. Plan ASSESSMENT AND PLAN: 44F with recent biliary colic prompting lap tavo on January 15 at [facility]. Had concern for CBD stone and had ERCP same day but no stones found. Had recurrence of jaundice but MRCP was negative for stones or mass. - Jaundice and pruritus after lap tavo and ERCP Will get CLD work up including viral, metabolic, and hereditary testing No need for US abdo given recent MRCP Will arrange EUS to r/o microlithiasis or mass May need repeat ERCP depending on findings If jaundice persists and no cause found on CLD work up, may need liver bx Thank you for involving me in the care of this patient. Rogers Kaminski MD MPH [facility]CPC [facility] Vania 01-28-2020 CNPN Telephone (AGGASTACC ) LAURA WALKER ([id number]) 1975 F Date Time Provider Department 01/28/20 ROGERS KAMINSKI During your visit today, we recorded the following information about you: Sharri Seals 01/28/2020 1:40 PM Signed Patient scheduled for 01/30/20@ 01:45pm. Sharri Seals Allergies As of Date: 01/28/2020 (No Known Allergies) Date Reviewed: 11/18/2015 Reviewed by: Wu Vidal - Fully Assessed Reason for Visit: pls add VV [Other] Cmt: for January 29 Prescriptions as of 01/28/2020 Sig: MULTIPLE VITAMIN, WOMENS ORAL Take 1 capsule by mouth once * CYANOCOBALAMIN (VIT B-12) 1,0* Take 1,000 mcg by mouth once * CITALOPRAM 10 MG TABLET Take 10 mg by mouth once laron* Problem List As Of Date 01/28/2020 Noted Resolved Heart palpitations [R00.2] 09/15/2010 Vision disturbance [H53.9] 09/15/[address] scan, chest [R93.89] 11/18/2015 Encounter Status:Closed by SHARRI SEALS on 01/28/20 Normal [facility] Vital Signs Date Time Vital Sign Value Performing Clinician Facility 01-18-2025 09:16-0400 Body height 172.[address] Shanique Castaneda MD Work Phone: [facility] 01-18-2025 08:49-0400 Body mass index (BMI) [Ratio] 33.7 kg/m2 Dr. Shanique Castaneda MD Work Phone: [facility] 01-18-2025 08:49-0400 Body weight 100.[address] Shanique Castaneda MD Work Phone: [facility] 01-18-2025 08:49-0400 Diastolic blood pressure 79 mm[Hg] Dr. Shanique Castaneda MD Work Phone: [facility] 01-18-2025 08:49-0400 Systolic blood pressure 138 mm[Hg] Dr. Shanique Castaneda MD Work Phone: [facility] 12-28-2022 10:03-0400 Body height 172.[address] Shanique Castaneda Work Phone: [facility] 12-28-2022 10:03-0400 Body mass index (BMI) [Ratio] 32.5 kg/m2 Dr. Shanique Castaneda Work Phone: [facility] 12-28-2022 10:03-0400 Diastolic blood pressure 80 mm[Hg] Dr. Shanique Castaneda Work Phone: [facility] 04-18-2023 10:03-0400 Systolic blood pressure 117 mm[Hg] Dr. Shanique Castaneda Work Phone: [facility] 12-28-2022 10:01-0400 Body weight 97.[address] Shanique Castaneda Work Phone: [facility] 12-28-2022 10:01-0400 Heart rate 71 /min Dr. Shanique Castaneda Work Phone: [facility] 10-14-2022 10:58-0500 Body mass index (BMI) [Ratio] 32.4 kg/m2 Dr. Shanique Castaneda Work Phone: [facility] 10-14-2022 10:58-0500 Body weight 96.[address] Shanique Castaneda Work Phone: [facility] 10-14-2022 10:58-0500 Diastolic blood pressure 78 mm[Hg] Dr. Shanique Castaneda Work Phone: [facility] 10-14-2022 10:58-0500 Systolic blood pressure 116 mm[Hg] Dr. Shanique Castaneda Work Phone: [facility] 09-16-2022 10:58-0500 Body mass index (BMI) [Ratio] 33.1 kg/m2 Dr. Shanique Castaneda Work Phone: [facility] 09-16-2022 10:58-0500 Body weight 98.[address] Shanique Castaneda Work Phone: [facility] 09-16-2022 10:58-0500 Diastolic blood pressure 80 mm[Hg] Dr. Shanique Castaneda Work Phone: [facility] 09-16-2022 10:58-0500 Heart rate 78 /min Dr. Shanique Castaneda Work Phone: [facility] 09-16-2022 10:58-0500 Respiratory rate 16 /min Dr. Shanique Castaneda Work Phone: [facility] 09-16-2022 10:58-0500 Systolic blood pressure 132 mm[Hg] Dr. Shanique Castaneda Work Phone: [facility] 01-25-2022 11:25-0400 Body temperature 97.5 [degF] Collette Valdovinos DPM Work Phone: [facility] 01-15-2022 12:08-0400 Body height 172.72 cm [facility] Work Phone: 01-15-2022 12:08-0400 Body mass index (BMI) [Ratio] 35.4 kg/m2 [facility] Work Phone: 01-15-2022 12:08-0400 Body temperature 97.4 [degF] [facility] Work Phone: 01-15-2022 12:08-0400 Body weight 105.68 kg [facility] Work Phone: 01-15-2022 12:08-0400 Diastolic blood pressure 95 mm[Hg] [facility] Work Phone: 01-15-2022 12:08-0400 Heart rate 95 /min [facility] Work Phone: 01-15-2022 12:08-0400 Respiratory rate 18 /min [facility] Work Phone: 01-15-2022 12:08-0400 SaO2% (BldA) [Mass fraction] 100 % [facility] Work Phone: 01-15-2022 12:08-0400 Systolic blood pressure 153 mm[Hg] [facility] Work Phone: 12-28-2021 11:21-0400 Body temperature 97.2 [degF] Collette Valdovinos DPM Work Phone: [facility] 12-14-2021 11:28-0400 Body temperature 98.01 [degF] Collette Valdovinos DPM Work Phone: [facility] Encounters Encounter Date Encounter Type Care Provider Facility Start: 04-22-2025 ambulatory Shanique Castaneda Facility: [facility] Start: 04-02-2025 Encounter for gynecological examination (general) (routine) without abnormal findings Carolina Cedillo [facility] Start: 01-30-2025 ambulatory Shanique Castaneda Facility: [facility] Start: 01-21-2025 End: 01-21-[address] Shanique Castaneda MD Work Phone: [facility] Work Phone: Start: 01-21-2025 End: 01-21-[address] Carolina Cedillo DO -Laboratory Work Phone: Start: 01-21-2025 End: 01-21-2025 ambulatory Shanique Castaneda Facility:[facility] Start: 01-18-2025 End: 01-18-[address] Carolina Cedillo DO [facility] Work Phone: Start: 01-18-2025 End: 01-18-2025 ambulatory Shanique Castaneda Facility:[facility] Start: 08-29-2024 End: 08-29-2024 ambulatory Shanique Castaneda Facility:[facility] Start: 08-07-2024 End: 08-07-2024 ambulatory Shanique Castaneda Facility:[facility] Start: 01-07-2023 End: 01-07-[address] Shanique Castaneda Work Phone: [facility] Work Phone: Start: 01-07-2023 End: 01-07-[address] Shanique Castaneda Work Phone: [facility] Start: 12-29-2022 End: 12-29-[address] Shanique Castaneda Work Phone: [facility] Work Phone: Start: 12-29-2022 End: 12-29-[address] Shanique Castaneda Work Phone: [facility] Start: 12-28-2022 End: 12-28-[address] Shanique Castaneda Work Phone: [facility] Start: 10-14-2022 End: 10-14-[address] Shanique Castaneda Work Phone: [facility] Start: 09-16-2022 End: 09-16-2022 Patient encounter procedure Dr. Shanique Castaneda Work Phone: [facility] Start: 05-10-2022 End: 05-10-2022 ambulatory [facility] Work Phone: Start: 05-10-2022 End: 05-10-2022 Patient encounter procedure [facility]-Outpatient Breast Imaging Start: 01-25-2022 End: 01-25-2022 Patient encounter procedure Collette Valdovinos DPM Work Phone: [facility] Comment on above: Hallux abducto valgu s, left (Primary Dx); Post-traumatic osteoarthritis of left foot; Status post joint replacement; Metatarsalgia of left foot; Acquired toe deformity, left; Pain in left foot; Presence of retained hardware; Post-operative state Start: 01-15-2022 End: 01-15-2022 Emergency department patient visit [facility]-Emergency Department Start: 12-28-2021 End: 12-28-2021 Patient encounter procedure Collette Valdovinos DPM Work Phone: [facility] Comment on above: Hallux abducto valgu s, left (Primary Dx); Post-traumatic osteoarthritis of left foot; Status post joint replacement; Metatarsalgia of left foot; Acquired toe deformity, left; Pain in left foot; Presence of retained hardware; Post-operative state Start: 12-14-2021 End: 12-14-2021 Patient encounter procedure Collette Valdovinos DPM Work Phone: [facility] Comment on above: Hallux abducto valgu s, left (Primary Dx); Post-traumatic osteoarthritis of left foot; Status post joint replacement; Metatarsalgia of left foot; Acquired toe deformity, left; Pain in left foot; Presence of retained hardware; Post-operative state Procedures Date Procedure Procedure Detail Performing Clinician Start: 01-21-[address] Shanique Castaneda MD Work Phone: Comment on above: FEMALE:Follicular: 1 .4 - 18.1 mIU/mLMidcycle: 3.4 - 33.4 mIU/mLLuteal: 1.5 - 9.1 mIU/mLPost Menopause: 23.0 - 116.3 mIU/mLMALE: 1.4 - 18.1 mIU/mL NORMAL REFERENCE RANGES FEMALE FOLLICULAR 2.3 - 12.6 mIU/mL MID-CYCLE PEAK 5.2 - 17.5 mIU/mL LUTEAL 1.7 - 12.9 mIU/mL POST-MENOPAUSAL ON MHT 5.9 - 72.8 mIU/mL NOT ON MHT 12.7 - 132.2 mlU/mL MALE 0.7 - 10.8 mIU/mL Start: 01-21-[address] Shanique Castaneda MD Work Phone: Comment on above: FEMALE:Follicular: 1 .9-12.5 mIU/mLMidcycle: 8.7-76.3 mIU/mLLuteal: 0.5-16.9 mIU/mLPost Menopause: 15.9-54.0 mIU/mLMALE:20-70 Years: 1.5-9.3 mIU/mL>70 Years: 3.1-34.6 mIU/mL Start: 01-21-2025 Vitamin D, 25-hydrox y measurement Dr. Shanique Castaneda MD Work Phone: Comment on above: Vitamin D StatusDefi ciency: <20 ng/mL (50nmol/L)Insufficiency: 20-30 ng/mL (50-75 nmol/L)Sufficiency: 30-100 ng/mL (75-250 nmol/L)Toxicity: >100 ng/mL (>250 nmol/L) Start: 01-07-[address] Shanique Castaneda Work Phone: Start: 05-10-2022 Screening mammography Start: 03-02-2012 Adult depression scr eening assessment Collette Valdovinos DPM Work Phone: H/O: artificial joint Status pos t joint replacement Collette Valdovinos DPM Work Phone: H/O: artificial joint Status pos t joint replacement Collette Valdovinos DPM Work Phone: H/O: artificial joint Status pos t joint replacement Collette Valdovinos DPM Work Phone: Plan of Treatment Date Care Activity Detail Author Start: 02-19-2025 LIPID SCREEN LIPID SCREEN [facility] Start: 01-30-2025 MG Breast - bilateral Screening [facility] Start: 01-18-2025 Patient referral [facility] Work Phone: Start: 01-30-2023 DIABETES SCREEN DIABETES SCREEN [facility] Start: 05-13-2022 Influenza vaccination INFLUENZA (Season Ended) [facility] Start: 01-15-2022 [facility] Work Phone: Start: 2019 COLOGUARD (FIT-DNA) COLOGUARD (FIT-DNA) [facility] Start: 2019 Colonoscopy COLONOSCOPY [facility] Start: 2019 COLORECTAL CANCER SCREENING COLORECTAL CANCER SCREENING [facility] Start: [address] COLONOGRAPHY [facility] Start: 2019 FECAL OCCULT BLOOD FECAL OCCULT BLOOD [facility] Start: 2019 SIGMOIDOSCOPY SIGMOIDOSCOPY [facility] Start: 2014 Mammography MAMMOGRAM [facility] Start: 03-02-2013 Adult depression screening assessment DEPRESSION SCREENING [facility] Start: 2004 HPV TESTING HPV TESTING [facility] Start: 1995 PAP TESTING PAP TESTING [facility] Start: 1993 Urine microalbumin profile DTAP,TDAP,TD (1 - Tdap) [facility] Start: 1992 HIV SCREENING HIV SCREENING [facility] Start: 1979 COVID-19 VACCINE (#1) COVID-19 VACCINE (#1) [facility] Start: 1979 COVID-19 VACCINE (1) COVID-19 VACCINE (1) [facility] Electrocardiographic procedure [facility] Patient referral [facility] Work Phone: [facility] Payers Date Payer Category Payer Unknown [id number] 2024 Self-pay [id number] 2024 Unknown [id number] 2018 Unknown MMO MMO [employer] [id number] 2018-Present [phone] [address] [place] [address] PPO [id number] Unknown [id number] Unknown [id number] Unknown [id number] Unknown [id number] Unknown [id number] Unknown [id number] Unknown [id number] Unknown [id number] Social History Date Type Detail Facility Start: 08-29-2024 Tobacco smoking stat us IDIS Never smoked tobacco [facility] Work Phone: History of tobacco use Chews Tobacco [facility] Start: 12-14-2021 End: 01-25-2022 Alcohol intake Current drinker of alcohol (finding) [facility] Start: 09-16-2010 History SDOH Alcohol Comment Occasional [facility] Start: 1975 Sex Assigned At Not on file [facility] Start: 12-04-2021 End: 01-25-2022 Exposure to SARS-CoV-2 (event) Not sure [facility] Start: 01-15-2022 End: 12-28-2022 Tobacco smoking status IDIS Unknown if ever smoked [facility] Start: 1975 Sex Assigned At Female [facility] Medical Equipment Procedure Code Equipment Code Equipment Origin al Text Equipment Identifier Dates Total cholecystectomy with exploration of common bile duct CLIP,FLORIDALMA WALTER FDA Start: 01-16-2020 Total cholecystectomy with exploration of common bile duct CLIP,HEMJOZEF WALTER FDA Start: 01-16-2020 Total cholecystectomy with exploration of common bile duct CLIP,HEMJOZEF WALTER FDA Start: 01-16-2020 Total cholecystectomy with exploration of common bile duct CLIP,FLORIDALMA WALTER FDA Start: 01-16-2020 Total cholecystectomy with exploration of common bile duct CLIP,HEMJOZEF WALTER FDA Start: 01-16-2020 Total cholecystectomy with exploration of common bile duct CLIP,HEMJOZEF WALTER FDA Start: 01-16-2020 Total cholecystectomy with exploration of common bile duct CLIP,HEMJOZEF WALTER FDA Start: 01-16-2020 Total cholecystectomy with exploration of common bile duct CLIP,HEMJOZEF WALTER FDA Start: 01-16-2020 Total cholecystectomy with exploration of common bile duct CLIP,HEMJOZEF WALTER FDA Start: 01-16-2020 Total cholecystectomy with exploration of common bile duct CLIP,HEMJOZEF WALTER FDA Start: 01-16-2020 Total cholecystectomy with exploration of common bile duct CLIP,HEMJOZEF WALTER FDA Start: 01-16-2020 Total cholecystectomy with exploration of common bile duct CLIP,HEMJOZEF WALTER FDA Start: 01-16-2020 Total cholecystectomy with exploration of common bile duct CLIP,HEMJOZEF WALTER FDA Start: 01-16-2020 Total cholecystectomy with exploration of common bile duct CLIP,HEMJOZEF WALTER FDA Start: 01-16-2020 Total cholecystectomy with exploration of common bile duct CLIP,HEMJOZEF WALTER FDA Start: 01-16-2020 Bunionectomy 3.5MM TITANIUM L OCK SCREW FDA Start: 03-02-2019 Bunionectomy 4.0MM LO -PRO SCREW FDA Sta rt: 03-02-2019 Bunionectomy ARTICULAR COMPONENT FDA Sta rt: 03-02-2019 Bunionectomy CPR MINI SCORPION DX FDA St art: 03-02-2019 Bunionectomy FOREFOOT INTERNA L BRACE FDA Start: 03-02-2019 Bunionectomy FOREFOOT INTERNALBRACE FDA Start: 03-02-2019 Bunionectomy HEMICAP ARTHROSURFACE FDA Start: 03-02-2019 Bunionectomy PLANTAR LAPIDUS PLATES FDA Start: 03-02-2019 Bunionectomy 3.5MM TITANIUM L OCK SCREW FDA Start: 03-02-2019 Bunionectomy 4.0MM LO -PRO SCREW FDA Sta rt: 03-02-2019 Bunionectomy ARTICULAR COMPONENT FDA Sta rt: 03-02-2019 Bunionectomy CPR MINI SCORPION DX FDA St art: 03-02-2019 Bunionectomy FOREFOOT INTERNA L BRACE FDA Start: 03-02-2019 Bunionectomy FOREFOOT INTERNALBRACE FDA Start: 03-02-2019 Bunionectomy HEMICAP ARTHROSURFACE FDA Start: 03-02-2019 Bunionectomy PLANTAR LAPIDUS PLATES FDA Start: 03-02-2019 Bunionectomy 3.5MM TITANIUM L OCK SCREW FDA Start: 03-02-2019 Bunionectomy 4.0MM LO -PRO SCREW FDA Sta rt: 03-02-2019 Bunionectomy ARTICULAR COMPONENT FDA Sta rt: 03-02-2019 Bunionectomy CPR MINI SCORPION DX FDA St art: 03-02-2019 Bunionectomy FOREFOOT INTERNA L BRACE FDA Start: 03-02-2019 Bunionectomy FOREFOOT INTERNALBRACE FDA Start: 03-02-2019 Bunionectomy HEMICAP ARTHROSURFACE FDA Start: 03-02-2019 Bunionectomy PLANTAR LAPIDUS PLATES FDA Start: 03-02-2019 Bunionectomy 3.5MM TITANIUM L OCK SCREW FDA Start: 03-02-2019 Bunionectomy 4.0MM LO -PRO SCREW FDA Sta rt: 03-02-2019 Bunionectomy ARTICULAR COMPONENT FDA Sta rt: 03-02-2019 Bunionectomy CPR MINI SCORPION DX FDA St art: 03-02-2019 Bunionectomy FOREFOOT INTERNA L BRACE FDA Start: 03-02-2019 Bunionectomy FOREFOOT INTERNALBRACE FDA Start: 03-02-2019 Bunionectomy HEMICAP ARTHROSURFACE FDA Start: 03-02-2019 Bunionectomy PLANTAR LAPIDUS PLATES FDA Start: 03-02-2019 Bunionectomy 3.5MM TITANIUM L OCK SCREW FDA Start: 03-02-2019 Bunionectomy 4.0MM LO -PRO SCREW FDA Sta rt: 03-02-2019 Bunionectomy ARTICULAR COMPONENT FDA Sta rt: 03-02-2019 Bunionectomy CPR MINI SCORPION DX FDA St art: 03-02-2019 Bunionectomy FOREFOOT INTERNA L BRACE FDA Start: 03-02-2019 Bunionectomy FOREFOOT INTERNALBRACE FDA Start: 03-02-2019 Bunionectomy HEMICAP ARTHROSURFACE FDA Start: 03-02-2019 Bunionectomy PLANTAR LAPIDUS PLATES FDA Start: 03-02-2019 Mental Status Date Assessment Result Facility 01-15-2022 Cognitive function Level Of Cons ciousness Awake;[facility] Work Phone: Clinical Notes 07-27-2021 to 01-18-2025 Note Date & Type Note Facility 01-18-2025 Evaluation note Diagnosis Onset Date Resolution Obesity (BMI 30-39.9) acute January 18, 2025 8:40am Vaginal dryness acute January 18, 2025 8:40am Well woman exam with routine gynecological exam acute January 18, 2025 8: 40am [facility] Work Phone: 1(995) 913-635305-16-2022 NoteHNO ID: [id number] Author: Collette Valdovinos DPM Service: ? Author Type: Physician Type: Progress Notes Filed: 01/25/2022 12:12 PM Note Text: Laura Riley Sigifredo, 46 year old, female PCP: Shanique Castaneda MD CC: Post-Op Visit (#4 left foot pinning and fusion) and pcp ([facility] 2-25-22) HPI: This is a pleasant 46 year old female returning to clinic today status post 1st mtpj fusion, second metatarsal phalangeal joint arthrodesis, hammertoe repair of digits 3 and 4 all left foot on 11-18-21. Patient reports minimal pain today. She denies any new trauma or injury. She has been WB in the CAM boot and has been progressing well. She notes that she tried to weight bear in a tennis shoe the other day . Denies constitutional symptoms. Denies any additional pedal complaints today. PMH: PAST MEDICAL HISTORY Diagnosis Date - Diverticulitis of colon - Miscarriage - Normal vaginal delivery x 2 PSH: PAST SURGICAL HISTORY Procedure Laterality Date - CHOLECYSTECTOMY - PAST SURGICAL HISTORY OF D AND C after miscarriage - PAST SURGICAL HISTORY OF left foot bunionectomy - TONSILLECTOMY PRIMARY/SECONDARY MEDICATION: Current Outpatient Medications Medication Sig Dispense Refill - doxycycline hyclate (VIBRAMYCIN) 100 mg capsule Take 100 mg by mouth twice daily. - oxyCODONE-acetaminophen (PERCOCET) 5-325 mg tablet Take by mouth every 8 hours as needed for pain. - ibuprofen (MOTRIN) 800 mg tablet Take 800 mg by mouth every 6 hours as needed. - metroNIDAZOLE (FLAGYL) 500 mg tablet Take by mouth. - Lactobacillus acidophilus (PROBIOTIC ORAL) Take by mouth. - TURMERIC ORAL Take by mouth. - MULTIVIT WITH CALCIUM,IRON,MIN (MULTIPLE VITAMIN, WOMENS ORAL) Take 1 capsule by mouth once daily. - cyanocobalamin, vitamin B-12, (VITAMIN B-12) 1,000 mcg/mL drop Take 1,000 mcg by mouth once daily. No current facility-administered medications for this visit. ALLERGIES: ALLERGIES Allergen Reactions - Ancef [Cefazolin] Other: See Comments Jaundice and drug induced liver injury - Oxycontin [Oxycodon* Rash - Amoxicillin Itching Rash FHX: FAMILY HISTORY Problem Relation Age of Onset - Heart Father [place] early 50s - Hypertension Father - Cataract Father - Heart Paternal Grandfather fatal [place] in early 50s - Cancer Maternal Grandfather mouth - Stroke Maternal Aunt - Stroke Maternal Aunt - Stroke Maternal Uncle - Stroke Maternal Uncle - Stroke Maternal Uncle SHX: Social History Tobacco Use - Smoking status: Never Smoker - Smokeless tobacco: Former User Types: Chew Substance Use Topics - Alcohol use: Yes Comment: Occasional - Drug use: Not on file OBJECTIVE: Lower Extremity Examintation: GEN: AANDOX3, NAD. Patient presents to clinic today ambulating in boot. Presents alone. VASCULAR EXAMINATION: Left Dorsalis Pedis 2/4 Left Posterior Tibial 2/4 CFT < 3 seconds, digits No varicosities or telangiectasias. Global edema noted to left foot is improving. No pain with calf squeeze. DERMATOLOGIC EXAMINATION: There are 4 dorsal incisions to the left foot healing well. There are no signs of dehiscence noted. No erythema, purulence, drainage, proximal streaking or acute signs of infection noted. CFT is appropriate to distal tips of digits. No acute signs of necrosis are noted. Skin is warm, dry and supple. No open lesions, interdigital macerations, or ulcerations. NEUROLOGICAL EXAMINATION: Sensation is intact to the level of the digits via light touch. No allodynia or hyperesthesias noted aruna. MUSCULOSKELETAL EXAM: Very minimal pain with palpation to the left foot primarily to the left fourth toe arthroplasty site. Strength differed due to recent surgery. Gross ROM intact to the digits, left with exception of the hallux and the second metatarsal phalangeal joint which have been fused no pain upon compression of the calf. Rectus digits 1-5 in the transverse and sagittal planes. Clinically solid arthrodesis to the first and second metatarsal phalangeal joint. X-ray 3 views left foot taken?evidence of stable hardware. No hardware failure or breakage. All plate screws and pins are intact. Improved alignment of the first ray. Good solid coaptation of the first and second metatarsal phalangeal joints. There appears to be some progressive trabeculation but incomplete healing. The third and fourth digits are rectus in the sagittal plane and transverse plane. Soft tissue swelling. Problem List:?ACTIVE PROBLEM LIST Heart Palpitations Vision Disturbance Abnormal CT Scan, Chest ASSESSMENT/PLAN: Encounter Diagnosis ICD-10-CM 1. Hallux abducto valgus, left M20.12 2. Post-traumatic osteoarthritis of left foot M19.172 3. Status post joint replacement Z96.60 4. Metatarsalgia of left foot M77.42 5. Acquired toe deformity, left M20.62 6. Pain in left foot M79.672 7. Presence of retained hardware Z96.9 8. Post-operative state Z98.890 Maximino r (more content not included)...[facility]05-16-2022 History of Present illness Narrative* Collette Valdovinos DPM - 01/25/2022 11:54 AM EDT Laura Walker, 46 year old, female PCP: Shanique Castaneda MD CC: Post-Op Visit (#4 left foot pinning and fusion) and pcp ([facility] 11-06-21) HPI: This is a pleasant 46 year old female returning to clinic today status post 1st mtpj fusion, second metatarsal phalangeal joint arthrodesis, hammertoe repair of digits 3 and 4 all left foot on 11-18-21. Patient reports minimal pain today. She denies any new trauma or injury. She has been WB in the CAM boot and has been progressing well. She notes that she tried to weight bear in a tennis shoe the other day . Denies constitutional symptoms. Denies any additional pedal complaints today. PMH: PAST MEDICAL HISTORY Diagnosis Date Diverticulitis of colon Miscarriage Normal vaginal delivery x 2 PSH: PAST SURGICAL HISTORY Procedure Laterality Date CHOLECYSTECTOMY PAST SURGICAL HISTORY OF D & C after miscarriage PAST SURGICAL HISTORY OF left foot bunionectomy TONSILLECTOMY PRIMARY/SECONDARY <AGE 12 MEDICATION: Current Outpatient Medications Medication Sig Dispense Refill doxycycline hyclate (VIBRAMYCIN) 100 mg capsule Take 100 mg by mouth twice daily. oxyCODONE-acetaminophen (PERCOCET) 5-325 mg tablet Take by mouth every 8 hours as needed for pain. ibuprofen (MOTRIN) 800 mg tablet Take 800 mg by mouth every 6 hours as needed. metroNIDAZOLE (FLAGYL) 500 mg tablet Take by mouth. Lactobacillus acidophilus (PROBIOTIC ORAL) Take by mouth. TURMERIC ORAL Take by mouth. MULTIVIT WITH CALCIUM,IRON,MIN (MULTIPLE VITAMIN, WOMENS ORAL) Take 1 capsule by mouth once daily. cyanocobalamin, vitamin B-12, (VITAMIN B-12) 1,000 mcg/mL drop Take 1,000 mcg by mouth once daily. No current facility-administered medications for this visit. ALLERGIES: ALLERGIES Allergen Reactions Ancef [Cefazolin] Other: See Comments Jaundice and drug induced liver injury Oxycontin [Oxycodon* Rash Amoxicillin Itching Rash FHX: FAMILY HISTORY Problem Relation Age of Onset Heart Father [place] early 50s Hypertension Father Cataract Father Heart Paternal Grandfather fatal [place] in early 50s Cancer Maternal Grandfather mouth Stroke Maternal Aunt Stroke Maternal Aunt Stroke Maternal Uncle Stroke Maternal Uncle Stroke Maternal Uncle SHX: Social History Tobacco Use Smoking status: Never Smoker Smokeless tobacco: Former User Types: Chew Substance Use Topics Alcohol use: Yes Comment: Occasional Drug use: Not on file OBJECTIVE: Lower Extremity Examintation: GEN: A&OX3, NAD. Patient presents to clinic today ambulating in boot. Presents alone. VASCULAR EXAMINATION: Left Dorsalis Pedis 2/4 Left Posterior Tibial 2/4 CFT < 3 seconds, digits No varicosities or telangiectasias. Global edema noted to left foot is improving. No pain with calf squeeze. DERMATOLOGIC EXAMINATION: There are 4 dorsal incisions to the left foot healing well. There are no signs of dehiscence noted. No erythema, purulence, drainage, proximal streaking or acute signs of infection noted. CFT is appropriate to distal tips of digits. No acute signs of necrosis are noted. Skin is warm, dry and supple. No open lesions, interdigital macerations, or ulcerations. NEUROLOGICAL EXAMINATION: Sensation is intact to the level of the digits via light touch. No allodynia or hyperesthesias noted aruna. MUSCULOSKELETAL EXAM: Very minimal pain with palpation to the left foot primarily to the left fourth toe arthroplasty site. Strength differed due to recent surgery. Gross ROM intact to the digits, left with exception of the hallux and the second metatarsal phalangeal joint which have been fused no pain upon compression of the calf. Rectus digits 1-5 in the transverse and sagittal planes. Clinically solid arthrodesis to the first and second metatarsal phalangeal joint. X-ray 3 views left foot taken evidence of stable hardware. No hardware failure or breakage. All plate screws and pins are intact. Improved alignment of the first ray. Good solid coaptation of the first and second metatarsal phalangeal joints. There appears to be some progressive trabeculation but incomplete healing. The third and fourth digits are rectus in the sagittal plane and transverse plane. Soft tissue swelling. Problem List:?ACTIVE PROBLEM LIST Heart Palpitations Vision Disturbance Abnormal CT Scan, Chest ASSESSMENT/PLAN: Encounter Diagnosis ICD-10-CM 1. Hallux abducto valgus, left M20.12 2. Post-traumatic osteoarthritis of left foot M19.172 3. Status post joint replacement Z96.60 4. Metatarsalgia of left foot M77.42 5. Acquired toe deformity, left M20.62 6. Pain in left foot M79.672 7. Presence of retained hardware Z96.9 8. Post-operative state Z98.890 We reviewed her radiographs together. We discussed her progress. We will transition into a surgical shoe today. Continue to monitor for signs and symptoms of DVT. She may start touch weightbearing with crutches. Activities to tolerance. She may return to the boot if necessary. I advised that she do so if she has increased pain or swelling. Return to the clinic in 1 month. We will get weightbearing radiographs. So long as she is doing well at that point we will start physical therapy and transition to a surgical shoe. We will also likely refer her back to her referring foot and ankle surgeon for more local care. Students/Residents/Jerome involved with this patients care and office visit were supervised and all treatment rendered was under the direct observation of myself. Speech recognition technology was utilized in the production of this note. Collette Valdovinos DPM [facility] NoteHNO ID: [id number] Author: Collette Valdovinos DPM Service: ? Author Type: Physician Type: Progress Notes Filed: 12/28/2021 12:09 PM Note Text: Laura Osvaldo Walker, 46 year old, female PCP: Shanique Castaneda MD CC: Post-Op Visit (#3 left foot pinning and fusion) and pcp ([facility] 11-06-21) HPI: This is a pleasant 46 year old female returning to clinic today status post 1st mtpj fusion, second metatarsal phalangeal joint arthrodesis, hammertoe repair of digits 3 and 4 all left foot on 11-18-21. Patient reports minimal pain today. She denies any new trauma or injury. Has remained NWB to her operative foot without issues. Denies constitutional symptoms. Denies any additional pedal complaints today. She did call over the weekend concerned about potential infection. She relates drainage and inflammation. I spoke with her and called in oral Doxycycline antibiotic for her. She states this has helped to reduce her symptoms. PMH: PAST MEDICAL HISTORY Diagnosis Date - Diverticulitis of colon - Miscarriage - Normal vaginal delivery x 2 PSH: PAST SURGICAL HISTORY Procedure Laterality Date - CHOLECYSTECTOMY - PAST SURGICAL HISTORY OF D AND C after miscarriage - PAST SURGICAL HISTORY OF left foot bunionectomy - TONSILLECTOMY PRIMARY/SECONDARY MEDICATION: Current Outpatient Medications Medication Sig Dispense Refill - doxycycline hyclate (VIBRAMYCIN) 100 mg capsule Take 100 mg by mouth twice daily. - oxyCODONE-acetaminophen (PERCOCET) 5-325 mg tablet Take by mouth every 8 hours as needed for pain. - ibuprofen (MOTRIN) 800 mg tablet Take 800 mg by mouth every 6 hours as needed. - metroNIDAZOLE (FLAGYL) 500 mg tablet Take by mouth. - Lactobacillus acidophilus (PROBIOTIC ORAL) Take by mouth. - TURMERIC ORAL Take by mouth. - MULTIVIT WITH CALCIUM,IRON,MIN (MULTIPLE VITAMIN, WOMENS ORAL) Take 1 capsule by mouth once daily. - cyanocobalamin, vitamin B-12, (VITAMIN B-12) 1,000 mcg/mL drop Take 1,000 mcg by mouth once daily. No current facility-administered medications for this visit. ALLERGIES: ALLERGIES Allergen Reactions - Ancef [Cefazolin] Other: See Comments Jaundice and drug induced liver injury - Oxycontin [Oxycodon* Rash - Amoxicillin Itching Rash FHX: FAMILY HISTORY Problem Relation Age of Onset - Heart Father [place] early 50s - Hypertension Father - Cataract Father - Heart Paternal Grandfather fatal [place] in early 50s - Cancer Maternal Grandfather mouth - Stroke Maternal Aunt - Stroke Maternal Aunt - Stroke Maternal Uncle - Stroke Maternal Uncle - Stroke Maternal Uncle SHX: Social History Tobacco Use - Smoking status: Never Smoker - Smokeless tobacco: Former User Types: Chew Substance Use Topics - Alcohol use: Yes Comment: Occasional - Drug use: Not on file OBJECTIVE: Lower Extremity Examintation: GEN: AANDOX3, NAD. Patient presents to clinic today ambulating in posterior splint to left lower extremity with use of knee walker. Presents alone. VASCULAR EXAMINATION: Left Dorsalis Pedis 2/4 Left Posterior Tibial 2/4 CFT < 3 seconds, digits No varicosities or telangiectasias. Global edema noted to left foot. There is ecchymosis noted to the distal left foot that is resolving. No pain with calf squeeze. DERMATOLOGIC EXAMINATION: There are 4 dorsal incisions to the left foot healing well. There are no signs of dehiscence noted. No erythema, purulence, drainage, proximal streaking or acute signs of infection noted. Localized stitch abcess noted distal 1st mtpj incision. No purulent drainage. Pin sites to the distal third and fourth digits stable and healthy. CFT is appropriate to distal tips of digits. No acute signs of necrosis are noted. Skin is warm, dry and supple. No open lesions, interdigital macerations, or ulcerations. NEUROLOGICAL EXAMINATION: Sensation is intact to the level of the digits via light touch. No allodynia or hyperesthesias noted aruna. MUSCULOSKELETAL EXAM: Pain with palpation to the left foot. Strength differed due to recent surgery. Gross ROM intact to the digits, aruna. No pain upon compression of the calf. Rectus digits 1-5 in the transverse and sagittal planes. Pins intact toes 3/4. X-ray 3 views left foot taken?evidence of stable hardware. No hardware failure or breakage. All plate screws and pins are intact. Improved alignment of the first ray. Good solid coaptation of the first and second metatarsal phalangeal joints. There appears to be some progressive trabeculation but incomplete healing. The third and fourth digits are rectus in the sagittal plane and transverse plane. There is not yet fusion of the interphalangeal joints noted. Soft tissue swelling. Problem List:?ACTIVE PROBLEM LIST Heart Palpitations Vision Disturbance Abnormal CT Scan, Chest ASSESSMENT/PLAN: Encounter Diagnosis ICD-10-CM 1. Hallux abducto valgus, left M20.12 2. Post-traumatic osteoarthriti (more content not included)...[facility]04-18-2022 History of Present illness Narrative* Collette Valdovinos, DPM - 12/28/2021 11:59 AM EDT Laura Walker, 46 year old, female PCP: Shanique Castaneda MD CC: Post-Op Visit (#3 left foot pinning and fusion) and pcp ([facility] 11-06-21) HPI: This is a pleasant 46 year old female returning to clinic today status post 1st mtpj fusion, second metatarsal phalangeal joint arthrodesis, hammertoe repair of digits 3 and 4 all left foot on 11-18-21. Patient reports minimal pain today. She denies any new trauma or injury. Has remained NWB to her operative foot without issues. Denies constitutional symptoms. Denies any additional pedal complaints today. She did call over the weekend concerned about potential infection. She relates drainage and inflammation. I spoke with her and called in oral Doxycycline antibiotic for her. She states this has helped to reduce her symptoms. PMH: PAST MEDICAL HISTORY Diagnosis Date Diverticulitis of colon Miscarriage Normal vaginal delivery x 2 PSH: PAST SURGICAL HISTORY Procedure Laterality Date CHOLECYSTECTOMY PAST SURGICAL HISTORY OF D & C after miscarriage PAST SURGICAL HISTORY OF left foot bunionectomy TONSILLECTOMY PRIMARY/SECONDARY <AGE 11 MEDICATION: Current Outpatient Medications Medication Sig Dispense Refill doxycycline hyclate (VIBRAMYCIN) 100 mg capsule Take 100 mg by mouth twice daily. oxyCODONE-acetaminophen (PERCOCET) 5-325 mg tablet Take by mouth every 8 hours as needed for pain. ibuprofen (MOTRIN) 800 mg tablet Take 800 mg by mouth every 6 hours as needed. metroNIDAZOLE (FLAGYL) 500 mg tablet Take by mouth. Lactobacillus acidophilus (PROBIOTIC ORAL) Take by mouth. TURMERIC ORAL Take by mouth. MULTIVIT WITH CALCIUM,IRON,MIN (MULTIPLE VITAMIN, WOMENS ORAL) Take 1 capsule by mouth once daily. cyanocobalamin, vitamin B-12, (VITAMIN B-12) 1,000 mcg/mL drop Take 1,000 mcg by mouth once daily. No current facility-administered medications for this visit. ALLERGIES: ALLERGIES Allergen Reactions Ancef [Cefazolin] Other: See Comments Jaundice and drug induced liver injury Oxycontin [Oxycodon* Rash Amoxicillin Itching Rash FHX: FAMILY HISTORY Problem Relation Age of Onset Heart Father [place] early 50s Hypertension Father Cataract Father Heart Paternal Grandfather fatal [place] in early 50s Cancer Maternal Grandfather mouth Stroke Maternal Aunt Stroke Maternal Aunt Stroke Maternal Uncle Stroke Maternal Uncle Stroke Maternal Uncle SHX: Social History Tobacco Use Smoking status: Never Smoker Smokeless tobacco: Former User Types: Chew Substance Use Topics Alcohol use: Yes Comment: Occasional Drug use: Not on file OBJECTIVE: Lower Extremity Examintation: GEN: A&OX3, NAD. Patient presents to clinic today ambulating in posterior splint to left lower extremity with use of knee walker. Presents alone. VASCULAR EXAMINATION: Left Dorsalis Pedis 2/4 Left Posterior Tibial 2/4 CFT < 3 seconds, digits No varicosities or telangiectasias. Global edema noted to left foot. There is ecchymosis noted to the distal left foot that is resolving. No pain with calf squeeze. DERMATOLOGIC EXAMINATION: There are 4 dorsal incisions to the left foot healing well. There are no signs of dehiscence noted. No erythema, purulence, drainage, proximal streaking or acute signs of infection noted. Localized stitch abcess noted distal 1st mtpj incision. No purulent drainage. Pin sites to the distal third and fourth digits stable and healthy. CFT is appropriate to distal tips of digits. No acute signs of necrosis are noted. Skin is warm, dry and supple. No open lesions, interdigital macerations, or ulcerations. NEUROLOGICAL EXAMINATION: Sensation is intact to the level of the digits via light touch. No allodynia or hyperesthesias noted aruna. MUSCULOSKELETAL EXAM: Pain with palpation to the left foot. Strength differed due to recent surgery. Gross ROM intact to the digits, aruna. No pain upon compression of the calf. Rectus digits 1-5 in the transverse and sagittal planes. Pins intact toes 3/4. X-ray 3 views left foot taken evidence of stable hardware. No hardware failure or breakage. All plate screws and pins are intact. Improved alignment of the first ray. Good solid coaptation of the first and second metatarsal phalangeal joints. There appears to be some progressive trabeculation but incomplete healing. The third and fourth digits are rectus in the sagittal plane and transverse plane. There is not yet fusion of the interphalangeal joints noted. Soft tissue swelling. Problem List:?ACTIVE PROBLEM LIST Heart Palpitations Vision Disturbance Abnormal CT Scan, Chest ASSESSMENT/PLAN: Encounter Diagnosis ICD-10-CM 1. Hallux abducto valgus, left M20.12 2. Post-traumatic osteoarthritis of left foot M19.172 3. Status post joint replacement Z96.60 4. Metatarsalgia of left foot M77.42 5. Acquired toe deformity, left M20.62 6. Pain in left foot M79.672 7. Presence of retained hardware Z96.9 8. Post-operative state Z98.890 We reviewed her radiographs together. We discussed her progress. She has evidence of a small sutureabscess. This appears to be resolving. I advised continuation with the doxycycline as prescribed tocompletion. All of her questions were answered. She may cleanse the foot. I advised bacitracin or Ne osporin and a Band-Aid to the site daily. She question me about skin lotion. I stated she can start loosening the foot but just to avoid the surgical incision regions. We will transition into a boot today. The pins were removed with her consent. I did remove the pin from the third and fourth digit. Overall proper alignment is maintained. She was placed into a boot today. We fitted her with a proper below the knee pneumatic boot. We discussed use of the boot. Continue to monitor for signs and symptoms of DVT. She may start touch weightbearing with crutches. I would like for her to slowly progressively increase weightbearing in the boot for the next 2 weeks. In2 weeks she may discontinue the crutches. I would like to see her back in 1 month for radiographs. We discussed all of her questions. Students/Residents/Jerome involved with this patients care and office visit were supervised and all treatment rendered was under the direct observation of myself. Speech recognition technology was utilized in the production of this note. Collette Valdovinos DPM [facility] NoteHNO ID: [id number] Author: Collette Valdovinos DPM Service: ? Author Type: Physician Type: Progress Notes Filed: 12/14/2021 3:35 PM Note Text: Laura Riley Sigifredo, 46 year old, female PCP: Shanique Castaneda MD CC: Post-Op Visit (#2 left foot pinning and fusion) and pcp ([facility] 11-06-21) HPI: This is a pleasant 46 year old female returning to clinic today status post 1st mtpj fusion, second metatarsal phalangeal joint arthrodesis, hammertoe repair of digits 3 and 4 all left foot on 11-18-21. Patient reports minimal pain today. She denies any new trauma or injury. Has remained NWB to her operative foot without issues. Denies constitutional symptoms. Denies any additional pedal complaints today. PMH: PAST MEDICAL HISTORY Diagnosis Date - Diverticulitis of colon - Miscarriage - Normal vaginal delivery x 2 PSH: PAST SURGICAL HISTORY Procedure Laterality Date - CHOLECYSTECTOMY - PAST SURGICAL HISTORY OF D AND C after miscarriage - PAST SURGICAL HISTORY OF left foot bunionectomy - TONSILLECTOMY PRIMARY/SECONDARY MEDICATION: Current Outpatient Medications Medication Sig Dispense Refill - ciprofloxacin HCl (CIPRO) 500 mg tablet Take by mouth. - metroNIDAZOLE (FLAGYL) 500 mg tablet Take by mouth. - Lactobacillus acidophilus (PROBIOTIC ORAL) Take by mouth. - TURMERIC ORAL Take by mouth. - MULTIVIT WITH CALCIUM,IRON,MIN (MULTIPLE VITAMIN, WOMENS ORAL) Take 1 capsule by mouth once daily. - cyanocobalamin, vitamin B-12, (VITAMIN B-12) 1,000 mcg/mL drop Take 1,000 mcg by mouth once daily. No current facility-administered medications for this visit. ALLERGIES: ALLERGIES Allergen Reactions - Ancef [Cefazolin] Other: See Comments Jaundice and drug induced liver injury - Oxycontin [Oxycodon* Rash FHX: FAMILY HISTORY Problem Relation Age of Onset - Heart Father [place] early 50s - Hypertension Father - Cataract Father - Heart Paternal Grandfather fatal [place] in early 50s - Cancer Maternal Grandfather mouth - Stroke Maternal Aunt - Stroke Maternal Aunt - Stroke Maternal Uncle - Stroke Maternal Uncle - Stroke Maternal Uncle SHX: Social History Tobacco Use - Smoking status: Never Smoker - Smokeless tobacco: Former User Types: Chew Substance Use Topics - Alcohol use: Yes Comment: Occasional - Drug use: Not on file OBJECTIVE: Lower Extremity Examintation: GEN: AANDOX3, NAD. Patient presents to clinic today ambulating in posterior splint to left lower extremity with use of knee walker. VASCULAR EXAMINATION: Left Dorsalis Pedis 2/4 Left Posterior Tibial 2/4 CFT < 3 seconds, digits No varicosities or telangiectasias. Global edema noted to left foot. There is ecchymosis noted to the distal left foot. DERMATOLOGIC EXAMINATION: There are 4 dorsal incisions to the left foot with sutures intact. There are no signs of dehiscence noted. No erythema, purulence, drainage, proximal streaking or acute signs of infection noted. Pin sites to the distal third and fourth digits stable and healthy. CFT is appropriate to distal tips of digits. No acute signs of necrosis are noted. Skin is warm, dry and supple. No open lesions, interdigital macerations, or ulcerations. NEUROLOGICAL EXAMINATION: Sensation is intact to the level of the digits via light touch. No allodynia or hyperesthesias noted aruna. MUSCULOSKELETAL EXAM: Pain with palpation to the left foot. Strength differed due to recent surgery. Gross ROM intact to the digits, aruna. No pain upon compression of the calf. Rectus digits 1-5 in the transverse and sagittal planes. Pins intact toes 3/4. X-ray 3 views left foot taken?evidence of stable hardware. No hardware failure or breakage. All plate screws and pins are intact. Improved alignment of the first ray. Good solid coaptation of the first and second metatarsal phalangeal joints. There appears to be some progressive trabeculation but incomplete healing. The third and fourth digits are rectus in the sagittal plane and transverse plane. There is not yet fusion of the interphalangeal joints noted. Soft tissue swelling. Problem List:?ACTIVE PROBLEM LIST Heart Palpitations Vision Disturbance Abnormal CT Scan, Chest ASSESSMENT/PLAN: Encounter Diagnosis ICD-10-CM 1. Hallux abducto valgus, left M20.12 2. Post-traumatic osteoarthritis of left foot M19.172 3. Status post joint replacement Z96.60 4. Metatarsalgia of left foot M77.42 5. Acquired toe deformity, left M20.62 6. Pain in left foot M79.672 7. Presence of retained hardware Z96.9 8. Post-operative state Z98.890 Overall patient is doing well. Her sutures removed today. All of her questions were answered. We transitioned her back into a posterior splint. We will continue with nonweightbearing. She will use her knee scooter or crutches. All of her questions were answered. We discussed rest ice and elevation. She will follow-up with us in 2 weeks. In 2 weeks we will (more content not included)...[facility]04-04-2022 History of Present illness Narrative* Collette Valdovinos, DAVID - 12/14/2021 11:42 AM EDT Laura Walker, 46 year old, female PCP: Shanique Castaneda MD CC: Post-Op Visit (#2 left foot pinning and fusion) and pcp ([facility] 11-06-21) HPI: This is a pleasant 46 year old female returning to clinic today status post 1st mtpj fusion, second metatarsal phalangeal joint arthrodesis, hammertoe repair of digits 3 and 4 all left foot on 11-18-21. Patient reports minimal pain today. She denies any new trauma or injury. Has remained NWB to her operative foot without issues. Denies constitutional symptoms. Denies any additional pedal complaints today. PMH: PAST MEDICAL HISTORY Diagnosis Date Diverticulitis of colon Miscarriage Normal vaginal delivery x 2 PSH: PAST SURGICAL HISTORY Procedure Laterality Date CHOLECYSTECTOMY PAST SURGICAL HISTORY OF D & C after miscarriage PAST SURGICAL HISTORY OF left foot bunionectomy TONSILLECTOMY PRIMARY/SECONDARY <AGE 11 MEDICATION: Current Outpatient Medications Medication Sig Dispense Refill ciprofloxacin HCl (CIPRO) 500 mg tablet Take by mouth. metroNIDAZOLE (FLAGYL) 500 mg tablet Take by mouth. Lactobacillus acidophilus (PROBIOTIC ORAL) Take by mouth. TURMERIC ORAL Take by mouth. MULTIVIT WITH CALCIUM,IRON,MIN (MULTIPLE VITAMIN, WOMENS ORAL) Take 1 capsule by mouth once daily. cyanocobalamin, vitamin B-12, (VITAMIN B-12) 1,000 mcg/mL drop Take 1,000 mcg by mouth once daily. No current facility-administered medications for this visit. ALLERGIES: ALLERGIES Allergen Reactions Ancef [Cefazolin] Other: See Comments Jaundice and drug induced liver injury Oxycontin [Oxycodon* Rash FHX: FAMILY HISTORY Problem Relation Age of Onset Heart Father [place] early 50s Hypertension Father Cataract Father Heart Paternal Grandfather fatal [place] in early 50s Cancer Maternal Grandfather mouth Stroke Maternal Aunt Stroke Maternal Aunt Stroke Maternal Uncle Stroke Maternal Uncle Stroke Maternal Uncle SHX: Social History Tobacco Use Smoking status: Never Smoker Smokeless tobacco: Former User Types: Chew Substance Use Topics Alcohol use: Yes Comment: Occasional Drug use: Not on file OBJECTIVE: Lower Extremity Examintation: GEN: A&OX3, NAD. Patient presents to clinic today ambulating in posterior splint to left lower extremity with use of knee walker. VASCULAR EXAMINATION: Left Dorsalis Pedis 2/4 Left Posterior Tibial 2/4 CFT < 3 seconds, digits No varicosities or telangiectasias. Global edema noted to left foot. There is ecchymosis noted to the distal left foot. DERMATOLOGIC EXAMINATION: There are 4 dorsal incisions to the left foot with sutures intact. There are no signs of dehiscence noted. No erythema, purulence, drainage, proximal streaking or acute signs of infection noted. Pin sites to the distal third and fourth digits stable and healthy. CFT is appropriate to distal tips of digits. No acute signs of necrosis are noted. Skin is warm, dry and supple. No open lesions, interdigital macerations, or ulcerations. NEUROLOGICAL EXAMINATION: Sensation is intact to the level of the digits via light touch. No allodynia or hyperesthesias noted aruna. MUSCULOSKELETAL EXAM: Pain with palpation to the left foot. Strength differed due to recent surgery. Gross ROM intact to the digits, aruna. No pain upon compression of the calf. Rectus digits 1-5 in the transverse and sagittal planes. Pins intact toes 3/4. X-ray 3 views left foot taken evidence of stable hardware. No hardware failure or breakage. All plate screws and pins are intact. Improved alignment of the first ray. Good solid coaptation of the first and second metatarsal phalangeal joints. There appears to be some progressive trabeculation but incomplete healing. The third and fourth digits are rectus in the sagittal plane and transverse plane. There is not yet fusion of the interphalangeal joints noted. Soft tissue swelling. Problem List:?ACTIVE PROBLEM LIST Heart Palpitations Vision Disturbance Abnormal CT Scan, Chest ASSESSMENT/PLAN: Encounter Diagnosis ICD-10-CM 1. Hallux abducto valgus, left M20.12 2. Post-traumatic osteoarthritis of left foot M19.172 3. Status post joint replacement Z96.60 4. Metatarsalgia of left foot M77.42 5. Acquired toe deformity, left M20.62 6. Pain in left foot M79.672 7. Presence of retained hardware Z96.9 8. Post-operative state Z98.890 Overall patient is doing well. Her sutures removed today. All of her questions were answered. We transitioned her back into a posterior splint. We will continue with nonweightbearing. She will use her knee scooter or crutches. All of her questions were answered. We discussed rest ice and elevation.She will follow-up with us in 2 weeks. In 2 weeks we will remove the pins after radiographs. We will likely start full weightbearing in the boot and physical therapy as well. She understands the recommendations and treatment plan and will follow up with us in 2 weeks for x-rays. Students/Residents/Jerome involved with this patients care and office visit were supervised and all treatment rendered was under the direct observation of myself. Speech recognition technology was utilized in the production of this note. Collette Valdovinos DPM documented in this encounter[facility] [place] NoteHNO ID: [id number] Author: Patricia Yoon DPM Service: ? Author Type: Physician Type: Progress Notes Filed: 11/27/2021 6:56 AM Note Text: Laura Walker, 46 year old, female PCP: Shanique Castaneda MD CC: Post-Op Visit (#1 left foot pinning and fusion) and pcp ([facility] 11-06-21) HPI: This is a pleasant 46 year old female returning to clinic today status post Lapidus bunionectomy, second metatarsal phalangeal joint arthroplasty and arthrodesis, hammertoe repair of digits 3 and 4 all left foot on 11-18-21. Patient rates the pain as a 4/10 today. Patient states that she has remained non weight bearing at all times in posterior splint with use of crutches. She denies any new trauma or injury. She is taking Percocet for pain control and Eliquis for DVT prophylaxis. Patient denies nausea, vomiting, fever, chills, shortness of breath, chest pain, calf pain, and has no other pedal complaints at this time. PMH: PAST MEDICAL HISTORY Diagnosis Date - Diverticulitis of colon - Miscarriage - Normal vaginal delivery x 2 PSH: PAST SURGICAL HISTORY Procedure Laterality Date - CHOLECYSTECTOMY - PAST SURGICAL HISTORY OF D AND C after miscarriage - PAST SURGICAL HISTORY OF left foot bunionectomy - TONSILLECTOMY PRIMARY/SECONDARY MEDICATION: Current Outpatient Medications Medication Sig Dispense Refill - oxyCODONE-acetaminophen (PERCOCET) 5-325 mg tablet Take 1 tablet by mouth every 6 hours as needed for pain for up to 7 days. 28 tablet 0 - ciprofloxacin HCl (CIPRO) 500 mg tablet Take by mouth. - metroNIDAZOLE (FLAGYL) 500 mg tablet Take by mouth. - Lactobacillus acidophilus (PROBIOTIC ORAL) Take by mouth. - TURMERIC ORAL Take by mouth. - MULTIVIT WITH CALCIUM,IRON,MIN (MULTIPLE VITAMIN, WOMENS ORAL) Take 1 capsule by mouth once daily. - cyanocobalamin, vitamin B-12, (VITAMIN B-12) 1,000 mcg/mL drop Take 1,000 mcg by mouth once daily. No current facility-administered medications for this visit. ALLERGIES: ALLERGIES Allergen Reactions - Ancef [Cefazolin] Other: See Comments Jaundice and drug induced liver injury - Oxycontin [Oxycodon* Rash FHX: FAMILY HISTORY Problem Relation Age of Onset - Heart Father [place] early 50s - Hypertension Father - Cataract Father - Heart Paternal Grandfather fatal [place] in early 50s - Cancer Maternal Grandfather mouth - Stroke Maternal Aunt - Stroke Maternal Aunt - Stroke Maternal Uncle - Stroke Maternal Uncle - Stroke Maternal Uncle SHX: Social History Tobacco Use - Smoking status: Never Smoker - Smokeless tobacco: Former User Types: Chew Substance Use Topics - Alcohol use: Yes Comment: Occasional - Drug use: Not on file OBJECTIVE: Lower Extremity Examintation: GEN: AANDOX3, NAD. Patient presents to clinic today ambulating in posterior splint to left lower extremity with use of crutches. VASCULAR EXAMINATION: Left Dorsalis Pedis 2/4 Left Posterior Tibial 2/4 CFT < 3 seconds, digits No varicosities or telangiectasias. Global edema noted to left foot. There is ecchymosis noted to the distal left foot. DERMATOLOGIC EXAMINATION: There are 4 dorsal incisions to the left foot with sutures intact. There are no signs of dehiscence noted. No erythema, purulence, drainage, proximal streaking or acute signs of infection noted. Pin sites to the distal third and fourth digits stable and healthy. CFT is appropriate to distal tips of digits. No acute signs of necrosis are noted. Skin is warm, dry and supple. No open lesions, interdigital macerations, or ulcerations. NEUROLOGICAL EXAMINATION: Sensation is intact to the level of the digits via light touch. Negative tinel or valleix sign on percussion of all pedal nerves aruna. No allodynia or hyperesthesias noted aruna. MUSCULOSKELETAL EXAM: Pain with palpation to the left foot. Strength differed due to recent surgery. Gross ROM intact to the digits, aruna. No pain upon compression of the calves. Calves are soft and supple, aruna. Problem List:?ACTIVE PROBLEM LIST Heart Palpitations Vision Disturbance Abnormal CT Scan, Chest ASSESSMENT/PLAN: Encounter Diagnosis ICD-10-CM 1. Other acute postoperative pain G89.18 2. Hallux abducto valgus, left M20.12 3. Post-operative state Z98.890 4. Post-traumatic osteoarthritis of left foot M19.172 5. Status post joint replacement Z96.60 6. Metatarsalgia of left foot M77.42 7. Acquired toe deformity, left M20.62 I spent minimum 30 minutes in the visit, with more than 50% of the total [id number] time of the visit in counseling / coordination of care. - Pt examined and evaluated in clinic today. - Diagnosis and treatment options discussed with the patient. -Surgical dressing was removed today. Incision sites are all healing well to the left foot. No acute signs of infection or necrosis are noted. A dry sterile dressing was applied today. Patient was placed back into a well-padded posterior splint. S (more content not included)...[facility]12-13-[facility]21 NoteHNO ID: [id number] Author: Collette Valdovinos DPM Service: ? Author Type: Physician Type: Progress Notes Filed: 08/24/2021 2:19 PM Note Text: Name: Laura Walker Date of Service: August 24, 2021 CC: This 45 year old female patient presents to the clinic with concerns for left foot pain and right heel pain. HPI: She states that she had surgery with Dr. Tan in 2019 and has had pain and discomfort in her foot since. All operative reports reviewed and he did a Lapidus arthrodesis, a 2nd MTPJ implant arthroplasty, and repair of plantar plate and deformity contraction with 3rd toe capsulotomy and tenotomy with ligament reconstruction. Patient states she has trouble wearing shoes and always has pain on the bottom of her left foot at the metatarsal heads. She cannot walk barefoot. She is here for a 2nd opinion per Dr. Tan for surgical options. She has discussed surgical options with Dr. Tan and myself. She is ready to proceed surgically. Dr. Tan has referred her for the surgical procedure. Temp 36.2 ?C (97.1 ?F) LMP 07/26/2015 (Approximate) Tobacco Use: Types: Chew PAST MEDICAL HISTORY Diagnosis Date - Diverticulitis of colon - Miscarriage - Normal vaginal delivery x 2 Current Outpatient Medications Medication Sig - ciprofloxacin HCl (CIPRO) 500 mg tablet Take by mouth. - metroNIDAZOLE (FLAGYL) 500 mg tablet Take by mouth. - Lactobacillus acidophilus (PROBIOTIC ORAL) Take by mouth. - TURMERIC ORAL Take by mouth. - MULTIVIT WITH CALCIUM,IRON,MIN (MULTIPLE VITAMIN, WOMENS ORAL) Take 1 capsule by mouth once daily. - cyanocobalamin, vitamin B-12, (VITAMIN B-12) 1,000 mcg/mL drop Take 1,000 mcg by mouth once daily. - HYDROcodone-acetaminophen (NORCO) 5-325 mg per tablet Take by mouth. (Patient not taking: Reported on 08/24/2021) No current facility-administered medications for this visit. ALLERGIES Allergen Reactions - Ancef [Cefazolin] Other: See Comments Jaundice and drug induced liver injury - Oxycontin [Oxycodon* Rash PAST SURGICAL HISTORY Procedure Laterality Date - CHOLECYSTECTOMY - PAST SURGICAL HISTORY OF D AND C after miscarriage - PAST SURGICAL HISTORY OF left foot bunionectomy - REMOVAL OF TONSILS,<12 Y/O FAMILY HISTORY Problem Relation Age of Onset - Heart Father [place] early 50s - Hypertension Father - Cataract Father - Heart Paternal Grandfather fatal [place] in early 50s - Cancer Maternal Grandfather mouth - Stroke Maternal Aunt - Stroke Maternal Aunt - Stroke Maternal Uncle - Stroke Maternal Uncle - Stroke Maternal Uncle Social History Tobacco Use - Smoking status: Never Smoker - Smokeless tobacco: Former User Types: Chew Substance Use Topics - Alcohol use: Yes Comment: Occasional - Drug use: Not on file Objective: Patient presents to clinic ambulating in [facility]. VASCULAR: DP/PT pulses are palpable bilateral. CFT is <3 seconds to all digits bilateral. Skin temperature is warm to warm proximal to distal bilateral. Hair growth is present. No varicosities noted. No edema noted. DERMATOLOGICAL: Skin texture and turgor is noted to be normal bilateral. Nails are of normal length, thickness, and color. Webspaces bilateral are clean dry and intact. No hyperkeratotic lesions noted. No open lesions noted. Healed incisions to the dorsal forefoot noted. No scar hypertrophy or keloid formation NEUROLOGICAL: Protective, vibratory, and light touch sensation is intact bilateral as tested with a 5.07 SWMF. Motor function intact. No hypersensitivity or allodynia. MUSCULOSKELETAL: Residual versus recurrent hallux valgus deformity. Mild medial eminence. Hallux abducted. Second and third digit deviated laterally in the transverse plane. Large hypertrophic second metatarsal phalangeal joint with known implant. Some stiffness and tenderness with palpation and range of motion. With loading of the foot there is an adductovarus fourth toe which overlaps the third digit. Tenderness diffusely across the ball the foot and at the metatarsophalangeal joint level. I reviewed the prior radiographs: Evidence of Lapidus bunionectomy with retained hardware. No hardware failure. Residual hallux valgus deformity with increased hallux abductus angle and intermetatarsal 1?2 angle. Second metatarsal phalangeal joint hemiimplant arthroplasty. Severe hypertrophic bony overgrowth. No complete failure or subluxation of the implant. Joint space narrowing. Assessment: (M20.12) Hallux abducto valgus, left (primary encounter diagnosis) (M79.672) Pain in left foot (M19.172) Post-traumatic osteoarthritis of left foot (Z96.9) Presence of retained hardware (Z96.60) Status post joint replacement (M77.42) Metatarsalgia of left foot (M20.62) Acquired toe deformity, left Plan: Plan for surgery: Procedure - We did discuss revisional surgery. I believe that a first metatarsal phalangeal joint (more content not included)...[facility]11-15-2021 NoteHNO ID: [id number] Author: Emely Valdovinos DPM Service: ? Author Type: Physician Type: Progress Notes Filed: 07/29/2021 11:02 AM Note Text: Name: Laura Walker Date of Service: July 27, 2021 CC: This 45 year old female patient presents to the clinic with concerns for left foot pain and right heel pain. HPI: She states that she had surgery with Dr. Tan in 2019 and has had pain and discomfort in her foot since. All operative reports reviewed and he did a Lapidus arthrodesis, a 2nd MTPJ implant arthroplasty, and repair of plantar plate and deformity contraction with 3rd toe capsulotomy and tenotomy with ligament reconstruction. Patient states she has trouble wearing shoes and always has pain on the bottom of her left foot at the metatarsal heads. She cannot walk barefoot. She is here for a 2nd opinion per Dr. Tan for surgical options. She also has has heel pain to her right heel that has been present for about one year and is most painful with first step in the morning and when walking/standing. No previous treatment for this. Temp 36.8 ?C (98.2 ?F) LMP 07/26/2015 (Approximate) Tobacco Use: Types: Chew PAST MEDICAL HISTORY Diagnosis Date - Diverticulitis of colon - Miscarriage - Normal vaginal delivery x 2 Current Outpatient Medications Medication Sig - Lactobacillus acidophilus (PROBIOTIC ORAL) Take by mouth. - TURMERIC ORAL Take by mouth. - MULTIVIT WITH CALCIUM,IRON,MIN (MULTIPLE VITAMIN, WOMENS ORAL) Take 1 capsule by mouth once daily. - cyanocobalamin, vitamin B-12, (VITAMIN B-12) 1,000 mcg/mL drop Take 1,000 mcg by mouth once daily. No current facility-administered medications for this visit. ALLERGIES Allergen Reactions - Ancef [Cefazolin] Other: See Comments Jaundice and drug induced liver injury - Oxycontin [Oxycodon* Rash PAST SURGICAL HISTORY Procedure Laterality Date - CHOLECYSTECTOMY - PAST SURGICAL HISTORY OF D AND C after miscarriage - PAST SURGICAL HISTORY OF left foot bunionectomy - REMOVAL OF TONSILS,<12 Y/O FAMILY HISTORY Problem Relation Age of Onset - Heart Father [place] early 50s - Hypertension Father - Cataract Father - Heart Paternal Grandfather fatal [place] in early 50s - Cancer Maternal Grandfather mouth - Stroke Maternal Aunt - Stroke Maternal Aunt - Stroke Maternal Uncle - Stroke Maternal Uncle - Stroke Maternal Uncle Social History Tobacco Use - Smoking status: Never Smoker - Smokeless tobacco: Former User Types: Chew Substance Use Topics - Alcohol use: Yes Comment: Occasional - Drug use: Not on file Objective: Patient presents to clinic ambulating in [facility]. VASCULAR: DP/PT pulses are palpable bilateral. CFT is <3 seconds to all digits bilateral. Skin temperature is warm to warm proximal to distal bilateral. Hair growth is present. No varicosities noted. No edema noted. DERMATOLOGICAL: Skin texture and turgor is noted to be normal bilateral. Nails are of normal length, thickness, and color. Webspaces bilateral are clean dry and intact. No hyperkeratotic lesions noted. No open lesions noted. NEUROLOGICAL: Protective, vibratory, and light touch sensation is intact bilateral as tested with a 5.07 SWMF. MUSCULOSKELETAL: MS 5/5, ROM decreased to the left 1st and 2nd MTPJ, pain with palpation to the 2nd metatarsal head, palpable bone spurring to the 2nd metatarsal head, right heel pain Radiographs:3 WB views of the left foot show intact hardware to the 1st Metatarsocuneiform joint with appropriate placement, 2nd MTPJ implant intact with possible proximal phalanx, 3 WB views of right foot are negative for fracture or stress reaction Assessment: (M20.12) Hallux abducto valgus, left (primary encounter diagnosis) (M19.172) Post-traumatic osteoarthritis of left foot (M72.2) Plantar fasciitis, right (M79.671) Pain in right foot (M79.672) Pain in left foot (Z96.9) Presence of retained hardware Plan: Patient seen and evaluated today. We very thoroughly discussed the diagnosis and treatment plan. Dr. Collette Valdovinos reviewed all records and images and discussed surgical options with the patient including a 1st MTPJ fusion, replacement of 2nd MTPJ with silicone implant. He will discuss with Dr. Tan and she will return to him for care. For the right heel, I injected the medial plantar fascia with a corticosteroid injection and patient is instructed to stretch daily. Patient has verbally consented to a corticosteroid injection to the right medial plantar fascia. Allergies have been confirmed. After sterily prepping the skin, I injected 1cc of 2% lidocaine plain and 1cc of dexamethasone into the affected area. Patient tolerated this well and was warned of a post-injection flare. They were advised to ice the area if this occurs and take Tylenol or Ibuprofen as needed for the pain. This should only last about 24 hours and then the pain shou (more content not included)...[facility] Diagnosis Hallux abducto valgus, left- Primary Post-traumatic osteoarthritis of left foot Status post joint replacement Unspecified joint replacement by other means Metatarsalgia of left foot Enthesopathy of ankle and tarsus, unspecified Acquired toe deformity, left Pain in left foot Pain in limb Presence of retained hardware Post-operative state Other postprocedural status [facility] Hallux abducto valgus, left- Primary Post-traumatic osteoarthritis of left foot Status post joint replacement Unspecified joint replacement by other means Metatarsalgia of left foot Enthesopathy of ankle and tarsus, unspecified Acquired toe deformity, left Pain in left foot Pain in limb Presence of retained hardware Post-operative state Other postprocedural status documented in this encounter [facility] noteNo assessment information availableWRegional [facility] Work Phone: Evaluation note* Diagnosis Hallux abducto valgus, left- Primary Post-traumatic osteoarthritis of left foot Status post joint replacement Unspecified joint replacement by other means Metatarsalgia of left foot Enthesopathy of ankle and tarsus, unspecified Acquired toe deformity, left Pain in left foot Pain in limb Presence of retained hardware Post-operative state Other postprocedural status documented in this encounter [facility] Diagnosis Onset Date Resolution Status Obesity (BMI 30-39.9) acute Obesity (BMI 30-39.9) acute Weight gain acute Anxiety chronic Hypertension chronic [facility] Work Phone: Summary Purpose Family History No Family History Records Found Relationship Condition Age at Onset Recorded Date/T radha Unknown Family History?No pertinent history Unkno wn January 16, 2020 8:29am Relationship Condition Age at Onset Recorded Date/T radha Unknown Family History?No pe rtinent history Unknown January 16, 2020 8:29am Family History?No pe rtinent history Unknown July 05, 2022 1:27pm Relationship Condition Age at Onset Recorded Date/T radha Unknown Family History?No pe rtinent history Unknown January 16, 2020 8:29am Family History?No pe rtinent history Unknown August 07, 2024 3:27pm Advance Directives No Advanced Directives Records FoundDocuments on File Type Date Recorded 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 Expl anation Advance Directive(s) 02/25/2020 10:41 AM Advance Directive(s) 02/01/2020 11:57 AM Advance Directive Response Recorded Date/ Time Living Will No January 15, 2022 1: 12pm Power of Home Attendant No January 15, 2022 1:12pm Advance Directive Response Recorded Date/ Time Living Will No July 05 1:27pm Power of Home Attendant No July 05, 2022 1:27pm Procedure Findings Note HNO ID: [id number] Author: Leny Handley Service: Interventional Radiology Author Type: Physician Type: Brief Op Note Filed: 02/25/2020 1:29 PM Note Text: BRIEF OPERATIVE / PROCEDURE NOTE LOG ID: [id number] Surgery/Procedure Date: 02/25/2020 Incision/Procedure Start Time: Incision Close/Procedure End Time: Surgeon(s)/Proceduralist(s) and Computer Network Specialist(s): Surgeon(s) and Role: * Antonio Handley - Primary No Additional Staff Procedure(s): Other (specify) - CT guided liver biopsy Anesthesia: Procedural Sedation Findings: Utilizing CT guidance a 17 g guide needle was placed adjacent to the lesion of interest. 4 passes with a 18 g core biopsy needle was performed. The specimens were submitted for histologic analysis. The patient tolerated the procedure well. No immediate complications were noted. The full report is located under Imaging in the Radiology report for the procedure. Estimated Blood Loss: 0 ml Specimens: 4 18 g cores from the right lobe of the liver Complications: None Pre-Op/Pre-Proced (more content not included)... Chief Complaint and Reason for Visit Chief Complaint CHEST PAIN Chief Complaint CHEST PAIN SCREENING Chief Complaint WT/BP/HR check weight check completed adipex Weight Management Reason for Visit Obesity (BMI 30-39.9 ) Obesity (BMI 30-39.9) Weight gain Anxiety Hypertension Chief Complaint WT/BP/HR check weight check completed [employer]ipe[facility] Weight Management ELEVATED BILIRUBIN Reason for Visit Obesity (BMI 30-39.9 ) Obesity (BMI 30-39.9) Weight gain Anxiety Hypertension Chief Complaint Admit Date IUD & Polyp removal January 18, 2025 8:40am E-ORDER January 21, 2025 8:18a m Reason for Visit Admit Date Obesity (BMI 30-39.9) January 18, 2025 8:40 am Vaginal dryness January 18, 2025 8:40am Well woman exam with routine gynecologic al exam January 18, 2025 8:40am Additional Source Comments INFORMATION SOURCE (unrecogn ized section and content) DATE CREATED AUTHOR 03/28/2020 [facility] DATE CREATED AUTHOR AUTHOR'S ORGANIZ ATION 04/06/2020 [facility] DATE CREATED AUTHOR AUTHOR'S ORGANIZ ATION 12/01/2021 [facility] DATE CREATED AUTHOR AUTHOR'S ORGANIZ ATION 01/28/2022 [facility] DATE CREATED AUTHOR AUTHOR'S ORGANIZ ATION 04/19/2025 [facility] Source Comments (unrecognize d section and content) In the event this informatio n is protected by the Federal Confidentiality of Alcohol and Drug Abuse Patient Records regulations: The Federal rules restrict any use of the information to criminally investigate or prosecute any alcohol or drug abuse patient.[facility] the event this information is protected by the Federal Confidentiality of Alcohol and Drug Abuse Patient Records regulations: The Federal rules restrict any use of the information to criminally investigate or prosecute any alcohol or drug abuse patient.[facility] the event this information is protected by the Federal Confidentiality of Alcohol and Drug Abuse Patient Records regulations: The Federal rules restrict any use of the information to criminally investigate or prosecute any alcohol or drug abuse patient.[facility] Reason for Visit (unrecogniz ed section and content) Reason Comments Post-Op Visit #2 #rd and 4th pinni ng pcp Tonya 11-14-21 Reason Comments Post Op Reason Comments Follow Up Hallux abducto valgu s, left, doing well, healing up pcp Kayode 11-16-21 Care Teams (unrecognized sec tion and content) [employer] Relationship Specialty Start Date End Date Shanique Castaneda [address] [facility] [address] [place] [address] PCP - General Family Practice 02/01/20 [employer] Relationship Specialty Start Date End Date Shanique Castaneda [address] [place] [address] PCP - General Family Practice 02/01/20 Team Status: Active Member Role Status Dates Dr. Shanique Castaneda MD Family Provider Active Dr. Shanique Castaneda MD Primary Care Provider Active Team Status: Inactive Member Role Status Dates Dr. Shanique Castaneda MD Primary Care Provider, Referrin g Provider Active Dr. Bobbi Brewster MD Attending Provider Active Team Status: Inactive Member Role Status Dates Dr. Shanique Castaneda MD Primary Care Provider, Referrin g Provider Active Dr. Carolina Cedillo DO Attending Provider Activ e Team Status: Inactive Member Role Status Dates Dr. Shanique Castaneda MD Primary Care Provider Active Dr. Bobbi Brewster MD Attending Provider, Referr ing Provider Active Team Status: Active Member Role Status Dates Dr. Shanique Castaneda MD Primary Care Provider Active Team Status: Inactive Member Role Status Dates Dr. Shanique Castaneda MD Primary Care Provider Active Start: January 18, 2025 End: January 18, 2025 Dr. Shanique Castaneda MD Referring Provider Active Start: January 18, 2025 End: January 18, 2025 Dr. Carolina Cedillo DO Attending Provider Activ e Start: January 18, 2025 End: January 18, 2025 Team Status: Inactive Member Role Status Dates Dr. Shanique Castaneda MD Primary Care Provider Active Start: January 21, 2025 End: January 21, 2025 Dr. Carolina Cedillo DO Attending Provider Activ e Start: January 21, 2025 End: January 21, 2025 Dr. Carolina Cedillo DO Referring Provider Activ e Start: January 21, 2025 End: January 21, 2025 Goals (unrecognized section and content) Goals may be documented in a n alternate sectionGoals may be documented in an alternate sectionGoals may be documented in an alternate sectionGoals may be documented in an alternate sectionGoals may be documented in an alternate section FOR RECORDS PERTAINING TO PATIENTS WHO ARE OR HAVE BEEN ENROLLED IN A CHEMICAL DEPENDENCY/SUBSTANCEABUSE PROGRAM, SOME INFORMATION MAY BE OMITTED. This clinical summary was aggregated from multiple sources. Caution should be exercised in using it in the provision of clinical care. This summary normalizes information from multiple sources, and as a consequence, information in this document may materially change the coding, format and clinical context of patient data. In addition, data may be omitted in some cases. CLINICAL DECISIONS SHOULD BE BASED ON THE PRIMARY CLINICAL RECORDS. [facility] [employer] [facility]. provides no warranty or guarantee of the accuracy or completeness of information in this document.
--- OUTSIDE RECORDS SUMMARY | 2025-04-22 09:37 | XMS RPT_ITS | CCD ---
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 Shanique Castaneda Primary Care Provider Dr. Shanique Castaneda Referring Provider [phone] Dr. Bobbi Brewster Attending Provider Dr. Carolina Cedillo Attending Provider Dr. Shanique Csataneda MD Primary Care Provider Dr. Shanique Castaneda [...] ceFAZolin Drug Allergy 0 Other: See Comments [facility] Work Phone: (3 sources) oxyCODONE Drug Allergy 0 Rash [facility] Work Phone: (7 sources) Amoxicillin Drug Allergy 1 Itching [facility] (1 source) Amoxicillin Drug Allergy 5 [facility] Repository Medications Current Medications Medication Drug Class(es) [...] TABLET PO DAILY July 20, 2022 1:00am [place]-3 Fatty Acids (2 sources) Start: 07-20-2022 take 1000 mg by mouth once daily [place]-3 Fatty Acids Active 1000 MG PO DAILY [...] every 8 hours as needed for pain. Uvgbsbh-Tdygoxqi-R8- B2-Fa-Iron 0.45-9-67 nqjf-qe-unzv capsule (1 source) Start : End: 02-06 Mwihpvg-Msqubhoj-O2-B2-Fa-Ir on 0.45-9-67 gxdy-cr-vqkn capsule Discontinued NMA PO November 10, 2023 [...] 2022 1:00am administer with a meal levonorgestrel 0.587728 mg/hr intrauterine system (7 sources) Progestin, Progestin-containing [...] 20, 2022 1:00am November 10, 2023 3:49pm [place]-3 Fatty Acids 1,000 mg capsule (1 source) Start: 07-20-2022 End: 11-10-2023 take 1 capsule by mouth once daily [place]-3 Fatty Acids 1,000 mg capsule Discontinued 1000 [...] plant paradox plan previously--cut out foods from [employer]. Meal plan. Focus on protein to help with satiety. 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 Medication plan: Adipex in past; tolerated [...] 01-21-2025 Anion gap [Moles/Vol] 11 mmol/L 01-24 [facility] BUN/creatinine ratioOrdered By: Carolina Dickens on 01-21-2025 Urea nitrogen/Creatinine [Mass ratio] 14.6 mg/mg 07-01 [facility] Bilirubin, totalOrdered By: Carolina Dickens on 01-21-2025 Bilirubin [Mass/Vol] 0.62 mg/dL 0.00-1.30 [facility] Calculated very low density lipoprotein (VLDL) cholesterol measurementOrdered By: Carolina Dickens on 01-21-2025 Calculated very low density lipoprotein (VLDL) cholesterol measurement 21 mg/dL 5-40 [facility] Carbon dioxide, total [Moles /volume] in Central venous bloodOrdered By: Carolina Dickens on 01-21-2025 CO2 [Moles/Vol] 23.2 mmol/L 21.0-32.0 [facility] Chloride assayOrdered By: Chano Dickens on 01-21-2025 Chloride [Moles/Vol] 103 mmol/L 98-108 [facility] Comprehensive Metabolic Prof ilon 01-21-2025 Albumin [Mass/Vol] 4.1 g/dL Normal 3.5-5.0 [facility] Comment on above: Performed By: #### L 500.4050, L500.4100, L3300.1750, L501.9520, L3100.5055, L506.1001, L501.9985, L506.0400 #### [facility] Laboratory [address], [address] Albumin/Globulin [Mass ratio] 1.6 {ratio} Normal 0.9-2.4 [facility] Comment on above: Performed By: #### L 500.4050, L500.4100, L3300.1750, L501.9520, L3100.5055, L506.1001, L501.9985, L506.0400 #### [facility] [address] [place], [address] ALK PHOS 73 U/L Normal 35-104 [facility] Comment on above: Performed By: #### L 500.4050, L500.4100, L3300.1750, L501.9520, L3100.5055, L506.1001, L501.9985, L506.0400 #### [facility] [address], [address] ALT [Catalytic activity/Vol] 14 U/L Normal <=34 [facility] Comment on above: Performed By: #### L 500.4050, L500.4100, L3300.1750, L501.9520, L3100.5055, L506.1001, L501.9985, L506.0400 #### [facility] [address], [address] AST [Catalytic activity/Vol] 17 U/L Normal <=31 [facility] Comment on above: Result Comment: Hemo lysis present, Results??could be affected. ?? Performed By: #### L 500.4050, L500.4100, L3300.1750, L501.9520, L3100.5055, L506.1001, L501.9985, L506.0400 #### [facility] [address] [place], [place], [id number] (831) Bilirubin [Mass/Vol] 0.62 mg/dL Normal 0.00-1.30 [facility] Comment on above: Performed By: #### L 500.4050, L500.4100, L3300.1750, L501.9520, L3100.5055, L506.1001, L501.9985, L506.0400 #### [facility] [address] [place], [address] BUN/CRE 14.6 RATIO Normal 10-20 [facility] Comment on above: Performed By: #### L 500.4050, L500.4100, L3300.1750, L501.9520, L3100.5055, L506.1001, L501.9985, L506.0400 #### [facility] [address], [address] Calcium [Mass/Vol] 9.1 mg/dL Normal 7.6-11.0 [facility] Comment on above: Performed By: #### L 500.4050, L500.4100, L3300.1750, L501.9520, L3100.5055, L506.1001, L501.9985, L506.0400 #### [facility] [address] [place], [address] Chloride [Moles/Vol] 103 mmol/L Normal 98-108 [facility] Comment on above: Performed By: #### L 500.4050, L500.4100, L3300.1750, L501.9520, L3100.5055, L506.1001, L501.9985, L506.0400 #### [facility] [address] [place], [address] CO2 [Moles/Vol] 23.2 mmol/L Normal 21.0-32.0 [facility] Comment on above: Performed By: #### L 500.4050, L500.4100, L3300.1750, L501.9520, L3100.5055, L506.1001, L501.9985, L506.0400 #### [facility] [address], [address] Creatinine [Mass/Vol] 0.76 mg/dL Normal 0.70-1.20 [facility] Comment on above: Performed By: #### L 500.4050, L500.4100, L3300.1750, L501.9520, L3100.5055, L506.1001, L501.9985, L506.0400 #### [facility] [address] [place], [address] GAP 11 Normal 5-15 [facility] Comment on above: Performed By: #### L 500.4050, L500.4100, L3300.1750, L501.9520, L3100.5055, L506.1001, L501.9985, L506.0400 #### [facility] [address] [place], [address] GFR/1.73 sq M.predicted among non-blacks MDRD (S/P/Bld) [Vol rate/Area] 96 mL/min/{1.73_m2} Normal >60 [facility] Comment on above: Result Comment: mL/m in/1.73m2 CKD-EPI Creatinine Equation (2020) Performed By: #### L 500.4050, L500.4100, L3300.1750, L501.9520, L3100.5055, L506.1001, L501.9985, L506.0400 #### [facility] [address], [address] Globulin (S) [Mass/Vol] 2.6 g/dL Normal 2.2-4.2 [facility] Comment on above: Performed By: #### L 500.4050, L500.4100, L3300.1750, L501.9520, L3100.5055, L506.1001, L501.9985, L506.0400 #### [facility] [address] [place], [address] Glucose [Mass/Vol] 112 mg/dL High 70-99 [facility] Comment on above: Performed By: #### L 500.4050, L500.4100, L3300.1750, L501.9520, L3100.5055, L506.1001, L501.9985, L506.0400 #### [facility] [address], [address] Potassium [Moles/Vol] 4.1 mmol/L Normal 3.3-5.1 [facility] Comment on above: Result Comment: Hemo lysis present, Results??could be affected. ?? Performed By: #### L 500.4050, L500.4100, L3300.1750, L501.9520, L3100.5055, L506.1001, L501.9985, L506.0400 #### [facility] [address], [address] Sodium [Moles/Vol] 137 mmol/L Normal 133-145 [facility] Comment on above: Performed By: #### L 500.4050, L500.4100, L3300.1750, L501.9520, L3100.5055, L506.1001, L501.9985, L506.0400 #### [facility] [address], [address] T PROT 6.8 g/dL Normal 5.9-8.4 [facility] Comment on above: Performed By: #### L 500.4050, L500.4100, L3300.1750, L501.9520, L3100.5055, L506.1001, L501.9985, L506.0400 #### [facility] [address] [place], [place], [address] Urea nitrogen [Mass/Vol] 11 mg/dL Normal 4-19 [facility] Comment on above: Performed By: #### L 500.4050, L500.4100, L3300.1750, L501.9520, L3100.5055, L506.1001, L501.9985, L506.0400 #### [facility] [address] [place], [address] Estradiolon 01-21-2025 ESTRADIOL 71.6 pg/mL Normal [facility] Comment on above: Result Comment: FEMA LES [...] L500.4100, L3300.1750, L501.9520, L3100.5055, L506.1001, L501.9985, L506.0400 ####[facility] [address] [place], [place], [id number] FSH and LHon 01-21-2025 FSH 6.7 mIU/mL Normal [facility] Comment on above: Result Comment: FEMA LE: [...] L3300.1750, L501.9520, L3100.5055, L506.1001, L501.9985, L506.0400 #### [facility] [address] [place], [place], [id number] LH 11.8 mIU/mL Normal [facility] Comment on above: Result Comment: FEMA LE: Follicular: 1.9-12.5 mIU/mL Midcycle: 8.7-76.3 mIU/mL Luteal: 0.5-16.9 mIU/mL Post Menopause: 15.9-54.0 mIU/mL MALE: 20-70 Years: 1.5-9.3 mIU/mL >70 Years: 3.1-34.6 mIU/mL Performed By: #### L 500.4050, L500.4100, L3300.1750, L501.9520, L3100.5055, L506.1001, L501.9985, L506.0400 #### [facility] [address] [place], [place], [id number] Glomerular filtration rate ( GFR) estimation/1.73 sq m using serum, plasma, or whole bOrdered By: Carolina Dickens on 01-21-2025 GFR/1.73 sq M.predicted among non-blacks MDRD (S/P/Bld) [Vol rate/Area] 96 mL/min/{1.73_m2} >60 [facility] Comment on above: mL/min/1.73m2 CKD-EP I Creatinine Equation (2020) Hemoglobin A1con 01-21-2025 HbA1c (Bld) [Mass fraction] 5.9 % High <=5.6 [facility] Comment on above: Result Comment: Norm al < 5.7 % Prediabetic 5.7 - 6.4 % Diabetic >or= 6.5 % Please note range changes. Performed By: #### L 500.4050, L500.4100, L3300.1750, L501.9520, L3100.5055, L506.1001, L501.9985, L506.0400 #### [facility] [address] [place], [place], [id number] Hemoglobin A1c percentageOrd ered By: Carolina Dickens on 01-21-2025 HbA1c (Bld) [Mass fraction] 5.9 % High <5.7 [facility] Comment on above: Normal < 5.7 % Predi abetic 5.7 - 6.4 % Diabetic >or= 6.5 % Please note range changes. LDL calc ser/plasOrdered By: Carolina Dickens on 01-21-2025 Cholesterol in LDL [Mass/Vol] 83 mg/dL [facility] Comment on above: Sydmpzpmaz=843-660 m g/dL & Higher Ebhv=194 mg/dL or greater Laboratory - Chemistry and C hemistry - challengeOrdered By: Carolina Dickens on 01-21-2025 AST [Catalytic activity/Vol] 17 U/L <32 [facility] Comment on above: Hemolysis present, R esults could be affected. Lipid Profileon 01-21-2025 CHOL:HDL 3.30 Normal [facility] Comment on above: Performed By: #### L 500.4050, L500.4100, L3300.1750, L501.9520, L3100.5055, L506.1001, L501.9985, L506.0400 #### [facility] Laboratory [address], [address] Cholesterol [Mass/Vol] 149 mg/dL Normal <=200 [facility] Comment on above: Result Comment: Chol esterol level, Desirable <200 mg/dL Borderline high cholesterol 200-239 mg/dL High cholesterol >=240 mg/dL Recommendations of the NCEP Adult Treatment Panel for the following risk-cutoff thresholds for the [place] population. Performed By: #### L 500.4050, L500.4100, L3300.1750, L501.9520, L3100.5055, L506.1001, L501.9985, L506.0400 #### [facility] [address], [address] Cholesterol in HDL [Mass/Vol] 45 mg/dL Normal [facility] Comment on above: Result Comment: Amarilis onal Cholesterol Education Program (NCEP) guidelines: <40 mg/dL: Low HDL-cholesterol (major risk factor for CHD) >= 60 mg/dL: High HDL-cholesterol (negative risk factor for CHD) HDL-cholesterol is affected by a number of factors, e.g. smoking, exercise, hormones, sex and age. Performed By: #### L 500.4050, L500.4100, L3300.1750, L501.9520, L3100.5055, L506.1001, L501.9985, L506.0400 #### [facility] [address] [place], [address] Cholesterol in LDL [Mass/Vol] 83 mg/dL Normal [facility] Comment on above: Result Comment: Bord lzuvol=072-042 mg/dL Higher Bphc=066 mg/dL or greater Performed By: #### L 500.4050, L500.4100, L3300.1750, L501.9520, L3100.5055, L506.1001, L501.9985, L506.0400 #### [facility] [address] [place], [place], [phone] (141) Cholesterol in VLDL [Mass/Vol] 21 mg/dL Normal 5-40 [facility] Comment on above: Performed By: #### L 500.4050, L500.4100, L3300.1750, L501.9520, L3100.5055, L506.1001, L501.9985, L506.0400 #### [facility] [address], [address] Triglyceride [Mass/Vol] 104 mg/dL Normal [facility] Comment on above: Result Comment: The drugs N-Acetylcysteine and Metamizole may falsely depress this assay. Normal range: <150 mg/dL Borderline High: 150-199 mg/dL High: 200-499 mg/dL Very High: >500 mg/dL Performed By: #### L 500.4050, L500.4100, L3300.1750, L501.9520, L3100.5055, L506.1001, L501.9985, L506.0400 #### [facility] Laboratory [address] [place], [place], [phone] (180) Potassium measurement (mass/ volume)Ordered By: Carolina Dickens on 01-21-2025 Potassium (Unsp spec) [Mass/Vol] 4.1 mmol/L 3.3-5.1 [facility] Comment on above: Hemolysis present, R esults could be affected. Screening total cholesterol/ high density lipoprotein (HDL) cholesterol ratioOrdered By: Carolina Dickens on 01-21-2025 Cholesterol.total/Chol esterol in HDL [Mass ratio] 3.30 {ratio} [facility] Serum creatinine measurement (mass/volume)Ordered By: Carolina Dickens on 01-21-2025 Creatinine [Mass/Vol] 0.76 mg/dL 0.70-1.20 [facility] Serum globulin measurementOr dered By: Carolina Dickens on 01-21-2025 Globulin (S) [Mass/Vol] 2.6 g/dL 2.2-4.2 [facility] Serum glucose measurement (m ass/volume)Ordered By: Carolina Dickens on 01-21-2025 Glucose [Mass/Vol] 112 mg/dL High 70-99 [facility] Serum or plasma alanine huertas otransferase (ALT) measurementOrdered By: Carolina Dickens on 01-21-2025 ALT [Catalytic activity/Vol] 14 U/L <35 [facility] Serum or plasma albumin rory urement (mass/volume)Ordered By: Carolina Dickens on 01-21-2025 Albumin [Mass/Vol] 4.1 g/dL 3.5-5.0 [facility] Serum or plasma albumin/glob ulin mass ratioOrdered By: Carolina Dickens on 01-21-2025 Albumin/Globulin [Mass ratio] 1.6 {ratio} 0.9-2.4 [facility] Serum or plasma alkaline young sphatase measurementOrdered By: Carolina Dickens on 01-21-2025 ALP [Catalytic activity/Vol] 73 U/L 35-104 [facility] Serum or plasma calcium rory urement (mass/volume)Ordered By: Carolina Dickens on 01-21-2025 Calcium [Mass/Vol] 9.1 mg/dL 7.6-11.0 [facility] Serum or plasma cholesterol in HDL measurement (mass/volume)Ordered By: Carolina Dickens on 01-21-2025 Cholesterol in HDL [Mass/Vol] 45 mg/dL >40 [facility] Comment on above: National Cholesterol Education Program (NCEP) guidelines:<40 mg/dL: Low HDL-cholesterol (major risk factor for CHD)>= 60 mg/dL: High HDL-cholesterol (negative risk factor for CHD)HDL-cholesterol is affected by a number of factors, e.g. smoking, exercise, hormones, sex and age. Serum or plasma cholesterol measurement (mass/volume)Ordered By: Carolina Dickens on 01-21-2025 Cholesterol [Mass/Vol] 149 mg/dL <201 [facility] Comment on above: Cholesterol level, D esirable <200 mg/dLBorderline high cholesterol 200-239 mg/dLHigh cholesterol >=240 mg/dLRecommendations of the NCEP Adult Treatment Panel for the following risk-cutoff thresholds for the [place] population. Serum or plasma estradiol me asurement after follitropin dose (mass/volume)Ordered By: Carolina Dickens on 01-21-2025 E2 post dose follitropin [Mass/Vol] 71.6 pg/mL [facility] Comment on above: FEMALES ADULT FEMALE : [...] 01-21-2025 Urea nitrogen [Mass/Vol] 11 mg/dL 4-19 [facility] Sodium levelOrdered By: Mady Dickens on 01-21-2025 Sodium [Moles/Vol] 137 mmol/L 133-145 [facility] T4 Free Directon 01-21-2025 T4 FREE DIRECT 0.90 ng/dL Normal 0.76-1.46 [facility] Comment on above: Performed By: #### L 500.4050, L500.4100, L3300.1750, L501.9520, L3100.5055, L506.1001, L501.9985, L506.0400 #### [facility] Laboratory [address] [place], [place], [id number] T4 freeOrdered By: Carolina Dickens on 01-21-2025 Free T4 [Mass/Vol] 0.90 ng/dL 0.76-1.46 [facility] TSH DL <= 0.005 mIU/L QnOrde red By: Carolina Dickens on 01-21-2025 TSH Qn 1.260 uIU/mL 0.300-4.200 [facility] Thyroid Stim Hormone (TSH)on 01-21-2025 TSH 1.260 uIU/mL Normal 0.300-4.200 [facility] Comment on above: Performed By: #### L 500.4050, L500.4100, L3300.1750, L501.9520, L3100.5055, L506.1001, L501.9985, L506.0400 #### [facility] [address], [address] Total proteinOrdered By: Latasha Dickens on 01-21-2025 Protein [Mass/Vol] 6.8 g/dL 5.9-8.4 [facility] Triglycerides measurementOrd ered By: Carolina Dickens on 01-21-2025 Triglyceride [Mass/Vol] 104 mg/dL <199 [facility] Comment on above: The drugs N-Acetylcy steine and Metamizole may falsely depress this assay. Normal range: <150 mg/dLBorderline High: 150-199 mg/dLHigh: 200-499 mg/dLVery High: >500 mg/dL Vitamin D,25 Hydroxyon 01-21 Vitamin D 25-OH 27.9 ng/mL Low 30-100 [facility] Comment on above: Result Comment: Janell min D Status Deficiency: <20 ng/mL (50nmol/L) Insufficiency: 20-30 ng/mL (50-75 nmol/L) Sufficiency: 30-100 ng/mL (75-250 nmol/L) Toxicity: >100 ng/mL (>250 nmol/L) Performed By: #### L 500.4050, L500.4100, L3300.1750, L501.9520, L3100.5055, L506.1001, L501.9985, L506.0400 #### [facility] [address], [address] Head Grower Office Visit Reporton 01-18-2025 Head Grower Office Visit Report [facility] [address], [address] [place] [address] OFFICE VISIT Date of Service: 01/18/25 MR#: [id number] Acct: [id number] Name: LAURA WALKER Rep #: [id number] : 1975 Provider: Dr. Carolina Gordon DO Age/Sex: 49/F [place] [facility] [place] Status: Signed with Addenda ADDENDUM by [...] acute distress, well developed and well groomed HENID Head: normal to inspection and normocephalic Ears: hearing grossly normal bilaterally and external ears normal Nose: external nose normal Face and sinus: normal facial exam Neck Neck: normal visual inspection, full ROM and no lymphadenopathy Thyroid: thyroid normal Chest Chest palpation inspection: normal inspection of the chest Breast inspection: normal inspection of th (more content not included)... Normal [facility] Head Grower Office Visit Reporton 08-29-2024 Head Grower Office Visit Report [facility] [address] [place] [address], [address] [place] [address] OFFICE VISIT Date of Service: 08/29/24 MR#: [id number] Acct: [id number] Name: LAURA WALKER Rep #: [id number] : 1975 Provider: CHARISSE Porras Age/Sex: 48/F [place] [facility] [place]: Signed Intake Vital Signs 08/07/24 13:07 [...] f/u Chief Complaint: 3 wk med check E Marketing Specialist Required: No Is patient in pain?: No [...] Almas HPI 3 wk f/u Details: LAURA WALKER is a 48 year old Female presenting for a weight management follow up. Unfortunately she has had a hard time keeping up with her diet and exercise. She has attempting to cut out eating fried foods at the [employer]. She reports she has not had the [...] on protein to help with satiety. 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 Medication plan: Adipex in past; tolerated wel (more content not included)... Normal [facility] Head Grower Office Visit Reporton 08-07-2024 Head Grower Office Visit Report [facility] [address], [address] [place] [address] OFFICE VISIT Date of Service: 08/07/24 MR#: [id number] Acct: [id number] Name: LAURA WALKER Osvaldo Rep #: [id number] : 1975 Provider: CHARISSE Porras Age/Sex: 48/F [place] [facility] [place] Signed Intake Vital Signs 02/07/24 14:45 08/07/24 13:07 Height 5 ft 8 in 5 ft 8 in Weight: 212 lb BMI 32.2 BP 117/77 Pulse 82 Intake Visit Reasons: med check Chief Complaint: med check E Marketing Specialist Required: No Is patient in pain?: No [...] JONATHAN Unknown 2008- Fausto Unknown 2009- [facility] med check Details: LAURA WALKER is [...] of steps in for the day. (approx 19755 steps/day). Female Reproductive History Last Menstrual Period: [...] on protein to help with satiety. 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 Medication plan: Adipex in past; tolerated well; wi (more content not included)... Normal [facility] Basophil percentageOrdered B y: Dr. Brewster on 12-29-2022 Bilirubin [Mass/Vol] 1.10 mg/dL 0.20-1.00 [facility] Comment on above: For patients on eltr ombopag therapy, use of Dimension [place] TBIL is not recommended. Chloride [Moles/Vol] 105 mmol/L 98-107 [facility] Cholesterol [Mass/Vol] 173 mg/dL <200 [facility] Comment on above: <200 mg/dL Desirable 200-240 mg/dL Borderline >240 mg/dL High Risk Glucose [Mass/Vol] 106 mg/dL 74-106 [facility] Comment on above: Fasting Glucose resu lt from 100 to 125 mg/dL suggests IMPAIRED HOMEOSTASIS per A.D.A. criteria. Potassium [Moles/Vol] 4.4 mmol/L 3.5-5.1 [facility] Protein [Mass/Vol] 7.4 g/dL 6.4-8.2 [facility] Sodium [Moles/Vol] 135 mmol/L 136-145 [facility] Triglyceride [Mass/Vol] 92 mg/dL <199 [facility] Comment on above: The drugs N-Acetylcy steine and Metamizole may falsely depress this assay.Serum Triglycerides Reference Interval Normal <150 mg/dL Borderline high 150 - 199 mg/dL High 200 - 499 mg/dL Very High > or = 500 mg/dL Laboratory - Chemistry and C hemistry - challengeOrdered By: Dr. Brewster on 12-29-2022 ALP [Catalytic activity/Vol] 66 U/L 45-117 [facility] ALT [Catalytic activity/Vol] 29 U/L 13-56 [facility] CO2 [Moles/Vol] 27.0 mmol/L 21.0-32.0 [facility] Globulin (S) [Mass/Vol] 3.5 g/dL 2.2-4.2 [facility] Urea nitrogen/Creatinine [Mass ratio] 9.7 mg/mg 10-20 [facility] No Panel InformationOrdered By: Dr. Brewster on 12-29-2022 Estimated GFR (MDRD) Amer 95 mL/min >60 [facility] Comment on above: GFR Calc Estimated GFR (MDRD) Non-Af Amer 78 mL/min >60 [facility] Comment on above: Non- GFR Calc Thyroid Stimulating Hormone (TSH) 1.27 uIU/mL 0.358-3.74 [facility] Vitamin D 25-Hydroxy 37.2 ng/mL [facility] Comment on above: Vitamin D 25(OH) Sta tus Range Deficiency <20 ng/mL (50nmol/L) Insufficiency 20 - 30 ng/mL (50 - 75 nmol/L) Sufficiency 30 - 100 ng/mL (75 - 250 nmol/L) Toxicity >100 ng/mL (>250 nmol/L) Serum or plasma albumin rory urement (mass/volume)Ordered By: Dr. Brewster on 12-29-2022 Albumin [Mass/Vol] 3.9 g/dL 3.2-5.0 [facility] Serum or plasma albumin/glob ulin mass ratioOrdered By: Dr. Brewster on 12-29-2022 Albumin/Globulin [Mass ratio] 1.1 {ratio} 0.9-2.4 [facility] Serum or plasma calcium rory urement (mass/volume)Ordered By: Dr. Brewster on 12-29-2022 Calcium [Mass/Vol] 9.1 mg/dL 8.5-10.1 [facility] Serum or plasma cholesterol in HDL measurement (mass/volume)Ordered By: Dr. Brewster on 12-29-2022 Cholesterol in HDL [Mass/Vol] 49 mg/dL >40 [facility] Comment on above: The drugs N-Acetylcy steine and Metamizole may falsely depress this assay. Reference Range HDL <40 mg/dL Low HDL Cholesterol HDL >or= 60 mg/dL High HDL Cholesterol Serum or plasma cholesterol in VLDL measurement (mass/volume)Ordered By: Dr. Brewster on 12-29-2022 Cholesterol in VLDL [Mass/Vol] 18 mg/dL 5-40 [facility] Serum or plasma creatinine m easurement (mass/volume)Ordered By: Dr. Brewster on 12-29-2022 Creatinine [Mass/Vol] 0.83 mg/dL 0.55-1.02 [facility] Comment on above: The validity of the calculated GFR & GFRAA in patients over 70 years has not been determined. Clinical correlation is essential. Serum or plasma low density lipoprotein (LDL) cholesterol measurement (mass/volume)Ordered By: Dr. Brewster on 12-29-2022 Cholesterol in LDL [Mass/Vol] 106 mg/dL 0-130 [facility] Serum or plasma urea nitroge n measurement (mass/volume)Ordered By: Dr. Brewster on 12-29-2022 Urea nitrogen [Mass/Vol] 8 mg/dL 7-18 [facility] Thin prep Papanicolaou smear with manual screeningOrdered By: Dr. Brewster on 12-29-2022 Thin prep Papanicolaou smear with manual screening 21 U/L 15-37 [facility] Thin prep Papanicolaou smear with manual screening 3 5-15 [facility] Whole blood hemoglobin A1c/t otal hemoglobin ratio (mass fraction)Ordered By: Dr. Brewster on 12-29-2022 HbA1c (Bld) [Mass fraction] 5.4 % 3.8-5.6 [facility] Comment on above: Normal < 5.7 % Predi abetic 5.7 - 6.4 % Diabetic >or= 6.5 % Please note range changes. Vania 11-24-2021 [facility] Telephone ([id number]) LAURA WALKER ([id number]) 1975 F T Date Time Provider Department 11/24/21 COLLETTE VALDOVINOS [id number] During your visit today, we recorded the following information about you: Kamar Contreras 11/24/2021 10:04 AM Signed Patient would like a refill for Endocet. When can she begin the blood thinners again? Collette Vadlovinos DPM 11/24/2021 12:40 PM Signed Addended by: [...] Fully Assessed Reason for Visit: Patient Question [6707] Primary Visit Diagnosis:Other acute postoperative pain [G89.18] [...] Encounter Status:Closed by KAMAR CONTRERAS on 11/24/21 [facility] Vania 11-19-2021 [facility] ([id number]) MIGUELITOLAURA COATES ([id number]) 1975 F T Date Time Provider Department 11/19/21 COLLETTE VALDOVINOS [id number] During your visit today, we recorded the following information about you: Kamar Ben 11/19/2021 10:06 AM Signed Patient in a lot of pain today and requesting a stronger prescription for pain. [facility] in [place]. Collette Valdovinos DPM 11/19/2021 10:22 AM Signed [...] Fully Assessed Reason for Visit: Patient Question [6315] Prescriptions as of 11/19/2021 - ciprofloxacin HCl [...] Status:Closed by KAMAR CONTRERAS on 11/19/21 Normal [facility] FOOT LT 2 VIEWon 11-18-2021 FOOT LT 2 VIEW *FINAL Date of Service: 11/18/2021 12:56 Adm #: [id number] Reading Dr:JORDY GIL Signoff Dr: JORDY GIL [...] first tarsometatarsal joint partially included in the [id number]. IMPRESSION: Intraoperative findings as detailed above. [id number] This report has been produced using speech recognition. Original Interpreting Physician: JORDY GIL M.D. Original Transcribed [facility] Nov 18 2021 12:58P Original Electronically Signed by/Date: JORDY GIL M.D. Nov 18 2021 12:58P Addendum Interpreting Physician: Addendum Transcribed by/Date: NO ADDENDUM Addendum Electronically Signed by/Date: [facility] CNPEstrella 03-12-2020 CNPN Telephone (AGGASTACC ) LAURA WALKER ([id number]) 1975 F Date Time Provider Department 03/12/20 [...] Status:Closed by SHARRI SEALS on 03/12/20 Normal [facility] PROGRESSon 03-11-2020 PROGRESS HNO ID: [id number] Author: Rogers Kaminski Service: ? Author Type: [...] NONE MUSCULOSKELETAL: NONE IMMUNOLOGIC: NONE PHYSICAL EXAMINATION: [facility] 07/26/2015 This is a telephone/Virtual [...] prompting lap tavo on January 15 at [place]. Had concern for CBD stone and had [...] did offer her possible second opinion at [facility], but she would like to [...] of this patient. Rogers Kaminski MD MPH [facility] Vania 02-28-2020 CNPN Telephone (AGGASTACC ) LAURA WALKER ([id number]) 1975 F Date Time Provider Department 02/28/20 [...] next week. 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 Sharri Seals 03/04/2020 2:22 PM Signed [...] Fully Assessed Reason for Visit: Patient Question [6490] Prescriptions as of 02/28/2020 Sig: ZYRTEC 10 [...] Status:Closed by SHARRI SEALS on 03/04/20 Normal [facility] CT BIOPSY LIVERon 02-25-2020 CT BIOPSY LIVER * * *Final Report* * * DATE OF EXAM: Feb 25 2020 1:26PM [facility] 2017 - CT BIOPSY LIVER / PROCEDURE [...] with administration of agent, ends when continuous [id number] time ends): 15 minutes Patient monitoring: I personally supervised and directed an independent trained observer who assisted in monitoring the patient?s level of consciousness and physiological status throughout the procedure. The specimens were submitted for histologic analysis. The patient was transferred to the radiology nursing station in stable condition. Impression: Technically successful CT-guided core biopsy of the right lobe of the liver. Belt Line Feeder: [id number] Transcribe Date/Time: Feb 25 2020 6:17P Dictated by : ANTONIO HANDLEY MD This examination was interpreted and the report reviewed and electronically signed by: ANTONIO HANDLEY MD on Feb 25 2020 6:22PM EST Normal [facility] HISTORY PHYSICALon 0 HISTORY PHYSICAL HNO ID: [id number] Author: Antonio Handley Service: Interventional Radiology Author [...] 25, 2020 TIME: 12:57 PM PAGER: Normal [facility] Surgical Tissue Examon 02-24 Surgical Tissue Exam Test performed at [place] [address] NAME: LAURA WALKER REQUESTING: ANTONIO HANDLEY M.D. [...] PRINTED: 02/29/2020 Page 1 of 1 Normal [facility] Comment on above: Performed By: #### S URG #### [place] [address] HOSPon 02-18-2020 HOSP Patient:Jeromy Walker MRN: Height:5' [...] NONE MUSCULOSKELETAL: NONE IMMUNOLOGIC: NONE PHYSICAL EXAMINATION: [facility] 07/26/2015 GENERAL APPEARANCE: Well appearing, [...] prompting lap tavo on January 15 at [place]. Had concern for CBD stone and had [...] RNA. ? DDx: DILI from abx during [place] admission (drug induced liver injury), AMA-negative PBC, or AIH Jaundice improving liver enzymes fluctuating. May start Neal depending on findings. F/U 1 month Thank you for involving me in the care of this patient. Rogers Kaminski MD MPH [facility] CNPEstrella 02-15-2020 CNPN Telephone (AGGASTACC ) LAURA WALKER ([id number]) 1975 F Date Time Provider Department 02/15/20 [...] Encounter Status:Closed by SHARRI SEALS on 02/15/20 [facility] PROGRESSon 02-15-2020 PROGRESS HNO ID: [id number] Author: Rogers Kaminski Service: ? Author Type: [...] prompting lap tavo on January 15 at [place]. Had concern for CBD stone and had [...] RNA. ? DDx: DILI from abx during [place] admission (drug induced liver injury), AMA-negative PBC, or AIH Jaundice improving liver enzymes fluctuating. May start Neal depending on findings. F/U 1 month Thank you for involving me in the care of this patient. Rogers Kaminski MD MPH [facility] CNPNon 02-06-2020 CNPN Telephone (AGGASTACC ) LAURA WALKER ([id number]) 1975 F Date Time Provider Department 02/06/20 [...] Status:Closed by KARLO DAWKINS MA on 02/06/20 [facility] ANES Cady 02-01-2020 ANES POST HNO ID: [id number] Author: Will Frederick Service: Anesthesiology Author Type: [...] 2020 TIME: 3:04 PM PAGER/CONTACT #: [phone] [facility] ANES PREOPon 02-01-2020 ANES PREOP HNO ID: [id number] Author: Will Frederick Service: Anesthesiology Author Type: [...] Relation Age of Onset - Heart Father [place] early 50s - Hypertension Father - Cataract Father - Heart Paternal Grandfather fatal [place] in early 50s - Cancer Maternal Grandfather [...] infusion 5-30 mL/hr INTRAVENOUS CONTINUOUS Shanell A (Finishing Department Supervisor) Bretti 30 mL/hr at 02/01/20 1300 30 [...] February 01, 2020 TIME: 1:16 PM CSN: [id number] Normal [facility] HISTORY PHYSICALon 0 HISTORY PHYSICAL HNO ID: [id number] Author: Shanell Riley (Finishing Department Supervisor) Segundo Service: Anesthesiology Author Type: Nurse Practitioner [...] s/p lap tavo done on 01-16-2020 at [place]. She had ERCP the same day-no stones [...] Relation Age of Onset - Heart Father [place] early 50s - Hypertension Father - Cataract Father - Heart Paternal Grandfather fatal [place] in early 50s - Cancer Maternal Grandfather [...] 2020 TIME: 8:58 AM PAGER/CONTACT #: Viv [facility] OPERATIVE NOon 02-01-2020 OPERATIVE NO HNO ID: [id number] Author: Rogers Kaminski Service: Gastroenterology Author Type: Physician Type: Operative Report Filed: 02/01/2020 3:01 PM Note Text: OPERATIVE/PROCEDURE REPORT LOG ID: [id number] Surgery/Procedure Date: 02/01/2020 Incision/Procedure Start Time: 2:33 PM Incision Close/Procedure End Time: 2:50 PM Surgeon(s)/Proceduralis t(s) and Treatment Counselor(s): Surgeon(s) and Role: * Rogers Kaminski - Primary No Additional Staff Procedure(s): Endoscopic Ultrasound (EUS) Esophagogastroduodenosc opy (EGD) and biopsy Anesthesia: Monitored Anesthesia Care Brief History: 44F with recent biliary colic prompting lap tavo on January 15 at [place]. Had concern for CBD stone and had [...] 01, 2020 TIME: 2:58 PM PAGER/CONTACT #: [phone] [facility] PT EDon 02-01-2020 PT ED HNO ID: [id number] Author: Radha (Rn) PATRICK Peter Service: ? [...] Signed By: Radha Peter RN In Department: [facility] Surgical Tissue Examon 01-31 Surgical Tissue Exam Test performed at [place] [address] NAME: LAURA WALKER REQUESTING: ROGERS KAMINSKI MD [...] 17:01 PRINTED: 02/06/2020 Page 1 of 1 [facility] Comment on above: Performed By: #### S URG #### [place] [address] Urine HCG, Qual.on 0 Beta HCG ( test) Ql (U) Negative Normal Negative [facility] Comment on above: Performed By: #### H CGUR #### [facility] [address], [place] [address] Specific [place], Ur 1.024 Normal 1.005-1.030 [facility] Comment on above: Performed By: #### H CGUR #### [facility] [address], [place] [address] CNPEstrella 01-30-2020 CNPN Telephone (AGGASTACC ) LAURA WALKER ([id number]) 1975 F Date Time Provider Department 01/30/20 ROGERS KAMINSKI AGGASTACC During your visit today, we recorded the following information about you: Sharri Seals 01/30/2020 3:19 PM Signed Surgery Checklist Type: EUS RADIAL NO TECH Admission Type: outpatient Anesthesia: MAC Date: 02/01/20 Arrival Time: 12:00PM Surgery Time: 01:30PM Location: [facility] CASE# [id number] Prep emailed. Sharri Seals Allergies As of [...] Status:Closed by SHARRI SEALS on 01/30/20 Normal [facility] HOSPon 01-30-2020 HOSP Patient:Jeromy Walker MRN: [...] 41.6 % 01/31/2020 46.0 36.0 Progress Notes ([facility]): Sharri Seals 01/30/2020 3:19 PM Signed Surgery Checklist Type: EUS RADIAL NO TECH Admission Type: outpatient Anesthesia: MAC Date: 02/01/20 Arrival Time: 12:00PM Surgery Time: 01:30PM Location: [facility] CASE# [id number] Prep emailed. Sharri Seals Progress Notes ([facility]): Rogers Kaminski MD MPH [facility] [...] pt was referred by Dr. Watson from [place]. Pt had recent RUQ pain and went [...] prompting lap tavo on January 15 at [place]. Had concern for CBD stone and had [...] this patient. Rogers Kaminski MD MPH [facility] PROGRESSon 01-30-2020 PROGRESS HNO ID: [id number] Author: Rogers Kaminski Service: ? Author Type: Physician Type: Progress Notes Filed: 01/30/2020 2:56 PM Note Text: GASTROENTEROLOGY CONSULT HPI: Laura Walker is a [...] pt was referred by Dr. Watson from [place]. Pt had recent RUQ pain and went [...] prompting lap tavo on January 15 at [place]. Had concern for CBD stone and had [...] this patient. Rogers Kaminski MD MPH [facility] Vania 01-28-2020 CNPN Telephone (AGGASTACC ) LAURA WALKER ([id number]) 1975 F Date Time Provider Department 01/28/20 [...] Status:Closed by SHARRI SEALS on 01/28/20 Normal [facility] Vital Signs Date Time Vital Sign Value Performing Clinician Facility 01-18-2025 09:16-0400 Body height 172.[address] Shanique Castaneda MD Work Phone: [facility] 01-18-2025 08:49-0400 Body mass index (BMI) [Ratio] 33.7 kg/m2 Dr. Shanique Castaneda MD Work Phone: [facility] 01-18-2025 08:49-0400 Body weight 100.[address] Shanique Castaneda MD Work Phone: [facility] 01-18-2025 08:49-0400 Diastolic blood pressure 79 mm[Hg] Dr. Shanique Castaneda MD Work Phone: [facility] 01-18-2025 08:49-0400 Systolic blood pressure 138 mm[Hg] Dr. Shanique Castaneda MD Work Phone: [facility] 12-28-2022 10:03-0400 Body height 172.[address] Shanique Castaneda Work Phone: [facility] 12-28-2022 10:03-0400 Body mass index (BMI) [Ratio] 32.5 kg/m2 Dr. Shanique Castaneda Work Phone: [facility] 12-28-2022 10:03-0400 Diastolic blood pressure 80 mm[Hg] Dr. Shanique Castaneda Work Phone: [facility] 04-18-2023 10:03-0400 Systolic blood pressure 117 mm[Hg] Dr. Shanique Castaneda Work Phone: [facility] 12-28-2022 10:01-0400 Body weight 97.[address] Shanique Castaneda Work Phone: [facility] 12-28-2022 10:01-0400 Heart rate 71 /min Dr. Shanique Castaneda Work Phone: [facility] 10-14-2022 10:58-0500 Body mass index (BMI) [Ratio] 32.4 kg/m2 Dr. Shanique Castaneda Work Phone: [facility] 10-14-2022 10:58-0500 Body weight 96.[address] Shanique Castaneda Work Phone: [facility] 10-14-2022 10:58-0500 Diastolic blood pressure 78 mm[Hg] Dr. Shanique Castaneda Work Phone: [facility] 10-14-2022 10:58-0500 Systolic blood pressure 116 mm[Hg] Dr. Shanique Castaneda Work Phone: [facility] 09-16-2022 10:58-0500 Body mass index (BMI) [Ratio] 33.1 kg/m2 Dr. Shanique Castaneda Work Phone: [facility] 09-16-2022 10:58-0500 Body weight 98.[address] Shanique Castaneda Work Phone: [facility] 09-16-2022 10:58-0500 Diastolic blood pressure 80 mm[Hg] Dr. Shanique Castaneda Work Phone: [facility] 09-16-2022 10:58-0500 Heart rate 78 /min Dr. Shanique Castaneda Work Phone: [facility] 09-16-2022 10:58-0500 Respiratory rate 16 /min Dr. Shanique Castaneda Work Phone: [facility] 09-16-2022 10:58-0500 Systolic blood pressure 132 mm[Hg] Dr. Shanique Castaneda Work Phone: [facility] 01-25-2022 11:25-0400 Body temperature 97.5 [degF] Collette Valdovinos DPM Work Phone: [facility] 01-15-2022 12:08-0400 Body height 172.72 cm [facility] Work Phone: 01-15-2022 12:08-0400 Body mass index (BMI) [Ratio] 35.4 kg/m2 [facility] Work Phone: 01-15-2022 12:08-0400 Body temperature 97.4 [degF] [facility] Work Phone: 01-15-2022 12:08-0400 Body weight 105.68 kg [facility] Work Phone: 01-15-2022 12:08-0400 Diastolic blood pressure 95 mm[Hg] [facility] Work Phone: 01-15-2022 12:08-0400 Heart rate 95 /min [facility] Work Phone: 01-15-2022 12:08-0400 Respiratory rate 18 /min [facility] Work Phone: 01-15-2022 12:08-0400 SaO2% (BldA) [Mass fraction] 100 % [facility] Work Phone: 01-15-2022 12:08-0400 Systolic blood pressure 153 mm[Hg] [facility] Work Phone: 12-28-2021 11:21-0400 Body temperature 97.2 [degF] Collette Valdovinos DPM Work Phone: [facility] 12-14-2021 11:28-0400 Body temperature 98.01 [degF] Collette Valdovinos DPM Work Phone: [facility] Encounters Encounter Date Encounter Type Care Provider Facility Start: 04-22-2025 ambulatory Shanique Castaneda Facility: [facility] Start: 04-02-2025 Encounter for gynecological examination (general) (routine) without abnormal findings Carolina Cedillo [facility] Start: 01-30-2025 ambulatory Shanique Castaneda Facility: [facility] Start: 01-21-2025 End: 01-21-[address] Shanique Castaneda MD Work Phone: [facility] Work Phone: Start: 01-21-2025 End: 01-21-[address] Carolina Cedillo DO -Laboratory Work Phone: Start: 01-21-2025 End: 01-21-2025 ambulatory Shanique Castaneda Facility:[facility] Start: 01-18-2025 End: 01-18-[address] Carolina Cedillo DO [facility] Work Phone: Start: 01-18-2025 End: 01-18-2025 ambulatory Shanique Castaneda Facility:[facility] Start: 08-29-2024 End: 08-29-2024 ambulatory Shanique Castaneda Facility:[facility] Start: 08-07-2024 End: 08-07-2024 ambulatory Shanique Castaneda Facility:[facility] Start: 01-07-2023 End: 01-07-[address] Shanique Castaneda Work Phone: [facility] Work Phone: Start: 01-07-2023 End: 01-07-[address] Shanique Castaneda Work Phone: [facility] Start: 12-29-2022 End: 12-29-[address] Shanique Castaneda Work Phone: [facility] Work Phone: Start: 12-29-2022 End: 12-29-[address] Shanique Castaneda Work Phone: [facility] Start: 12-28-2022 End: 12-28-[address] Shanique Castaneda Work Phone: [facility] Start: 10-14-2022 End: 10-14-[address] Shanique Castaneda Work Phone: [facility] Start: 09-16-2022 End: 09-16-[address] Shanique Castaneda Work Phone: [facility] Start: 05-10-2022 End: 05-10-2022 ambulatory [facility] Work Phone: Start: 05-10-2022 End: 05-10-2022 Patient encounter procedure [facility] Start: 01-25-2022 End: 01-25-2022 Patient [...] 01-15-2022 End: 01-15-2022 Emergency department patient visit [facility]-Emergency Department Start: 12-28-2021 End: 12-28-2021 Patient encounter [...] Author Start: 02-19-2025 LIPID SCREEN LIPID SCREEN [facility] Start: 01-30-2025 MG Breast - bilateral Screening [facility] Start: 01-18-2025 Patient referral [facility] Work Phone: Start: 01-30-2023 DIABETES SCREEN DIABETES SCREEN [facility] Start: 05-13-2022 Influenza vaccination INFLUENZA (Season Ended) [facility] Start: 01-15-2022 [facility] Work Phone: Start: 2019 COLOGUARD (FIT-DNA) COLOGUARD (FIT-DNA) [facility] Start: 2019 Colonoscopy COLONOSCOPY [facility] Start: 2019 COLORECTAL CANCER SCREENING COLORECTAL CANCER SCREENING [facility] Start: [address] COLONOGRAPHY [facility] Start: 2019 FECAL OCCULT BLOOD FECAL OCCULT BLOOD [facility] Start: 2019 SIGMOIDOSCOPY SIGMOIDOSCOPY [facility] Start: 2014 Mammography MAMMOGRAM [facility] Start: 03-02-2013 Adult depression screening assessment DEPRESSION SCREENING [facility] Start: 2004 HPV TESTING HPV TESTING [facility] Start: 1995 PAP TESTING PAP TESTING [facility] Start: 1993 Urine microalbumin profile DTAP,TDAP,TD (1 - Tdap) [facility] Start: 1992 HIV SCREENING HIV SCREENING [facility] Start: 1979 COVID-19 VACCINE (#1) COVID-19 VACCINE (#1) [facility] Start: 1979 COVID-19 VACCINE (1) COVID-19 VACCINE (1) [facility] Electrocardiographic procedure [facility] Patient referral [facility] Work Phone: [facility] Payers Date Payer Category Payer Unknown [id number] 2024 Self-pay [id number] 2024 Unknown [id number] 2018 Unknown MMO MMO [employer] [id number] 2018-Present [phone] [address] [place] [address] PPO [id number] Unknown [id number] Unknown [id number] Unknown [id number] Unknown [id number] Unknown [id number] Unknown [id number] Unknown [id number] Unknown [id number] Social History Date Type Detail Facility Start: 08-29-2024 Tobacco smoking stat us MEIS Never smoked tobacco [facility] Work Phone: History of tobacco use [facility]ws [facility] Start: 12-14-2021 End: 01-25-2022 Alcohol intake Current drinker of alcohol (finding) [facility] Start: 09-16-2010 History SDOH Alcohol Comment Occasional [facility] Start: 1975 Sex Assigned At Not on file [facility] Start: 12-04-2021 End: 01-25-2022 Exposure to SARS-CoV-2 (event) Not sure [facility] Start: 01-15-2022 End: 12-28-2022 Tobacco smoking status MEIS Unknown if ever smoked [facility] Start: 1975 Sex Assigned At Female [facility] Medical Equipment Procedure Code Equipment Code Equipment [...] Cognitive function Level Of Cons ciousness Awake;Alert [facility] Work Phone: Clinical Notes 07-27-2021 to 01-18-2025 Note Date & Type Note Facility 01-18-2025 Evaluation note Diagnosis Onset Date Resolution Obesity (BMI 30-39.9) acute January 18, 2025 8:40am Vaginal dryness acute January 18, 2025 8:40am Well woman exam with routine gynecological exam acute January 18, 2025 8: 40am [facility] Work Phone: [phone] NoteHNO ID: [id number] Author: Collette Valdovinos DPM Service: ? Author [...] Relation Age of Onset - Heart Father [place] early 50s - Hypertension Father - Cataract Father - Heart Paternal Grandfather fatal [place] in early 50s - Cancer Maternal Grandfather [...] state Z98.890 Maximino r (more content not included)...[facility]05-16-2022 History of Present illness Narrative* Collette Valdovinos [...] Problem Relation Age of Onset Heart Father [place] early 50s Hypertension Father Cataract Father Heart Paternal Grandfather fatal [place] in early 50s Cancer Maternal Grandfather mouth [...] and ankle surgeon for more local care. Students/Residents/[place] involved with this patients care and office visit were supervised and all treatment rendered was under the direct observation of myself. Speech recognition technology was utilized in the production of this note. Collette Valdovinos DPM documented in [facility] encounter[facility]22 NoteHNO ID: [id number] Author: Collette Valdovinos DPM Service: ? Author [...] Relation Age of Onset - Heart Father [place] early 50s - Hypertension Father - Cataract Father - Heart Paternal Grandfather fatal [place] in early 50s - Cancer Maternal Grandfather [...] M20.12 2. Post-traumatic osteoarthriti (more content not included)...[facility]04-18-2022 History of Present illness Narrative* Collette Valdovinos, [...] Problem Relation Age of Onset Heart Father [place] early 50s Hypertension Father Cataract Father Heart Paternal Grandfather fatal [place] in early 50s Cancer Maternal Grandfather mouth [...] radiographs. We discussed all of her questions. Students/Residents/[place] involved with this patients care and office visit were supervised and all treatment rendered was under the direct observation of myself. Speech recognition technology was utilized in the production of this note. Collette Valdovinos DPM documented in this encounterThe [facility]04-04-2022 NoteHNO ID: [id number] Author: Collette Valdovinos DPM Service: ? Author [...] Relation Age of Onset - Heart Father [place] early 50s - Hypertension Father - Cataract Father - Heart Paternal Grandfather fatal [place] in early 50s - Cancer Maternal Grandfather [...] 2 weeks we will (more content not included)...[facility]04-04-2022 History of Present illness Narrative* Collette Valdovinos, [...] Problem Relation Age of Onset Heart Father [place] early 50s Hypertension Father Cataract Father Heart Paternal Grandfather fatal [place] in early 50s Cancer Maternal Grandfather mouth [...] with us in 2 weeks for x-rays. Students/Residents/[place] involved with this patients care and office visit were supervised and all treatment rendered was under the direct observation of myself. Speech recognition technology was utilized in the production of this note. Collette Valdovinos DPM documented in this encounterThe [facility]03-17-2022 NoteHNO ID: [id number] Author: Patricia Yoon DPM Service: ? Author [...] Relation Age of Onset - Heart Father [place] early 50s - Hypertension Father - Cataract Father - Heart Paternal Grandfather fatal [place] in early 50s - Cancer Maternal Grandfather [...] with more than 50% of the total [id number] time of the visit in counseling / [...] well-padded posterior splint. S (more content not included)...[facility]12-13-2021 NoteHNO ID: [id number] Author: Collette Valdovinos DPM Service: ? Author [...] Relation Age of Onset - Heart Father [place] early 50s - Hypertension Father - Cataract Father - Heart Paternal Grandfather fatal [place] in early 50s - Cancer Maternal Grandfather [...] Objective: Patient presents to clinic ambulating in [facility]. VASCULAR: DP/PT pulses are palpable bilateral. [...] first metatarsal phalangeal joint (more content not included)...[facility]11-15-2021 NoteHNO ID: [id number] Author: Emely Valdovinos DPM Service: ? Author [...] Relation Age of Onset - Heart Father [place] early 50s - Hypertension Father - Cataract Father - Heart Paternal Grandfather fatal [place] in early 50s - Cancer Maternal Grandfather [...] Objective: Patient presents to clinic ambulating in [facility]. VASCULAR: DP/PT pulses are palpable bilateral. [...] then the pain shou (more content not included)...[facility] Hallux abducto valgus, left- Primary Post-traumatic osteoarthritis of left foot Status post joint replacement Unspecified joint replacement by other means Metatarsalgia of left foot Enthesopathy of ankle and tarsus, unspecified Acquired toe deformity, left Pain in left foot Pain in limb Presence of retained hardware Post-operative state Other postprocedural status [facility] Hallux abducto valgus, left- Primary Post-traumatic osteoarthritis of left foot Status post joint replacement Unspecified joint replacement by other means Metatarsalgia of left foot Enthesopathy of ankle and tarsus, unspecified Acquired toe deformity, left Pain in left foot Pain in limb Presence of retained hardware Post-operative state Other postprocedural status documented in this encounter [facility] noteNo assessment information availableWDelaware [facility] Work Phone: Evaluation note* Diagnosis Hallux abducto valgus, left- Primary Post-traumatic osteoarthritis of left foot Status post joint replacement Unspecified joint replacement by other means Metatarsalgia of left foot Enthesopathy of ankle and tarsus, unspecified Acquired toe deformity, left Pain in left foot Pain in limb Presence of retained hardware Post-operative state Other postprocedural status documented in this encounter [facility]* Diagnosis Onset Date Resolution Status Obesity (BMI 30-39.9) acute Obesity (BMI 30-39.9) acute Weight gain acute Anxiety chronic Hypertension chronic [facility] Work Phone: Summary Purpose Family History No [...] FoundDocuments on File Type Date Recorded 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 Advance Directive(s) 02/25/2020 10:41 AM Advance Directive(s) 02/01/2020 11:57 AM Advance Directive Response Recorded Date/ Time Living Will No January 15, 2022 1: 12pm Power of Apiarist No January 15, 2022 1:12pm Advance Directive Response Recorded Date/ Time Living Will No July 05 1:27pm Power of Apiarist No July 05, 2022 1:27pm Procedure Findings Note HNO ID: [id number] Author: Leny Handley Service: Interventional Radiology Author Type: Physician Type: Brief Op Note Filed: 02/25/2020 1:29 PM Note Text: BRIEF OPERATIVE / PROCEDURE NOTE LOG ID: [id number] Surgery/Procedure Date: 02/25/2020 Incision/Procedure Start Time: Incision Close/Procedure End Time: Surgeon(s)/Proceduralist(s) and Treatment Counselor(s): Surgeon(s) and Role: * Antonio Handley - [...] content) DATE CREATED AUTHOR 03/28/2020 [facility] DATE CREATED AUTHOR AUTHOR'S ORGANIZ ATION 04/06/2020 [facility] DATE CREATED AUTHOR AUTHOR'S ORGANIZ ATION 12/01/2021 [facility] DATE CREATED AUTHOR AUTHOR'S ORGANIZ ATION 01/28/2022 [facility] DATE CREATED AUTHOR AUTHOR'S ORGANIZ ATION 04/19/2025 [facility] Source Comments (unrecognize d section and content) In the event this informatio n is protected by the Federal Confidentiality of Alcohol and Drug Abuse Patient Records regulations: The Federal rules restrict any use of the information to criminally investigate or prosecute any alcohol or drug abuse patient.[facility] Center[facility] the event this information is protected by the Federal Confidentiality of Alcohol and Drug Abuse Patient Records regulations: The Federal rules restrict any use of the information to criminally investigate or prosecute any alcohol or drug abuse patient.[facility] Center[facility] the event this information is protected by the Federal Confidentiality of Alcohol and Drug Abuse Patient Records regulations: The Federal rules restrict any use of the information to criminally investigate or prosecute any alcohol or drug abuse patient.[facility] Reason for Visit (unrecogniz ed section and content) Reason Comments Post-Op Visit #2 #rd and 4th pinni ng pcp Tonya 11-14-21 Reason Comments Post Op Reason Comments Follow Up Hallux abducto valgu s, left, doing well, healing up pcp Kayode 11-16-21 Care Teams (unrecognized sec tion and content) Fish Trapper Relationship Specialty Start Date End Date Shanique Castaneda [address] [facility] [address] [place] [address] PCP - General Family Practice 02/01/20 Fish Trapper Relationship Specialty Start Date End Date Shanique Castaneda [address] [place] [address] [place] [address] PCP - General Family Practice 02/01/20 Team [...] 2025 End: January 21, 2025 Dr. Carolina Cdeillo DO Attending Provider Activ e Start: January [...] BE BASED ON THE PRIMARY CLINICAL RECORDS. [facility] [employer] [facility]. provides no warranty or guarantee of the accuracy or completeness of information in this document.
[2025-04-22 12:39] LABS: Hematocrit 38.9 % (37-47); Hemoglobin 12.5 g/dL (12.0-15.0); Immature Granulocytes Count 0.020 X10^3/uL (0.0-0.0); Mean Corp Hgb Conc 32.1 g/dL (32-36); Mean Corpuscular Volume 90.3 fL (81-99); Mean Platelet Vol. 10.3 fl (6.2-12.0); NRBC Flagged by Analyzer 0 % (0-5); Platelet Count 312 K/mm3 (150-450); RBC Distribution Width CV 12.8 % (11.6-14.6); RBC Distribution Width SD 42.4 fl (35.1-43.9); Red Blood Count 4.31 M/mm3 (4.2-5.4); White Blood Count 5.6 K/mm3 (4.4-11.0)
== END | disposition home or self-care (01) ==
PROVIDERS: PCP Family Medicine; Referring Provider Obstetrics & Gynecology; Visit Provider Obstetrics & Gynecology
DX: N80.03 Adenomyosis of the uterus (principal)
CPT/HCPCS: 36415; 85025

== ENCOUNTER 2025-07-03 18:11 | Emergency (ER) | payer OTHER, SELFPAY ==
[2025-07-03 18:12] VITALS: BP 132/81; PULSE 100; RESP 16; TEMP 36.8; O2SAT 99; BMI 28.8
[2025-07-03 20:33] VITALS: BP 109/70; PULSE 66; RESP 14; TEMP 36.6; O2SAT 100
== END 2025-07-03 20:33 | disposition home or self-care (01) ==
PROVIDERS: Emergency Provider Emergency Medicine; Visit Provider Emergency Medicine
DX: L03.319 Cellulitis of trunk, unspecified (principal); R21 Rash and other nonspecific skin eruption; Z90.49 Acquired absence of other specified parts of digestive tract
CPT/HCPCS: 87040; 99283; A4216